=== PATIENT | female | born 1940 | race Caucasian/White ===

== ENCOUNTER → 2018-09-04 14:16 | Outpatient (CLI) | payer MEDICARE, MEDICAID, SELFPAY ==
[2018-09-04 15:09] LABS: Cholesterol 220 mg/dL (140-199); HDL Cholesterol 79 mg/dL (40-60); LDL Cholesterol Calculated 120 mg/dL (<100); Triglycerides 105 mg/dL (35-150)
[2018-09-04 15:38] LABS: Hematocrit 36.6 % (36-46); Hemoglobin 12.4 g/dL (12.0-16.0); Mean Corpuscular HGB Conc 33.9 % (30-36); Mean Corpuscular Hemoglobin 31.1 PG (26-34); Mean Corpuscular Volume 91.6 fL (80-100); Platelet Count 238 X10^3/uL (150-400); Red Blood Cell Count 3.99 X10^6/uL (4.0-5.2); Red Cell Distribution Width 12.7 % (11.6-14.8); White Blood Cell Count 7.6 X10^3/uL (4.5-11.0)
[2018-09-04 15:53] LABS: Vitamin D 25 Hydroxy (D3) 46.5 ng/mL (30.0-100.0)
== END ==
PROVIDERS: PCP Student in an Organized Health Care Education/Training Program; Visit Provider Student in an Organized Health Care Education/Training Program
DX: E55.9 Vitamin D deficiency, unspecified (principal); Z78.0 Asymptomatic menopausal state; Z13.220 Encounter for screening for lipoid disorders
CPT/HCPCS: 36415; 80061; 82306; 85027

== ENCOUNTER → 2018-11-12 12:20 | Outpatient (CLI) | payer MEDICARE, MEDICAID, SELFPAY ==
--- NOTE | 2018-11-12 | DI.MG.S_ITS ---
BILATERAL DIGITAL SCREENING MAMMOGRAM 3D/2D WITH CAD: 11/12/2018 CLINICAL: Routine screening. Family history of breast cancer. Comparison is made to exams dated: 06/22/2016 mammogram, 05/26/2014 mammogram, and 03/30/2013 mammogram - [facility]. The tissue of both breasts is heterogeneously dense. This may lower the sensitivity of mammography. Current study was also evaluated with a Computer Aided Detection (CAD) system. No significant masses, calcifications, or other findings are seen in either breast. There has been no significant interval change. IMPRESSION: NEGATIVE There is no mammographic evidence of malignancy. A 1 year screening mammogram is recommended. This exam was interpreted at Station ID: [id number]. NOTE: For mammograms, a report in lay terms will be sent to the patient. Approximately 15% of breast malignancies will not be visualized mammographically. In the management of a palpable breast mass, a negative mammogram must not discourage biopsy of a clinically suspicious lesion. Electronically Signed By: Brittany rojas/joyce:11/12/2018 18:00:47 letter sent: Normal Exam ACR BI-RADS Category 1: Negative 3341F
== END ==
PROVIDERS: PCP Student in an Organized Health Care Education/Training Program; Visit Provider Student in an Organized Health Care Education/Training Program
DX: Z12.31 Encounter for screening mammogram for malignant neoplasm of breast (principal); Z80.3 Family history of malignant neoplasm of breast; M81.0 Age-related osteoporosis without current pathological fracture; Z78.0 Asymptomatic menopausal state; Z90.722 Acquired absence of ovaries, bilateral; Z87.891 Personal history of nicotine dependence
CPT/HCPCS: 77063; 77067; 77080

== ENCOUNTER → 2018-12-12 13:32 | Outpatient (CLI) | payer MEDICARE, MEDICAID, SELFPAY ==
--- NOTE | 2018-12-12 13:37 | DI.RAD.S_ITS ---
PROCEDURE: XR SHOULDER RT MIN 2V INDICATIONS: Shoulder impingement TECHNIQUE: 3 views of the shoulder were acquired. COMPARISON: None. FINDINGS: Bones: No fractures or dislocations. No suspicious bony lesions. Visualized ribs appear intact. Glenohumeral subchondral sclerosis and mild spurring. There is minimal AC joint degeneration. Mild lateral downsloping of the acromion. Soft tissues: Calcific tendinitis noted IMPRESSION: Right shoulder calcific tendinitis. Mild degenerative changes as above. Dictated by: Juan Danielle M.D. on 12/12/2018 at 15:38 Approved by: Juan Danielle M.D. on 12/12/2018 at 15:39
--- NOTE | 2018-12-12 13:37 | DI.RAD.S_ITS ---
PROCEDURE: XR SHOULDER LT MIN 2V INDICATIONS: Shoulder impingement TECHNIQUE: 3 views of the shoulder were acquired. COMPARISON: [facility], CR, XR SHOULDER MIN 2VW LT, 04/17/2016, 11:43. FINDINGS: Bones: No fractures or dislocations. No suspicious bony lesions. Visualized ribs appear intact. ALFRED and glenohumeral degenerative joint disease with subchondral sclerosis and spurring. Soft tissues: No suspicious soft tissue calcifications. IMPRESSION: Left shoulder joint degeneration as before Dictated by: Juan Danielle M.D. on 12/12/2018 at 15:29 Approved by: Juan Danielle M.D. on 12/12/2018 at 15:30
== END ==
PROVIDERS: PCP Student in an Organized Health Care Education/Training Program; Visit Provider Physical Medicine & Rehabilitation
DX: M75.42 Impingement syndrome of left shoulder (principal); M75.41 Impingement syndrome of right shoulder; M19.012 Primary osteoarthritis, left shoulder; M75.31 Calcific tendinitis of right shoulder
CPT/HCPCS: 20611; 73030; 99213; J0702

== ENCOUNTER → 2019-06-22 11:48 | Outpatient (CLI) | payer MEDICARE, MEDICAID, SELFPAY ==
[2019-06-22 13:15] LABS: BUN Creatinine Ratio 28.3 (6-22); Blood Urea Nitrogen 17 mg/dL (7-17); Estimated Glomerular Filt Rate > 60.0 mL/min (>60)
== END ==
PROVIDERS: PCP Student in an Organized Health Care Education/Training Program; Visit Provider Student in an Organized Health Care Education/Training Program
DX: M81.0 Age-related osteoporosis without current pathological fracture (principal); Z01.812 Encounter for preprocedural laboratory examination
CPT/HCPCS: 36415; 82565; 84520

== ENCOUNTER → 2020-06-30 13:29 | Outpatient (CLI) | payer MEDICARE, MEDICAID, SELFPAY ==
--- NOTE | 2020-06-30 14:00 | DI.RAD.S_ITS ---
PROCEDURE: XR CHEST 2V INDICATIONS: Cough. TECHNIQUE: 2 views of the chest were acquired. COMPARISON: [facility], CHEST 2 VIEW, 12/19/2015, 12:44. [facility], CHEST 1 VIEW, 10/21/2013, 14:20. FINDINGS: Surgical changes and devices: None. Lungs and pleura: Lungs are clear. No pleural effusions or pneumothorax. Mediastinum: Mediastinal contours are normal. Heart size is normal. Bones and chest wall: No suspicious bony abnormalities. Soft tissues appear unremarkable. IMPRESSION: Normal for age, source of current cough symptoms is not seen. Dictated by: Juan Carlos Watson M.D. on 06/30/2020 at 14:27 Approved by: Juan Carlos Watson M.D. on 06/30/2020 at 14:42
[2020-07-01 07:46] LABS: COVID19 Sendout Not Detected (Not Detect)
== END ==
PROVIDERS: PCP Student in an Organized Health Care Education/Training Program; Visit Provider Physician Assistant
DX: Z11.59 Encounter for screening for other viral diseases (principal); R05 Cough
CPT/HCPCS: 71046; 87635

== ENCOUNTER → 2020-09-28 10:56 | Outpatient (CLI) | payer MEDICARE, MEDICAID, SELFPAY ==
[2020-09-28 11:59] LABS: COVID19 -Nasal RAPID Negative (Negative)
== END ==
PROVIDERS: PCP Student in an Organized Health Care Education/Training Program; Referring Provider Internal Medicine; Visit Provider Internal Medicine
DX: Z20.822 Contact with and (suspected) exposure to COVID-19 (principal)
CPT/HCPCS: 87635; C9803

== ENCOUNTER → 2020-10-12 10:59 | Outpatient (CLI) | payer MEDICARE, MEDICAID, SELFPAY ==
[2020-10-12 12:09] LABS: COVID19 -Nasal RAPID Negative (Negative)
== END ==
PROVIDERS: PCP Student in an Organized Health Care Education/Training Program; Referring Provider Internal Medicine; Visit Provider Internal Medicine
DX: Z20.822 Contact with and (suspected) exposure to COVID-19 (principal)
CPT/HCPCS: 87635; C9803

== ENCOUNTER → 2020-10-13 10:56 | Outpatient (CLI) | payer MEDICARE, MEDICAID, SELFPAY ==
--- NOTE | 2020-10-19 10:02 | PM.PFT.1 ---
Pulmonary Function Test Referral & Results Date Patient Seen: 10/13/20 Requesting provider: Moises Rayo Results: The spirometry demonstrates an FVC of 1.80 L which is 65% of predicted. The FEV1 was measured at 1.07 L which is 52% of predicted. The FEV1/FVC ratio was 59 which is 79% of predicted. Following the administration of bronchodilator there was a 12% improvement in FEV1 and a 53% improvement in FEF 25-75%. Lung volumes show an SVC of 2.06 L which is 75% of predicted. The diffusing capacity was measured at 16.70 which is 60% of predicted. No hemoglobin value was provided, so no correction for potential anemia could be made, if appropriate. The maximum voluntary ventilation was reduced Interpretation: This study demonstrates moderate obstructive lung disease based on reduction FEV1. There is evidence of some benefit following bronchodilator particularly in small airway flow as above There is also minimal reduction in lung volumes based on reduction SVC suggesting mild restrictive lung disease There is also a mild reduction in diffusing capacity suggesting element of disease at the capillary alveolar level Compared to PFTs performed in September 2016, current study is essentially unchanged
== END ==
PROVIDERS: PCP Student in an Organized Health Care Education/Training Program; Referring Provider Student in an Organized Health Care Education/Training Program; Visit Provider Student in an Organized Health Care Education/Training Program
DX: R05 Cough (principal); J44.9 Chronic obstructive pulmonary disease, unspecified; Z87.891 Personal history of nicotine dependence
CPT/HCPCS: 94060; 94726; 94729

== ENCOUNTER → 2020-12-19 14:12 | Outpatient (CLI) | payer MEDICARE, MEDICAID, SELFPAY ==
[2020-12-19 15:37] LABS: Hematocrit 36.5 % (36-46)
[2020-12-19 16:17] LABS: Alanine Aminotransferase 17 IU/L (<35); Albumin 4.1 g/dL (3.5-5.0); Albumin Globulin Ratio 1.9 (1.0-2.8); Alkaline Phosphatase 54 U/L (38-126); Aspartate Aminotransferase 28 IU/L (14-36); BUN Creatinine Ratio 21.3 (6-22); Bilirubin Total 0.2 mg/dL (0.2-1.3); Blood Urea Nitrogen 13 mg/dL (7-17); Calcium 9.9 mg/dL (8.4-10.2); Carbon Dioxide 31 mmol/L (22-32); Chloride 98 mmol/L (98-107); Estimated Glomerular Filt Rate > 60.0 mL/min (>60); Globulin 2.2 g/dL (1.7-4.1); Glucose 86 mg/dL (80-110); HEMOLYSIS < 15 (0-50); Potassium 4.4 mmol/L (3.4-5.1); Sodium 134 mmol/L (137-145); Total Protein 6.3 g/dL (6.3-8.2)
== END ==
PROVIDERS: PCP Student in an Organized Health Care Education/Training Program; Referring Provider Student in an Organized Health Care Education/Training Program; Visit Provider Student in an Organized Health Care Education/Training Program
DX: E78.5 Hyperlipidemia, unspecified (principal); M81.0 Age-related osteoporosis without current pathological fracture
CPT/HCPCS: 36415; 80053; 85014; 85018

== ENCOUNTER → 2020-12-21 10:02 | Outpatient (CLI) | payer MEDICARE, MEDICAID, SELFPAY ==
--- NOTE | 2020-12-21 10:04 | DI.MG.S_ITS ---
BILATERAL DIGITAL SCREENING MAMMOGRAM 3D/2D WITH CAD: 12/21/2020 CLINICAL: Routine screening. Family history of breast cancer. Comparison is made to exams dated: 11/12/2018 mammogram, 06/22/2016 mammogram, and 05/26/2014 mammogram - [facility]. The tissue of both breasts is heterogeneously dense. This may lower the sensitivity of mammography. Current study was also evaluated with a Computer Aided Detection (CAD) system. There is a possible developing irregular equal density asymmetry in the left breast at 12 o'clock middle depth. This is more prominent. No other significant masses, calcifications, or other findings are seen in either breast. IMPRESSION: INCOMPLETE: NEEDS ADDITIONAL IMAGING EVALUATION The possible developing irregular equal density asymmetry in the left breast is indeterminate. Additional views with possible ultrasound are recommended. This exam was interpreted at Station ID: [id number]. NOTE: For mammograms, a report in lay terms will be sent to the patient. Approximately 15% of breast malignancies will not be visualized mammographically. In the management of a palpable breast mass, a negative mammogram must not discourage biopsy of a clinically suspicious lesion. Electronically Signed By: Brittany rojas/joyce:12/21/2020 11:44:46 letter sent: Additional Imaging Needed ACR BI-RADS Category 0: Incomplete 3340F
== END ==
PROVIDERS: PCP Student in an Organized Health Care Education/Training Program; Referring Provider Student in an Organized Health Care Education/Training Program; Visit Provider Student in an Organized Health Care Education/Training Program
DX: Z12.31 Encounter for screening mammogram for malignant neoplasm of breast (principal); Z80.3 Family history of malignant neoplasm of breast
CPT/HCPCS: 77063; 77067

== ENCOUNTER → 2021-01-03 14:46 | Outpatient (CLI) | payer MEDICARE, MEDICAID, SELFPAY ==
--- NOTE | 2021-01-03 14:50 | DI.MG.S_ITS ---
UNILATERAL LEFT DIGITAL DIAGNOSTIC MAMMOGRAM 3D/2D WITH ADDITIONAL VIEWS: 01/03/2021 CLINICAL: Additional evaluation requested from prior study. Comparison is made to exams dated: 12/21/2020 mammogram, 11/12/2018 mammogram, and 06/22/2016 mammogram - . The tissue of left breast is heterogeneously dense. This may lower the sensitivity of mammography. The previously seen focal asymmetry in the left breast partially disperses on spot compression views, most likely representing normal fibroglandular breast tissue. No significant masses, calcifications, or other findings are seen in the breast. IMPRESSION: INCOMPLETE: NEEDS ADDITIONAL IMAGING EVALUATION Targeted ultrasound is recommended for further evaluation and will be performed immediately following this exam. This exam was interpreted at Station ID: [id number]. NOTE: For mammograms, a report in lay terms will be sent to the patient. Approximately 15% of breast malignancies will not be visualized mammographically. In the management of a palpable breast mass, a negative mammogram must not discourage biopsy of a clinically suspicious lesion. Electronically Signed By: Elan mendoza/joyce:01/03/2021 15:50:05 ACR BI-RADS Category 0: Incomplete 3340F
--- NOTE | 2021-01-03 14:50 | DI.US.S_ITS ---
LIMITED ULTRASOUND OF LEFT BREAST: 01/03/2021 CLINICAL: Patient returns for additional imaging over a suspected mass in the left breast. Comparison is made to exams dated: 01/03/2021 mammogram, 12/21/2020 mammogram, 11/12/2018 mammogram, and 06/22/2016 mammogram - [facility]. Real-time ultrasound of the left breast was performed. Ca scale images of the real-time examination were reviewed. Dense fibroglandular tissue but no mass is identifed in the area of the mammographic asymmetry in the left breast at the 6 o'clock position posterior depth. IMPRESSION: NEGATIVE No sonographic abnormality is seen corresponding to the mammographic focal aysmmetry in the left breast, compatible with normal fibroglandular tissue. There is no sonographic evidence of malignancy. A 1 year screening mammogram is recommended. This exam was interpreted at Station ID: [id number]. Electronically Signed By: Elan mendoza/joyce:01/03/2021 15:52:46 letter sent: Normal Exam Ultrasound BI-RADS: 1 Negative
== END ==
PROVIDERS: PCP Student in an Organized Health Care Education/Training Program; Referring Provider Student in an Organized Health Care Education/Training Program; Visit Provider Student in an Organized Health Care Education/Training Program
DX: R92.8 Other abnormal and inconclusive findings on diagnostic imaging of breast (principal)
CPT/HCPCS: 76642; 77065; G0279

== ENCOUNTER → 2021-05-23 11:44 | Outpatient (CLI) | payer MEDICARE, MEDICAID, SELFPAY ==
--- NOTE | 2021-05-23 11:46 | DI.RAD.S_ITS ---
PROCEDURE: XR FOOT RT MIN 3V INDICATIONS: R foot pain, near MTPs mostly 1st digit TECHNIQUE: 3 views of the foot were acquired. COMPARISON: None. FINDINGS: Bones: No fractures or dislocations. No suspicious bony lesions. Joint space narrowing of the interphalangeal joints of the toes are identified. The great toe MTP joint has minimal degenerative changes. Soft tissues: No tibiotalar joint effusion. Achilles tendon appears normal. IMPRESSION: Degenerative changes in the interphalangeal joints and great toe MTP joint. No acute abnormality. Dictated by: Dakoat Nye M.D. on 05/23/2021 at 12:36 Approved by: Dakota Nye M.D. on 05/23/2021 at 12:38
== END ==
PROVIDERS: PCP Student in an Organized Health Care Education/Training Program; Referring Provider Physician Assistant; Visit Provider Physician Assistant
DX: M79.671 Pain in right foot (principal)
CPT/HCPCS: 73630

== ENCOUNTER → 2021-10-29 15:33 | Outpatient (CLI) | payer MEDICARE, MEDICAID, SELFPAY ==
--- NOTE | 2021-10-29 15:37 | DI.RAD.S_ITS ---
PROCEDURE: XR RIBS RT MIN 3V W CXR 1V INDICATIONS: R posterior/lateral rib pain, fall 3 weeks ago TECHNIQUE: 2 views of the right ribs were acquired, along with a single view chest. COMPARISON: [facility], CHEST 2 VIEW, 12/19/2015, 12:44. [facility], , CHEST 1 VIEW, 10/21/2013, 14:20. [facility], , XR CHEST 2V, 06/30/2020, 13:55. FINDINGS: Surgical changes and devices: None. Bones and chest wall: A marker is placed upon the area of clinical concern. Within this region, no displaced rib fracture or other significant rib abnormality can be seen. No rib fractures are seen elsewhere. No suspicious bony lesions. Age-appropriate bony degenerative changes are seen. Overlying soft tissues appear unremarkable. Lungs and pleura: No pleural effusions or pneumothorax. Lungs appear clear. Mediastinum: Mediastinal contours appear normal. Heart size is normal. Atherosclerotic calcification of the aortic arch is noted. IMPRESSION: No displaced rib fracture or pneumothorax can be seen. Dictated by: Osmani Valdivia M.D. on 10/29/2021 at 14:58 Approved by: Osmani Valdivia M.D. on 10/29/2021 at 15:00
== END ==
PROVIDERS: PCP Student in an Organized Health Care Education/Training Program; Referring Provider Physician Assistant; Visit Provider Physician Assistant
DX: R07.81 Pleurodynia (principal)
CPT/HCPCS: 71101

== ENCOUNTER → 2022-04-06 09:33 | Outpatient (CLI) | payer MEDICARE, MEDICAID, SELFPAY ==
[2022-04-06 09:47] LABS: Add Manual Diff / Slide Review NO; Basophils Absolute Auto 100 /uL (0-100); Basophils Percent Auto 0.6 % (0-2); Eosinophils Absolute Auto 300 /uL (0-450); Hematocrit 36.6 % (36-46); Hemoglobin 12.4 g/dL (12.0-16.0); Lymphocytes Absolute Auto 2700 /uL (1100-4500); Lymphocytes Percent Auto 21.2 % (25-40); Mean Corpuscular HGB Conc 33.8 % (30-36); Mean Corpuscular Hemoglobin 31.2 PG (26-34); Mean Corpuscular Volume 92.4 fL (80-100); Monocytes Absolute Auto 600 /uL (0-900); Monocytes Percent Auto 4.8 % (3-14); Neutrophils Absolute Auto 9200 /uL (1500-7000); Neutrophils Percent Auto 71.4 % (50-75); Platelet Count 200 X10^3/uL (150-400); Red Blood Cell Count 3.96 X10^6/uL (4.0-5.2); Red Cell Distribution Width 13.4 % (11.6-14.8); White Blood Cell Count 12.8 X10^3/uL (4.5-11.0)
[2022-04-06 09:52] LABS: Prothrombin Time 10.9 SECONDS (10.1-12.7)
[2022-04-06 09:55] LABS: PTT Partial Thromboplastin Tim 28 SECONDS (26.4-36.2)
== END ==
PROVIDERS: PCP Student in an Organized Health Care Education/Training Program; Referring Provider Obstetrics & Gynecology; Visit Provider Obstetrics & Gynecology
DX: R23.3 Spontaneous ecchymoses (principal)
CPT/HCPCS: 36415; 85025; 85610; 85730

== ENCOUNTER → 2022-06-19 13:09 | Outpatient (CLI) | payer MEDICARE, MEDICAID, SELFPAY ==
--- NOTE | 2022-06-19 | DI.MG.S_ITS ---
BILATERAL DIGITAL SCREENING MAMMOGRAM 3D/2D WITH CAD: 06/19/2022 CLINICAL: Routine screening. Family history of breast cancer. Comparison is made to exams dated: 01/03/2021 mammogram, 12/21/2020 mammogram, 11/12/2018 mammogram, and 06/22/2016 mammogram - [facility]. There are scattered areas of fibroglandular density in both breasts (category b / 25%-50% glandular tissue). Current study was also evaluated with a Computer Aided Detection (CAD) system. There are benign calcifications in both breasts. There also are benign vascular calcifications in both breasts. No significant masses, calcifications, or other findings are seen in either breast. There has been no significant interval change. IMPRESSION: BENIGN There is no mammographic evidence of malignancy. A 1 year screening mammogram is recommended. Based on the Tyrer Cuzick model (a risk assessment model) the patient's lifetime risk is 0.8% and her 10 year risk is 0.0%. According to the ACR, ACS, and NCCN guidelines, an annual breast MRI exam along with mammogram is recommended if the patient's lifetime risk is 20% or greater. This exam was interpreted at Station ID: [id number]. NOTE: For mammograms, a report in lay terms will be sent to the patient. Approximately 15% of breast malignancies will not be visualized mammographically. In the management of a palpable breast mass, a negative mammogram must not discourage biopsy of a clinically suspicious lesion. Electronically Signed By: Ishmael huerta/joyce:06/19/2022 14:43:45 letter sent: Normal Exam ACR BI-RADS Category 2: Benign Finding(s) 3342F
== END ==
PROVIDERS: PCP Student in an Organized Health Care Education/Training Program; Referring Provider Student in an Organized Health Care Education/Training Program; Visit Provider Student in an Organized Health Care Education/Training Program
DX: Z12.31 Encounter for screening mammogram for malignant neoplasm of breast (principal); Z80.3 Family history of malignant neoplasm of breast
CPT/HCPCS: 77063; 77067

== ENCOUNTER → 2022-07-19 11:36 | Outpatient (CLI) | payer MEDICARE, MEDICAID, SELFPAY ==
--- NOTE | 2022-07-19 | DI.MRI.S_ITS ---
PROCEDURE: MR LUMBAR SPINE WO CON INDICATIONS: Spinal stenosis w neurogenic claudication TECHNIQUE: Noncontrast sagittal T1 spin echo and T2 fast echo, sagittal STIR, and T2 fast spin echo through the lumbar spine. In cases with scoliosis, additional coronal T2 fast spin echo may be performed. COMPARISON: None. FINDINGS: Image quality: Excellent. Alignment and Curvature: There is minimal levoconvex lumbar scoliotic curvature. Minimal L5-S1 anterolisthesis is seen. Bone Marrow: Marrow is of normal overall signal. No acute vertebral body compression fractures. Spinal Cord: Conus medullaris terminates at the L1 level. Visualized cord demonstrates normal signal and size. Paraspinous Soft Tissues: No paravertebral masses. T12-L1: Normal appearance. L1-L2: Normal appearance. L2-L3: The disc height is well-preserved. Loss of disc signal is seen at this level. Mild disc bulge is seen, which is eccentric to the right. Mild facet joint hypertrophy is seen. No significant neural foraminal or central canal narrowing can be seen. L3-L4: The disc height is well-preserved. Loss of disc signal is seen at this level. Mild to moderate disc bulge is seen. At least moderate facet hypertrophy is seen, right worse than left. Mild bilateral neural foraminal narrowing is seen. Minimal to mild central canal narrowing is seen. L4-L5: The disc height is well-preserved. Loss of disc signal is seen at this level. Moderate disc bulge is seen, which is slightly eccentric to the right. There is a focal annular fissure seen posteriorly. At least moderate facet hypertrophy is seen. Associated hypertrophy of the ligamentum flavum can be seen. Moderate bilateral neural foraminal narrowing is seen. Mild to moderate central canal narrowing is seen. L5-S1: Moderate loss of disc height is seen. Loss of disc signal is seen. Mild to moderate disc bulge is seen, which is eccentric to the left. There is a superimposed central disc protrusion. There is a focal annular fissure seen posteriorly. Mild facet joint hypertrophy is seen. There is [id number] right-sided and moderate left-sided neural foraminal narrowing. There is a mild degree of compression seen upon the exiting left L5 nerve root. Moderate central canal narrowing is seen. 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 IMPRESSION: Multiple levels of lumbar spine degenerative change are seen, which are overall worst at the L5-S1 level. Dictated by: Osmani Valdivia M.D. on 07/19/2022 at 15:11 Transcribed by: GABE on 07/19/2022 at 15:14 Approved by: Osmani Valdivia M.D. on 07/19/2022 at 15:22
== END ==
PROVIDERS: PCP Student in an Organized Health Care Education/Training Program; Referring Provider Orthopaedic Surgery Orthopaedic Surgery of the Spine; Visit Provider Orthopaedic Surgery Orthopaedic Surgery of the Spine
DX: M48.062 Spinal stenosis, lumbar region with neurogenic claudication (principal); M47.817 Spondylosis without myelopathy or radiculopathy, lumbosacral region; M47.816 Spondylosis without myelopathy or radiculopathy, lumbar region
CPT/HCPCS: 72148

== ENCOUNTER → 2022-08-20 13:47 | Outpatient (CLI) | payer MEDICARE, MEDICAID, SELFPAY ==
[2022-08-21 09:01] LABS: Candida species Negative (Negative); Gardnerella vaginalis Positive (Negative); Trichomoas vaginalis Negative (Negative)
== END ==
PROVIDERS: PCP Student in an Organized Health Care Education/Training Program; Visit Provider Obstetrics & Gynecology
DX: N76.0 Acute vaginitis (principal)
CPT/HCPCS: 87070; 87205; 87480; 87510; 87660

== ENCOUNTER → 2022-10-01 14:24 | Outpatient (CLI) | payer MEDICARE, MEDICAID, SELFPAY ==
[2022-10-01 16:17] LABS: Estradiol, Total 224.9 pg/mL
== END ==
PROVIDERS: PCP Student in an Organized Health Care Education/Training Program; Referring Provider Obstetrics & Gynecology; Visit Provider Obstetrics & Gynecology
DX: N95.1 Menopausal and female climacteric states (principal)
CPT/HCPCS: 36415; 82670

== ENCOUNTER → 2022-11-07 11:24 | Outpatient (CLI) | payer MEDICARE, MEDICAID, SELFPAY ==
[2022-11-07 12:24] LABS: Add Manual Diff / Slide Review NO; Basophils Absolute Auto 100 /uL (0-100); Basophils Percent Auto 0.7 % (0-2); Eosinophils Absolute Auto 100 /uL (0-450); Eosinophils Percent Auto 1.3 % (2-4); Hematocrit 34.4 % (36-46); Hemoglobin 11.5 g/dL (12.0-16.0); Lymphocytes Absolute Auto 1800 /uL (1100-4500); Lymphocytes Percent Auto 19.1 % (25-40); Mean Corpuscular HGB Conc 33.5 % (30-36); Mean Corpuscular Hemoglobin 31.3 PG (26-34); Mean Corpuscular Volume 93.3 fL (80-100); Monocytes Absolute Auto 600 /uL (0-900); Monocytes Percent Auto 6.4 % (3-14); Neutrophils Absolute Auto 7000 /uL (1500-7000); Neutrophils Percent Auto 72.5 % (50-75); Platelet Count 184 X10^3/uL (150-400); Red Blood Cell Count 3.69 X10^6/uL (4.0-5.2); Red Cell Distribution Width 14.4 % (11.6-14.8); White Blood Cell Count 9.6 X10^3/uL (4.5-11.0)
[2022-11-07 12:40] LABS: BUN Creatinine Ratio 24.6 (6-22); Blood Urea Nitrogen 14 mg/dL (7-17); Calcium 9.8 mg/dL (8.4-10.2); Carbon Dioxide 30 mmol/L (22-32); Chloride 101 mmol/L (98-107); Estimated Glomerular Filt Rate > 60 mL/min (>60); Glucose 70 mg/dL (80-110); HEMOLYSIS < 15 (0-50); Potassium 4.5 mmol/L (3.4-5.1); Sodium 137 mmol/L (137-145)
[2022-11-07 12:52] LABS: Free T4, Direct Thyroxine 1.04 ng/dL (0.78-2.19)
[2022-11-07 13:07] LABS: Thyroid Stimulating Hormone 1.92 uIU/mL (0.47-4.68)
[2022-11-08 11:41] LABS: Cholesterol 189 mg/dL (140-199); HDL Cholesterol 59 mg/dL (40-60); LDL Cholesterol Calculated 110 mg/dL (<100); Triglycerides 102 mg/dL (35-150)
== END ==
PROVIDERS: Obstetrics & Gynecology; PCP Student in an Organized Health Care Education/Training Program; Referring Provider Orthopaedic Surgery Orthopaedic Surgery of the Spine; Visit Provider Orthopaedic Surgery Orthopaedic Surgery of the Spine
DX: Z01.818 Encounter for other preprocedural examination (principal); R23.2 Flushing; E78.5 Hyperlipidemia, unspecified; Z01.812 Encounter for preprocedural laboratory examination
CPT/HCPCS: 36415; 80048; 80061; 84439; 84443; 85025; 93005; 93010

== ENCOUNTER 2022-11-21 07:26 | Day surgery (SDC) | payer MEDICARE, MEDICAID, SELFPAY ==
[2022-11-15 09:50] VITALS: BMI 28.5
[2022-11-21] VITALS (8 sets, daily range): BP systolic 106–131; BP diastolic 46–72; PULSE 62–101; RESP 12–20; TEMP 36.7–37.1; O2SAT 93–98; BMI 26.6
--- NOTE | 2022-11-21 | DI.RAD.S_ITS ---
PROCEDURE: XR LUMBAR SPINE 2-3V INDICATIONS: L4-5 L5-S1 LAMINECTOMY TECHNIQUE: 2 intraoperative fluoroscopic views of the lumbar spine were acquired. COMPARISON: [facility], , L-SPINE 2-3 VIEWS, 08/08/2016, 15:21. FINDINGS: Intraoperative fluoroscopic images of lower lumbar spine shows surgical instrument placed posteriorly at L4-5 and L5-S1 levels. IMPRESSION: Fluoro guidance was provided intraoperatively for L4-5 and L5-S1 laminectomy performed by the ordering physician. Dictated by: Alexy Saleem M.D. on 11/21/2022 at 12:52 Approved by: Alexy Saleem M.D. on 11/21/2022 at 12:57
--- NOTE | 2022-11-21 08:15 | SUR.OPER ---
Prone on spine table, head in foam head support, padded chest and pelvic supports, gel pad at knees, lower legs supported by pillows; nipples, genitalia and toes free of pressure, arms secured on foam padded arm boards at <90 degrees abduction. Tape over blanket at thigh secured to table.
[2022-11-21] MEDS: LACTATED RINGERS 1,000 ML 42 ML IV (08:18)
[2022-11-21] MEDS: ACETAMINOPHEN 325 MG TABLET 975 MG PO (08:18)
--- NOTE | 2022-11-21 08:40 | PM.PREOP ---
Pre-operative Note COVID-19 COVID-19 status: Negative Result date/Date tested (Pos, Neg/Pending): 11/20/22 Criteria for continued procedure: Expected advancement of disease process, Possibility delay results in more complex future surgery or treatment, Increased loss of function, Continuing or worsening of significant or severe pain, Deterioration of the patient's condition or overall health and Delay expected to result in less-positive ultimate med/surg outcome Interval Note History & Physical reviewed/Exam performed by Physician: Yes Changes to H&P: No
[2022-11-21] MEDS: CEFAZOLIN 2 GM/100 ML PREMIX 100 ML IV (09:00)
[2022-11-21] MEDS: BUPIVACAINE 0.25% (PF) VIAL 30 ML INJ (09:54)
--- NOTE | 2022-11-21 10:21 | P.OP_ITS ---
Operative Date/Time/Diagnoses Date of procedure: 11/21/22 Time of procedure: 08:40 Pre-op diagnosis: 1. L4-5, L5-S1 spinal stenosis 2. Epidural lipomatosis Post-op diagnosis: same Procedure & Clinicians Procedure: 1. L5-S1 laminectomy with partial facetecomy 2. L4-5 right hemilaminectomy 3. Utilization of microsurgical technique and operating microscope Same procedure as scheduled: Yes Indications: Patient has been having chronic back pain and worsening lumbar radiculopathy and symptoms of neurogenic claudication. Patient failed multiple conservative management with worsening pain weakness and numbness in her lower extremity. Patient has been having difficulty performing activity of daily living. After discussing risks benefits of treatment options, patient elected proceed with surgery. Surgeon: Hayley Carlson Diesel Fitter Mechanic: Lea Soriano Click Yes if Unassisted: No Anesthesia Type: General Operative Notes Closure Type: primary Specimen(s): none sent Estimated Blood Loss (mL): 5 Blood products transfused: none Procedure in detail: Patient was seen in the preoperative area. Risks and benefits of the surgery was discussed with the patient. Informed consent was obtained from the patient and placed in the chart. Surgical site was marked. Patient was taken to the operative room. General anesthesia was administered. Prophylactic antibiotic was given to the patient less than 30 min before the incision was made. Patient was placed into a prone position on the Aakash table. Patient's back was then prepped and draped in the sterile fashion. Time-out was performed at this time. Using AP and lateral C-arm imaging the interval between L5-S1 was identified and marked on patient's back. A 1 inch incision 1 in from midline was made on the right side. The fascia was incised in line with skin incision. Globus MARS retractors was placed inside the incision and docked onto the L5 lamina. Using microsurgical technique and operating microscope, a L5 laminectomy was performed using a Kerrison rongeur. Liagamentum flavum was resected at the site of the laminotomy. Either side of the dura was exposed. Bilateral partial facetcomies was performed to further decompress the lateral recess. Partial facetectomy was performed using the Kerrison rongeur the further decompress the right lateral recess. One in 75% of the facet was preserved in order to preserve patient's stability at the L5-S1 level. After the laminectomy was completed, the area medial lateral superior and inferior to the area of the laminectomy was inspected and explored using a micro curette. No other impinging structure was identified. The mars retractor was redirected over the L4-5 interval. Using microsurgical technique and operative microscope a hemilaminectomy was performed at L4-5 level. Kerrison rongeur a micro curette was used to free up the ligamentum flavum which was resected during the process of a hemilaminectomy for the further decompressing the epidural space and lateral recess. The wound was then irrigated with sterile normal saline. 40 mg Depo-Medrol was placed into the epidural space. The deep fascia was closed with 1-0 Vicryl. The subcutaneous tissue was closed with 2-0 Vicryl. The skin was closed with skin yasmeen. Patient tolerated the procedure well. There were no complications. Patient was transferred recovery room in stable condition. Complications: none Post-operative Condition: stable Disposition: PACU Plan for aftercare: Discharge to home
[2022-11-21] MEDS: ONDANSETRON 4 MG/2 ML INJ IV (10:36)
[2022-11-21] MEDS: OXYCODONE IR 5 MG TABLET PO ×2 (10:36→11:25)
== END 2022-11-21 11:39 | disposition home or self-care (01) ==
PROVIDERS: PCP Student in an Organized Health Care Education/Training Program; Referring Provider Orthopaedic Surgery Orthopaedic Surgery of the Spine; Visit Provider Orthopaedic Surgery Orthopaedic Surgery of the Spine
PROC: (CPT 63047; principal; 2022-11-21 08:45)
DX: M48.02 Spinal stenosis, cervical region (principal); M54.16 Radiculopathy, lumbar region; E88.2 Lipomatosis, not elsewhere classified
CPT/HCPCS: 63047; 63030; 72100; 76000; 93005; J0330; J0690; J1100; J2405; J2704; J3010; J3490

== ENCOUNTER → 2023-01-17 10:38 | Outpatient (CLI) | payer MEDICARE, MEDICAID, SELFPAY ==
--- NOTE | 2023-01-29 08:03 | P.PFT.S_ITS ---
Pulmonary Function Test Referral & Results Date Patient Seen: 01/17/23 Results: The spirometry demonstrates an FVC of 1.65 L which is 63% of predicted. The FEV1 was measured at 1.03 L which is 53% of predicted. The FEV1/FVC ratio was 63 which is 84% of predicted. Following the administration of bronchodilator there was no notable change. Lung volumes show an SVC of 1.80 L which is 67% of predicted. The diffusing capacity was measured at 14.65 which is 60% of predicted. No hemo globin value was provided, so no correction for potential anemia could be made, if appropriate. The maximum voluntary ventilation was reduced Interpretation: This study demonstrates moderate to moderately severe obstructive lung disease based on reduction FEV1 with the actual number being just over 1 L. However FEV1/FVC ratio is relatively preserved and there really is no evidence of benefit following bronchodilator administration There is a moderate reduction in lung volumes suggesting the presence of moderate restrictive lung disease which may explain some of the abnormality in the FEV1 above There is also moderate reduction diffusing capacity suggesting disease at the capillary alveolar level Compared to PFTs performed in September 2020, current study is essentially unchanged. There may be a minimal decline in diffusing capacity compared to previous
== END ==
PROVIDERS: PCP Student in an Organized Health Care Education/Training Program; Referring Provider Internal Medicine; Visit Provider Internal Medicine
DX: J44.9 Chronic obstructive pulmonary disease, unspecified (principal); J45.40 Moderate persistent asthma, uncomplicated; Z87.891 Personal history of nicotine dependence
CPT/HCPCS: 94060; 94726; 94729

== ENCOUNTER → 2023-05-03 10:06 | Outpatient (CLI) | payer MEDICARE, MEDICAID, SELFPAY ==
--- NOTE | 2023-05-03 10:07 | DI.RAD.S_ITS ---
Bone Density Report Name: PONCE WILSON Age: 82 Sex: Female Ethnicity: White Date of : 1940 Indication: postmenopausal; screening for osteoporosis; Referring Provider: BREANNA TORRES Study: Bone densitometry was performed. Exam Date: May 03, 2023 Accession number: [id number] Bone Density: Region BMD T-score Z-score Classification AP Spine(L1-L4) 0.650 -3.6 -0.9 Osteoporosis Femoral Neck (Left) 0.428 -3.8 -1.5 Osteoporosis Total Hip (Left) 0.645 -2.4 -0.4 Osteopenia Femoral Neck (Right) 0.454 -3.6 -1.2 Osteoporosis Total Hip (Right) 0.642 -2.5 -0.4 Osteoporosis Total Hip Mean 0.643 -2.5 -0.4 Osteopenia World Health Organization criteria for BMD impression classify patients as: Normal (T-score at or above -1.0), Osteopenia (T-score between -1.0 and -2.5), or Osteoporosis (T-score at or below -2.5). 10-year Fracture Risk: FRAX not reported because: Some T-score for Spine Total or Hip Total or Femoral Neck at or below -2.5 Treated for osteoporosis Impression: The patient has osteoporosis, based on the Left Femoral Neck T-score. Discussion: It is important to ask patients whether they are taking their medications and to encourage continued and appropriate compliance with their osteoporosis therapies to reduce fracture risk. It is also important to review their risk factors and encourage appropriate calcium and vitamin D intakes, exercise, fall prevention and other lifestyle measures. Follow-Up: Consider a repeat BMD and Vertebral Fracture Assessment (VFA) exam in 2 years or sooner if medically necessary, to reassess this patient's status. Reported by: VICKI LONGO M.D. on 05/03/2023 10:39:00 AM.
== END ==
PROVIDERS: PCP Pediatrics; Referring Provider Pediatrics; Visit Provider Pediatrics
DX: Z78.0 Asymptomatic menopausal state (principal); Z13.820 Encounter for screening for osteoporosis; M81.0 Age-related osteoporosis without current pathological fracture; Z90.710 Acquired absence of both cervix and uterus
CPT/HCPCS: 77080

== ENCOUNTER → 2023-05-21 10:51 | Outpatient (CLI) | payer MEDICARE, MEDICAID, SELFPAY ==
--- NOTE | 2023-05-21 10:53 | DI.RAD.S_ITS ---
PROCEDURE: XR CHEST 2V INDICATIONS: sob TECHNIQUE: 2 views of the chest were acquired. COMPARISON: [facility], CR, XR CHEST 2V, 06/30/2020, 13:55. FINDINGS: Surgical changes and devices: None. Lungs and pleura: There is no focal infiltrate. No pneumothorax. Mild pulmonary vascular congestion is noted. Small left pleural effusion is seen with blunting of left costophrenic angle. Mediastinum: Mediastinal contours are normal. Heart size is normal. Bones and chest wall: No suspicious bony abnormalities. Soft tissues appear unremarkable. IMPRESSION: Mild congestion and small left pleural effusion. No definite focal infiltrate. No pneumothorax. Dictated by: Alexy Saleem M.D. on 05/21/2023 at 13:17 Approved by: Alexy Saleem M.D. on 05/21/2023 at 13:18
--- NOTE | 2023-05-21 10:53 | DI.RAD.S_ITS ---
PROCEDURE: XR SACRUM COCCYX MIN 2V INDICATIONS: lumbar pain TECHNIQUE: 3 views of the sacrum and coccyx acquired. COMPARISON: None. FINDINGS: Bones: No gross acute sacral or coccygeal fracture. No suspicious bony lesions. Osteoarthritic changes are noted in bilateral sacroiliac joints. No gross bony erosion or ankylosis is seen. Soft tissues: Visualized bowel gas pattern is normal. No suspicious soft tissue densities. IMPRESSION: No gross acute sacral or coccygeal fracture. Osteopenia. Bilateral sacroiliac joint osteoarthritis. If indicated, CT or MRI of pelvis can be done for further evaluation. Dictated by: Alexy Saleem M.D. on 05/21/2023 at 13:18 Approved by: Alexy Saleem M.D. on 05/21/2023 at 13:21
--- NOTE | 2023-05-21 10:53 | DI.RAD.S_ITS ---
PROCEDURE: XR LUMBAR SPINE 2-3V INDICATIONS: lumbar pain TECHNIQUE: 3 views of the lumbar spine were acquired. COMPARISON: [facility], , XR LUMBAR SPINE 2-3V, 11/21/2022, 10:25. FINDINGS: Bones: 5 [id number] vertebrae are present. There is mild levoscoliosis centered at L1 level. Degenerative endplate changes are noted throughout mid to lower lumbar spine more notably at L4-5 and L5-S1 levels. No vertebral body compression fractures. No suspicious bony lesions. Soft tissues: Overlying bowel gas pattern is normal. No suspicious soft tissue calcifications. 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 No acute compression fracture or significant spondylolisthesis. Dictated by: Alexy Saleem M.D. on 05/21/2023 at 13:21 Approved by: Alexy Saleem M.D. on 05/21/2023 at 13:27
[2023-05-21 12:41] LABS: Add Manual Diff / Slide Review NO; Basophils Absolute Auto 100 /uL (0-100); Basophils Percent Auto 0.6 % (0-2); Eosinophils Absolute Auto 100 /uL (0-450); Eosinophils Percent Auto 0.9 % (2-4); Hematocrit 34.7 % (36-46); Hemoglobin 11.4 g/dL (12.0-16.0); Lymphocytes Absolute Auto 1600 /uL (1100-4500); Lymphocytes Percent Auto 14.9 % (25-40); Mean Corpuscular HGB Conc 32.9 % (30-36); Mean Corpuscular Hemoglobin 29.8 PG (26-34); Mean Corpuscular Volume 90.6 fL (80-100); Monocytes Absolute Auto 500 /uL (0-900); Monocytes Percent Auto 4.4 % (3-14); Neutrophils Absolute Auto 8600 /uL (1500-7000); Neutrophils Percent Auto 79.2 % (50-75); Platelet Count 198 X10^3/uL (150-400); Red Blood Cell Count 3.83 X10^6/uL (4.0-5.2); Red Cell Distribution Width 14.2 % (11.6-14.8); White Blood Cell Count 10.8 X10^3/uL (4.5-11.0)
[2023-05-21 12:50] LABS: D Dimer 1562 ng/ml (<500)
[2023-05-21 13:07] LABS: Erythrocyte Sedimentation Rate 29 MM/HR (0-20)
[2023-05-21 13:11] LABS: HEMOLYSIS < 15 (0-50); NT-proBNP (BNP-Adult 18+) 2350 pg/mL (<450)
[2023-05-21 13:13] LABS: Alanine Aminotransferase 20 IU/L (<35); Albumin 3.4 g/dL (3.5-5.0); Albumin Globulin Ratio 1.3 (1.0-2.8); Alkaline Phosphatase 76 U/L (38-126); Aspartate Aminotransferase 28 IU/L (14-36); BUN Creatinine Ratio 27.1 (6-22); Bilirubin Total 0.3 mg/dL (0.2-1.3); Blood Urea Nitrogen 16 mg/dL (7-17); C-Reactive Protein Quant 2.9 mg/dL (<1.0); Calcium 9.4 mg/dL (8.4-10.2); Carbon Dioxide 31 mmol/L (22-32); Chloride 99 mmol/L (98-107); Estimated Glomerular Filt Rate > 60 mL/min (>60); Globulin 2.6 g/dL (1.7-4.1); Glucose 78 mg/dL (80-110); Potassium 4.2 mmol/L (3.4-5.1); Sodium 134 mmol/L (137-145)
[2023-05-21 13:32] LABS: TSH w/ Reflex to FT4 2.05 uIU/mL (0.47-4.68)
== END ==
PROVIDERS: PCP Pediatrics; Referring Provider Pediatrics; Visit Provider Pediatrics
DX: J90 Pleural effusion, not elsewhere classified (principal); M47.818 Spondylosis without myelopathy or radiculopathy, sacral and sacrococcygeal region; M51.36 Other intervertebral disc degeneration, lumbar region; M85.88 Other specified disorders of bone density and structure, other site; R06.02 Shortness of breath; R09.89 Other specified symptoms and signs involving the circulatory and respiratory systems; M54.50 Low back pain, unspecified; F11.20 Opioid dependence, uncomplicated; J44.9 Chronic obstructive pulmonary disease, unspecified; M19.019 Primary osteoarthritis, unspecified shoulder; G89.18 Other acute postprocedural pain; G89.29 Other chronic pain
CPT/HCPCS: 36415; 71046; 72100; 72220; 80053; 83880; 84443; 85025; 85379; 85651; 86140

== ENCOUNTER → 2023-05-28 11:41 | Outpatient (CLI) | payer MEDICARE, MEDICAID, SELFPAY ==
[2023-05-28 13:36] LABS: BUN Creatinine Ratio 30.2 (6-22); Blood Urea Nitrogen 19 mg/dL (7-17); Calcium 9.1 mg/dL (8.4-10.2); Carbon Dioxide 30 mmol/L (22-32); Chloride 97 mmol/L (98-107); Estimated Glomerular Filt Rate > 60 mL/min (>60); Glucose 79 mg/dL (80-110); HEMOLYSIS < 15 (0-50); Potassium 4.2 mmol/L (3.4-5.1); Sodium 133 mmol/L (137-145)
== END ==
PROVIDERS: PCP Pediatrics; Referring Provider Pediatrics; Visit Provider Pediatrics
DX: E78.00 Pure hypercholesterolemia, unspecified (principal); J44.9 Chronic obstructive pulmonary disease, unspecified
CPT/HCPCS: 36415; 80048

== ENCOUNTER 2023-06-04 13:26 | Emergency (ER) | payer MEDICARE, MEDICAID, SELFPAY ==
[2023-06-04] VITALS (26 sets, daily range): BP systolic 108–161; BP diastolic 51–102; PULSE 99–134; RESP 16–39; TEMP 37; O2SAT 85–99; BMI 27.4
--- NOTE | 2023-06-04 13:39 | DI.RAD.S_ITS ---
PROCEDURE: XR CHEST 1V INDICATIONS: short of breath TECHNIQUE: One view of the chest was acquired. COMPARISON: [facility], CR, XR CHEST 2V, 05/21/2023, 11:08. [facility], CR, XR CHEST 2V, 06/30/2020, 13:55. FINDINGS: Surgical changes and devices: There is probably an external device that projects over the upper mediastinum, limiting evaluation in this region. Lungs and pleura: Low lung volumes. Mild bibasilar opacities. Possible left trace effusion versus thickening. Mediastinum: Borderline heart size. Bones and chest wall: Degenerative changes. IMPRESSION: Single-view portable chest with low lung volumes, limiting evaluation. Mild bibasilar opacities may represent early airspace disease versus atelectasis. Consider future imaging surveillance to assess for resolution. Possible small left effusion. Dictated by: Khoa Mares M.D. on 06/04/2023 at 14:16 Approved by: Khoa Mares M.D. on 06/04/2023 at 14:18
--- NOTE | 2023-06-04 13:39 | ED.SOB ---
HPI - SOB/Dyspnea <Graciela Howard, DO - Last Filed: 06/11/23 07:27> General Chief Complaint: Shortness of Breath/Dyspnea Stated Complaint: SOB Time Seen by Provider: 06/04/23 13:38 Source: patient and EMS Mode of arrival: EMS Limitations: no limitations History of Present Illness HPI Narrative: Patient is an 82-year-old female who has mild known asthma presenting today with increasing shortness of breath which started at 3:00 a.m. and woke her from her sleep and has progressively gotten worse. She reports that they have been working her up for congestive heart failure for about 1 month she is had swelling in her legs she is been on Lasix both patient and daughter report that the swelling in her legs today is much improved. She had blood work done May 21 by primary BNP was 2300 elevated dimer 1300. Today she denies any chest pain or discomfort however she has significant orthopnea and dyspnea with exertion. She used some albuterol at home which did not seem to help. EMS was called she is found to have oxygen levels 80% requiring 1-2 L. She is not had much improvement with DuoNe Related Data Home Medications Medication Instructions Recorded Confirmed fluticasone 250 mcg-salmeterol 50 1 ea inhalation BID 05/28/23 06/09/23 mcg/dose blistr powdr for inhalation (Wixela Inhub) Acid Key Person (omeprazole) 20 mg PO AC reflux 06/09/23 06/09/23 albuterol sulfate 90 mcg/actuation 2 puff inhalation Q4-6H PRN 06/09/23 06/09/23 aerosol inhaler wheezing betamethasone dipropionate 0.05 % 1 applic topical BID PRN Rash 06/09/23 06/09/23 topical ointment cyclobenzaprine 10 mg tablet 10 mg PO Q8HR PRN Muscle Spasm 06/09/23 06/09/23 gabapentin 300 mg PO Q8H neuropathy 06/09/23 06/09/23 pravastatin 40 mg tablet 40 mg PO HS high cholesterol 06/09/23 06/09/23 sumatriptan succinate 100 mg 100 mg PO PRN PRN migraines 06/09/23 06/09/23 tablet (Imitrex) tramadol 100 mg PO Q8HR PRN Pain (Scale 06/09/23 06/09/23 Score 4-6) Previous Rx's Medication Instructions Recorded meclizine 25 mg tablet 25 mg PO TID PRN dizziness #90 tabs 05/20/20 budesonide 0.5 mg/2 mL suspension 0.5 mg (2 mL) inhalation BID #120 01/02/21 for nebulization mL metoprolol tartrate 25 mg tablet 25 mg PO BID #180 tabs 10/11/22 Disabled Parking Permit See Rx Instructions .Route 03/19/23 .COMPLEX #1 unit furosemide 20 mg tablet 20 mg PO DAILY #30 tabs 05/24/23 potassium chloride 20 mEq 20 meq PO DAILY #30 tabs 05/24/23 tablet,extended release Allergies Allergy/AdvReac Type Severity Reaction Status Date / Time Sulfa (Sulfonamide Allergy Severe RASH Verified 06/04/23 13:39 Antibiotics) [SULFA (SULFONAMIDE ANTIBIOTICS)] bee venom protein (honey bee) Allergy Intermediate Throat Verified 06/04/23 13:39 swelling and breathing problems alendronate sodium AdvReac Severe Intolerable Verified 06/04/23 13:39 heartburn paroxetine [PAROXETINE] AdvReac Intermediate agitated, Verified 06/04/23 13:39 anxious turmeric AdvReac Broke out Verified 06/04/23 13:39 in spots GAUZE Allergy Mild SEVERE Uncoded 06/04/23 13:39 RASH/ REDNESS Review of Systems <Graciela Howard DO - Last Filed: 06/11/23 07:27> Review of Systems ROS Unobtainable: All systems reviewed & are unremarkable except as noted in HPI and below Patient History <DO Amairani Jacobs Last Filed: 06/11/23 07:27> Medical History Atrial fibrillation (2013) Chronic fatigue syndrome (~1992) Chronic pain COPD (chronic obstructive pulmonary disease) Depression Diaphragmatic hernia DJD of shoulder Elevated brain natriuretic peptide (BNP) level Elevated d-dimer Fibromyalgia (1992) Major 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 Migraines (1984) Mumps (1949) Osteoarthritis Osteopenia Osteoporosis (1989) Peripheral edema RLS (restless legs syndrome) Shortness of breath Surgical History Anesthesia History of bladder suspension procedure (1994) Other joint replacement by other means (1998) Previous back surgery (~12/17/22) S/P total abdominal hysterectomy and bilateral salpingo-oophorectomy (1964) Status post breast biopsy Family History Brother MVA (motor vehicle accident) Father CAD (coronary artery disease) Mother Pancreatic cancer Social History household members: none Smoking Status: Former smoker alcohol intake: never Smoking Status: Former smoker alcohol intake frequency: 0-2 drinks per day Substance Use Type: does not use Exam <DO Amairani Jacobs Last Filed: 06/11/23 07:27> Initial Vital Signs Initial Vital Signs: Vital Signs Temperature 98.6 F 06/04/23 13:25 Pulse Rate 134 H 06/04/23 13:25 Respiratory Rate 24 06/04/23 13:25 Blood Pressure 131/77 06/04/23 13:25 Pulse Oximetry 85 L 06/04/23 13:25 Oxygen Delivery Method Room Air 06/04/23 13:25 GENERAL: Alert 82-year-old female appears in moderate respiratory distress HEENT: Head atraumatic,EOMI, pupils reactive, face symmetric, moist mucous membranes CARDIOVASCULAR: Regular rate and rhythm without murmurs, rubs or gallops. RESPIRATORY: Shortness of breath and dyspneic wheezing bilaterally ABDOMEN: Soft, nontender. Normoactive bowel sounds all 4 quadrants. No guarding or rebound. EXTREMITIES: Normal range of motion, no clubbing or edema. Neurovascularly intact NEUROLOGICAL: Alert and oriented x4. SKIN: Warm, dry, no laceration, no petechiae, no rashes or lesions. <DO Amairani Rinaldi Last Filed: 06/04/23 23:06> Initial Vital Signs Initial Vital Signs: Vital Signs Temperature 98.6 F 06/04/23 13:25 Pulse Rate 134 H 06/04/23 13:25 Respiratory Rate 24 06/04/23 13:25 Blood Pressure 131/77 06/04/23 13:25 Pulse Oximetry 85 L 06/04/23 13:25 Oxygen Delivery Method Room Air 06/04/23 13:25 Course <DO Amairani Jacobs Last Filed: 06/11/23 07:27> Orders Ordered: Discontinued Medications Albuterol (Albuterol 2.5 Mg/3 Ml Neb (Adult)) 10 mg INH NOW ONE Stop: 06/04/23 13:42 Last Admin: 06/04/23 13:48 Dose: 10 mg Documented By: EMILIA Furosemide (Furosemide 40 Mg/4 Ml Vial) 40 mg IV NOW ONE Stop: 06/04/23 14:25 Last Admin: 06/04/23 14:34 Dose: 40 mg Documented By: MELODIE Heparin Sodium (Porcine) (Heparin 5,000 Unit/Ml Vial) 4,000 unit IV NOW ONE Stop: 06/04/23 14:55 Last Admin: 06/04/23 16:05 Dose: Not Given Documented By: MELODIE Heparin Sodium (Porcine) (Heparin 5,000 Unit/Ml Vial) 5,800 unit 80 unit/kg (5800 unit) IV NOW ONE Stop: 06/04/23 15:32 Last Admin: 06/04/23 15:43 Dose: 5,800 unit Documented By: MELODIE Heparin Sodium/Dextrose (Heparin Drip) 25,000 unit in 500 mls @ 17.418 mls/hr IV CONT PITA; Protocol Last Admin: 06/04/23 16:06 Dose: Not Given Documented By: MELODIE Heparin Sodium/Dextrose (Heparin Drip) 25,000 unit in 500 mls @ 24 mls/hr IV CONT PITA; Protocol Last Titration: 06/05/23 00:26 Dose: 900 units/hr, 18 mls/hr Documented By: MELODIE Co-signed By: LIZZ Titration: 06/04/23 23:30 Dose: 900 units/hr, 18 mls/hr Documented By: MELODIE Co-signed By: LZIZ Titration: 06/04/23 22:30 Dose: 0 units/hr, 0 mls/hr Documented By: MELODIE Co-signed By: GC Admin: 06/04/23 15:47 Dose: 1,200 units/hr, 24 mls/hr Documented By: MELODIE Co-signed By: SLY Piperacillin Sod/Tazobactam (Sod 4.5 gm/ Sodium Chloride) 100 mls @ 200 mls/hr IV NOW ONE Stop: 06/04/23 16:00 Last Infusion: 06/04/23 17:42 Dose: 0 mls/hr Documented By: Admin: 06/04/23 17:07 Dose: 200 mls/hr Documented By: MELODIE Methylprednisolone (Methylprednisolone 125 Mg/2 Ml Vial) 125 mg IV NOW ONE Stop: 06/04/23 13:42 Last Admin: 06/04/23 14:02 Dose: 125 mg Documented By: MELODIE Morphine Sulfate (Morphine 2 Mg/Ml Inj) 2 mg IV NOW ONE Stop: 06/04/23 17:02 Last Admin: 06/04/23 17:08 Dose: 2 mg Documented By: MELODIE Vital Signs Vital signs: Vital Signs - 8 hr 06/04/23 15:12 06/04/23 15:12 06/04/23 15:30 Pulse Rate 123 H Respiratory Rate 28 H Blood Pressure 128/66 108/51 L Pulse Oximetry 97 Oxygen Delivery Method Oxygen Flow Rate 06/04/23 15:30 06/04/23 18:55 06/04/23 16:00 Pulse Rate 120 H 112 H Respiratory Rate 24 24 Blood Pressure 148/70 H 122/58 L Pulse Oximetry 96 96 Oxygen Delivery Method Nasal Cannula Oxygen Flow Rate 2 06/04/23 16:00 06/04/23 16:30 06/04/23 17:00 Pulse Rate 114 H 116 H 114 H Respiratory Rate 26 H 24 26 H Blood Pressure Pulse Oximetry 96 96 97 Oxygen Delivery Method Oxygen Flow Rate 06/04/23 17:18 06/04/23 17:18 06/04/23 17:30 Pulse Rate 112 H Respiratory Rate 25 H Blood Pressure 119/60 140/66 Pulse Oximetry 96 Oxygen Delivery Method Oxygen Flow Rate 06/04/23 17:30 06/04/23 18:00 06/04/23 18:00 Pulse Rate 111 H 111 H Respiratory Rate 25 H 21 Blood Pressure 140/65 Pulse Oximetry 98 97 Oxygen Delivery Method Oxygen Flow Rate 06/04/23 18:30 06/04/23 18:30 06/04/23 19:00 Pulse Rate 107 H Respiratory Rate 16 Blood Pressure 148/70 H 150/72 H Pulse Oximetry 96 Oxygen Delivery Method Oxygen Flow Rate 06/04/23 19:00 06/04/23 19:30 06/04/23 19:30 Pulse Rate 115 H 114 H Respiratory Rate 39 H 25 H Blood Pressure 158/70 H Pulse Oximetry 97 99 Oxygen Delivery Method Oxygen Flow Rate 06/04/23 20:00 06/04/23 20:00 06/04/23 20:30 Pulse Rate 116 H Respiratory Rate 26 H Blood Pressure 147/67 H 158/80 H Pulse Oximetry 97 Oxygen Delivery Method Oxygen Flow Rate 06/04/23 20:30 06/04/23 21:00 06/04/23 21:00 Pulse Rate 108 H 108 H Respiratory Rate 26 H 20 Blood Pressure 154/67 H Pulse Oximetry 97 97 Oxygen Delivery Method Oxygen Flow Rate 06/04/23 21:30 06/04/23 21:30 06/04/23 22:00 Pulse Rate 105 H Respiratory Rate 30 H Blood Pressure 157/72 H 155/71 H Pulse Oximetry 97 Oxygen Delivery Method Oxygen Flow Rate 06/04/23 22:00 Pulse Rate 101 H Respiratory Rate 23 Blood Pressure Pulse Oximetry 97 Oxygen Delivery Method Oxygen Flow Rate <Aníbal Shelby DO - Last Filed: 06/04/23 23:06> Orders Ordered: Discontinued Medications Albuterol (Albuterol 2.5 Mg/3 Ml Neb (Adult)) 10 mg INH NOW ONE Stop: 06/04/23 13:42 Last Admin: 06/04/23 13:48 Dose: 10 mg Documented By: EMILIA Furosemide (Furosemide 40 Mg/4 Ml Vial) 40 mg IV NOW ONE Stop: 06/04/23 14:25 Last Admin: 06/04/23 14:34 Dose: 40 mg Documented By: MELODIE Heparin Sodium (Porcine) (Heparin 5,000 Unit/Ml Vial) 4,000 unit IV NOW ONE Stop: 06/04/23 14:55 Last Admin: 06/04/23 16:05 Dose: Not Given Documented By: MELODIE Heparin Sodium (Porcine) (Heparin 5,000 Unit/Ml Vial) 5,800 unit 80 unit/kg (5800 unit) IV NOW ONE Stop: 06/04/23 15:32 Last Admin: 06/04/23 15:43 Dose: 5,800 unit Documented By: MELODIE Heparin Sodium/Dextrose (Heparin Drip) 25,000 unit in 500 mls @ 17.418 mls/hr IV CONT PITA; Protocol Last Admin: 06/04/23 16:06 Dose: Not Given Documented By: MELODIE Heparin Sodium/Dextrose (Heparin Drip) 25,000 unit in 500 mls @ 24 mls/hr IV CONT PITA; Protocol Last Titration: 06/05/23 00:26 Dose: 900 units/hr, 18 mls/hr Documented By: MELODIE Co-signed By: LIZZ Titration: 06/04/23 23:30 Dose: 900 units/hr, 18 mls/hr Documented By: MELODIE Co-signed By: LIZZ Titration: 06/04/23 22:30 Dose: 0 units/hr, 0 mls/hr Documented By: MELODIE Co-signed By: GC Admin: 06/04/23 15:47 Dose: 1,200 units/hr, 24 mls/hr Documented By: MELODIE Co-signed By: SLY Piperacillin Sod/Tazobactam (Sod 4.5 gm/ Sodium Chloride) 100 mls @ 200 mls/hr IV NOW ONE Stop: 06/04/23 16:00 Last Infusion: 06/04/23 17:42 Dose: 0 mls/hr Documented By: Admin: 06/04/23 17:07 Dose: 200 mls/hr Documented By: MELODIE Methylprednisolone (Methylprednisolone 125 Mg/2 Ml Vial) 125 mg IV NOW ONE Stop: 06/04/23 13:42 Last Admin: 06/04/23 14:02 Dose: 125 mg Documented By: MELODIE Morphine Sulfate (Morphine 2 Mg/Ml Inj) 2 mg IV NOW ONE Stop: 06/04/23 17:02 Last Admin: 06/04/23 17:08 Dose: 2 mg Documented By: MELODIE Vital Signs Vital signs: Vital Signs - 8 hr 06/04/23 15:12 06/04/23 15:12 06/04/23 15:30 Pulse Rate 123 H Respiratory Rate 28 H Blood Pressure 128/66 108/51 L Pulse Oximetry 97 Oxygen Delivery Method Oxygen Flow Rate 06/04/23 15:30 06/04/23 18:55 06/04/23 16:00 Pulse Rate 120 H 112 H Respiratory Rate 24 24 Blood Pressure 148/70 H 122/58 L Pulse Oximetry 96 96 Oxygen Delivery Method Nasal Cannula Oxygen Flow Rate 2 06/04/23 16:00 06/04/23 16:30 06/04/23 17:00 Pulse Rate 114 H 116 H 114 H Respiratory Rate 26 H 24 26 H Blood Pressure Pulse Oximetry 96 96 97 Oxygen Delivery Method Oxygen Flow Rate 06/04/23 17:18 06/04/23 17:18 06/04/23 17:30 Pulse Rate 112 H Respiratory Rate 25 H Blood Pressure 119/60 140/66 Pulse Oximetry 96 Oxygen Delivery Method Oxygen Flow Rate 06/04/23 17:30 06/04/23 18:00 06/04/23 18:00 Pulse Rate 111 H 111 H Respiratory Rate 25 H 21 Blood Pressure 140/65 Pulse Oximetry 98 97 Oxygen Delivery Method Oxygen Flow Rate 06/04/23 18:30 06/04/23 18:30 06/04/23 19:00 Pulse Rate 107 H Respiratory Rate 16 Blood Pressure 148/70 H 150/72 H Pulse Oximetry 96 Oxygen Delivery Method Oxygen Flow Rate 06/04/23 19:00 06/04/23 19:30 06/04/23 19:30 Pulse Rate 115 H 114 H Respiratory Rate 39 H 25 H Blood Pressure 158/70 H Pulse Oximetry 97 99 Oxygen Delivery Method Oxygen Flow Rate 06/04/23 20:00 06/04/23 20:00 06/04/23 20:30 Pulse Rate 116 H Respiratory Rate 26 H Blood Pressure 147/67 H 158/80 H Pulse Oximetry 97 Oxygen Delivery Method Oxygen Flow Rate 06/04/23 20:30 06/04/23 21:00 06/04/23 21:00 Pulse Rate 108 H 108 H Respiratory Rate 26 H 20 Blood Pressure 154/67 H Pulse Oximetry 97 97 Oxygen Delivery Method Oxygen Flow Rate 06/04/23 21:30 06/04/23 21:30 06/04/23 22:00 Pulse Rate 105 H Respiratory Rate 30 H Blood Pressure 157/72 H 155/71 H Pulse Oximetry 97 Oxygen Delivery Method Oxygen Flow Rate 06/04/23 22:00 Pulse Rate 101 H Respiratory Rate 23 Blood Pressure Pulse Oximetry 97 Oxygen Delivery Method Oxygen Flow Rate MDM - SOB/Dyspnea <Graciela Howard, DO - Last Filed: 06/11/23 07:27> Lab Data 06/04/23 13:35 06/04/23 13:35 Labs: Lab Results 06/04/23 06/04/23 06/04/23 Range/Units 13:35 13:35 13:35 WBC 21.0 H (4.5-11.0) X10^3/uL RBC 4.42 (4.0-5.2) X10^6/uL Hgb 13.1 (12.0-16.0) g/dL Hct 40.3 (36-46) % MCV 91.2 (80-100) fL MCH 29.7 (26-34) PG MCHC 32.6 (30-36) % RDW 14.9 H (11.6-14.8) % Plt Count 167 (150-400) X10^3/uL Neut % (Auto) 80.9 H (50-75) % Lymph % (Auto) 10.8 L (25-40) % D[place]y % (Auto) 7.2 (3-14) % Eos % (Auto) 0.1 L (2-4) % Baso % (Auto) 1.0 (0-2) % Neut # (Auto) 88827 H (7910-3743) /uL Lymph # (Auto) 2300 (3074-0119) /uL D[place]y # (Auto) 1500 H (0-900) /uL Eos # (Auto) 0 (0-450) /uL Baso # (Auto) 200 H (0-100) /uL PT 14.0 H (10.1-12.7) SECONDS INR 1.2 (0.9-1.3) APTT 28 (26-36) SECONDS Sodium 134 L (137-145) mmol/L Potassium 3.7 (3.4-5.1) mmol/L Chloride 93 L (98-107) mmol/L Carbon Dioxide 28 (22-32) mmol/L BUN 16 (7-17) mg/dL Creatinine 0.62 (0.52-1.04) mg/dL Estimated GFR > 60 (>60) mL/min BUN/Creatinine Ratio 25.8 H (6-22) Glucose 93 (80-110) mg/dL Calcium 9.4 (8.4-10.2) mg/dL Total Bilirubin 1.2 (0.2-1.3) mg/dL AST 42 H (14-36) IU/L ALT 25 (<35) IU/L Alkaline Phosphatase 93 (38-126) U/L Total Creatine Kinase 66 (30-135) U/L Troponin I 0.594 H* (0.01-0.034) ng/mL NT-Pro-B Natriuret Pep (<450) pg/mL Total Protein 7.2 (6.3-8.2) g/dL Albumin 3.9 (3.5-5.0) g/dL Globulin 3.3 (1.7-4.1) g/dL Albumin/Globulin Ratio 1.2 (1.0-2.8) Lipase 15 L (23-300) U/L Chlamy pneumoniae PCR (Not Detect) Adenovirus (PCR) (Not Detect) B. pertussis DNA (PCR) (Not Detecte) B.parapertussis DNA PCR (Not Detecte) Coronavirus OC43 (PCR) (Not Detect) Coronavirus HKU1 (PCR) (Not Detect) Coronavirus 229E (PCR) (Not Detect) SARS-CoV-2 (PCR) (Not Detecte) Coronavirus NL63 (PCR) (Not Detect) Human Metapneumovir PCR (Not Detect) Influenza Type A (PCR) (Not Detect) Influenza Type B (PCR) (Not Detect) M. pneumoniae (PCR) (Not Detect) Parainfluenza 1 (PCR) (Not Detect) Parainfluenza 2 (PCR) (Not Detect) Parainfluenza 3 (PCR) (Not Detect) Parainfluenza 4 (PCR) (Not Detect) RSV (PCR) (Not Detect) Entero/Rhino (PCR) (Not Detect) 06/04/23 06/04/23 06/04/23 Range/Units 13:35 13:40 16:40 WBC (4.5-11.0) X10^3/uL RBC (4.0-5.2) X10^6/uL Hgb (12.0-16.0) g/dL Hct (36-46) % MCV (80-100) fL MCH (26-34) PG MCHC (30-36) % RDW (11.6-14.8) % Plt Count (150-400) X10^3/uL Neut % (Auto) (50-75) % Lymph % (Auto) (25-40) % Dooly % (Auto) (3-14) % Eos % (Auto) (2-4) % Baso % (Auto) (0-2) % Neut # (Auto) (8275-8384) /uL Lymph # (Auto) (9322-3667) /uL Dooly # (Auto) (0-900) /uL Eos # (Auto) (0-450) /uL Baso # (Auto) (0-100) /uL PT (10.1-12.7) SECONDS INR (0.9-1.3) APTT (26-36) SECONDS Sodium (137-145) mmol/L Potassium (3.4-5.1) mmol/L Chloride (98-107) mmol/L Carbon Dioxide (22-32) mmol/L BUN (7-17) mg/dL Creatinine (0.52-1.04) mg/dL Estimated GFR (>60) mL/min BUN/Creatinine Ratio (6-22) Glucose (80-110) mg/dL Calcium (8.4-10.2) mg/dL Total Bilirubin (0.2-1.3) mg/dL AST (14-36) IU/L ALT (<35) IU/L Alkaline Phosphatase (38-126) U/L Total Creatine Kinase 56 (30-135) U/L Troponin I 0.444 H* (0.01-0.034) ng/mL NT-Pro-B Natriuret Pep 7080 H (<450) pg/mL Total Protein (6.3-8.2) g/dL Albumin (3.5-5.0) g/dL Globulin (1.7-4.1) g/dL Albumin/Globulin Ratio (1.0-2.8) Lipase (23-300) U/L Chlamy pneumoniae PCR Not detected (Not Detect) Adenovirus (PCR) Not detected (Not Detect) B. pertussis DNA (PCR) Not detected (Not Detecte) B.parapertussis DNA PCR Not detected (Not Detecte) Coronavirus OC43 (PCR) Not detected (Not Detect) Coronavirus HKU1 (PCR) Not detected (Not Detect) Coronavirus 229E (PCR) Not detected (Not Detect) SARS-CoV-2 (PCR) Not detected (Not Detecte) Coronavirus NL63 (PCR) Not detected (Not Detect) Human Metapneumovir PCR Not detected (Not Detect) Influenza Type A (PCR) Not detected (Not Detect) Influenza Type B (PCR) Not detected (Not Detect) M. pneumoniae (PCR) Not detected (Not Detect) Parainfluenza 1 (PCR) Not detected (Not Detect) Parainfluenza 2 (PCR) Not detected (Not Detect) Parainfluenza 3 (PCR) Not detected (Not Detect) Parainfluenza 4 (PCR) Not detected (Not Detect) RSV (PCR) Not detected (Not Detect) Entero/Rhino (PCR) Not detected (Not Detect) 06/04/23 06/04/23 Range/Units 18:57 21:52 WBC (4.5-11.0) X10^3/uL RBC (4.0-5.2) X10^6/uL Hgb (12.0-16.0) g/dL Hct (36-46) % MCV (80-100) fL MCH (26-34) PG MCHC (30-36) % RDW (11.6-14.8) % Plt Count (150-400) X10^3/uL Neut % (Auto) (50-75) % Lymph % (Auto) (25-40) % D[place]y % (Auto) (3-14) % Eos % (Auto) (2-4) % Baso % (Auto) (0-2) % Neut # (Auto) (5005-6800) /uL Lymph # (Auto) (6816-6440) /uL D[place]y # (Auto) (0-900) /uL Eos # (Auto) (0-450) /uL Baso # (Auto) (0-100) /uL PT (10.1-12.7) SECONDS INR (0.9-1.3) APTT 234 H* D 159 H* D (26-36) SECONDS Sodium (137-145) mmol/L Potassium (3.4-5.1) mmol/L Chloride (98-107) mmol/L Carbon Dioxide (22-32) mmol/L BUN (7-17) mg/dL Creatinine (0.52-1.04) mg/dL Estimated GFR (>60) mL/min BUN/Creatinine Ratio (6-22) Glucose (80-110) mg/dL Calcium (8.4-10.2) mg/dL Total Bilirubin (0.2-1.3) mg/dL AST (14-36) IU/L ALT (<35) IU/L Alkaline Phosphatase (38-126) U/L Total Creatine Kinase (30-135) U/L Troponin I (0.01-0.034) ng/mL NT-Pro-B Natriuret Pep (<450) pg/mL Total Protein (6.3-8.2) g/dL Albumin (3.5-5.0) g/dL Globulin (1.7-4.1) g/dL Albumin/Globulin Ratio (1.0-2.8) Lipase (23-300) U/L Chlamy pneumoniae PCR (Not Detect) Adenovirus (PCR) (Not Detect) B. pertussis DNA (PCR) (Not Detecte) B.parapertussis DNA PCR (Not Detecte) Coronavirus OC43 (PCR) (Not Detect) Coronavirus HKU1 (PCR) (Not Detect) Coronavirus 229E (PCR) (Not Detect) SARS-CoV-2 (PCR) (Not Detecte) Coronavirus NL63 (PCR) (Not Detect) Human Metapneumovir PCR (Not Detect) Influenza Type A (PCR) (Not Detect) Influenza Type B (PCR) (Not Detect) M. pneumoniae (PCR) (Not Detect) Parainfluenza 1 (PCR) (Not Detect) Parainfluenza 2 (PCR) (Not Detect) Parainfluenza 3 (PCR) (Not Detect) Parainfluenza 4 (PCR) (Not Detect) RSV (PCR) (Not Detect) Entero/Rhino (PCR) (Not Detect) Imaging Data Chest x-ray: Radiologist's Impression: PROCEDURE:? XR CHEST 1V ? INDICATIONS:? short of breath ? TECHNIQUE:? One view of the chest was acquired.? ? COMPARISON:? [facility], CR, XR CHEST 2V, 05/21/2023, 11:08.? [facility], CR, XR CHEST 2V, 06/30/2020, 13:55. ? FINDINGS:? ? Surgical changes and devices:? There is probably an external device that projects over the upper mediastinum, limiting evaluation in this region. ? Lungs and pleura:? Low lung volumes.? Mild bibasilar opacities.? Possible left trace effusion versus thickening. ? Mediastinum:? Borderline heart size. ? Bones and chest wall:? Degenerative changes. ? ? IMPRESSION:? Single-view portable chest with low lung volumes, limiting evaluation. ? Mild bibasilar opacities may represent early airspace disease versus atelectasis.? Consider future imaging surveillance to assess for resolution.? Possible small left effusion. ? ? ? Dictated by: Khoa Mares M.D. on 06/04/2023 at 14:16 ? ? CT scan - chest: Radiologist's Impression: PROCEDURE:? CT ANGIO CHEST PE PROTOCOL ? INDICATIONS:? hypoxia + trop high dimer ? TECHNIQUE:? After the administration of intravenous contrast, 2 mm thick sections acquired from the pulmonary apices to the posterior costophrenic angles.? 3-dimensional maximum intensity projection (MIP) coronal and sagittal reformats were then acquired through the thorax.? For radiation dose reduction, the following was used:? automated exposure control, adjustment of mA and/or kV according to patient size.? ? COMPARISON:? [facility], CR, XR CHEST 1V, 06/04/2023, 13:50. ? FINDINGS:? Image quality:? Excellent.? ? Pulmonary arteries:? There are filling defects seen within the segmental and subsegmental branches of the right upper, lower, and middle lobe pulmonary arterial branches, as well as the subsegmental left upper lobe, segmental and subsegmental left lower lobe pulmonary arterial branches. ? Lungs and pleura:? Moderate left and mild right bibasilar predominant ground-glass pulmonary density.? Small bilateral pleural effusions.? No pneumothoraces. ? Mediastinum:? Heart size is normal, without pericardial effusion 9 mm short axis right paratracheal adenopathy.? 15 mm short axis right hilar adenopathy.? 11 mm short axis subcarinal adenopathy.? Thoracic aorta is normal in caliber and enhancement.? Esophagus is normal in caliber, without hiatal hernia.? ? Bones and chest wall:? No suspicious bony lesions.? Ribs and thoracic spine appear intact throughout.? Thyroid gland is within normal limits.? No axillary or supraclavicular adenopathy.? ? Abdomen:? Visualized upper abdominal solid organs appear normal in the early arterial phase of enhancement.? ? IMPRESSION:? 1. Bilateral pulmonary emboli.? Findings scattered with Dr. Graciela Howard MD on 06/04/2023 at 15:30 hours. 2. Bilateral lower lobe opacities, consistent with pneumonia versus infarction. 3. Small bilateral pleural effusions. 4. Mediastinal and hilar adenopathy, possibly reactive.? Follow-up chest CT with contrast recommended to ensure resolution, and to exclude underlying malignancy.? ? ? Dictated by: Roxaan Collins M.D. on 06/04/2023 at 15:26 ? ? ECHO: Radiologist's Impression: Interpretation Summary 1) Normal left ventricular thickness, size, wall motion, and systolic function (EF 60-65%). 2) Normal right ventricular size with mildly reduced function. 3) No significant valvular abnormalities. 4) The right ventricular systolic pressure is estimated to be at least 57 mmHg based on an estimated right atrial pressure of 3 mm Hg. 5) Compared to the Echo done 03/08/2017, pulmonary hypertension is present on this study. ECG Data Interpretation: Sinus tachycardia rate 128 ST depression 1 low voltage throughout no obvious ST elevations possible Q-wave in lead 3 MDM Narrative Medical decision making narrative: Patient 82-year-old female presents today with worsening shortness of breath which woke her at 3:00 a.m.. She does have a history of asthma she was given DuoNeb and albuterol by EMS she is mildly improved but still hypoxic requiring oxygen. Outpatient blood work does reveal an elevated D-dimer and BNP. She is Lasix as well. She does start to breathe a little bit easier. Concern for PE with an elevated D-dimer. CT does confirm multiple pulmonary emboli in multiple areas of the lung bilaterally. She also has an elevated troponin at 0.5 and repeated is 0.4. BNP today is also elevated at 7000. I suspect that patient had lower extremity DVT causing swelling previously this morning had sudden onset of PE causing increased shortness of breath right heart strain causing congestive heart failure and elevated troponins. She is started on a heparin drip. Echocardiogram is ordered and confirms right heart strain. She is mildly hypoxic at 2 L but breathing much easier, she continues to be tachycardic throughout her ED stay but is not yet hypotensive. CT also shows possible pneumonia she is leukocytosis of 21 she is given antibiotics and blood cultures are pending. No evidence of Dr. Dai cardiology [facility] initially discussed with case recommends echoes and sending her to [facility]. [facility] does not have any beds were available to [facility] updated patient's symptoms test results has reviewed the CT himself reports that she is not a candidate for clot retrieval however she is significant right heart strain with elevated pressures specifically the right atrial pressure reports that would probably benefit from systemic tPA. However they are not able to take the patient if tPA is given. Dr. Sen hospitalist here not accepting patient patient needs higher level of care. Patient is on many lists. If she decompensates definitely needs tPA, and could consider giving now as well. Patient signed out to Dr. Shelby for further treatment <Aníbal Shelby, DO - Last Filed: 06/04/23 23:06> Lab Data Labs: Lab Results 06/04/23 06/04/23 06/04/23 Range/Units 13:35 13:35 13:35 WBC 21.0 H (4.5-11.0) X10^3/uL RBC 4.42 (4.0-5.2) X10^6/uL Hgb 13.1 (12.0-16.0) g/dL Hct 40.3 (36-46) % MCV 91.2 (80-100) fL MCH 29.7 (26-34) PG MCHC 32.6 (30-36) % RDW 14.9 H (11.6-14.8) % Plt Count 167 (150-400) X10^3/uL Neut % (Auto) 80.9 H (50-75) % Lymph % (Auto) 10.8 L (25-40) % Dooly % (Auto) 7.2 (3-14) % Eos % (Auto) 0.1 L (2-4) % Baso % (Auto) 1.0 (0-2) % Neut # (Auto) 26407 H (0558-6267) /uL Lymph # (Auto) 2300 (7440-6328) /uL Dooly # (Auto) 1500 H (0-900) /uL Eos # (Auto) 0 (0-450) /uL Baso # (Auto) 200 H (0-100) /uL PT 14.0 H (10.1-12.7) SECONDS INR 1.2 (0.9-1.3) APTT 28 (26-36) SECONDS Sodium 134 L (137-145) mmol/L Potassium 3.7 (3.4-5.1) mmol/L Chloride 93 L (98-107) mmol/L Carbon Dioxide 28 (22-32) mmol/L BUN 16 (7-17) mg/dL Creatinine 0.62 (0.52-1.04) mg/dL Estimated GFR > 60 (>60) mL/min BUN/Creatinine Ratio 25.8 H (6-22) Glucose 93 (80-110) mg/dL Calcium 9.4 (8.4-10.2) mg/dL Total Bilirubin 1.2 (0.2-1.3) mg/dL AST 42 H (14-36) IU/L ALT 25 (<35) IU/L Alkaline Phosphatase 93 (38-126) U/L Total Creatine Kinase 66 (30-135) U/L Troponin I 0.594 H* (0.01-0.034) ng/mL NT-Pro-B Natriuret Pep (<450) pg/mL Total Protein 7.2 (6.3-8.2) g/dL Albumin 3.9 (3.5-5.0) g/dL Globulin 3.3 (1.7-4.1) g/dL Albumin/Globulin Ratio 1.2 (1.0-2.8) Lipase 15 L (23-300) U/L Chlamy pneumoniae PCR (Not Detect) Adenovirus (PCR) (Not Detect) B. pertussis DNA (PCR) (Not Detecte) B.parapertussis DNA PCR (Not Detecte) Coronavirus OC43 (PCR) (Not Detect) Coronavirus HKU1 (PCR) (Not Detect) Coronavirus 229E (PCR) (Not Detect) SARS-CoV-2 (PCR) (Not Detecte) Coronavirus NL63 (PCR) (Not Detect) Human Metapneumovir PCR (Not Detect) Influenza Type A (PCR) (Not Detect) Influenza Type B (PCR) (Not Detect) M. pneumoniae (PCR) (Not Detect) Parainfluenza 1 (PCR) (Not Detect) Parainfluenza 2 (PCR) (Not Detect) Parainfluenza 3 (PCR) (Not Detect) Parainfluenza 4 (PCR) (Not Detect) RSV (PCR) (Not Detect) Entero/Rhino (PCR) (Not Detect) 06/04/23 06/04/23 06/04/23 Range/Units 13:35 13:40 16:40 WBC (4.5-11.0) X10^3/uL RBC (4.0-5.2) X10^6/uL Hgb (12.0-16.0) g/dL Hct (36-46) % MCV (80-100) fL MCH (26-34) PG MCHC (30-36) % RDW (11.6-14.8) % Plt Count (150-400) X10^3/uL Neut % (Auto) (50-75) % Lymph % (Auto) (25-40) % Dooly % (Auto) (3-14) % Eos % (Auto) (2-4) % Baso % (Auto) (0-2) % Neut # (Auto) (9754-3524) /uL Lymph # (Auto) (0437-8040) /uL Dooly # (Auto) (0-900) /uL Eos # (Auto) (0-450) /uL Baso # (Auto) (0-100) /uL PT (10.1-12.7) SECONDS INR (0.9-1.3) APTT (26-36) SECONDS Sodium (137-145) mmol/L Potassium (3.4-5.1) mmol/L Chloride (98-107) mmol/L Carbon Dioxide (22-32) mmol/L BUN (7-17) mg/dL Creatinine (0.52-1.04) mg/dL Estimated GFR (>60) mL/min BUN/Creatinine Ratio (6-22) Glucose (80-110) mg/dL Calcium (8.4-10.2) mg/dL Total Bilirubin (0.2-1.3) mg/dL AST (14-36) IU/L ALT (<35) IU/L Alkaline Phosphatase (38-126) U/L Total Creatine Kinase 56 (30-135) U/L Troponin I 0.444 H* (0.01-0.034) ng/mL NT-Pro-B Natriuret Pep 7080 H (<450) pg/mL Total Protein (6.3-8.2) g/dL Albumin (3.5-5.0) g/dL Globulin (1.7-4.1) g/dL Albumin/Globulin Ratio (1.0-2.8) Lipase (23-300) U/L Chlamy pneumoniae PCR Not detected (Not Detect) Adenovirus (PCR) Not detected (Not Detect) B. pertussis DNA (PCR) Not detected (Not Detecte) B.parapertussis DNA PCR Not detected (Not Detecte) Coronavirus OC43 (PCR) Not detected (Not Detect) Coronavirus HKU1 (PCR) Not detected (Not Detect) Coronavirus 229E (PCR) Not detected (Not Detect) SARS-CoV-2 (PCR) Not detected (Not Detecte) Coronavirus NL63 (PCR) Not detected (Not Detect) Human Metapneumovir PCR Not detected (Not Detect) Influenza Type A (PCR) Not detected (Not Detect) Influenza Type B (PCR) Not detected (Not Detect) M. pneumoniae (PCR) Not detected (Not Detect) Parainfluenza 1 (PCR) Not detected (Not Detect) Parainfluenza 2 (PCR) Not detected (Not Detect) Parainfluenza 3 (PCR) Not detected (Not Detect) Parainfluenza 4 (PCR) Not detected (Not Detect) RSV (PCR) Not detected (Not Detect) Entero/Rhino (PCR) Not detected (Not Detect) 06/04/23 06/04/23 Range/Units 18:57 21:52 WBC (4.5-11.0) X10^3/uL RBC (4.0-5.2) X10^6/uL Hgb (12.0-16.0) g/dL Hct (36-46) % MCV (80-100) fL MCH (26-34) PG MCHC (30-36) % RDW (11.6-14.8) % Plt Count (150-400) X10^3/uL Neut % (Auto) (50-75) % Lymph % (Auto) (25-40) % Dooly % (Auto) (3-14) % Eos % (Auto) (2-4) % Baso % (Auto) (0-2) % Neut # (Auto) (7593-0992) /uL Lymph # (Auto) (0773-7794) /uL Dooly # (Auto) (0-900) /uL Eos # (Auto) (0-450) /uL Baso # (Auto) (0-100) /uL PT (10.1-12.7) SECONDS INR (0.9-1.3) APTT 234 H* D 159 H* D (26-36) SECONDS Sodium (137-145) mmol/L Potassium (3.4-5.1) mmol/L Chloride (98-107) mmol/L Carbon Dioxide (22-32) mmol/L BUN (7-17) mg/dL Creatinine (0.52-1.04) mg/dL Estimated GFR (>60) mL/min BUN/Creatinine Ratio (6-22) Glucose (80-110) mg/dL Calcium (8.4-10.2) mg/dL Total Bilirubin (0.2-1.3) mg/dL AST (14-36) IU/L ALT (<35) IU/L Alkaline Phosphatase (38-126) U/L Total Creatine Kinase (30-135) U/L Troponin I (0.01-0.034) ng/mL NT-Pro-B Natriuret Pep (<450) pg/mL Total Protein (6.3-8.2) g/dL Albumin (3.5-5.0) g/dL Globulin (1.7-4.1) g/dL Albumin/Globulin Ratio (1.0-2.8) Lipase (23-300) U/L Chlamy pneumoniae PCR (Not Detect) Adenovirus (PCR) (Not Detect) B. pertussis DNA (PCR) (Not Detecte) B.parapertussis DNA PCR (Not Detecte) Coronavirus OC43 (PCR) (Not Detect) Coronavirus HKU1 (PCR) (Not Detect) Coronavirus 229E (PCR) (Not Detect) SARS-CoV-2 (PCR) (Not Detecte) Coronavirus NL63 (PCR) (Not Detect) Human Metapneumovir PCR (Not Detect) Influenza Type A (PCR) (Not Detect) Influenza Type B (PCR) (Not Detect) M. pneumoniae (PCR) (Not Detect) Parainfluenza 1 (PCR) (Not Detect) Parainfluenza 2 (PCR) (Not Detect) Parainfluenza 3 (PCR) (Not Detect) Parainfluenza 4 (PCR) (Not Detect) RSV (PCR) (Not Detect) Entero/Rhino (PCR) (Not Detect) [facility] Narrative Medical decision making narrative: Patient 82-year-old female presents today with worsening shortness of breath which woke her at 3:00 a.m.. She does have a history of asthma she was given DuoNeb and albuterol by EMS she is mildly improved but still hypoxic requiring oxygen. Outpatient blood work does reveal an elevated D-dimer and BNP. She is Lasix as well. She does start to breathe a little bit easier. Concern for PE with an elevated D-dimer. CT does confirm multiple pulmonary emboli in multiple areas of the lung bilaterally. She also has an elevated troponin at 0.5 and repeated is 0.4. BNP today is also elevated at 7000. I suspect that patient had lower extremity DVT causing swelling previously this morning had sudden onset of PE causing increased shortness of breath right heart strain causing congestive heart failure and elevated troponins. She is started on a heparin drip. Echocardiogram is ordered and confirms right heart strain. She is mildly hypoxic at 2 L but breathing much easier, she continues to be tachycardic throughout her ED stay but is not yet hypotensive. CT also shows possible pneumonia she is leukocytosis of 21 she is given antibiotics and blood cultures are pending. No evidence of Dr. Dai cardiology [facility] initially discussed with case recommends sisi and sending her to [facility]. [facility] does not have any beds were [facility] updated patient's symptoms test results has reviewed the CT himself reports that she is not a candidate for clot retrieval however she is significant right heart strain with elevated pressures specifically the right atrial pressure reports that would probably benefit from systemic tPA. However they are not able to take the patient if tPA is given. Dr. Sen hospitalist here not accepting patient patient needs higher level of care. Patient is on many lists. If she decompensates definitely needs tPA, and could consider giving now as well. Patient signed out to Dr. Shelby for further treatment [1930] ([place]) Patient received in sign out from [Anita]. I have reviewed the clinical course and performed an independent history and physical exam. 2100 - calls to [facility], [place], [facility], /[facility], and no beds. Call to [facility] 2229 - call from [facility]. Dr. Clarke happy to accept Critical Care Time <Graciela Howard, DO - Last Filed: 06/11/23 07:27> Critical Care Time Critical Care Time: Yes Total Critical Care Time: 68 Attestation: The high probability of a clinically significant, sudden or life threatening deterioration of the [cardiovascular] system(s) required my full and direct attention, intervention and personal management. The aggregate critical care time was 68 minutes. This time is in addition to time spent performing reported procedures but includes the following: [x] Data Review and interpretation [x] Patient assessment and monitoring of vital signs [x] Documentation [x] Medication orders and management Discharge Plan Departure Patient Disposition: [facility] Clinical Impression: Pulmonary embolism, Elevated brain natriuretic peptide (BNP) level, Elevated troponin Prescriptions: No Action metoprolol tartrate 25 mg tablet 25 mg PO BID Qty: 180 1RF furosemide 20 mg tablet 20 mg PO DAILY Qty: 30 1RF potassium chloride 20 mEq tablet extended release 20 meq PO DAILY Qty: 30 1RF budesonide 0.5 mg/2 mL suspension for nebulization 0.5 mg inhalation BID Qty: 120 11RF Disabled Parking Permit See Rx Instructions .ROUTE .COMPLEX Qty: 1 0RF Rx Instructions: I find this patient to be medically disabled and qualify for disabled parking as indicated and signed on the accompanying disabled parking application for individuals. fluticasone propion-salmeterol [Wixela Inhub] 250-50 mcg/dose blister with device 1 ea inhalation BID meclizine 25 mg tablet 25 mg PO TID PRN (Reason: dizziness) Qty: 90 0RF Hold Instructions: Sporadic use cyclobenzaprine 10 mg tablet 10 mg PO Q8HR PRN (Reason: Muscle Spasm) tramadol tablet 100 mg PO Q8HR PRN (Reason: Pain (Scale Score 4-6)) albuterol sulfate 90 mcg/actuation HFA aerosol inhaler 2 puff inhalation Q4-6H PRN (Reason: wheezing) betamethasone dipropionate 0.05 % ointment 1 applic topical BID PRN (Reason: Rash) Protocol: Age Greater than 75 Protocol Text: Age less than 75 years, to be administred with initial in subcutaneous dose Acid Key Person (omeprazole) capsule 20 mg PO AC gabapentin capsule 300 mg PO Q8H pravastatin 40 mg tablet 40 mg PO HS sumatriptan succinate [Imitrex] 100 mg tablet 100 mg PO PRN PRN (Reason: migraines) Rx Instructions: Take 1/2 to 1 tablet by mouth at onset of headache. May repeat one dose in 2 hours as needed. Referrals: Matthew Tafoya MD [Primary Care Provider] -
[2023-06-04] MEDS: ALBUTEROL 2.5 MG/3 ML NEB (ADULT) 10 MG INH (13:48)
[2023-06-04 13:56] LABS: Add Manual Diff / Slide Review NO; Basophils Absolute Auto 200 /uL (0-100); Eosinophils Absolute Auto 0 /uL (0-450); Eosinophils Percent Auto 0.1 % (2-4); Hematocrit 40.3 % (36-46); Hemoglobin 13.1 g/dL (12.0-16.0); Lymphocytes Absolute Auto 2300 /uL (1100-4500); Lymphocytes Percent Auto 10.8 % (25-40); Mean Corpuscular HGB Conc 32.6 % (30-36); Mean Corpuscular Hemoglobin 29.7 PG (26-34); Mean Corpuscular Volume 91.2 fL (80-100); Monocytes Absolute Auto 1500 /uL (0-900); Monocytes Percent Auto 7.2 % (3-14); Neutrophils Absolute Auto 17000 /uL (1500-7000); Neutrophils Percent Auto 80.9 % (50-75); Platelet Count 167 X10^3/uL (150-400); Red Blood Cell Count 4.42 X10^6/uL (4.0-5.2); Red Cell Distribution Width 14.9 % (11.6-14.8)
[2023-06-04 14:02] LABS: INR 1.2 (0.9-1.3)
[2023-06-04] MEDS: methylPREDNISolone 125 MG/2 ML VIAL IV (14:02)
[2023-06-04 14:05] LABS: PTT Partial Thromboplastin Tim 28 SECONDS (26-36)
[2023-06-04 14:07] LABS: Alanine Aminotransferase 25 IU/L (<35); Albumin 3.9 g/dL (3.5-5.0); Albumin Globulin Ratio 1.2 (1.0-2.8); Alkaline Phosphatase 93 U/L (38-126); Aspartate Aminotransferase 42 IU/L (14-36); BUN Creatinine Ratio 25.8 (6-22); Bilirubin Total 1.2 mg/dL (0.2-1.3); Blood Urea Nitrogen 16 mg/dL (7-17); Calcium 9.4 mg/dL (8.4-10.2); Carbon Dioxide 28 mmol/L (22-32); Chloride 93 mmol/L (98-107); Creatine Kinase 66 U/L (30-135); Estimated Glomerular Filt Rate > 60 mL/min (>60); Globulin 3.3 g/dL (1.7-4.1); Glucose 93 mg/dL (80-110); HEMOLYSIS < 15 (0-50); Lipase 15 U/L (23-300); Potassium 3.7 mmol/L (3.4-5.1); Sodium 134 mmol/L (137-145); Total Protein 7.2 g/dL (6.3-8.2)
[2023-06-04 14:16] LABS: NT-proBNP (BNP-Adult 18+) 7080 pg/mL (<450)
--- NOTE | 2023-06-04 14:24 | DI.ECHO.S_ITS ---
[facility]---------[facility] +---------+ : : [address] : : : : [id number] : : : : Phone: [phone] Echocardiogram Report + + :Name: PONCE WILSON Study Date: 06/04/2023 Height: 64 in : :[facility] ReadingLocation: Weight: 160 lb : : Gender: Female BSA: 1.8 m2 : :: 1940 Age: 82 yrs BP: 131/77 mmHg: :Reason For Study: TROP WITH NEW CONGESTIVE HEART FAILURE : :Ordering Physician: ONEIDA, : :ARTEMIO Performed By: Eliz Duvall : :Referring: ARTEMIO MOHAMUD : + + Interpretation Summary 1) Normal left ventricular thickness, size, wall motion, and systolic function (EF 60-65%). 2) Normal right ventricular size with mildly reduced function. 3) No significant valvular abnormalities. 4) The right ventricular systolic pressure is estimated to be at least 57 mmHg based on an estimated right atrial pressure of 3 mm Hg. 5) Compared to the Echo done 03/08/2017, pulmonary hypertension is present on this study. Procedure: A two-dimensional transthoracic echocardiogram with color flow and Doppler was performed. The study quality was technically adequate. Comparison is made with the echocardiogram of 03/08/2017. The patient was in sinus tachycardia with heart rates between 118-122 bpm during the exam. Left Ventricle: The left ventricle is normal in size and wall thickness. The ejection fraction is estimated to be 60-65%. Left ventricular systolic function appears normal without focal wall motion abnormalities. Right Ventricle: The right ventricle is normal size. Right ventricular systolic function is mildly reduced. Atria: The left atrial size is normal. Right atrial size is normal. There is no Doppler evidence for an interatrial shunt. Mitral Valve: The mitral valve is normal in structure and function. There is trace mitral regurgitation. Aortic Valve: The aortic valve is trileaflet. The aortic valve opens well. There is no aortic valve stenosis. No aortic regurgitation is present. Tricuspid Valve: The tricuspid valve is not well visualized, but is grossly normal. There is mild tricuspid regurgitation. The right ventricular systolic pressure is estimated to be at least 57 mmHg based on an estimated right atrial pressure of 3 mm Hg. Pulmonic Valve: The pulmonic valve leaflets are thin and pliable; valve motion is normal. There is mild pulmonic regurgitation. Great Vessels: The aortic root is normal size. The dimensions of the ascending aorta are normal. The IVC is of normal diameter and collapses greater than 50% with a sniff. This suggests a low right atrial pressure of 3 mm Hg. Pericardium/ Pleura There is no pericardial effusion. There is no pleural effusion. MMode/2D Measurements & Calculations LVIDd: 4.1 cm LVOT diam: 2.0 cm LVIDs: 2.6 cm Ao root diam: 3.1 cm FS: 36.8 % asc Aorta Diam: 3.0 cm EPSS: 0.31 cm IVSd: 0.85 cm LVPWd: 0.77 cm LV austin. diameter/BSA (cm/m^2): 2.3 LV sys. diameter/BSA (cm/m^2): 1.4 LA A2 area: 20.4 cm2 RA long axis: 4.8 cm LA A4 area: 17.5 cm2 RA area: 17.1 cm2 LA length (vol): 6.1 cm RA vol: 51.3 ml LA vol: 49.7 ml RA : 28.9 ml/m2 LA vol index: 27.9 ml/m2 IVC diam: 1.5 cm RVD1 (basal): 3.6 cm RVD2 (mid): 2.9 cm TAPSE: 1.6 cm Doppler Measurements & Calculations Ao V2 max: 111.2 cm/sec LVOT Max Loco: 99.9 cm/sec Ao V2 mean: 80.0 cm/sec LV V1 max P.0 mmHg Ao max P.9 mmHg LV V1 VTI: 13.7 cm Ao mean P.8 mmHg EWA(I,D): 2.7 cm2 Ao V2 VTI: 15.3 cm EWA(V,D): 2.7 cm2 sev ratio: 0.90 EWA indexed to BSA (cm^2/m^2): 1.5 MV E max loco: 105.1 cm/sec TR max loco: 368.4 cm/sec MV A max loco: 1.9 cm/sec TR max P.3 mmHg MV E/A: 55.6 PA V2 max: 94.8 cm/sec Med Peak E' Loco: 6.6 cm/sec PA V2 mean: 64.3 cm/sec E/E' med: 15.9 PA mean P.8 mmHg Lat Peak E' Loco: 6.5 cm/sec PA pr(Accel): 48.2 mmHg E/E' lat: 16.2 E/e' average: 16.0 MV dec time: 0.15 sec SV(LVOT): 41.6 ml Reading Physician:04:51 PM
[2023-06-04] MEDS: FUROSEMIDE 40 MG/4 ML VIAL IV (14:34)
[2023-06-04 14:42] LABS: Troponin I 0.594 ng/mL (0.01-0.034)
--- NOTE | 2023-06-04 14:44 | DI.CT.S_ITS ---
PROCEDURE: CT ANGIO CHEST PE PROTOCOL INDICATIONS: hypoxia + trop high dimer TECHNIQUE: After the administration of intravenous contrast, 2 mm thick sections acquired from the pulmonary apices to the posterior costophrenic angles. 3-dimensional maximum intensity projection (MIP) coronal and sagittal reformats were then acquired through the thorax. For radiation dose reduction, the following was used: automated exposure control, adjustment of mA and/or kV according to patient size. COMPARISON: [facility], CR, XR CHEST 1V, 06/04/2023, 13:50. FINDINGS: Image quality: Excellent. Pulmonary arteries: There are filling defects seen within the segmental and subsegmental branches of the right upper, lower, and middle lobe pulmonary arterial branches, as well as the subsegmental left upper lobe, segmental and subsegmental left lower lobe pulmonary arterial branches. Lungs and pleura: Moderate left and mild right bibasilar predominant ground-glass pulmonary density. Small bilateral pleural effusions. No pneumothoraces. Mediastinum: Heart size is normal, without pericardial effusion 9 mm short axis right paratracheal adenopathy. 15 mm short axis right hilar adenopathy. 11 mm short axis subcarinal adenopathy. Thoracic aorta is normal in caliber and enhancement. Esophagus is normal in caliber, without hiatal hernia. Bones and chest wall: No suspicious bony lesions. Ribs and thoracic spine appear intact throughout. Thyroid gland is within normal limits. No axillary or supraclavicular adenopathy. Abdomen: Visualized upper abdominal solid organs appear normal in the early arterial phase of enhancement. IMPRESSION: 1. Bilateral pulmonary emboli. Findings scattered with Dr. Graciela Howard MD on 06/04/2023 at 15:30 hours. 2. Bilateral lower lobe opacities, consistent with pneumonia versus infarction. 3. Small bilateral pleural effusions. 4. Mediastinal and hilar adenopathy, possibly reactive. Follow-up chest CT with contrast recommended to ensure resolution, and to exclude underlying malignancy. Dictated by: Rxoana Collins M.D. on 06/04/2023 at 15:26 Approved by: Roxana Collins M.D. on 06/04/2023 at 15:31
[2023-06-04 15:11] LABS: Adenovirus Not Detected (Not Detect); B. parapertussis Not Detected (Not Detecte); Bordetella pertussis Not Detected (Not Detecte); Chlamydophila pneumoniae Not Detected (Not Detect); Coronavirus 229E Not Detected (Not Detect); Coronavirus HKU1 Not Detected (Not Detect); Coronavirus NL 63 Not Detected (Not Detect); Coronavirus OC43 Not Detected (Not Detect); Human Metapneumovirus Not Detected (Not Detect); Human Rhinovirus/Enterovirus Not Detected (Not Detect); Influenza A Not Detected (Not Detect); Influenza B Not Detected (Not Detect); Mycoplasma pneumoniae Not Detected (Not Detect); Parainfluenza Virus 1 Not Detected (Not Detect); Parainfluenza Virus 2 Not Detected (Not Detect); Parainfluenza Virus 3 Not Detected (Not Detect); Parainfluenza Virus 4 Not Detected (Not Detect); Respiratory Syncytial Virus Not Detected (Not Detect); SARS- CoV-2 Not Detected (Not Detecte)
[2023-06-04] MEDS: HEPARIN 5,000 UNIT/ML VIAL 5800 UNIT IV (15:43)
[2023-06-04] MEDS: HEPARIN DRIP 25,000 UNIT/500 ML IV.SOLN 24 UNIT IV (15:47)
[2023-06-04] MEDS: PIPERACILLIN/TAZO 4.5 GM in SODIUM CHLORIDE 0.9% 100 ML IV (17:07)
[2023-06-04] MEDS: MORPHINE 2 MG/ML INJ IV (17:08)
[2023-06-04 17:13] LABS: Creatine Kinase 56 U/L (30-135)
[2023-06-04 17:27] LABS: Troponin I 0.444 ng/mL (0.01-0.034)
--- NOTE | 2023-06-04 18:53 | PC.NURSE ---
Pt's family member asked me to come and evaluate bleeding from pt's mouth. Pt had small amount of bleeding from left mouth. Noted canker sore on inside of lip. Dr. Howard made aware. STAT PTT ordered. Ki PARSONS aware. Dr. Howard asked that heparin continue due to pt high risk/ critical nature of PEs.
[2023-06-04 19:45] LABS: PTT Partial Thromboplastin Tim 234 SECONDS (26-36)
--- NOTE | 2023-06-04 20:58 | PC.NURSE ---
Addendum entered by Eva James CNA 06/04/23 21:32: /[facility]: 2112 spoke w/ Mary Ann. They would call us back. At 2132 declined patient [facility] 2124 Spoke w/ Megan. inspector final assembly electrical Rosemarie speaking w/ them currently Original Note: STAGE MANAGER note: Attempting to find placement for patient. Called the following places w/ the following responses: [facility]: 2001, spoke to Jennyfer. On wait list [facility]: 2007, spoke to Ayden. pushed images, faxed face sheet. On wait list.
[2023-06-04 22:28] LABS: PTT Partial Thromboplastin Tim 159 SECONDS (26-36)
[2023-06-05] VITALS: BP 151/82; PULSE 119; RESP 23; O2SAT 97
== END 2023-06-05 00:30 | disposition short-term general hospital (02) ==
PROVIDERS: Emergency Medicine; Emergency Provider Emergency Medicine; PCP Pediatrics
DX: I26.99 Other pulmonary embolism without acute cor pulmonale (principal); R77.8 Other specified abnormalities of plasma proteins; R79.89 Other specified abnormal findings of blood chemistry; Z20.822 Contact with and (suspected) exposure to COVID-19
CPT/HCPCS: 36415; 71045; 71275; 80053; 82550; 83690; 83880; 84484; 85025; 85610; 85730; 87040; 87633; 93005; 93010; 93306; 94640; 96365; 96366; 96368; 96375; 99285; 99291; J1644; J1940; J2270; J2543; J2930; J7613

== ENCOUNTER 2023-06-08 16:51 | Inpatient (IN) | payer MEDICARE, MEDICAID, SELFPAY ==
[2023-06-08] VITALS (25 sets, daily range): BP systolic 105–122; BP diastolic 55–77; PULSE 88–116; RESP 23–33; TEMP 36.9–37.1; O2SAT 87–99; BMI 26.6
--- NOTE | 2023-06-08 17:04 | DI.RAD.S_ITS ---
PROCEDURE: XR CHEST 1V INDICATIONS: Short of breath TECHNIQUE: One view of the chest was acquired. COMPARISON: [facility], CT, CT ANGIO CHEST PE PROTOCOL, 06/04/2023, 15:01. [facility], CR, XR CHEST 1V, 06/04/2023, 13:50. FINDINGS: Surgical changes and devices: None. Lungs and pleura: Poorly defined opacity can be seen involving the left lower lung. On this semiupright portable chest examination, no large pneumothorax is seen. The small pleural effusions seen on the recent prior CT are not well seen on this semiupright plain film. Mediastinum: The cardiac contours are within normal limits. The aorta demonstrates calcification and tortuosity. Bones and chest wall: No suspicious bony lesions. Age-appropriate bony degenerative changes are seen. Overlying soft tissues appear unremarkable. IMPRESSION: Poorly defined opacity seen at the left lung base, which is concerning for infiltrate. However, differential diagnosis would also include atelectasis. Dictated by: Osmani Valdivia M.D. on 06/08/2023 at 16:23 Approved by: Osmani Valdivia M.D. on 06/08/2023 at 16:25
--- NOTE | 2023-06-08 17:15 | PC.NURSE ---
Dtr reports that pt has been attempting to AMB at home, today she had marked increased SOB, only able to take 5-7 steps before becoming winded.
[2023-06-08 17:16] LABS: Add Manual Diff / Slide Review NO; Basophils Absolute Auto 100 /uL (0-100); Basophils Percent Auto 0.4 % (0-2); Eosinophils Absolute Auto 0 /uL (0-450); Eosinophils Percent Auto 0.1 % (2-4); Hematocrit 36.8 % (36-46); Hemoglobin 11.7 g/dL (12.0-16.0); Lymphocytes Absolute Auto 2300 /uL (1100-4500); Lymphocytes Percent Auto 7.5 % (25-40); Mean Corpuscular HGB Conc 31.7 % (30-36); Mean Corpuscular Hemoglobin 28.9 PG (26-34); Monocytes Absolute Auto 1800 /uL (0-900); Monocytes Percent Auto 5.9 % (3-14); Neutrophils Absolute Auto 26400 /uL (1500-7000); Neutrophils Percent Auto 86.1 % (50-75); Platelet Count 239 X10^3/uL (150-400); Red Blood Cell Count 4.04 X10^6/uL (4.0-5.2); Red Cell Distribution Width 14.7 % (11.6-14.8)
[2023-06-08 17:17] LABS: White Blood Cell Count 30.6 X10^3/uL (4.5-11.0)
[2023-06-08 17:18] LABS: Prothrombin Time 70.5 SECONDS (10.1-12.7)
--- NOTE | 2023-06-08 17:27 | ED_ITS ---
HPI - General Adult <Jerman Marshall DO - Last Filed: 06/09/23 07:01> General Chief complaint: Shortness of Breath/Dyspnea Stated complaint: BLOOD CLOTS NOT GETTING BETTER Time Seen by Provider: 06/08/23 16:54 Source: patient and family Mode of arrival: Wheelchair History of Present Illness HPI narrative: Patient is an 82-year-old female. Earlier this week she was seen here in the emergency department and diagnosed with a bilateral pulmonary emboli. She was subsequently transferred to the tertiary care facility in [place]. She was at that facility for approximately 36-48 hours. Was discharged home. Was not discharged on home oxygen. She is on Xarelto. She is no history of atrial fibrillation. Despite her problem list she does not have a history of COPD. At 1 point it was a concern about COPD but she has seen pulmonology and this has been ruled out. She also denied a history of CHF. Since being discharged from the hospital she has had a decreased appetite. Today she started to have pain in the right back in the thoracic region. She also became more short of breath today. Her family who is at bedside did have a way of checking her pulse oximetry and she was found to be less than 90%. She denies chest pain. No palpitations. No fevers. No abdominal pain or nausea vomiting. No change in bowel or urine habits. She has been taking all of her medications. They contacted the on-call provider who told her to come to the emergency department. She is currently on antibiotics for a presumed pneumonia Related Data Home Medications Medication Instructions Recorded Confirmed fluticasone 250 mcg-salmeterol 50 1 ea inhalation BID 05/28/23 06/09/23 mcg/dose blistr powdr for inhalation (Wixela Inhub) Acid Instrument Engineer (omeprazole) 20 mg PO AC reflux 06/09/23 06/09/23 albuterol sulfate 90 mcg/actuation 2 puff inhalation Q4-6H PRN 06/09/23 06/09/23 aerosol inhaler wheezing betamethasone dipropionate 0.05 % 1 applic topical BID PRN Rash 06/09/23 06/09/23 topical ointment cyclobenzaprine 10 mg tablet 10 mg PO Q8HR PRN Muscle Spasm 06/09/23 06/09/23 gabapentin 300 mg PO Q8H neuropathy 06/09/23 06/09/23 pravastatin 40 mg tablet 40 mg PO HS high cholesterol 06/09/23 06/09/23 sumatriptan succinate 100 mg 100 mg PO PRN PRN migraines 06/09/23 06/09/23 tablet (Imitrex) tramadol 100 mg PO Q8HR PRN Pain (Scale 06/09/23 06/09/23 Score 4-6) Previous Rx's Medication Instructions Recorded meclizine 25 mg tablet 25 mg PO TID PRN dizziness #90 tabs 05/20/20 budesonide 0.5 mg/2 mL suspension 0.5 mg (2 mL) inhalation BID #120 01/02/21 for nebulization mL metoprolol tartrate 25 mg tablet 25 mg PO BID #180 tabs 10/11/22 Disabled Parking Permit See Rx Instructions .Route 03/19/23 .COMPLEX #1 unit furosemide 20 mg tablet 20 mg PO DAILY #30 tabs 05/24/23 potassium chloride 20 mEq 20 meq PO DAILY #30 tabs 05/24/23 tablet,extended release Allergies Allergy/AdvReac Type Severity Reaction Status Date / Time Sulfa (Sulfonamide Allergy Severe RASH Verified 06/04/23 13:39 Antibiotics) [SULFA (SULFONAMIDE ANTIBIOTICS)] bee venom protein (honey bee) Allergy Intermediate Throat Verified 06/04/23 13:39 swelling and breathing problems alendronate sodium AdvReac Severe Intolerable Verified 06/04/23 13:39 heartburn paroxetine [PAROXETINE] AdvReac Intermediate agitated, Verified 06/04/23 13:39 anxious turmeric AdvReac Broke out Verified 06/04/23 13:39 in spots GAUZE Allergy Mild SEVERE Uncoded 06/04/23 13:39 RASH/ REDNESS Review of Systems <Jerman Marshall DO - Last Filed: 06/09/23 07:01> Review of Systems ROS Unobtainable: All systems reviewed & are unremarkable except as noted in HPI and below Patient History <Jerman Marshall DO - Last Filed: 06/09/23 07:01> Medical History Atrial fibrillation (2013) Chronic fatigue syndrome (~1992) Chronic pain COPD (chronic obstructive pulmonary disease) Depression Diaphragmatic hernia DJD of shoulder Elevated brain natriuretic peptide (BNP) level Elevated d-dimer Fibromyalgia (1992) Major 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 Migraines (1984) Mumps (1949) Osteoarthritis Osteopenia Osteoporosis (1989) Peripheral edema RLS (restless legs syndrome) Shortness of breath Surgical History (Updated 06/09/23 @ 02:18 by Kelsea Fritz RN) Anesthesia History of bladder suspension procedure (1994) Other joint replacement by other means (1998) Previous back surgery (~12/17/22) S/P total abdominal hysterectomy and bilateral salpingo-oophorectomy (1964) Status post breast biopsy Family History Brother MVA (motor vehicle accident) Father CAD (coronary artery disease) Mother Pancreatic cancer Social History household members: none Smoking Status: Former smoker alcohol intake: never Smoking Status: Former smoker alcohol intake frequency: 0-2 drinks per day Substance Use Type: does not use Exam <Jerman Marshall DO - Last Filed: 06/09/23 07:01> Initial Vital Signs Initial Vital Signs: Vital Signs Pulse Rate 111 H 06/08/23 16:56 Pulse Oximetry 87 L 06/08/23 16:56 Oxygen Delivery Method Room Air 06/08/23 16:56 Const General: cooperative and comfortable HENMT Head: normal to inspection and normocephalic Resp Effort & Inspection: normal respiratory effort, not labored and tachypneic Auscultation: crackles Cardio Rate: tachycardic Rhythm: abnormal rhythm GI Inspection: normal to inspection and non-distended Skin Other: Multiple areas of bruising consistent with blood draws. She does have some petechiae around her left eye. No active bleeding. Neuro General: patient alert, patient awake, patient oriented x3 and moves all extremities Extrem General: normal to inspection and capillary refill normal <Maria Luisa Sabillon MD - Last Filed: 06/08/23 23:29> Initial Vital Signs Initial Vital Signs: Vital Signs Pulse Rate 111 H 06/08/23 16:56 Pulse Oximetry 87 L 06/08/23 16:56 Oxygen Delivery Method Room Air 06/08/23 16:56 Scores <Jerman Marshall DO - Last Filed: 06/09/23 07:01> GCS [place] coma scale eye opening: Spontaneous [place] coma scale verbal response: Orientated [place] coma scale motor response: Obey commands [place] coma scale total score: 15 <Maria Luisa Sabillon MD - Last Filed: 06/08/23 23:29> GCS [place] coma scale total score: 15 Course <Jerman Marshall DO - Last Filed: 06/09/23 07:01> Orders Ordered: Acetaminophen (Acetaminophen 325 Mg Tablet) 650 mg PO Q6H PRN PRN Reason: Fever/Mild Pain (1-3) Albuterol (Albuterol 2.5 Mg/3 Ml Neb (Adult)) 2.5 mg INH [id number] PRN PRN Reason: Shortness Of Breath Budesonide (Budesonide 0.5 Mg/2 Ml Neb) 0.5 mg INH BID PITA Furosemide (Furosemide 20 Mg Tablet) 20 mg PO DAILY IPTA Gabapentin (Gabapentin 300 Mg Capsule) 300 mg PO TID PITA Cefepime HCl 1 gm/ Sodium (Chloride) 100 mls @ 200 mls/hr IV Q12H PITA Last Admin: 06/09/23 06:38 Dose: 200 mls/hr Documented By: Vancomycin HCl (Vancomycin) 750 mg in 150 mls @ 150 mls/hr IV Q12H PITA Metoprolol Tartrate (Metoprolol Ir 25 Mg Tablet) 25 mg PO BID PITA Naloxone HCl (Naloxone 0.4 Mg/Ml Vial) 0.2 mg IV Q2MIN PRN PRN Reason: Opiate Reversal Pantoprazole Sodium (Pantoprazole Dr 20 Mg Tablet) 20 mg PO DAILY PRN PRN Reason: reflux Potassium Chloride (Potassium Chloride 20 Meq Tab) 20 meq PO DAILY PITA Sennosides (Sennosides 8.6 Mg Tablet) 17.2 mg PO BEDTIME PITA Tramadol HCl (Tramadol 50 Mg Tablet) 100 mg PO Q6H PRN PRN Reason: pain Trazodone HCl (Trazodone 50 Mg Tablet) 50 mg PO BEDTIME PITA Discontinued Medications Gabapentin (Gabapentin 300 Mg Capsule) 600 mg PO TID PITA Cefepime HCl 2 gm/ Sodium (Chloride) 100 mls @ 200 mls/hr IV NOW ONE Stop: 06/08/23 18:20 Last Infusion: 06/08/23 19:57 Dose: 0 mls/hr Documented By: Admin: 06/08/23 19:15 Dose: 200 mls/hr Documented By: MELODIE Vancomycin HCl/Dextrose (Vancomycin) 1,500 mg in 300 mls @ 200 mls/hr IV Q24H PITA Stop: 06/08/23 20:14 Last Infusion: 06/08/23 21:52 Dose: 0 mls/hr Documented By: Admin: 06/08/23 20:13 Dose: 200 mls/hr Documented By: SARAHI Vancomycin HCl (Vancomycin) 1,000 mg in 200 mls @ 150 mls/hr IV Q24H PITA Tramadol HCl (Tramadol 50 Mg Tablet) 150 mg PO Q6H PRN PRN Reason: pain Vital Signs Vital signs: Vital Signs - 8 hr 06/08/23 17:03 06/08/23 16:56 06/08/23 16:57 Temperature 98.5 F Pulse Rate 116 H 111 H Respiratory Rate 28 H Blood Pressure 105/56 L 105/56 L Pulse Oximetry 88 L 87 L Oxygen Delivery Method Room Air Room Air Oxygen Flow Rate 06/08/23 16:57 06/08/23 17:00 06/08/23 17:00 Temperature Pulse Rate 111 H 115 H Respiratory Rate 30 H Blood Pressure 120/76 Pulse Oximetry 96 Oxygen Delivery Method Nasal Cannula Oxygen Flow Rate 2 06/08/23 17:30 06/08/23 17:30 06/08/23 18:00 Temperature Pulse Rate 105 H Respiratory Rate 33 H Blood Pressure 114/77 111/55 L Pulse Oximetry 97 Oxygen Delivery Method Oxygen Flow Rate 06/08/23 18:00 06/08/23 18:30 06/08/23 18:30 Temperature Pulse Rate 96 H 98 H Respiratory Rate 26 H 32 H Blood Pressure 114/65 Pulse Oximetry 97 96 Oxygen Delivery Method Oxygen Flow Rate 06/08/23 19:00 06/08/23 19:30 06/08/23 20:00 Temperature Pulse Rate 93 H 89 94 H Respiratory Rate 27 H 24 26 H Blood Pressure Pulse Oximetry 98 99 98 Oxygen Delivery Method Oxygen Flow Rate 06/08/23 20:30 06/08/23 21:00 06/08/23 21:15 Temperature Pulse Rate 88 92 H 89 Respiratory Rate 25 H 24 25 H Blood Pressure Pulse Oximetry 98 97 97 Oxygen Delivery Method Oxygen Flow Rate <Maria Luisa Sabillon MD - Last Filed: 06/08/23 23:29> Orders Ordered: Acetaminophen (Acetaminophen 325 Mg Tablet) 650 mg PO Q6H PRN PRN Reason: Fever/Mild Pain (1-3) Albuterol (Albuterol 2.5 Mg/3 Ml Neb (Adult)) 2.5 mg INH [id number] PRN PRN Reason: Shortness Of Breath Budesonide (Budesonide 0.5 Mg/2 Ml Neb) 0.5 mg INH BID PITA Furosemide (Furosemide 20 Mg Tablet) 20 mg PO DAILY PITA Gabapentin (Gabapentin 300 Mg Capsule) 300 mg PO TID PITA Cefepime HCl 1 gm/ Sodium (Chloride) 100 mls @ 200 mls/hr IV Q12H PITA Last Admin: 06/09/23 06:38 Dose: 200 mls/hr Documented By: Vancomycin HCl (Vancomycin) 750 mg in 150 mls @ 150 mls/hr IV Q12H PITA Metoprolol Tartrate (Metoprolol Ir 25 Mg Tablet) 25 mg PO BID PITA Naloxone HCl (Naloxone 0.4 Mg/Ml Vial) 0.2 mg IV Q2MIN PRN PRN Reason: Opiate Reversal Pantoprazole Sodium (Pantoprazole Dr 20 Mg Tablet) 20 mg PO DAILY PRN PRN Reason: reflux Potassium Chloride (Potassium Chloride 20 Meq Tab) 20 meq PO DAILY [facility] Sennosides (Sennosides 8.6 Mg Tablet) 17.2 mg PO BEDTIME PITA Tramadol HCl (Tramadol 50 Mg Tablet) 100 mg PO Q6H PRN PRN Reason: pain Trazodone HCl (Trazodone 50 Mg Tablet) 50 mg PO BEDTIME PITA Discontinued Medications Gabapentin (Gabapentin 300 Mg Capsule) 600 mg PO TID PITA Cefepime HCl 2 gm/ Sodium (Chloride) 100 mls @ 200 mls/hr IV NOW ONE Stop: 06/08/23 18:20 Last Infusion: 06/08/23 19:57 Dose: 0 mls/hr Documented By: Admin: 06/08/23 19:15 Dose: 200 mls/hr Documented By: MELODIE Vancomycin HCl/Dextrose (Vancomycin) 1,500 mg in 300 mls @ 200 mls/hr IV Q24H PITA Stop: 06/08/23 20:14 Last Infusion: 06/08/23 21:52 Dose: 0 mls/hr Documented By: Admin: 06/08/23 20:13 Dose: 200 mls/hr Documented By: SARAHI Vancomycin HCl (Vancomycin) 1,000 mg in 200 mls @ 150 mls/hr IV Q24H [facility] Tramadol HCl (Tramadol 50 Mg Tablet) 150 mg PO Q6H PRN PRN Reason: pain Vital Signs Vital signs: Vital Signs - 8 hr 06/08/23 17:03 06/08/23 16:56 06/08/23 16:57 Temperature 98.5 F Pulse Rate 116 H 111 H Respiratory Rate 28 H Blood Pressure 105/56 L 105/56 L Pulse Oximetry 88 L 87 L Oxygen Delivery Method Room Air Room Air Oxygen Flow Rate 06/08/23 16:57 06/08/23 17:00 06/08/23 17:00 Temperature Pulse Rate 111 H 115 H Respiratory Rate 30 H Blood Pressure 120/76 Pulse Oximetry 96 Oxygen Delivery Method Nasal Cannula Oxygen Flow Rate 2 06/08/23 17:30 06/08/23 17:30 06/08/23 18:00 Temperature Pulse Rate 105 H Respiratory Rate 33 H Blood Pressure 114/77 111/55 L Pulse Oximetry 97 Oxygen Delivery Method Oxygen Flow Rate 06/08/23 18:00 06/08/23 18:30 06/08/23 18:30 Temperature Pulse Rate 96 H 98 H Respiratory Rate 26 H 32 H Blood Pressure 114/65 Pulse Oximetry 97 96 Oxygen Delivery Method Oxygen Flow Rate 06/08/23 19:00 06/08/23 19:30 06/08/23 20:00 Temperature Pulse Rate 93 H 89 94 H Respiratory Rate 27 H 24 26 H Blood Pressure Pulse Oximetry 98 99 98 Oxygen Delivery Method Oxygen Flow Rate 06/08/23 20:30 06/08/23 21:00 06/08/23 21:15 Temperature Pulse Rate 88 92 H 89 Respiratory Rate 25 H 24 25 H Blood Pressure Pulse Oximetry 98 97 97 Oxygen Delivery Method Oxygen Flow Rate Medical Decision Making <Jerman Marshall, - Last Filed: 06/09/23 07:01> Medical Records Medical records reviewed: Yes I reviewed the patient's medical records. Lab Data 06/09/23 04:20 06/09/23 04:20 Labs: Lab Results 06/08/23 06/08/23 06/08/23 Range/Units 17:00 17:00 17:00 WBC 30.6 H* (4.5-11.0) X10^3/uL RBC 4.04 (4.0-5.2) X10^6/uL Hgb 11.7 L (12.0-16.0) g/dL Hct 36.8 (36-46) % MCV 91.0 (80-100) fL MCH 28.9 (26-34) PG MCHC 31.7 (30-36) % RDW 14.7 (11.6-14.8) % Plt Count 239 (150-400) X10^3/uL Neut % (Auto) 86.1 H (50-75) % Lymph % (Auto) 7.5 L (25-40) % Bradford % (Auto) 5.9 (3-14) % Eos % (Auto) 0.1 L (2-4) % Baso % (Auto) 0.4 (0-2) % Neut # (Auto) 73746 H (8754-7680) /uL Lymph # (Auto) 2300 (9200-7639) /uL Bradford # (Auto) 1800 H (0-900) /uL Eos # (Auto) 0 (0-450) /uL Baso # (Auto) 100 (0-100) /uL PT 70.5 H D (10.1-12.7) SECONDS INR 6.0 H* (0.9-1.3) APTT (26-36) SECONDS Fibrinogen (211-428) mg/dL D-Dimer (<500) ng/ml Sodium 132 L (137-145) mmol/L Potassium 4.6 (3.4-5.1) mmol/L Chloride 95 L (98-107) mmol/L Carbon Dioxide 27 (22-32) mmol/L BUN 24 H (7-17) mg/dL Creatinine 0.69 (0.52-1.04) mg/dL Estimated GFR > 60 (>60) mL/min BUN/Creatinine Ratio 34.8 H (6-22) Glucose 147 H (80-110) mg/dL Lactate (0.7-2.1) mmol/L Calcium 9.8 (8.4-10.2) mg/dL Total Bilirubin 0.5 (0.2-1.3) mg/dL AST 30 (14-36) IU/L ALT 31 (<35) IU/L Alkaline Phosphatase 103 (38-126) U/L Total Creatine Kinase (30-135) U/L Troponin I (0.01-0.034) ng/mL NT-Pro-B Natriuret Pep 8820 H (<450) pg/mL Total Protein 6.7 (6.3-8.2) g/dL Albumin 3.5 (3.5-5.0) g/dL Globulin 3.2 (1.7-4.1) g/dL Albumin/Globulin Ratio 1.1 (1.0-2.8) Lipase 15 L (23-300) U/L Procalcitonin (<0.5) ng/mL 06/08/23 06/08/23 06/08/23 Range/Units 17:00 17:00 17:00 WBC (4.5-11.0) X10^3/uL RBC (4.0-5.2) X10^6/uL Hgb (12.0-16.0) g/dL Hct (36-46) % MCV (80-100) fL MCH (26-34) PG MCHC (30-36) % RDW (11.6-14.8) % Plt Count (150-400) X10^3/uL Neut % (Auto) (50-75) % Lymph % (Auto) (25-40) % Bradford % (Auto) (3-14) % Eos % (Auto) (2-4) % Baso % (Auto) (0-2) % Neut # (Auto) (9933-6249) /uL Lymph # (Auto) (6634-8237) /uL Bradford # (Auto) (0-900) /uL Eos # (Auto) (0-450) /uL Baso # (Auto) (0-100) /uL PT (10.1-12.7) SECONDS INR (0.9-1.3) APTT 44 H (26-36) SECONDS Fibrinogen 784 H* (211-428) mg/dL D-Dimer 2561 H (<500) ng/ml Sodium (137-145) mmol/L Potassium (3.4-5.1) mmol/L Chloride (98-107) mmol/L Carbon Dioxide (22-32) mmol/L BUN (7-17) mg/dL Creatinine (0.52-1.04) mg/dL Estimated GFR (>60) mL/min BUN/Creatinine Ratio (6-22) Glucose (80-110) mg/dL Lactate (0.7-2.1) mmol/L Calcium (8.4-10.2) mg/dL Total Bilirubin (0.2-1.3) mg/dL AST (14-36) IU/L ALT (<35) IU/L Alkaline Phosphatase (38-126) U/L Total Creatine Kinase 25 L (30-135) U/L Troponin I 0.075 H (0.01-0.034) ng/mL NT-Pro-B Natriuret Pep (<450) pg/mL Total Protein (6.3-8.2) g/dL Albumin (3.5-5.0) g/dL Globulin (1.7-4.1) g/dL Albumin/Globulin Ratio (1.0-2.8) Lipase (23-300) U/L Procalcitonin (<0.5) ng/mL 06/08/23 06/08/23 06/08/23 Range/Units 17:00 17:00 19:25 WBC (4.5-11.0) X10^3/uL RBC (4.0-5.2) X10^6/uL Hgb (12.0-16.0) g/dL Hct (36-46) % MCV (80-100) fL MCH (26-34) PG MCHC (30-36) % RDW (11.6-14.8) % Plt Count (150-400) X10^3/uL Neut % (Auto) (50-75) % Lymph % (Auto) (25-40) % Bradford % (Auto) (3-14) % Eos % (Auto) (2-4) % Baso % (Auto) (0-2) % Neut # (Auto) (5433-8781) /uL Lymph # (Auto) (0005-3072) /uL Bradford # (Auto) (0-900) /uL Eos # (Auto) (0-450) /uL Baso # (Auto) (0-100) /uL PT (10.1-12.7) SECONDS INR (0.9-1.3) APTT (26-36) SECONDS Fibrinogen (211-428) mg/dL D-Dimer (<500) ng/ml Sodium (137-145) mmol/L Potassium (3.4-5.1) mmol/L Chloride (98-107) mmol/L Carbon Dioxide (22-32) mmol/L BUN (7-17) mg/dL Creatinine (0.52-1.04) mg/dL Estimated GFR (>60) mL/min BUN/Creatinine Ratio (6-22) Glucose (80-110) mg/dL Lactate 4.2 H* 1.8 (0.7-2.1) mmol/L Calcium (8.4-10.2) mg/dL Total Bilirubin (0.2-1.3) mg/dL AST (14-36) IU/L ALT (<35) IU/L Alkaline Phosphatase (38-126) U/L Total Creatine Kinase (30-135) U/L Troponin I (0.01-0.034) ng/mL NT-Pro-B Natriuret Pep (<450) pg/mL Total Protein (6.3-8.2) g/dL Albumin (3.5-5.0) g/dL Globulin (1.7-4.1) g/dL Albumin/Globulin Ratio (1.0-2.8) Lipase (23-300) U/L Procalcitonin 0.29 (<0.5) ng/mL Imaging Data Chest x-ray: Radiologist's Impression: PROCEDURE:? XR CHEST 1V ? INDICATIONS:? Short of breath ? TECHNIQUE:? One view of the chest was acquired.? ? COMPARISON:? [facility], CT, CT ANGIO CHEST PE PROTOCOL, 06/04/2023, 15:01.? [facility], CR, XR CHEST 1V, 06/04/2023, 13:50. ? FINDINGS:? ? Surgical changes and devices:? None.? ? Lungs and pleura:? Poorly defined opacity can be seen involving the left lower lung.? On this semiupright portable chest examination, no large pneumothorax is seen.? The small pleural effusions seen on the recent prior CT are not well seen on this semiupright plain film.? ? Mediastinum:? The cardiac contours are within normal limits. The aorta demonstrates calcification and tortuosity. ? Bones and chest wall:? No suspicious bony lesions.? Age-appropriate bony degenerative changes are seen.? ? Overlying soft tissues appear unremarkable.? ? ? IMPRESSION:? Poorly defined opacity seen at the left lung base, which is concerning for infiltrate.? However, differential diagnosis would also include atelectasis. ECG Data Attestation: I personally reviewed and interpreted this ECG as follows: Interpretation: Atrial fibrillation Ventricular rate [address] T wave changes Similar to EKG dated 06/04/2023 MDM Narrative Medical decision making narrative: Patient with known pulmonary emboli. Is on anticoagulation. Has had change in her respiratory status and arrived here in the emergency department with an oxygen saturation of 88%. She was placed on 2 L nasal cannula. States she feels much better after this. She is currently on antibiotics being treated for pneumonia. This is after her hospital stay. She is in AFib. She has no known history of AFib per her report however review of her EKG from earlier this week at this facility she was in AFib. She was relatively rate controlled. She is not hypotensive. She is no chest pain. She does have an elevated INR. She is not on Coumadin. She takes Xarelto for her anticoagulation. Chest x-ray today shows potential pneumonia but again she is on antibiotics. She does have clear lung exam. Labs still pending. Care turned over to Dr. Sabillon to follow-up and disposition. <Maria Luisa Sabillon MD - Last Filed: 06/08/23 23:29> Lab Data Labs: Lab Results 06/08/23 06/08/23 06/08/23 Range/Units 17:00 17:00 17:00 WBC 30.6 H* (4.5-11.0) X10^3/uL RBC 4.04 (4.0-5.2) X10^6/uL Hgb 11.7 L (12.0-16.0) g/dL Hct 36.8 (36-46) % MCV 91.0 (80-100) fL MCH 28.9 (26-34) PG MCHC 31.7 (30-36) % RDW 14.7 (11.6-14.8) % Plt Count 239 (150-400) X10^3/uL Neut % (Auto) 86.1 H (50-75) % Lymph % (Auto) 7.5 L (25-40) % Bradford % (Auto) 5.9 (3-14) % Eos % (Auto) 0.1 L (2-4) % Baso % (Auto) 0.4 (0-2) % Neut # (Auto) 41773 H (8035-7210) /uL Lymph # (Auto) 2300 (6836-3230) /uL Bradford # (Auto) 1800 H (0-900) /uL Eos # (Auto) 0 (0-450) /uL Baso # (Auto) 100 (0-100) /uL PT 70.5 H D (10.1-12.7) SECONDS INR 6.0 H* (0.9-1.3) APTT (26-36) SECONDS Fibrinogen (211-428) mg/dL D-Dimer (<500) ng/ml Sodium 132 L (137-145) mmol/L Potassium 4.6 (3.4-5.1) mmol/L Chloride 95 L (98-107) mmol/L Carbon Dioxide 27 (22-32) mmol/L BUN 24 H (7-17) mg/dL Creatinine 0.69 (0.52-1.04) mg/dL Estimated GFR > 60 (>60) mL/min BUN/Creatinine Ratio 34.8 H (6-22) Glucose 147 H (80-110) mg/dL Lactate (0.7-2.1) mmol/L Calcium 9.8 (8.4-10.2) mg/dL Total Bilirubin 0.5 (0.2-1.3) mg/dL AST 30 (14-36) IU/L ALT 31 (<35) IU/L Alkaline Phosphatase 103 (38-126) U/L Total Creatine Kinase (30-135) U/L Troponin I (0.01-0.034) ng/mL NT-Pro-B Natriuret Pep 8820 H (<450) pg/mL Total Protein 6.7 (6.3-8.2) g/dL Albumin 3.5 (3.5-5.0) g/dL Globulin 3.2 (1.7-4.1) g/dL Albumin/Globulin Ratio 1.1 (1.0-2.8) Lipase 15 L (23-300) U/L Procalcitonin (<0.5) ng/mL 06/08/23 06/08/23 06/08/23 Range/Units 17:00 17:00 17:00 WBC (4.5-11.0) X10^3/uL RBC (4.0-5.2) X10^6/uL Hgb (12.0-16.0) g/dL Hct (36-46) % MCV (80-100) fL MCH (26-34) PG MCHC (30-36) % RDW (11.6-14.8) % Plt Count (150-400) X10^3/uL Neut % (Auto) (50-75) % Lymph % (Auto) (25-40) % Bradford % (Auto) (3-14) % Eos % (Auto) (2-4) % Baso % (Auto) (0-2) % Neut # (Auto) (4282-3363) /uL Lymph # (Auto) (2935-3363) /uL Bradford # (Auto) (0-900) /uL Eos # (Auto) (0-450) /uL Baso # (Auto) (0-100) /uL PT (10.1-12.7) SECONDS INR (0.9-1.3) APTT 44 H (26-36) SECONDS Fibrinogen 784 H* (211-428) mg/dL D-Dimer 2561 H (<500) ng/ml Sodium (137-145) mmol/L Potassium (3.4-5.1) mmol/L Chloride (98-107) mmol/L Carbon Dioxide (22-32) mmol/L BUN (7-17) mg/dL Creatinine (0.52-1.04) mg/dL Estimated GFR (>60) mL/min BUN/Creatinine Ratio (6-22) Glucose (80-110) mg/dL Lactate (0.7-2.1) mmol/L Calcium (8.4-10.2) mg/dL Total Bilirubin (0.2-1.3) mg/dL AST (14-36) IU/L ALT (<35) IU/L Alkaline Phosphatase (38-126) U/L Total Creatine Kinase 25 L (30-135) U/L Troponin I 0.075 H (0.01-0.034) ng/mL NT-Pro-B Natriuret Pep (<450) pg/mL Total Protein (6.3-8.2) g/dL Albumin (3.5-5.0) g/dL Globulin (1.7-4.1) g/dL Albumin/Globulin Ratio (1.0-2.8) Lipase (23-300) U/L Procalcitonin (<0.5) ng/mL 06/08/23 06/08/23 06/08/23 Range/Units 17:00 17:00 19:25 WBC (4.5-11.0) X10^3/uL RBC (4.0-5.2) X10^6/uL Hgb (12.0-16.0) g/dL Hct (36-46) % MCV (80-100) fL MCH (26-34) PG MCHC (30-36) % RDW (11.6-14.8) % Plt Count (150-400) X10^3/uL Neut % (Auto) (50-75) % Lymph % (Auto) (25-40) % Bradford % (Auto) (3-14) % Eos % (Auto) (2-4) % Baso % (Auto) (0-2) % Neut # (Auto) (0837-6877) /uL Lymph # (Auto) (8997-2744) /uL Bradford # (Auto) (0-900) /uL Eos # (Auto) (0-450) /uL Baso # (Auto) (0-100) /uL PT (10.1-12.7) SECONDS INR (0.9-1.3) APTT (26-36) SECONDS Fibrinogen (211-428) mg/dL D-Dimer (<500) ng/ml Sodium (137-145) mmol/L Potassium (3.4-5.1) mmol/L Chloride (98-107) mmol/L Carbon Dioxide (22-32) mmol/L BUN (7-17) mg/dL Creatinine (0.52-1.04) mg/dL Estimated GFR (>60) mL/min BUN/Creatinine Ratio (6-22) Glucose (80-110) mg/dL Lactate 4.2 H* 1.8 (0.7-2.1) mmol/L Calcium (8.4-10.2) mg/dL Total Bilirubin (0.2-1.3) mg/dL AST (14-36) IU/L ALT (<35) IU/L Alkaline Phosphatase (38-126) U/L Total Creatine Kinase (30-135) U/L Troponin I (0.01-0.034) ng/mL NT-Pro-B Natriuret Pep (<450) pg/mL Total Protein (6.3-8.2) g/dL Albumin (3.5-5.0) g/dL Globulin (1.7-4.1) g/dL Albumin/Globulin Ratio (1.0-2.8) Lipase (23-300) U/L Procalcitonin 0.29 (<0.5) ng/mL MDM Narrative Medical decision making narrative: Patient with known pulmonary emboli. Is on anticoagulation. Has had change in her respiratory status and arrived here in the emergency department with an oxygen saturation of 88%. She was placed on 2 L nasal cannula. States she feels much better after this. She is currently on antibiotics being treated for pneumonia. This is after her hospital stay. She is in AFib. She has no known history of AFib per her report however review of her EKG from earlier this week at this facility she was in AFib. She was relatively rate controlled. She is not hypotensive. She is no chest pain. She does have an elevated INR. She is not on Coumadin. She takes Xarelto for her anticoagulation. Chest x-ray today shows potential pneumonia but again she is on antibiotics. She does have clear lung exam. Labs still pending. Care turned over to Dr. Sabillon to follow-up and disposition. Dr Sabillon Care is assumed, patient is independently examined and evaluated, records revie wed Records from the [facility] system where she was transferred on June 04 and discharged on June 06 are reviewed. H&P and imaging data are the details available Transthoracic echocardiogram on June 05 shows mild tricuspid regurgitation, normal left ventricular size normal systolic function with ejection fraction 60-65%. She is in atrial fibrillation at a rate of 87 Lower extremity ultrasound showed no DVT Current labs: White blood cell count is increased to 30.6, had been at 21,000. There is significant left shift but no bands Significant coagulopathy, not on Coumadin. INR is 6 PTT is 44, fibrinogen is elevated at 748 and D-dimer is higher than it was on May 21 and is at 2561 (drawn due to concerns for DIC) Chemistries show normal creatinine, mild hyponatremia at 132 Lactate is elevated at 4.2 and on repeat is down to 1.8 with no significant fluid resuscitation intervention Troponin is slightly elevated at 0.075 significantly lower than June 04 w here it was 0.444 Elevated BNP at 8820 Procalcitonin is within normal limits Imaging: Chest x-ray shows poorly defined opacity at the left lung base concerning for infiltrate CT chest again redemonstrates bilateral pulmonary emboli decreased compared to prior exam. Slight right atrial and ventricular prominence suggesting mild right heart strain. Bilateral pulmonary infiltrates and small pleural effusions likely secondary to pulmonary infarcts. Superimposed pneumonia can not be excluded. Mild mediastinal lymphadenopathy that is nonspecific Active issues include: 1. Right posterior thoracic pain with worsening hypoxia Differential includes pulmonary infarct, pleural effusion, pneumonia 2. Bilateral pulmonary embolus currently on apixaban no evidence of right heart strain with echocardiogram on June 05 but suggestion of mild heart strain with CT scan done today 3. Atrial fibrillation, rate controlled unclear if this is new or onset with the recently diagnosed pulmonary emboli 4. Elevated BNP, likely due to the slightly dilated right atrium and not secondary to congestive heart failure given normal ejection fraction 4 days ago and no evidence of fluid overload on chest x-ray or CT scan of the chest 5. Bilateral pulmonary infarcts and possibility of pneumonia. Blood cultures have been ordered and she has been changed to cefepime and vancomycin Discussion: 82-year-old woman with recent by lateral pulmonary emboli, recent echocardiogram did not suggest severe right heart strain and it does not sound like there is any interventional radiology procedures done with her recent hospitalization into coma. Likely worsening bilateral pulmonary infarcts with mild hypoxia and likely concurrent developing pneumonia. Atrial fibrillation rate controlled unclear if this is new or chronic, anticoagulated. Heart rate has come down with oxygen and blood pressure has increased. At this point I believe she is euvolemic and not showing any evidence of septic shock, a dditional and/or aggressive fluid resuscitation is not indicated at this point. I believe that she does need hospitalization for pain control, pulmonary toilet, oxygen and IV antibiotics presumably for pulmonary infarcts secondary to bilateral PE currently being treated with apixaban and probable secondary pneumonia related to the pulmonary infarcts. Discharge Plan Departure Patient Disposition: Admitted As Inpatient Clinical Impression: Pulmonary embolism and infarction, Elevated international normalized ratio (INR), Hypoxia Pneumonia Qualifiers: Pneumonia type: due to unspecified organism Atrial fibrillation Qualifiers: Atrial fibrillation type: unspecified Qualified Code(s): I48.91 - Unspecified atrial fibrillation Admit Date/Time: 06/08/23 21:25 Admit Provider: Eric Galvan
[2023-06-08 17:28] LABS: PTT Partial Thromboplastin Tim 44 SECONDS (26-36)
[2023-06-08 17:32] LABS: NT-proBNP (BNP-Adult 18+) 8820 pg/mL (<450)
[2023-06-08 17:38] LABS: Creatine Kinase 25 U/L (30-135)
[2023-06-08 17:49] LABS: Alanine Aminotransferase 31 IU/L (<35); Albumin 3.5 g/dL (3.5-5.0); Albumin Globulin Ratio 1.1 (1.0-2.8); Alkaline Phosphatase 103 U/L (38-126); Aspartate Aminotransferase 30 IU/L (14-36); BUN Creatinine Ratio 34.8 (6-22); Bilirubin Total 0.5 mg/dL (0.2-1.3); Blood Urea Nitrogen 24 mg/dL (7-17); Calcium 9.8 mg/dL (8.4-10.2); Carbon Dioxide 27 mmol/L (22-32); Chloride 95 mmol/L (98-107); Estimated Glomerular Filt Rate > 60 mL/min (>60); Globulin 3.2 g/dL (1.7-4.1); Glucose 147 mg/dL (80-110); HEMOLYSIS < 15 (0-50); Lipase 15 U/L (23-300); Potassium 4.6 mmol/L (3.4-5.1); Sodium 132 mmol/L (137-145); Total Protein 6.7 g/dL (6.3-8.2)
[2023-06-08 17:50] LABS: D Dimer 2561 ng/ml (<500)
[2023-06-08 17:58] LABS: Fibrinogen 784 mg/dL (211-428)
[2023-06-08 18:05] LABS: Procalcitonin 0.29 ng/mL (<0.5)
--- NOTE | 2023-06-08 18:18 | DI.CT.S_ITS ---
PROCEDURE: CT CHEST W CON INDICATIONS: Post-PE, getting worse; question pulmonary infarct TECHNIQUE: After the administration of intravenous contrast, 5 mm thick sections acquired from the pulmonary apices to the posterior costophrenic angles. 1 mm axial lung, 5 mm thick coronal and sagittal reformats and 7 mm axial MIP were acquired. For radiation dose reduction, the following was used: automated exposure control, adjustment of mA and/or kV according to patient size. COMPARISON: [facility], CT, CT ANGIO CHEST PE PROTOCOL, 06/04/2023, 15:01. FINDINGS: Image quality: Excellent. Lungs and pleura: Bilateral lower lobe infiltrate and pleural effusions, which may be secondary to pulmonary infarct. No acute air space opacities. No pleural effusions or pneumothorax. Central and peripheral airways are patent and normal in caliber. Mediastinum: There are intraluminal filling defect involving the main pulmonary arteries as well as lobar and segmental arteries bilaterally consistent with pulmonary emboli. Compared to the last exam, clot loads are decreased. Heart size is normal. No pericardial effusion. Right atrium and ventricule are prominent size suggesting mild right heart strain. Mildly enlarged mediastinal lymph nodes are again noted. Thoracic aorta and central pulmonary arteries are normal in size. Esophagus is normal in caliber. No hiatal hernia. Bones and chest wall: No suspicious bony lesions. No vertebral body compression fractures. No axillary or supraclavicular adenopathy by size criteria. Thyroid gland is unremarkable . Abdomen: Low-density nodules in liver are most likely cysts. IMPRESSION: 1. There are bilateral pulmonary emboli, decreased compared to prior examination. There is slight right atrial and ventricular prominence, suggesting mild right heart strain. 2. Bilateral pulmonary infiltrates and small pleural effusions, likely secondary to pulmonary infarcts. Superimposed pneumonia cannot be excluded. 3. Mild mediastinal lymphadenopathy, nonspecific. Consider follow-up imaging as clinically indicated. Dictated by: Maggy Block M.D. on 06/08/2023 at 20:07 Approved by: Maggy Block M.D. on 06/08/2023 at 20:12
[2023-06-08 18:32] LABS: Troponin I 0.075 ng/mL (0.01-0.034)
[2023-06-08 18:34] LABS: Lactate (Lactic Acid) 4.2 mmol/L (0.7-2.1)
[2023-06-08] MEDS: CEFEPIME 2 GM in SODIUM CHLORIDE 0.9% 100 ML IV (19:15)
[2023-06-08 20:05] LABS: Lactate 2HR (Lactic Acid Rflx) 1.8 mmol/L (0.7-2.1)
[2023-06-08] MEDS: VANCOMYCIN 1,500 MG/300 ML PIGGYBACK 200 MG IV (20:13)
--- NOTE | 2023-06-08 22:09 | P.HP_ITS ---
History of Present Illness History of Present Illness Chief complaint: BLOOD CLOTS NOT GETTING BETTER Narrative: 82 y/o patient who was diagnosed with PE several days ago, presents to ED hypoxemic, short of breath, with evidence of PNA. [facility] Medical History Atrial fibrillation (2013) Chronic fatigue syndrome (~1992) Chronic pain COPD (chronic obstructive pulmonary disease) Depression Diaphragmatic hernia DJD of shoulder Elevated brain natriuretic peptide (BNP) level Elevated d-dimer Fibromyalgia (1992) Major 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 Migraines (1984) Mumps (1949) Osteoarthritis Osteopenia Osteoporosis (1989) Peripheral edema RLS (restless legs syndrome) Shortness of breath Surgical History Anesthesia History of bladder suspension procedure (1994) Other joint replacement by other means (1998) Previous back surgery (~12/17/22) S/P total abdominal hysterectomy and bilateral salpingo-oophorectomy (1964) Status post breast biopsy Family History Brother MVA (motor vehicle accident) Father CAD (coronary artery disease) Mother Pancreatic cancer Social History household members: none Smoking Status: Former smoker alcohol intake: never Meds Home Medications and Allergies Home Medications Medication Instructions Recorded Confirmed Type meclizine 25 mg tablet 25 mg PO TID PRN dizziness #90 tabs 05/20/20 06/09/23 Rx budesonide 0.5 mg/2 mL suspension 0.5 mg (2 mL) inhalation BID #120 01/02/21 06/09/23 Rx for nebulization mL metoprolol tartrate 25 mg tablet 25 mg PO BID #180 tabs 10/11/22 06/09/23 Rx Disabled Parking Permit See Rx Instructions .Route 03/19/23 06/09/23 Rx .COMPLEX #1 unit furosemide 20 mg tablet 20 mg PO DAILY #30 tabs 05/24/23 06/09/23 Rx potassium chloride 20 mEq 20 meq PO DAILY #30 tabs 05/24/23 06/09/23 Rx tablet,extended release fluticasone 250 mcg-salmeterol 50 1 ea inhalation BID 05/28/23 06/09/23 History mcg/dose blistr powdr for inhalation ([employer] Inhub) Acid Porcelain Enamel Installer (omeprazole) 20 mg PO AC reflux 06/09/23 06/09/23 History albuterol sulfate 90 mcg/actuation 2 puff inhalation Q4-6H PRN 06/09/23 06/09/23 History aerosol inhaler wheezing betamethasone dipropionate 0.05 % 1 applic topical BID PRN Rash 06/09/23 06/09/23 History topical ointment cyclobenzaprine 10 mg tablet 10 mg PO Q8HR PRN Muscle Spasm 06/09/23 06/09/23 History gabapentin 300 mg PO Q8H neuropathy 06/09/23 06/09/23 History pravastatin 40 mg tablet 40 mg PO HS high cholesterol 06/09/23 06/09/23 History sumatriptan succinate 100 mg 100 mg PO PRN PRN migraines 06/09/23 06/09/23 History tablet (Imitrex) tramadol 100 mg PO Q8HR PRN Pain (Scale 06/09/23 06/09/23 History Score 4-6) Allergies Allergy/AdvReac Type Severity Reaction Status Date / Time Sulfa (Sulfonamide Allergy Severe RASH Verified 06/04/23 13:39 Antibiotics) [SULFA (SULFONAMIDE ANTIBIOTICS)] bee venom protein (honey bee) Allergy Intermediate Throat Verified 06/04/23 13:39 swelling and breathing problems alendronate sodium AdvReac Severe Intolerable Verified 06/04/23 13:39 heartburn paroxetine [PAROXETINE] AdvReac Intermediate agitated, Verified 06/04/23 13:39 anxious turmeric AdvReac Broke out Verified 06/04/23 13:39 in spots GAUZE Allergy Mild SEVERE Uncoded 06/04/23 13:39 RASH/ REDNESS Review of Systems Constitutional Comments: generalized weakness Cardiovascular Comments: w/o palpitations has pleuritic chest pain Respiratory Comments: short of breath, w/o hemoptysis Gastrointestinal Comments: w/o complaints Exam Vital Signs (past 8 hours): - 06/08/23 17:03 06/08/23 16:56 06/08/23 16:57 Temperature 98.5 F Pulse Rate 116 H 111 H Respiratory Rate 28 H Blood Pressure 105/56 L 105/56 L Pulse Oximetry 88 L 87 L Oxygen Delivery Method Room Air Room Air Oxygen Flow Rate 06/08/23 16:57 06/08/23 17:00 06/08/23 17:00 Temperature Pulse Rate 111 H 115 H Respiratory Rate 30 H Blood Pressure 120/76 Pulse Oximetry 96 Oxygen Delivery Method Nasal Cannula Oxygen Flow Rate 2 06/08/23 17:30 06/08/23 17:30 06/08/23 18:00 Temperature Pulse Rate 105 H Respiratory Rate 33 H Blood Pressure 114/77 111/55 L Pulse Oximetry 97 Oxygen Delivery Method Oxygen Flow Rate 06/08/23 18:00 06/08/23 18:30 06/08/23 18:30 Temperature Pulse Rate 96 H 98 H Respiratory Rate 26 H 32 H Blood Pressure 114/65 Pulse Oximetry 97 96 Oxygen Delivery Method Oxygen Flow Rate 06/08/23 19:00 06/08/23 19:30 06/08/23 20:00 Temperature Pulse Rate 93 H 89 94 H Respiratory Rate 27 H 24 26 H Blood Pressure Pulse Oximetry 98 99 98 Oxygen Delivery Method Oxygen Flow Rate 06/08/23 20:30 06/08/23 21:00 Temperature Pulse Rate 88 92 H Respiratory Rate 25 H 24 Blood Pressure Pulse Oximetry 98 97 Oxygen Delivery Method Oxygen Flow Rate Oxygen Delivery Method Room Air Oxygen Flow Rate 2 Const Other: appears weak, in no distress Eyes Other: stewart, eomi Resp Other: + rhonchi crackles on bases Cardio Other: RRR Skin Other: no rashes Neuro Other: w/o deficits Extrem Other: w/o swelling Psych Other: appropriate mood and affect Objective Labs 06/09/23 04:20 06/09/23 04:20 Labs: Laboratory Results - last 24 hr 06/08/23 06/08/23 06/08/23 17:00 17:00 17:00 WBC 30.6 H* RBC 4.04 Hgb 11.7 L Hct 36.8 MCV 91.0 MCH 28.9 MCHC 31.7 RDW 14.7 Plt Count 239 Neut % (Auto) 86.1 H Lymph % (Auto) 7.5 L [place] % (Auto) 5.9 Eos % (Auto) 0.1 L Baso % (Auto) 0.4 Neut # (Auto) 14446 H Lymph # (Auto) 2300 [place] # (Auto) 1800 H Eos # (Auto) 0 Baso # (Auto) 100 PT 70.5 H D INR 6.0 H* APTT Fibrinogen D-Dimer Sodium 132 L Potassium 4.6 Chloride 95 L Carbon Dioxide 27 BUN 24 H Creatinine 0.69 Estimated GFR > 60 BUN/Creatinine Ratio 34.8 H Glucose 147 H Lactate Calcium 9.8 Total Bilirubin 0.5 AST 30 ALT 31 Alkaline Phosphatase 103 Total Creatine Kinase Troponin I NT-Pro-B Natriuret Pep 8820 H Total Protein 6.7 Albumin 3.5 Globulin 3.2 Albumin/Globulin Ratio 1.1 Lipase 15 L Procalcitonin 06/08/23 06/08/23 06/08/23 17:00 17:00 17:00 WBC RBC Hgb Hct MCV MCH MCHC RDW Plt Count Neut % (Auto) Lymph % (Auto) [place] % (Auto) Eos % (Auto) Baso % (Auto) Neut # (Auto) Lymph # (Auto) Lincoln # (Auto) Eos # (Auto) Baso # (Auto) PT INR APTT 44 H Fibrinogen 784 H* D-Dimer 2561 H Sodium Potassium Chloride Carbon Dioxide BUN Creatinine Estimated GFR BUN/Creatinine Ratio Glucose Lactate Calcium Total Bilirubin AST ALT Alkaline Phosphatase Total Creatine Kinase 25 L Troponin I 0.075 H NT-Pro-B Natriuret Pep Total Protein Albumin Globulin Albumin/Globulin Ratio Lipase Procalcitonin 06/08/23 06/08/23 06/08/23 17:00 17:00 19:25 WBC RBC Hgb Hct MCV MCH MCHC RDW Plt Count Neut % (Auto) Lymph % (Auto) [place] % (Auto) Eos % (Auto) Baso % (Auto) Neut # (Auto) Lymph # (Auto) [place] # (Auto) Eos # (Auto) Baso # (Auto) PT INR APTT Fibrinogen D-Dimer Sodium Potassium Chloride Carbon Dioxide BUN Creatinine Estimated GFR BUN/Creatinine Ratio Glucose Lactate 4.2 H* 1.8 Calcium Total Bilirubin AST ALT Alkaline Phosphatase Total Creatine Kinase Troponin I NT-Pro-B Natriuret Pep Total Protein Albumin Globulin Albumin/Globulin Ratio Lipase Procalcitonin 0.29 Assessment & Plan Assessment & Plan narrative: 1. HAP - Cefepime, Vancomycin 2. Acute Hypoxemic Respiratory Failure - she will need home O2 3. PE - on Xarelto - INR ~ 6 x 2 - Holding Xarelto - recheck coags 4. Asthma vs COPD? - inhaled steroid, bronchodilator 5. HH / GERD - PPI 6. Insomnia - Trazodone 7. Fibromyalgia - Gabapentin, Tramadol
[2023-06-09] VITALS (70 sets, daily range): BP systolic 97–132; BP diastolic 47–72; PULSE 75–133; RESP 20–34; TEMP 36.3–36.6; O2SAT 88–99
[2023-06-09 03:14] LABS: MRSA (Nasal) PCR Not Detected (Not Detect)
[2023-06-09 04:32] LABS: Add Manual Diff / Slide Review NO; Basophils Absolute Auto 100 /uL (0-100); Basophils Percent Auto 0.5 % (0-2); Eosinophils Absolute Auto 0 /uL (0-450); Hematocrit 31.2 % (36-46); Lymphocytes Absolute Auto 2000 /uL (1100-4500); Mean Corpuscular HGB Conc 31.9 % (30-36); Mean Corpuscular Hemoglobin 28.7 PG (26-34); Mean Corpuscular Volume 89.9 fL (80-100); Monocytes Absolute Auto 1600 /uL (0-900); Monocytes Percent Auto 6.2 % (3-14); Neutrophils Absolute Auto 21700 /uL (1500-7000); Neutrophils Percent Auto 85.3 % (50-75); Platelet Count 189 X10^3/uL (150-400); Red Blood Cell Count 3.47 X10^6/uL (4.0-5.2); Red Cell Distribution Width 14.9 % (11.6-14.8); White Blood Cell Count 25.4 X10^3/uL (4.5-11.0)
[2023-06-09 04:36] LABS: Prothrombin Time 66.3 SECONDS (10.1-12.7)
[2023-06-09 04:39] LABS: PTT Partial Thromboplastin Tim 43 SECONDS (26-36)
[2023-06-09 04:40] LABS: BUN Creatinine Ratio 37.5 (6-22); Blood Urea Nitrogen 21 mg/dL (7-17); Carbon Dioxide 31 mmol/L (22-32); Chloride 98 mmol/L (98-107); Estimated Glomerular Filt Rate > 60 mL/min (>60); Glucose 107 mg/dL (80-110); HEMOLYSIS < 15 (0-50); Potassium 4.2 mmol/L (3.4-5.1); Sodium 131 mmol/L (137-145)
[2023-06-09 04:47] LABS: INR 5.7 (0.9-1.3)
[2023-06-09 04:49] LABS: NT-proBNP (BNP-Adult 18+) 6000 pg/mL (<450)
[2023-06-09] MEDS: CEFEPIME 1 GM in SODIUM CHLORIDE 0.9% 100 ML IV (06:38)
[2023-06-09] MEDS: GABAPENTIN 300 MG CAPSULE PO ×3 (08:27→20:27)
[2023-06-09] MEDS: METOPROLOL IR 25 MG TABLET PO ×2 (08:27→20:27)
[2023-06-09] MEDS: POTASSIUM CHLORIDE 20 MEQ TAB PO (08:27)
[2023-06-09] MEDS: FUROSEMIDE 20 MG TABLET PO (08:27)
[2023-06-09] MEDS: VANCOMYCIN 750 MG/150 ML PIGGYBACK 150 MG IV (08:32)
[2023-06-09] MEDS: ALBUTEROL 2.5 MG/3 ML NEB (ADULT) INH (08:42)
[2023-06-09] MEDS: BUDESONIDE 0.5 MG/2 ML NEB INH (08:42)
[2023-06-09] MEDS: FUROSEMIDE 20 MG/2 ML VIAL IV (09:45)
[2023-06-09] MEDS: TRAMADOL 50 MG TABLET 100 MG PO (09:52)
--- NOTE | 2023-06-09 11:58 | CM.DANOTE ---
Reviewed chart with existing information, and patient discussed in multidisciplinary rounds this morning. Met with patient and introduced to care coordination and discharge planning. They agree to assessment. Pt is a 82 year old admitted for pneumonia, hypoxia, PE, supratherapeutic INR. Recent hospitalization at [facility]. Patient states she was transferred there from [facility] secondary to no available beds in other [place]. States her daughters are a good support to her, and live near here home where she lives alone by choice, here in [place]. PCP: Matthew Tafoya seen 6 days ago. DME: [id number] Payer: [facility] Medicare Barriers: WBC 30, 02, anticoagulation and future teaching. CM team following for HH RN, PT (depending upon mobility) and possible home 02. Melissa Zarate RN CM Discharge Planning/Care Management CM Discharge Assessment Start: 06/09/23 11:38 Freq: Status: Active Protocol: Document 06/09/23 11:39 BQ (Rec: 06/09/23 11:58 BQ [id number]) Discharge Planning Assessment Assigned Child Attendant Melissa Zarate RN CM Advance Directives? No History Provided By Patient Has Patient been admitted in last 30 Yes days? Prior Living Arrangements House Household Members none Type of transporation used prior to Relies on Others admit Independent with ADL's Yes Is patient alert and oriented? Yes Needs Assistance With Meal Prep,Home Chores / Shopping Caregiver for Another No DME Already Rented / Owned [employer] / Walker,Cane Barriers to Discharge Yes Comment Not medically ready, elevated WBC, INR, 02 needs Discharge Plan Home with Home Health Community [facility] Physical Therapy,Occupational Therapy,Home Health Nurse Referrals Initiated Other Additional Comment CM team follow for HH needs including possible home 02 secondary to PNA and PE as well as RN for ongoing anticoagulation management ( supratherapeutic INR). Medicare Choice List Provided Yes Medicare choice list reviewed on patient electronic tablet with Whiteboard Updated in Patient Room with Yes name and ext. # of Child Attendant Review Status In Process Next Review Type Continued Stay Review
--- NOTE | 2023-06-09 14:14 | P.PN_ITS ---
Subjective Subjective Interval history: 82-year-old female with permanent atrial fibrillation, COPD, restless legs syndrome, osteoporosis, recent hospitalization for DVT/bilateral pulmonary emboli, who presented to the emergency department last night complaining of increasing shortness of breath. Patient was seen by her primary care provider on May 21. At that time she complained of bilateral leg swelling as well as right back pain. She was placed on a prednisone taper for 1 week. Her return to her physician's office on May 28, she noted no improvement with the steroids and they were discon tinued. Referrals were made to pulmonology and Cardiology. Plans were in place for her to obtain a CT pulmonary angiogram as well. She subsequently presented to the emergency department on June 04 and she was found to have bilateral pulmonary emboli, bilateral lower lobe opacities, consistent with pneumonia versus infarct, small bilateral pleural effusions, mediastinal and hilar adenopathy, possibly reactive in nature. Echocardiogram did reveal evidence of mild right heart strain. She was subsequently transferred from our emergency department to [facility] in [place], [place]. There, she was also found to have evidence of a right proximal femoral vein DVT. She was placed on heparin infusion. She was on that by report for 2 days. She was subsequently discharged home with Xarelto anticoagulation. She reports she was discharged home on 06/07/2023. She evidently developed increasing shortness of breath yesterday and returned to the emergency department. Chest x-ray revealed poorly defined opacity in the left lung base concerning for infiltrate. Differential diagnosis would also include atelectasis. Chest CT was done which revealed decreasing bilateral pulmonary emboli. There is also slight right atrial and ventricular prominence suggesting mild right heart strain. There were persistent bilateral pulmonary infiltrates and pleural effusions felt likely to be secondary to pulmonary infarcts. Superimposed pneumonia could not be excluded. She would persistent mild mediastinal lymphadenopathy noted. Labs revealed a white blood cell count up to 30.6 from 12/10 0.0 during her prior hospitalization. BNP was 8820. INR was 6.0 with a fibrinogen of 784. Exam Vital Signs (past 8 hours): - 06/09/23 06:15 06/09/23 06:30 06/09/23 06:45 Pulse Rate 89 101 H 82 Respiratory Rate 23 27 H 28 H Blood Pressure Pulse Oximetry 97 94 97 Oxygen Delivery Method Oxygen Flow Rate 06/09/23 07:00 06/09/23 07:15 06/09/23 07:30 Pulse Rate 86 84 89 Respiratory Rate 24 23 23 Blood Pressure Pulse Oximetry 97 96 96 Oxygen Delivery Method Oxygen Flow Rate 06/09/23 07:33 06/09/23 07:33 06/09/23 07:00 Pulse Rate 90 Respiratory Rate 27 H Blood Pressure 108/54 L Pulse Oximetry 95 Oxygen Delivery Method Nasal Cannula Oxygen Flow Rate 06/09/23 08:45 06/09/23 07:45 06/09/23 08:00 Pulse Rate 89 90 Respiratory Rate 25 H 22 Blood Pressure Pulse Oximetry 98 96 96 Oxygen Delivery Method Nasal Cannula Oxygen Flow Rate 1 06/09/23 08:15 06/09/23 08:30 06/09/23 08:45 Pulse Rate 94 H 95 H 97 H Respiratory Rate 28 H 30 H 25 H Blood Pressure Pulse Oximetry 97 94 98 Oxygen Delivery Method Oxygen Flow Rate 06/09/23 09:00 06/09/23 09:15 06/09/23 09:30 Pulse Rate 97 H 90 93 H Respiratory Rate 26 H 25 H 27 H Blood Pressure Pulse Oximetry 97 96 96 Oxygen Delivery Method Oxygen Flow Rate 06/09/23 09:45 06/09/23 10:00 06/09/23 10:20 Pulse Rate 91 H 92 H 133 H Respiratory Rate 24 25 H Blood Pressure Pulse Oximetry 97 97 Oxygen Delivery Method Oxygen Flow Rate 06/09/23 10:30 06/09/23 10:45 06/09/23 11:00 Pulse Rate 93 H 95 H 94 H Respiratory Rate 27 H 27 H 32 H Blood Pressure Pulse Oximetry 98 97 96 Oxygen Delivery Method Oxygen Flow Rate 06/09/23 11:15 06/09/23 11:30 06/09/23 11:45 Pulse Rate 93 H 92 H 91 H Respiratory Rate 29 H 27 H 26 H Blood Pressure Pulse Oximetry 97 96 95 Oxygen Delivery Method Oxygen Flow Rate 06/09/23 12:00 06/09/23 12:00 Pulse Rate 75 Respiratory Rate Blood Pressure 118/61 Pulse Oximetry 88 L Oxygen Delivery Method Oxygen Flow Rate Oxygen Delivery Method Nasal Cannula Oxygen Flow Rate 1 Narrative Exam Narrative: GEN: Elderly female, Alert and oriented x 3, NAD HEENT:NC, Face symmetric, bruising noted to her left eyelid, left corner of her mouth, no gum bleeding CHEST: Respiratory excursions symmetric, coarse with crackles in the left base CV: Irregularly irregular,, no M/R/G ABD: Soft, NT/ND, BT present in all 4 quadrants, no organomegaly or masses EXTR: warm, well perfused, no C/C/E SKIN: warm and dry, no rash, she does have significant bruising noted to bilateral forearms, and inferior pannus. No flank bruising. No other bruising noted NEURO: Alert and oriented x 3, nonfocal Objective Labs 06/09/23 04:20 06/09/23 04:20 Labs: Laboratory Results - last 24 hr 06/08/23 06/08/23 06/08/23 17:00 17:00 17:00 WBC 30.6 H* RBC 4.04 Hgb 11.7 L Hct 36.8 MCV 91.0 MCH 28.9 MCHC 31.7 RDW 14.7 Plt Count 239 Neut % (Auto) 86.1 H Lymph % (Auto) 7.5 L [place] % (Auto) 5.9 Eos % (Auto) 0.1 L Baso % (Auto) 0.4 Neut # (Auto) 46144 H Lymph # (Auto) 2300 [place] # (Auto) 1800 H Eos # (Auto) 0 Baso # (Auto) 100 PT 70.5 H D INR 6.0 H* APTT Fibrinogen D-Dimer Sodium 132 L Potassium 4.6 Chloride 95 L Carbon Dioxide 27 BUN 24 H Creatinine 0.69 Estimated GFR > 60 BUN/Creatinine Ratio 34.8 H Glucose 147 H Lactate Calcium 9.8 Total Bilirubin 0.5 AST 30 ALT 31 Alkaline Phosphatase 103 Total Creatine Kinase Troponin I NT-Pro-B Natriuret Pep 8820 H Total Protein 6.7 Albumin 3.5 Globulin 3.2 Albumin/Globulin Ratio 1.1 Lipase 15 L Procalcitonin Nasal Screen MRSA (PCR) 06/08/23 06/08/23 06/08/23 17:00 17:00 17:00 WBC RBC Hgb Hct MCV MCH MCHC RDW Plt Count Neut % (Auto) Lymph % (Auto) [place] % (Auto) Eos % (Auto) Baso % (Auto) Neut # (Auto) Lymph # (Auto) [place] # (Auto) Eos # (Auto) Baso # (Auto) PT INR APTT 44 H Fibrinogen 784 H* D-Dimer 2561 H Sodium Potassium Chloride Carbon Dioxide BUN Creatinine Estimated GFR BUN/Creatinine Ratio Glucose Lactate Calcium Total Bilirubin AST ALT Alkaline Phosphatase Total Creatine Kinase 25 L Troponin I 0.075 H NT-Pro-B Natriuret Pep Total Protein Albumin Globulin Albumin/Globulin Ratio Lipase Procalcitonin Nasal Screen MRSA (PCR) 06/08/23 06/08/23 06/08/23 17:00 17:00 19:25 WBC RBC Hgb Hct MCV MCH MCHC RDW Plt Count Neut % (Auto) Lymph % (Auto) [place] % (Auto) Eos % (Auto) Baso % (Auto) Neut # (Auto) Lymph # (Auto) [place] # (Auto) Eos # (Auto) Baso # (Auto) PT INR APTT Fibrinogen D-Dimer Sodium Potassium Chloride Carbon Dioxide BUN Creatinine Estimated GFR BUN/Creatinine Ratio Glucose Lactate 4.2 H* 1.8 Calcium Total Bilirubin AST ALT Alkaline Phosphatase Total Creatine Kinase Troponin I NT-Pro-B Natriuret Pep Total Protein Albumin Globulin Albumin/Globulin Ratio Lipase Procalcitonin 0.29 Nasal Screen MRSA (PCR) 06/08/23 06/09/23 06/09/23 23:11 04:20 04:20 WBC 25.4 H RBC 3.47 L Hgb 10.0 L Hct 31.2 L MCV 89.9 MCH 28.7 MCHC 31.9 RDW 14.9 H Plt Count 189 Neut % (Auto) 85.3 H Lymph % (Auto) 8.0 L [place] % (Auto) 6.2 Eos % (Auto) 0.0 L Baso % (Auto) 0.5 Neut # (Auto) 71045 H Lymph # (Auto) 2000 [place] # (Auto) 1600 H Eos # (Auto) 0 Baso # (Auto) 100 PT 66.3 H INR 5.7 H* APTT 43 H Fibrinogen D-Dimer Sodium Potassium Chloride Carbon Dioxide BUN Creatinine Estimated GFR BUN/Creatinine Ratio Glucose Lactate Calcium Total Bilirubin AST ALT Alkaline Phosphatase Total Creatine Kinase Troponin I NT-Pro-B Natriuret Pep Total Protein Albumin Globulin Albumin/Globulin Ratio Lipase Procalcitonin Nasal Screen MRSA (PCR) Not detected 06/09/23 04:20 WBC RBC Hgb Hct MCV MCH MCHC RDW Plt Count Neut % (Auto) Lymph % (Auto) [place] % (Auto) Eos % (Auto) Baso % (Auto) Neut # (Auto) Lymph # (Auto) [place] # (Auto) Eos # (Auto) Baso # (Auto) PT INR APTT Fibrinogen D-Dimer Sodium 131 L Potassium 4.2 Chloride 98 Carbon Dioxide 31 BUN 21 H Creatinine 0.56 Estimated GFR > 60 BUN/Creatinine Ratio 37.5 H Glucose 107 Lactate Calcium 9.0 Total Bilirubin AST ALT Alkaline Phosphatase Total Creatine Kinase Troponin I NT-Pro-B Natriuret Pep 6000 H Total Protein Albumin Globulin Albumin/Globulin Ratio Lipase Procalcitonin Nasal Screen MRSA (PCR) PFSH Medical History Atrial fibrillation (2013) Chronic fatigue syndrome (~1992) Chronic pain COPD (chronic obstructive pulmonary disease) Depression Diaphragmatic hernia DJD of shoulder Elevated brain natriuretic peptide (BNP) level Elevated d-dimer Fibromyalgia (1992) Major 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 Migraines (1984) Mumps (1949) Osteoarthritis Osteopenia Osteoporosis (1989) Peripheral edema RLS (restless legs syndrome) Shortness of breath Surgical History Anesthesia History of bladder suspension procedure (1994) Other joint replacement by other means (1998) Previous back surgery (~12/17/22) S/P total abdominal hysterectomy and bilateral salpingo-oophorectomy (1964) Status post breast biopsy Family History Brother MVA (motor vehicle accident) Father CAD (coronary artery disease) Mother Pancreatic cancer Social History household members: none Smoking Status: Former smoker alcohol intake: never Assessment & Plan Assessment & Plan narrative: 1. Coagulopathy secondary to Xarelto Unclear etiology. She was recently on steroids which certainly could have increased her risk but appears she is been off of those since May 28. Await records from [facility] for further review. Her INR was normal on arrival here on June 04. Will continue to hold Xarelto. Will obtain a follow-up hemoglobin. If she is evidence of blood loss, will give a small dose of vitamin K to help reverse the coagulopathy, but hopefully keep her in therapeutic range. I have left a message for on-call oncology to discuss further. Awaiting a return call. 2. Bilateral pulmonary emboli/right lower extremity DVT/pulmonary infarcts Will add hydrocodone for pain. Holding anticoagulation for now as noted. Will likely need to choose an alternative anticoagulant. 3. Possible pneumonia Suspect this is more likely a combination of pulmonary infarcts and pulmonary edema/atelectasis, rather than pneumonia. However, given her severe leukoc ytosis, will empirically continue coverage for healthcare associated pneumonia. Her leukocytosis is improved today. I did give a dose of furosemide IV this morning. Continue oral furosemide as well. 4. Permanent atrial fibrillation She is not anticoagulated at baseline. She is presently rate controlled. 5. Acute hypoxic respiratory failure Continue supplemental oxygen. 6. COPD No evidence of exacerbation 7. Chronic back pain Continue her usual home medications 8. Anemia On June 04 her hemoglobin was normal at 13.1. Last evening she was down to 11.7. Today 10.0. Awaiting a stat hemoglobin. Code status Full Prophylaxis Coagulopathic as noted above Disposition Pending Quality VTE Deep Vein Thrombosis/Pulmonary Embolism Present on Admission: Yes
[2023-06-09] MEDS: PHYTONADIONE (VIT K1) 5 MG TABLET PO (15:02)
[2023-06-09] MEDS: HYDROCODONE/ACET 5/325 TABLET 1 TAB PO ×2 (15:02→20:27)
[2023-06-09 16:01] LABS: Hemoglobin 10.8 g/dL (12.0-16.0)
[2023-06-09] MEDS: TRAZODONE 50 MG TABLET PO (20:27)
[2023-06-09] MEDS: SENNOSIDES 8.6 MG TABLET 17.2 MG PO (20:27)
[2023-06-10] VITALS (8 sets, daily range): BP systolic 113–138; BP diastolic 56–70; PULSE 90–109; RESP 15–25; TEMP 36.2–37.1; O2SAT 95–99
[2023-06-10 05:14] LABS: Add Manual Diff / Slide Review NO; Basophils Absolute Auto 100 /uL (0-100); Basophils Percent Auto 0.2 % (0-2); Eosinophils Absolute Auto 100 /uL (0-450); Eosinophils Percent Auto 0.4 % (2-4); Hematocrit 34.3 % (36-46); Lymphocytes Absolute Auto 2000 /uL (1100-4500); Lymphocytes Percent Auto 8.9 % (25-40); Mean Corpuscular Hemoglobin 29.1 PG (26-34); Monocytes Absolute Auto 1400 /uL (0-900); Monocytes Percent Auto 6.3 % (3-14); Neutrophils Absolute Auto 19200 /uL (1500-7000); Neutrophils Percent Auto 84.2 % (50-75); Platelet Count 208 X10^3/uL (150-400); Red Blood Cell Count 3.77 X10^6/uL (4.0-5.2); Red Cell Distribution Width 14.7 % (11.6-14.8); White Blood Cell Count 22.8 X10^3/uL (4.5-11.0)
[2023-06-10 05:19] LABS: INR 2.9 (0.9-1.3); Prothrombin Time 34.2 SECONDS (10.1-12.7)
[2023-06-10 05:23] LABS: BUN Creatinine Ratio 43.5 (6-22); Blood Urea Nitrogen 20 mg/dL (7-17); Carbon Dioxide 26 mmol/L (22-32); Chloride 99 mmol/L (98-107); Estimated Glomerular Filt Rate > 60 mL/min (>60); Glucose 92 mg/dL (80-110); HEMOLYSIS 38 (0-50); Potassium 4.4 mmol/L (3.4-5.1); Sodium 130 mmol/L (137-145)
[2023-06-10] MEDS: PHYTONADIONE (VIT K1) 5 MG TABLET 2.5 MG PO (08:54)
[2023-06-10] MEDS: GABAPENTIN 300 MG CAPSULE PO ×3 (08:55→20:41)
[2023-06-10] MEDS: POTASSIUM CHLORIDE 20 MEQ TAB PO (08:55)
[2023-06-10] MEDS: FUROSEMIDE 20 MG TABLET PO (08:55)
[2023-06-10] MEDS: METOPROLOL IR 25 MG TABLET PO ×2 (08:55→20:41)
[2023-06-10] MEDS: BUDESONIDE 0.5 MG/2 ML NEB INH ×2 (09:05→21:15)
[2023-06-10] MEDS: ALBUTEROL 2.5 MG/3 ML NEB (ADULT) INH (09:05)
[2023-06-10] MEDS: FUROSEMIDE 40 MG/4 ML VIAL IV ×2 (11:23→18:00)
[2023-06-10] MEDS: TRAMADOL 50 MG TABLET 100 MG PO ×3 (11:24→20:39)
--- NOTE | 2023-06-10 13:56 | PM.PN.1 ---
Subjective Subjective Interval history: Patient feels a bit more short of breath today, with decreased energy and appetite. Denies fevers or chills, No abdominal pain, nausea, vomiting or chest pain. Exam Vital Signs (past 8 hours): - 06/10/23 08:00 06/10/23 09:06 06/10/23 08:00 Temperature 98.7 F Pulse Rate 91 H Respiratory Rate 22 Blood Pressure 138/69 Pulse Oximetry 97 97 Oxygen Delivery Method Nasal Cannula Nasal Cannula Oxygen Flow Rate 2 1 06/10/23 12:00 Temperature 98.3 F Pulse Rate 99 H Respiratory Rate 18 Blood Pressure 136/70 Pulse Oximetry 97 Oxygen Delivery Method Oxygen Flow Rate 0 Oxygen Delivery Method Nasal Cannula Oxygen Flow Rate 0 Narrative Exam Narrative: GEN: Elderly female, Alert and oriented x 3, NAD HEENT:NC, Face symmetric, bruising noted to her left eyelid, left corner of her mouth, no gum bleeding CHEST: Respiratory excursions symmetric, coarse with crackles in the left base CV: Irregularly irregular,, no M/R/G ABD: Soft, NT/ND, BT present in all 4 quadrants, no organomegaly or masses EXTR: warm, well perfused, no C/C/E SKIN: warm and dry, no rash, she does have significant bruising noted to bilateral forearms, and inferior pannus. No flank bruising. No other bruising noted NEURO: Alert and oriented x 3, nonfocal Objective Labs 06/10/23 04:58 06/10/23 04:58 Labs: Laboratory Results - last 24 hr 06/09/23 06/10/23 06/10/23 15:50 04:58 04:58 WBC 22.8 H RBC 3.77 L Hgb 10.8 L 11.0 L Hct 34.0 L 34.3 L MCV 91.0 MCH 29.1 MCHC 32.0 RDW 14.7 Plt Count 208 Neut % (Auto) 84.2 H Lymph % (Auto) 8.9 L [place] % (Auto) 6.3 Eos % (Auto) 0.4 L Baso % (Auto) 0.2 Neut # (Auto) 28694 H Lymph # (Auto) 2000 [place] # (Auto) 1400 H Eos # (Auto) 100 Baso # (Auto) 100 PT 34.2 H D INR 2.9 H Sodium Potassium Chloride Carbon Dioxide BUN Creatinine Estimated GFR BUN/Creatinine Ratio Glucose Calcium 06/10/23 04:58 WBC RBC Hgb Hct MCV MCH MCHC RDW Plt Count Neut % (Auto) Lymph % (Auto) [place] % (Auto) Eos % (Auto) Baso % (Auto) Neut # (Auto) Lymph # (Auto) [place] # (Auto) Eos # (Auto) Baso # (Auto) PT INR Sodium 130 L Potassium 4.4 Chloride 99 Carbon Dioxide 26 BUN 20 H Creatinine 0.46 L Estimated GFR > 60 BUN/Creatinine Ratio 43.5 H Glucose 92 Calcium 9.0 [facility] Medical History Atrial fibrillation (2013) Chronic fatigue syndrome (~1992) Chronic pain COPD (chronic obstructive pulmonary disease) Depression Diaphragmatic hernia DJD of shoulder Elevated brain natriuretic peptide (BNP) level Elevated d-dimer Fibromyalgia (1992) Major 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 Migraines (1984) Mumps (1949) Osteoarthritis Osteopenia Osteoporosis (1989) Peripheral edema RLS (restless legs syndrome) Shortness of breath Surgical History Anesthesia History of bladder suspension procedure (1994) Other joint replacement by other means (1998) Previous back surgery (~12/17/22) S/P total abdominal hysterectomy and bilateral salpingo-oophorectomy (1964) Status post breast biopsy Family History Brother MVA (motor vehicle accident) Father CAD (coronary artery disease) Mother Pancreatic cancer Social History household members: none Smoking Status: Former smoker alcohol intake: never Assessment & Plan Assessment & Plan narrative: 1. Coagulopathy, possibly secondary to pneumonia or hepatic congestion. Await records from [facility] for further review. Will try diuresis today as an underlying etiology may be volume overload. Discussed with hematology and recommend reinitiation of anticoagulant once INR is <2. INR 2.9 today and given 2.5 mg Vit K PO per recommendations. Will try to obtain records regarding R heart as patient reports 2 prior TTEs at OSH. 2. Bilateral pulmonary emboli/right lower extremity DVT/pulmonary infarcts with possible R heart failure. Will add hydrocodone for pain. Holding anticoagulation for now as noted above. Will likely need to choose an alternative anticoagulant. -try to obtain TTE, will diurese today clinically appears a bit volume overloaded to see if improvement in appetite and breathing / hypoxia. 3. Possible pneumonia with acute respiratory failure with hypoxia. Given her severe leukocytosis, will empirically continue coverage for healthcare associated pneumonia. Her leukocytosis is improved today. Also possible findings are related to volume overload as discussed above. 4. Permanent atrial fibrillation She is not anticoagulated at baseline prior to PE. She is presently rate controlled. 5. Acute hypoxic respiratory failure see above. 6. COPD No evidence of exacerbation at this time. 7. Chronic back pain Continue her usual home medications 8. Anemia On June 04 her hemoglobin was normal at 13.1. Had been downtrending but now stabilized. No obvious signs or symptoms of bleeding. Code status Full, surrogate is patient's daughter. Prophylaxis Coagulopathic as noted above Disposition Likely home, pending PT evaluation and above medical management. Additional history obtained from daughter. Discussed plan of care with patient and daughter today. Additional history obtained from discussion with previous hospitalist, I have reviewed patient's labs, imaging, and documentation personally. Quality VTE Deep Vein Thrombosis/Pulmonary Embolism Present on Admission: Yes
--- NOTE | 2023-06-10 14:18 | CM.DPC ---
DCP Cont: Per MD, pt remains on 1LO2 and desats when attempting room air and not yet medically stable to discharge. PT ordered and pending. Plan: SW to follow closely after PT eval and sats to confirm if pt safe for d/c home with local supportive family and r/o HH and any further identified discharge planning needs. KAHLIL Love
--- NOTE | 2023-06-10 16:20 | PT-IP ANOTE ---
Received PT orders and completed chart review. Attempted to work with pt x 2 but pt was fatigued both times from having just been up with nursing. Discussed the benefits of continued mobility with the patient but she requested PT return tomorrow. Will follow up next service date.
[2023-06-10] MEDS: TRAZODONE 50 MG TABLET PO (20:41)
[2023-06-10] MEDS: ACETAMINOPHEN 325 MG TABLET 650 MG PO (20:41)
[2023-06-11] VITALS (8 sets, daily range): BP systolic 99–133; BP diastolic 52–87; PULSE 84–112; RESP 18–26; TEMP 36.1–37.2; O2SAT 95–98
[2023-06-11 05:13] LABS: INR 2.2 (0.9-1.3); Prothrombin Time 25.9 SECONDS (10.1-12.7)
--- NOTE | 2023-06-11 08:57 | PT.IIE ---
Current Diagnoses Pneumonia, unspecified organism (06/08/23) Other specified abnormal findings of blood chemistry (06/08/23) Surgical History (Last Reviewed 06/09/23 @ 07:03 by Eric Galvan MD) Anesthesia History of bladder suspension procedure (1994) Other joint replacement by other means (1998) Previous back surgery (~12/17/22) S/P total abdominal hysterectomy and bilateral salpingo-oophorectomy (1964) Status post breast biopsy Medical History (Last Reviewed 06/09/23 @ 07:03 by Eric Galvan MD) Atrial fibrillation (2013) Chronic fatigue syndrome (~1992) Chronic pain COPD (chronic obstructive pulmonary disease) Depression Diaphragmatic hernia DJD of shoulder Elevated brain natriuretic peptide (BNP) level Elevated d-dimer Fibromyalgia (1992) Major 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 Migraines (1984) Mumps (1949) Osteoarthritis Osteopenia Osteoporosis (1989) Peripheral edema RLS (restless legs syndrome) Shortness of breath Physical Therapy Inpatient Evaluation/Re-Eval M1 PT/OT-IP Prior Functional Status Start: 06/10/23 10:25 Freq: NEEDED Status: Active Protocol: Document 06/11/23 10:01 AB (Rec: 06/11/23 10:28 AB [id number]) Medical Review Prior Functional Status Medical History Reviewed Yes Communication Pt is able to express all needs. Mobility and Gait Pt reports she ambulates with 4WW at home, and doesn't typically go out into community. Activities of Daily Living and IADL's Pt reports she is IND with ADLs, but daughter and granddaughter assist her with IADLs such as cleaning. Social History Household Members none Living Arrangements House Number of Floors (Floors) One Floor Number of Stairs To Enter/Railing? 2 RONNY with 1 small hand rail on right side Home Environment Standard Height Toilet,Tub/ Shower Home Equipment Four Wheel Walker,Raised Toilet Seat w/Armrests,Shower Seat without Backrest,Hand Held Shower,Grab Bars In Shower Additional Social History Comment Pt reports her daughter and granddaughter can assist her 15/04 if needed. M2 PT-IP Current Condition Start: 06/10/23 10:25 Freq: NEEDED Status: Active Protocol: Document 06/11/23 10:01 AB (Rec: 06/11/23 10:28 AB [id number]) Physical Therapy Current Condition Current Condition Evaluation Date 06/11/23 Treatment Diagnosis Pneumonia, hx of PE; weakness Onset Date 06/08/23 M3 PT-IP Subjective Start: 06/10/23 10:25 Freq: NEEDED Status: Active Protocol: Document 06/11/23 10:01 AB (Rec: 06/11/23 10:28 AB [id number]) Subjective Physical Therapy Visit Type Type Initial Evaluation Visit Start Time 08:57 Visit Stop Time 09:39 Total Visit Minutes 42 Notes Pt presents seated in bed having finished breakfast. Number of DEBURRER STRIP Visits 0 Physical Therapy Visit Comments Patient Comments The pt reports she is done with breakfast and is agreeable to PT eval this morning. Therapy Pain Assessment Pain When Pain Assessed At Rest Pain Present Pain Present Denied Pain M4 PT-IP Mobility and Gait Start: 06/10/23 10:25 Freq: NEEDED Status: Active Protocol: Document 06/11/23 10:01 AB (Rec: 06/11/23 10:28 AB [id number]) PT-Bed Mobility Assessment Rolling Level of Assist Standby Assistance Supine to Sit Supine to Sit Standby Assistance,Head of Bed Elevated Sit to Supine Sit to Supine Standby Assistance,Head of Bed Elevated Scooting Scooting to Edge of Bed Standby Assistance Scooting Up and Down in Bed Standby Assistance PT-Transfer Assessment Sit to and From Stand Sit to and from Stand Standby Assistance,Use of Upper Extremities Equipment Transfer Assistive Device Gait Belt,Front Wheeled Walker Transfers Transfer Destination Bed Transfer Technique Stand Step Pivot Transfer Ability Level of Assist Standby Assistance,Use of Upper Extremities Gait Assessment Gait Gait Assistance Required: Standby Assistance Assistive Devices Assistive Device Gait Belt,Front Wheeled Walker Gait Deviations General Gait Pattern Decreased Stride Length, Decreased Feet Clearance Factors Limiting Gait Function Factors Limiting Gait Function Decreased Activity Tolerance, Decreased Strength,Respiratory Distress Comments Gait Comments When ambulating, the pt's SpO2 desaturated to below 85% on 1L of O2 via nasal cannula. The pt's SpO2 improved to greater than 93% when after returning to sitting. Stair Climbing Assessment Comments Stair Climbing Comments Not assessed due to weakness, fatigue and respiratory distress. PT-Balance Assessment Sitting Balance and Reactions Static Sitting Balance Ability Normal Dynamic Sitting Balance Ability Normal Standing Balance and Reactions Static Standing Balance Ability Good Dynamic Standing Balance Ability Fair Device Used FWW M5 PT-IP Objective Assessments Start: 06/10/23 10:25 Freq: NEEDED Status: Active Protocol: Document 06/11/23 10:01 AB (Rec: 06/11/23 10:28 AB [id number]) Orientation Orientation/Cognition Level of Alertness Alert Orientation Name,Age,Birthday,Month,Date, Year,Day of Week,Place, Situation Language Function Ability No Deficits Noted Safety Awareness Understands Safety Issues Memory Description No Deficits Noted Gross Range of Motion Upper Extremity ROM Assessment Within Functional Limits Lower Extremity ROM Assessment Within Functional Limits Strength Upper Extremity Strength Assessment Within Functional Limits Lower Extremity Strength Assessment Within Functional Limits M6 PT-IP Treatment Start: 06/10/23 10:25 Freq: NEEDED Status: Active Protocol: Document 06/11/23 10:01 AB (Rec: 06/11/23 10:28 AB [id number]) Physical Therapy Treatment Education Education Provided Safety Brace Education Patient Other Treatments Other Treatment Performed At end of session, the pt returned to bed with all needs met and call light within reach. Pt was handed off to MACHINE TOOL BUILDER. MYahaira PT-IP Assessment and Plan Start: 06/10/23 10:25 Freq: NEEDED Status: Active Protocol: Document 06/11/23 10:01 AB (Rec: 06/11/23 10:28 AB [id number]) PT Summary Assessment and Plan Potential Rehabilitation Potential Good Status of Condition at Evaluation Evolving Summary Impairments Strength,Bed Mobility, Transfers,Gait,Activity Tolerance Assessment Summary Arlene Rand is an 82 year old female patient with a medical diagnosis of pneumonia and a history of PE. Today's PT evaluation revealed muscular weakness and endurance deficits, as well as respiratory distress as demonstrated by SOB with exertion which caused a drop in SpO2 levels (bleow 85% on 1L of O2 via nasal cannula). The pt is able to perform bed mobility with HOB elevated with SBA, and is able to perform STS, transfers and gait with SBA. The pt requires use of FWW for transfers and gait, and is able to ambulate 20ft. However, with STS and gait the pt becomes short of breath and requires a seated rest break to recover. Stairs were not attempted this session due to symptoms of SOB , weakness and fatigue, however they should be assessed to ensure she is safe to discharge to home. The pt would benefit from skilled PT intervention during the course of her hospitalization to help her achieve her highest level of function. Goals Bed Mobility Goal Independent Transfer Goal Independent,Front Wheeled Walker,Four Wheeled Walker Gait Goal Standby Assistance,Front Wheel Walker,Four Wheel Walker Gait Distance 50 Other Goals Pt to be able to ascend/ descend 2 steps using 1 hand rail with SBA to demonstrate improved strength and endurance to discharge safely to home. Days to Meet Goals 10 Frequency of Treatment Frequency Of Treatment Once a Day Treatment Plan Physical Therapy Treatment Plan Bed Mobility Training,Transfer Training,Gait Training, Therapeutic Exercise,Balance Retraining,Discharge Planning, Hot or Cold Pack,Neuromuscular Re-ed Other Recommendations and Next Treatment Assess ability to ascend/ Focus descend 2 steps. Precautions Other Precautions Fall risk Recommendations To Nursing Amount of Assist Needed 1 Person Assist Discharge Recommendations PT Discharge Recommendations Home with Assistance Transportation Needs at Discharge Private Vehicle
[2023-06-11] MEDS: METOPROLOL IR 25 MG TABLET PO ×2 (09:03→20:18)
[2023-06-11] MEDS: GABAPENTIN 300 MG CAPSULE PO ×3 (09:03→20:17)
[2023-06-11] MEDS: FUROSEMIDE 40 MG/4 ML VIAL IV ×2 (09:03→17:39)
[2023-06-11] MEDS: POTASSIUM CHLORIDE 20 MEQ TAB PO (09:03)
[2023-06-11 09:42] LABS: Add Manual Diff / Slide Review NO; Basophils Absolute Auto 200 /uL (0-100); Eosinophils Absolute Auto 200 /uL (0-450); Eosinophils Percent Auto 0.8 % (2-4); Hematocrit 33.9 % (36-46); Hemoglobin 10.9 g/dL (12.0-16.0); Lymphocytes Absolute Auto 2100 /uL (1100-4500); Lymphocytes Percent Auto 9.3 % (25-40); Mean Corpuscular HGB Conc 32.2 % (30-36); Mean Corpuscular Hemoglobin 29.1 PG (26-34); Mean Corpuscular Volume 90.5 fL (80-100); Monocytes Absolute Auto 1300 /uL (0-900); Monocytes Percent Auto 5.9 % (3-14); Neutrophils Absolute Auto 18600 /uL (1500-7000); Platelet Count 282 X10^3/uL (150-400); Red Blood Cell Count 3.75 X10^6/uL (4.0-5.2); White Blood Cell Count 22.4 X10^3/uL (4.5-11.0)
[2023-06-11] MEDS: ALBUTEROL 2.5 MG/3 ML NEB (ADULT) INH ×2 (09:44→12:50)
[2023-06-11] MEDS: BUDESONIDE 0.5 MG/2 ML NEB INH (09:44)
[2023-06-11] MEDS: cefTRIAXone 1,000 MG in SODIUM CHLORIDE 0.9% 100 ML 200 MG IV (11:26)
[2023-06-11] MEDS: AZITHROMYCIN 500 MG in DEXTROSE 5% IN WATER 250 ML 250 MG IV (12:39)
--- NOTE | 2023-06-11 13:33 | PC.NURSE ---
Spoke with provider in am regarding pt's sore mouth with erythema, white patches and lesions. Provider assessed and okayed pt's home med of oragel, waiting for order to be placed. Due to difficult IV access and multiple IV meds, spoke with provider regarding possibility of midline. Midline placed and RN utilizing appropriately with heparin flush to lock. Spoke with provider and RT regarding pt's use of O2 (1L NC) in order to achieve sats >90 (desats to mid 80s on RA). Currently diuresing and pt receiving IV antibiotics for pneumonia.
--- NOTE | 2023-06-11 13:55 | CM.DPC ---
Addendum entered by KAHLIL Brito 06/11/23 15:09: APPLIANCE INSTALLER spoke with Dtr. Dtr was able to speak with clinic and they confirmed they are trying to get a new PCP to sign off for her HH order. Continue to follow closely. SL Original Note: DCP Continued: APPLIANCE INSTALLER reviewed EMR. Per RN, patient on 1tr of O2 at the moment, no home O2 at baseline. Did not do the stairs with PT yet but was moving better. APPLIANCE INSTALLER entered room and introduced self and role. Patient sitting in bed and was quiet throughout d/c planning interaction. Primary involvement came from daughter Cony ([phone]). Dtr reports her understanding is patient would d/c at the end of the week this week, likely or Saturday. Dtr and granddaughter available as supports at home, and assist Pt with needs/help take her to her appointments. Dtr reports that when Pt d/c from [facility] they ordered HH but hadn't heard back, she remembered it started with an A. Likely [facility]. Dtr reports being interested in additional caregivers in the home. APPLIANCE INSTALLER provided Dtr with [employer] booklet for caregiving options. APPLIANCE INSTALLER called Dylan at [facility]. He reported they received ref. from [facility] but was unable to complete ref. at this time due to lack of following PCP. Dr. Tafoya is leaving the clinic on Saturday and is unable to follow patient. Attempting to get sign off from another PCP in the clinic and had yet to hear back from clinic. Dylan was unsure if the order was for only nursing or additional artis as well. APPLIANCE INSTALLER updated Dtr to [facility] for HH. Dtr is going to call clinic now to attempt to advocate for her mother. Plan: d/c home with family when medically stable. Likely transport with family. [facility] to continue to follow. CM team will continue to follow closely. KAHLIL Brito
--- NOTE | 2023-06-11 14:09 | P.PN_ITS ---
Subjective Subjective Interval history: Feels better today with improved dyspnea, still on minimal O2 at 1L but i mproving. Denies fevers or chills, No abdominal pain, nausea, vomiting or chest pain. Exam Vital Signs (past 8 hours): - 06/11/23 08:00 06/11/23 09:45 06/11/23 07:00 Temperature 97.7 F Pulse Rate 86 Respiratory Rate 24 Blood Pressure 118/57 L Pulse Oximetry 97 97 Oxygen Delivery Method Nasal Cannula Nasal Cannula Oxygen Flow Rate 2 1 06/11/23 12:00 06/11/23 12:51 Temperature 97.8 F Pulse Rate 103 H Respiratory Rate 24 Blood Pressure 116/73 Pulse Oximetry 97 97 Oxygen Delivery Method Nasal Cannula Oxygen Flow Rate 0 1 Oxygen Delivery Method Nasal Cannula Oxygen Flow Rate 1 Narrative Exam Narrative: GEN: Elderly female, Alert and oriented x 3, NAD HEENT:NC, Face symmetric, bruising noted to her left eyelid, left corner of her mouth, no gum bleeding. Has some aphthous ulcerations. CHEST: Respiratory excursions symmetric, coarse with crackles bilaterally im proved since yesterday. CV: Irregularly irregular,, no M/R/G ABD: Soft, NT/ND, BT present in all 4 quadrants, no organomegaly or masses EXTR: warm, well perfused, no C/C/E SKIN: warm and dry, no rash, she does have significant bruising noted to bilateral forearms, and inferior pannus. No flank bruising. No other bruising noted NEURO: Alert and oriented x 3, nonfocal Objective Labs 06/11/23 09:26 06/10/23 04:58 Labs: Laboratory Results - last 24 hr 06/11/23 06/11/23 04:50 09:26 WBC 22.4 H RBC 3.75 L Hgb 10.9 L Hct 33.9 L MCV 90.5 MCH 29.1 MCHC 32.2 RDW 15.0 H Plt Count 282 Neut % (Auto) 83.0 H Lymph % (Auto) 9.3 L [place] % (Auto) 5.9 Eos % (Auto) 0.8 L Baso % (Auto) 1.0 Neut # (Auto) 06619 H Lymph # (Auto) 2100 [place] # (Auto) 1300 H Eos # (Auto) 200 Baso # (Auto) 200 H PT 25.9 H D INR 2.2 H PFSH Medical History Atrial fibrillation (2013) Chronic fatigue syndrome (~1992) Chronic pain COPD (chronic obstructive pulmonary disease) Depression Diaphragmatic hernia DJD of shoulder Elevated brain natriuretic peptide (BNP) level Elevated d-dimer Fibromyalgia (1992) Major 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 Migraines (1984) Mumps (1949) Osteoarthritis Osteopenia Osteoporosis (1989) Peripheral edema RLS (restless legs syndrome) Shortness of breath Surgical History Anesthesia History of bladder suspension procedure (1994) Other joint replacement by other means (1998) Previous back surgery (~12/17/22) S/P total abdominal hysterectomy and bilateral salpingo-oophorectomy (1964) Status post breast biopsy Family History Brother MVA (motor vehicle accident) Father CAD (coronary artery disease) Mother Pancreatic cancer Social History household members: none Smoking Status: Former smoker alcohol intake: never Assessment & Plan Assessment & Plan narrative: 1. Coagulopathy, possibly secondary to pneumonia or hepatic congestion. Await records from [facility] for further review. Will continue to diurese today as an underlying etiology may be volume overload and hepatic congestion Discussed with hematology and recommend reinitiation of anticoagulant once INR is <2. INR 2.2 today. Will try to obtain records regarding R heart as patient reports 2 prior TTEs at OSH. If not received will order TTE tomorrow. 2. Bilateral pulmonary emboli/right lower extremity DVT/pulmonary infarcts with possible R heart failure. Will add hydrocodone for pain. Holding anticoagulation for now as noted above. -try to obtain TTE from OSH records, will continue to diurese today clinically appears a bit volume overloaded and is improving thus far with diuresis. 3. Possible pneumonia with acute respiratory failure with hypoxia. Given her severe leukocytosis, will empirically continue coverage for healthcare associated pneumonia. Her leukocytosis is improved today. Also possible findings are related to volume overload as discussed above. resumed ceftriaxone and azithromycin today given persistent elevated WBC count. 4. Permanent atrial fibrillation She is not anticoagulated at baseline prior to PE. She is presently rate controlled. 5. Acute hypoxic respiratory failure see above. 6. COPD No evidence of exacerbation at this time. 7. Chronic back pain Continue her usual home medications 8. Anemia On June 04 her hemoglobin was normal at 13.1. Had been downtrending but now stabilized. No obvious signs or symptoms of bleeding. Code status Full, surrogate is patient's daughter. Prophylaxis Coagulopathic as noted above Disposition Likely home, once medically ready. Possibly in another couple of days depending on coagulopathy, respiratory failure and response to diuresis. Additional history obtained from daughter. Discussed plan of care with patient and daughter today. Additional history obtained from discussion with previous hospitalist, I have reviewed patient's labs, imaging, and documentation personally. Quality VTE Deep Vein Thrombosis/Pulmonary Embolism Present on Admission: Yes
[2023-06-11] MEDS: [UNRECOGNIZED DRUG - OTHER] 10 EACH PO (18:38)
[2023-06-11] MEDS: TRAZODONE 50 MG TABLET PO (20:17)
[2023-06-11] MEDS: FLUTICASONE PROPION SALMETEROL 1 EACH INH (20:17)
[2023-06-11] MEDS: ATORVASTATIN 20 MG TABLET PO (20:17)
[2023-06-11] MEDS: SENNOSIDES 8.6 MG TABLET 17.2 MG PO (20:17)
[2023-06-12] VITALS (8 sets, daily range): BP systolic 103–123; BP diastolic 51–60; PULSE 96–116; RESP 20–26; TEMP 36.6–36.9; O2SAT 95–98
[2023-06-12] MEDS: HYDROCODONE/ACET 5/325 TABLET 1 TAB PO (02:00)
[2023-06-12 04:46] LABS: Add Manual Diff / Slide Review NO; Basophils Absolute Auto 200 /uL (0-100); Basophils Percent Auto 1.2 % (0-2); Eosinophils Absolute Auto 0 /uL (0-450); Eosinophils Percent Auto 0.3 % (2-4); Hematocrit 30.2 % (36-46); Hemoglobin 9.7 g/dL (12.0-16.0); Lymphocytes Absolute Auto 1600 /uL (1100-4500); Lymphocytes Percent Auto 9.4 % (25-40); Mean Corpuscular HGB Conc 32.2 % (30-36); Monocytes Absolute Auto 1200 /uL (0-900); Monocytes Percent Auto 6.7 % (3-14); Neutrophils Absolute Auto 14300 /uL (1500-7000); Neutrophils Percent Auto 82.4 % (50-75); Platelet Count 247 X10^3/uL (150-400); Red Blood Cell Count 3.35 X10^6/uL (4.0-5.2); Red Cell Distribution Width 14.7 % (11.6-14.8); White Blood Cell Count 17.3 X10^3/uL (4.5-11.0)
[2023-06-12 04:47] LABS: INR 1.9 (0.9-1.3); Prothrombin Time 21.8 SECONDS (10.1-12.7)
[2023-06-12 04:53] LABS: Blood Urea Nitrogen 14 mg/dL (7-17); Calcium 8.7 mg/dL (8.4-10.2); Carbon Dioxide 31 mmol/L (22-32); Chloride 93 mmol/L (98-107); Estimated Glomerular Filt Rate > 60 mL/min (>60); Glucose 97 mg/dL (80-110); HEMOLYSIS < 15 (0-50); Magnesium 1.9 mg/dL (1.6-2.3); Potassium 3.7 mmol/L (3.4-5.1); Sodium 130 mmol/L (137-145)
[2023-06-12] MEDS: POTASSIUM CHLORIDE 20 MEQ TAB PO (08:06)
[2023-06-12] MEDS: FLUTICASONE PROPION SALMETEROL 1 EACH INH ×2 (08:06→20:02)
[2023-06-12] MEDS: GABAPENTIN 300 MG CAPSULE PO ×3 (08:06→20:01)
[2023-06-12] MEDS: METOPROLOL IR 25 MG TABLET PO ×2 (08:06→20:01)
[2023-06-12] MEDS: FUROSEMIDE 40 MG/4 ML VIAL IV ×2 (08:06→18:21)
[2023-06-12] MEDS: BUDESONIDE 0.5 MG/2 ML NEB INH (10:20)
[2023-06-12] MEDS: ALBUTEROL/IPRATROPIUM 3 ML AMPUL INH (10:21)
[2023-06-12] MEDS: cefTRIAXone 1,000 MG in SODIUM CHLORIDE 0.9% 100 ML 200 MG IV (11:08)
[2023-06-12] MEDS: TRAMADOL 50 MG TABLET 100 MG PO (11:49)
[2023-06-12] MEDS: AZITHROMYCIN 500 MG in DEXTROSE 5% IN WATER 250 ML 250 MG IV (11:50)
--- NOTE | 2023-06-12 12:35 | CM.DPC ---
Addendum entered by Lissette Grove R.N. 06/12/23 15:14: Called back line at the clinic, nurse suggested calling Dr. Pina's nurse, the new provider on [address], so see if she can follow patient until Dr. Gross sees her. Called ext [phone], triage nurse is Stacey, but did not answer. Can try again later, or tomorrow, will pass this on to [employer] Founder. Original Note: DCP Cont: Confirmed with hospitalist, patient should be here for another couple of days. Called over at [facility], ext [phone], spoke to Leatha, his triage nurse. She is unclear as to which provider will be assigned, this is Dr. Lloyd's last week. Called daughter, Cony, to see if she had also attempted to reach clinic, stated that she found out that Dr. Landrum will be new provider, but does not start until Jun 25, in the meantime, will need a provider to sign orders for home health. Attempted to call the back line at the clinic, at [phone], no answer, can attempt again later. P: DCP to continue to follow. Will continue to work on getting a provider to sign off for [facility]. Lissette Grove RN/Mortgage Clerk
--- NOTE | 2023-06-12 13:05 | PC.NURSE ---
In am, RN attempted to wean O2 by turning it off and watching patient's response and SPO2 reading. RT also participated in weaning. Pt slowly desatted to mid 80s and told RN that she felt short of breath. O2 was re-applied and pt's saturations went back up to high 90s. RN ensured the O2 extension tubing was connected so patient could ambulate to bathroom with O2 applied.
--- NOTE | 2023-06-12 14:33 | PM.PN.1 ---
Subjective Subjective Interval history: Feels better today with improved dyspnea, still on minimal O2 mainly with exertion. Denies fevers or chills, No abdominal pain, nausea, vomiting or chest pain. WBC continuing to improve today. Exam Vital Signs (past 8 hours): - 06/12/23 08:00 06/12/23 07:00 06/12/23 10:34 Temperature 98.3 F Pulse Rate 102 H Respiratory Rate 26 H Blood Pressure 113/53 L Pulse Oximetry 97 95 Oxygen Delivery Method Nasal Cannula Nasal Cannula Oxygen Flow Rate 1 1 06/12/23 11:57 Temperature 98.5 F Pulse Rate 104 H Respiratory Rate 25 H Blood Pressure 104/55 L Pulse Oximetry 97 Oxygen Delivery Method Oxygen Flow Rate 1 Oxygen Delivery Method Nasal Cannula Oxygen Flow Rate 1 Narrative Exam Narrative: GEN: Elderly female, Alert and oriented x 3, NAD HEENT:NC, Face symmetric, bruising noted to her left eyelid, left corner of her mouth, no gum bleeding. Has some aphthous ulcerations. CHEST: Respiratory excursions symmetric, coarse with crackles bilaterally improved since yesterday. CV: Irregularly irregular,, no M/R/G ABD: Soft, NT/ND, BT present in all 4 quadrants, no organomegaly or masses EXTR: warm, well perfused, no C/C/E SKIN: warm and dry, no rash, she does have significant bruising noted to bilateral forearms, and inferior pannus. No flank bruising. No other bruising noted NEURO: Alert and oriented x 3, nonfocal Objective Labs 06/12/23 04:33 06/12/23 04:33 Labs: Laboratory Results - last 24 hr 06/12/23 06/12/23 06/12/23 04:33 04:33 04:33 WBC 17.3 H RBC 3.35 L Hgb 9.7 L Hct 30.2 L MCV 90.0 MCH 29.0 MCHC 32.2 RDW 14.7 Plt Count 247 Neut % (Auto) 82.4 H Lymph % (Auto) 9.4 L [place] % (Auto) 6.7 Eos % (Auto) 0.3 L Baso % (Auto) 1.2 Neut # (Auto) 76200 H Lymph # (Auto) 1600 [place] # (Auto) 1200 H Eos # (Auto) 0 Baso # (Auto) 200 H PT 21.8 H INR 1.9 H Sodium 130 L Potassium 3.7 Chloride 93 L Carbon Dioxide 31 BUN 14 Creatinine 0.50 L Estimated GFR > 60 BUN/Creatinine Ratio 28.0 H Glucose 97 Calcium 8.7 Magnesium 1.9 [facility] Medical History Atrial fibrillation (2013) Chronic fatigue syndrome (~1992) Chronic pain COPD (chronic obstructive pulmonary disease) Depression Diaphragmatic hernia DJD of shoulder Elevated brain natriuretic peptide (BNP) level Elevated d-dimer Fibromyalgia (1992) Major 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 Migraines (1984) Mumps (1949) Osteoarthritis Osteopenia Osteoporosis (1989) Peripheral edema RLS (restless legs syndrome) Shortness of breath Surgical History Anesthesia History of bladder suspension procedure (1994) Other joint replacement by other means (1998) Previous back surgery (~12/17/22) S/P total abdominal hysterectomy and bilateral salpingo-oophorectomy (1964) Status post breast biopsy Family History Brother MVA (motor vehicle accident) Father CAD (coronary artery disease) Mother Pancreatic cancer Social History household members: none Smoking Status: Former smoker alcohol intake: never Assessment & Plan Assessment & Plan narrative: 1. Coagulopathy, possibly secondary to pneumonia or hepatic congestion. Awaiting records from [facility] for further review, though despite multiple attempts have not received any. Will continue to diurese today as I suspect underlying R heart failure leading to coagulopathy. Discussed with hematology and recommend reinitiation of anticoagulant once INR is <2. INR 1.9 today. Will change to eliquis today. Will try to obtain records regarding R heart as patient reports 2 prior TTEs at OSH, however have not received despite fax many days ago. Check TTE. 2. Bilateral pulmonary emboli/right lower extremity DVT/pulmonary infarcts with possible R heart failure. Will add hydrocodone for pain. Will resume anticoagulation with apixaban today. -try to obtain TTE from OSH records, will continue to diurese today clinically appears a bit volume overloaded and is improving thus far with diuresis. -TTE ordered today. 3. Bacterial pneumonia with acute respiratory failure with hypoxia. Given her severe leukocytosis, will empirically continue coverage for healthcare associated pneumonia. Her leukocytosis is improved today. Also possible findings are related to volume overload as discussed above. TTE as discussed above. resumed ceftriaxone and azithromycin given persistent elevated WBC count now with improvement. 4. Permanent atrial fibrillation She is not anticoagulated at baseline prior to PE. She is presently rate controlled. Now will place on apixaban. 5. Acute hypoxic respiratory failure see above. 6. COPD No evidence of exacerbation at this time. 7. Chronic back pain Continue her usual home medications 8. Anemia On June 04 her hemoglobin was normal at 13.1. Had been downtrending but now stabilized. No obvious signs or symptoms of bleeding. Code status Full, surrogate is patient's daughter. Prophylaxis resumed apixaban today. Disposition Likely home, once medically ready. Possibly in another couple of days depending on coagulopathy, respiratory failure and response to diuresis. I have reviewed patient's labs, imaging, and documentation personally. Quality VTE Deep Vein Thrombosis/Pulmonary Embolism Present on Admission: Yes
--- NOTE | 2023-06-12 15:58 | PT-IP ANOTE ---
Pt refused to work with PT earlier in afternoon, requested PT come back later this afternoon. PT arrived, pt was up using restroom with nursing, pt reported feeling SOB and wanted to rest in bed. PT will check back in afternoon tomorrow.
[2023-06-12] MEDS: SENNOSIDES 8.6 MG TABLET 17.2 MG PO (20:01)
[2023-06-12] MEDS: ATORVASTATIN 20 MG TABLET PO (20:01)
[2023-06-12] MEDS: TRAZODONE 50 MG TABLET PO (20:01)
[2023-06-12] MEDS: APIXABAN 5 MG TABLET PO (20:04)
[2023-06-13] VITALS (7 sets, daily range): BP systolic 103–121; BP diastolic 54–59; PULSE 94–115; RESP 20–23; TEMP 36.1–36.9; O2SAT 94–100
[2023-06-13] MEDS: HYDROCODONE/ACET 5/325 TABLET 1 TAB PO ×2 (01:39→23:17)
--- NOTE | 2023-06-13 01:50 | PC.NURSE ---
Patient resting in bed most of the shift. Has been calm and cooperative.
[2023-06-13 05:06] LABS: Add Manual Diff / Slide Review NO; Basophils Absolute Auto 200 /uL (0-100); Basophils Percent Auto 0.9 % (0-2); Eosinophils Absolute Auto 100 /uL (0-450); Eosinophils Percent Auto 0.4 % (2-4); Hematocrit 29.1 % (36-46); Hemoglobin 9.5 g/dL (12.0-16.0); Lymphocytes Absolute Auto 1700 /uL (1100-4500); Lymphocytes Percent Auto 9.3 % (25-40); Mean Corpuscular HGB Conc 32.5 % (30-36); Mean Corpuscular Hemoglobin 29.1 PG (26-34); Mean Corpuscular Volume 89.5 fL (80-100); Monocytes Absolute Auto 1200 /uL (0-900); Monocytes Percent Auto 6.6 % (3-14); Neutrophils Absolute Auto 15100 /uL (1500-7000); Neutrophils Percent Auto 82.8 % (50-75); Platelet Count 251 X10^3/uL (150-400); Red Blood Cell Count 3.25 X10^6/uL (4.0-5.2); Red Cell Distribution Width 14.8 % (11.6-14.8); White Blood Cell Count 18.2 X10^3/uL (4.5-11.0)
[2023-06-13 05:12] LABS: INR 2.1 (0.9-1.3); Prothrombin Time 24.1 SECONDS (10.1-12.7)
[2023-06-13 05:18] LABS: Blood Urea Nitrogen 13 mg/dL (7-17); Calcium 8.7 mg/dL (8.4-10.2); Carbon Dioxide 34 mmol/L (22-32); Chloride 95 mmol/L (98-107); Estimated Glomerular Filt Rate > 60 mL/min (>60); Glucose 93 mg/dL (80-110); HEMOLYSIS < 15 (0-50); Magnesium 1.8 mg/dL (1.6-2.3); Potassium 3.4 mmol/L (3.4-5.1); Sodium 132 mmol/L (137-145)
[2023-06-13] MEDS: APIXABAN 5 MG TABLET PO ×2 (08:41→21:00)
[2023-06-13] MEDS: METOPROLOL IR 25 MG TABLET 37.5 MG PO ×2 (08:41→21:00)
[2023-06-13] MEDS: FUROSEMIDE 40 MG TABLET PO (08:41)
[2023-06-13] MEDS: GABAPENTIN 300 MG CAPSULE PO ×3 (08:41→21:00)
[2023-06-13] MEDS: POTASSIUM CHLORIDE 20 MEQ TAB PO ×2 (08:41→10:51)
[2023-06-13] MEDS: FLUTICASONE PROPION SALMETEROL 1 EACH INH ×2 (08:43→21:10)
[2023-06-13] MEDS: cefTRIAXone 1,000 MG in SODIUM CHLORIDE 0.9% 100 ML 200 MG IV (10:50)
[2023-06-13] MEDS: AZITHROMYCIN 500 MG in DEXTROSE 5% IN WATER 250 ML 250 MG IV (11:35)
--- NOTE | 2023-06-13 13:37 | P.PN_ITS ---
Subjective Subjective Interval history: Feels her breathing is actually a bit worse today. still on minimal O2 mainly with exertion. Denies fevers or chills, No abdominal pain, nausea, vomiting or chest pain. Patient and daughter are concerned about her decreased mobility from before, encouraged family to see how patient does with physical therapy today. Exam Vital Signs (past 8 hours): - 06/13/23 07:55 06/13/23 08:00 06/13/23 09:10 Temperature 97.9 F Pulse Rate 114 H 111 H Respiratory Rate 21 Blood Pressure 121/59 L Pulse Oximetry 98 96 Oxygen Delivery Method Nasal Cannula Nasal Cannula Oxygen Flow Rate 2 Fraction of Inspired Oxygen 28 Fraction of Inspired Oxygen 28 SaO2/FiO2 Ratio 350 Oxygen Delivery Method Nasal Cannula Oxygen Flow Rate 2 Narrative Exam Narrative: GEN: Elderly female, Alert and oriented x 3, NAD HEENT:NC, Face symmetric, bruising noted to her left eyelid, left corner of her mouth, no gum bleeding. Has some aphthous ulcerations. CHEST: Respiratory excursions symmetric, coarse with crackles bilaterally improved since yesterday. CV: Irregularly irregular,, no M/R/G ABD: Soft, NT/ND, BT present in all 4 quadrants, no organomegaly or masses EXTR: warm, well perfused, no C/C/E SKIN: warm and dry, no rash, she does have significant bruising noted to bilateral forearms, and inferior pannus. No flank bruising. No other bruising noted NEURO: Alert and oriented x 3, nonfocal Objective Labs 06/13/23 04:50 06/13/23 04:50 Labs: Laboratory Results - last 24 hr 06/13/23 06/13/23 06/13/23 04:50 04:50 04:50 WBC 18.2 H RBC 3.25 L Hgb 9.5 L Hct 29.1 L MCV 89.5 MCH 29.1 MCHC 32.5 RDW 14.8 Plt Count 251 Neut % (Auto) 82.8 H Lymph % (Auto) 9.3 L [place] % (Auto) 6.6 Eos % (Auto) 0.4 L Baso % (Auto) 0.9 Neut # (Auto) 06496 H Lymph # (Auto) 1700 [place] # (Auto) 1200 H Eos # (Auto) 100 Baso # (Auto) 200 H PT 24.1 H INR 2.1 H Sodium 132 L Potassium 3.4 Chloride 95 L Carbon Dioxide 34 H BUN 13 Creatinine 0.50 L Estimated GFR > 60 BUN/Creatinine Ratio 26.0 H Glucose 93 Calcium 8.7 Magnesium 1.8 [facility] Medical History Atrial fibrillation (2013) Chronic fatigue syndrome (~1992) Chronic pain COPD (chronic obstructive pulmonary disease) Depression Diaphragmatic hernia DJD of shoulder Elevated brain natriuretic peptide (BNP) level Elevated d-dimer Fibromyalgia (1992) Major 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 Migraines (1984) Mumps (1949) Osteoarthritis Osteopenia Osteoporosis (1989) Peripheral edema RLS (restless legs syndrome) Shortness of breath Surgical History Anesthesia History of bladder suspension procedure (1994) Other joint replacement by other means (1998) Previous back surgery (~12/17/22) S/P total abdominal hysterectomy and bilateral salpingo-oophorectomy (1964) Status post breast biopsy Family History Brother MVA (motor vehicle accident) Father CAD (coronary artery disease) Mother Pancreatic cancer Social History household members: none Smoking Status: Former smoker alcohol intake: never Assessment & Plan Assessment & Plan narrative: 1. Coagulopathy, possibly secondary to pneumonia or hepatic congestion. Awaiting records from [facility] for further review, though despite multiple attempts have not received any. With elevated CO2 on chemistries suspect have reached maximal diuresis at this time. Discussed with hematology and recommend reinitiation of anticoagulant once INR is <2. Resumed when INR was 1.9 and will continue to follow. Will try to obtain records regarding R heart as patient reports 2 prior TTEs at OSH, however have not received despite fax many days ago. TTE with previous pulmonary HTN from 06/04. 2. Bilateral pulmonary emboli/right lower extremity DVT/pulmonary infarcts with possible R heart failure. Will add hydrocodone for pain. Will resume anticoagulation with apixaban today. -try to obtain TTE from OSH records, reduced furosemide from 40 IV BID to 40 PO daily given rise in PCO2 today. -suspect she will need some home O2, have ordered home O2 evaluation today. 3. Bacterial pneumonia with acute respiratory failure with hypoxia. Given her severe leukocytosis, will empirically continue coverage for healthcare associated pneumonia. Her leukocytosis is improved but remains elevated. Also possible findings are related to volume overload as discussed above. TTE as discussed above. resumed ceftriaxone and azithromycin given persistent elevated WBC count now with small improvement. 4. Permanent atrial fibrillation She is not anticoagulated at baseline prior to PE. Slightly tachycardic so beta tamiko was increased with improvement from 25 mg BID to 37.5 mg BID. on apixaban after holding as discussed above. 5. Acute hypoxic respiratory failure see above. 6. COPD No evidence of exacerbation at this time. 7. Chronic back pain Continue her usual home medications 8. Anemia On June 04 her hemoglobin was normal at 13.1. Had been downtrending but now stabilized. No obvious signs or symptoms of bleeding. Code status Full, surrogate is patient's daughter. Prophylaxis resumed apixaban today. Disposition Likely home in the next 1-2 days. Ordered home O2 evaluation today. I have reviewed patient's labs, imaging, and documentation personally. Quality VTE Deep Vein Thrombosis/Pulmonary Embolism Present on Admission: Yes MIPS - Admit I confirm the patient?s Advance Care Plan is present, Code status is documented, Surrogate decision maker is in patient?s record [If Yes, STOP here]: Yes
[2023-06-13] MEDS: TRAMADOL 50 MG TABLET 100 MG PO (14:20)
--- NOTE | 2023-06-13 14:24 | CM.DPC ---
DCP HH Planning: Per MD, pt remains on oxygen and likely will need RT to assess for new home O2 and updated pt and family to prepare for likely discharge tomorrow 06/14 if stable. SW met bedside with pt and Dtr and explained role and they both confirm they want d/c plan of home with new [facility] referral and just have concerns with how SOB and fatigued pt gets but decline SNF at this time. PT to complete CG training this afternoon with Dtr bedside around 1430. SW called [facility] and confirmed that pt's current PCP Dr. Tafoya last day is tomorrow 06/14 and is scheduled for establish care appointment Jul [address] Gross but that in the interim of a couple weeks then Dr. Tiffanie Malik will follow for Home Health. SW updated pt, Dtr, and [facility] on follow MD for HH. F2F completed and scanned and HH orders done. Plan: SW to follow for plan of possible d/c home tomorrow with family to assist 15/04 and new [facility] if medically stable. KAHLIL Love
--- NOTE | 2023-06-13 15:55 | PT.IPTN ---
Current Diagnoses Pneumonia, unspecified organism (06/08/23) Other specified abnormal findings of blood chemistry (06/08/23) Physical Therapy Treatment Note M2 PT-IP Current Condition Start: 06/10/23 10:25 Freq: NEEDED Status: Active Protocol: Document 06/11/23 10:01 AB (Rec: 06/11/23 10:28 AB [id number]) Physical Therapy Current Condition Current Condition Evaluation Date 06/11/23 Treatment Diagnosis Pneumonia, hx of PE; weakness Onset Date 06/08/23 M3 PT-IP Subjective Start: 06/10/23 10:25 Freq: NEEDED Status: Active Protocol: Document 06/13/23 16:48 AB (Rec: 06/13/23 17:06 AB [id number]) Subjective Physical Therapy Visit Type Type Treatment Note Visit Start Time 15:55 Visit Stop Time 16:13 Total Visit Minutes 18 Physical Therapy Visit Comments Patient Comments Pt presents semi supine in bed with daughter at bedside. The pt is agreeable to PT session this afternoon, having refused x2 earlier today. Therapy Pain Assessment Pain When Pain Assessed At Rest Pain Present Pain Present Denied Pain M4 PT-IP Mobility and Gait Start: 06/10/23 10:25 Freq: NEEDED Status: Active Protocol: Document 06/13/23 16:48 AB (Rec: 06/13/23 17:06 AB [id number]) PT-Bed Mobility Assessment Rolling Level of Assist Independent Supine to Sit Supine to Sit Standby Assistance,Head of Bed Elevated Sit to Supine Sit to Supine Standby Assistance Scooting Scooting to Edge of Bed Standby Assistance Scooting Up and Down in Bed Standby Assistance PT-Transfer Assessment Sit to and From Stand Sit to and from Stand Standby Assistance,Use of Upper Extremities Equipment Transfer Assistive Device Gait Belt,Front Wheeled Walker Transfers Transfer Destination Bed Transfer Technique Stand Step Pivot Transfer Ability Level of Assist Standby Assistance,Use of Upper Extremities Comments Mobility Comments Pt's O2 remains above 91% with supplemental O2 visa NC with bed mobility and transfers, while denying symptoms. Gait Assessment Gait Gait Assistance Required: Standby Assistance Distance (Feet) 15 Assistive Devices Assistive Device Gait Belt,Front Wheeled Walker Gait Deviations General Gait Pattern Decreased Stride Length, Decreased Feet Clearance Factors Limiting Gait Function Factors Limiting Gait Function Decreased Activity Tolerance, Decreased Strength,Respiratory Distress Comments Gait Comments Pt's O2 desaturates to 80% with ambulation and she reports increased SOB, requiring a seated rest break. She then asks to return to bed due to increased effort for breathing even in sitting, with O2 rising to 90%. The pt was educated on pursed lip breathing while in sitting. The pt returned to bed and rest for a few minutes until O2 pepe to 100%, then tried ambulating again for 15ft before needing a seated rest break. While her O@ again desaturated to 80%, the pt was able to recover much quicker this time back to 100% while remaining in sitting. The pt was too fatigued to participate further. Pt and her mother were educated on importance of performing bed level exercises while in bed or seated to improve strength and endurance. They were also educated on ways to increase the pt's safety when at home, including placing chairs in different locations so she can sit and rest when ambulating. Stair Climbing Assessment Comments Stair Climbing Comments Not assessed PT-Balance Assessment Sitting Balance and Reactions Static Sitting Balance Ability Normal Dynamic Sitting Balance Ability Normal Standing Balance and Reactions Static Standing Balance Ability Good Dynamic Standing Balance Ability Good Device Used FWW M5 PT-IP Objective Assessments Start: 06/10/23 10:25 Freq: NEEDED Status: Active Protocol: Document 06/11/23 10:01 AB (Rec: 06/11/23 10:28 AB [id number]) Orientation Orientation/Cognition Level of Alertness Alert Orientation Name,Age,Birthday,Month,Date, Year,Day of Week,Place, Situation Language Function Ability No Deficits Noted Safety Awareness Understands Safety Issues Memory Description No Deficits Noted Gross Range of Motion Upper Extremity ROM Assessment Within Functional Limits Lower Extremity ROM Assessment Within Functional Limits Strength Upper Extremity Strength Assessment Within Functional Limits Lower Extremity Strength Assessment Within Functional Limits M6 PT-IP Treatment Start: 06/10/23 10:25 Freq: NEEDED Status: Active Protocol: Document 06/13/23 16:48 AB (Rec: 06/13/23 17:06 AB [id number]) Physical Therapy Treatment Education Education Provided Safety Brace Education Patient,Caregiver M7 PT-IP Assessment and Plan Start: 06/10/23 10:25 Freq: NEEDED Status: Active Protocol: Document 06/13/23 16:48 AB (Rec: 06/13/23 17:06 AB [id number]) PT Summary Assessment and Plan Summary Impairments Strength,Bed Mobility, Transfers,Gait,Activity Tolerance Progress Towards Goals Slow Progress due to Medical Issues,Slow Progress due to Activity Tolerance Assessment Summary The pt demonstrates slow progress towards her goals due to her medical issues/ comorbidities. However, today she was able to tolerate an additional bout of ambulation, as she was able to ambulate 15ft x2, but required an extended rest break due to O2 desat as detailed above. As noted below, the pt may benefit from using 4WW to decrease her energy expenditure, if she demonstrates good safety awareness and stability to use it. She has also yet to perform steps, which she must perform before being discharged, as she has 2 RONYN. The pt continues to benefit from skilled PT at this time. PT continues to recommend discharge to home with assistance, as she has good family support. However, discharge to SNF may be recommended if the pt does not continue to improve. Goals Bed Mobility Goal Independent Transfer Goal Independent,Front Wheeled Walker,Four Wheeled Walker Gait Goal Standby Assistance,Front Wheel Walker,Four Wheel Walker Gait Distance 50 Other Goals Pt to be able to ascend/ descend 2 steps using 1 hand rail with SBA to demonstrate improved strength and endurance to discharge safely to home. Days to Meet Goals 10 Frequency of Treatment Frequency Of Treatment Once a Day Treatment Plan Physical Therapy Treatment Plan Bed Mobility Training,Transfer Training,Gait Training, Therapeutic Exercise,Balance Retraining,Discharge Planning, Hot or Cold Pack,Neuromuscular Re-ed,Coordination Retraining ,Manual Therapy Other Recommendations and Next Treatment Assess pt's ability to use 4WW Focus , as this may decrease her energy expenditure. Precautions Other Precautions Fall risk Recommendations To Nursing Amount of Assist Needed Standby Assistance,1 Person Assist Discharge Recommendations PT Discharge Recommendations Home with Assistance Transportation Needs at Discharge Private Vehicle
[2023-06-13] MEDS: SENNOSIDES 8.6 MG TABLET 17.2 MG PO (20:59)
[2023-06-13] MEDS: TRAZODONE 50 MG TABLET PO (21:00)
[2023-06-13] MEDS: SODIUM CHLORIDE 0.9% FLUSH 10 ML IV (21:00)
[2023-06-13] MEDS: ATORVASTATIN 20 MG TABLET PO (21:00)
[2023-06-14] VITALS: BP 110/58; PULSE 95; RESP 16; TEMP 36.5; O2SAT 98
[2023-06-14 04:00] VITALS: BP 119/59; PULSE 96; RESP 95; TEMP 37.1; O2SAT 95
[2023-06-14 04:57] LABS: Add Manual Diff / Slide Review NO; Basophils Absolute Auto 200 /uL (0-100); Basophils Percent Auto 1.2 % (0-2); Eosinophils Absolute Auto 100 /uL (0-450); Eosinophils Percent Auto 0.4 % (2-4); Hematocrit 29.6 % (36-46); Hemoglobin 9.6 g/dL (12.0-16.0); Lymphocytes Absolute Auto 1700 /uL (1100-4500); Lymphocytes Percent Auto 9.6 % (25-40); Mean Corpuscular HGB Conc 32.4 % (30-36); Mean Corpuscular Hemoglobin 29.2 PG (26-34); Mean Corpuscular Volume 90.2 fL (80-100); Monocytes Absolute Auto 1100 /uL (0-900); Neutrophils Absolute Auto 15000 /uL (1500-7000); Neutrophils Percent Auto 82.8 % (50-75); Platelet Count 273 X10^3/uL (150-400); Red Blood Cell Count 3.28 X10^6/uL (4.0-5.2); Red Cell Distribution Width 14.5 % (11.6-14.8); White Blood Cell Count 18.1 X10^3/uL (4.5-11.0)
[2023-06-14 05:04] LABS: INR 2.3 (0.9-1.3)
[2023-06-14 05:14] LABS: BUN Creatinine Ratio 29.8 (6-22); Blood Urea Nitrogen 14 mg/dL (7-17); Calcium 8.6 mg/dL (8.4-10.2); Carbon Dioxide 33 mmol/L (22-32); Chloride 95 mmol/L (98-107); Estimated Glomerular Filt Rate > 60 mL/min (>60); Glucose 96 mg/dL (80-110); HEMOLYSIS < 15 (0-50); Magnesium 1.8 mg/dL (1.6-2.3); Potassium 3.6 mmol/L (3.4-5.1); Sodium 133 mmol/L (137-145)
[2023-06-14 08:00] VITALS: BP 126/60; PULSE 111; RESP 25; TEMP 36.3; O2SAT 96
--- NOTE | 2023-06-14 09:10 | DI.RAD.S_ITS ---
PROCEDURE: XR CHEST 1V INDICATIONS: sob TECHNIQUE: One view of the chest was acquired. COMPARISON: [facility], CR, XR CHEST 1V, 06/08/2023, 17:00. FINDINGS: Surgical changes and devices: None. Lungs and pleura: Compared to prior radiograph 06/08/2023, there is increased consolidation in the left lower lung. There are increased small bilateral pleural effusions. No pneumothorax. Mediastinum: Mediastinum is unchanged. Heart size is normal. Aortic arch is calcified, as before. Bones and chest wall: No suspicious bony lesions. Overlying soft tissues appear unremarkable. IMPRESSION: Compared to prior radiograph 06/08/2023, increased left lower lung consolidation and increasing bilateral pleural effusions. Approved by: Alisia Herrera M.D. on 06/14/2023 at 11:02
--- NOTE | 2023-06-14 09:11 | DI.ECHO.S_ITS ---
[place] [facility]---------+ [facility] +---------+ : : [address] : : : : [id number] : : : : Phone: [phone]+ Echocardiogram Report + + :Name: PONCE WILSON Study Date: 06/14/2023 Height: 64 in : :[facility] ReadingLocation: Weight: 150 lb : : Gender: Female BSA: 1.7 m2 : :: 1940 Age: 82 yrs BP: 120/59 mmHg: :Reason For Study: Congestive Heart Failure : :Ordering Physician: TOÑO, : :GENO Performed By: Aletha Briceño : :Referring: GENO LUNDBERG : + + Interpretation Summary The ejection fraction is estimated to be 45-50%. Apical septal hypokinesis. Right ventricular systolic function is moderately reduced. There is mild mitral regurgitation. There is moderate tricuspid regurgitation. The right ventricular systolic pressure is estimated to be at least 57 mmHg based on an estimated right atrial pressure of 3 mm Hg. There is a moderately large left-sided pleural effusion. There is a trivial to small pericardial effusion noted. Procedure: A two-dimensional transthoracic echocardiogram with color flow and Doppler was performed in limited views only. The study quality was technically adequate. Comparison is made with the echocardiogram of 06/04/2023. The patient was in atrial fibrillation with heart rates between 77-101 bpm during the exam. Left Ventricle: The left ventricle is normal in size. The ejection fraction is estimated to be 45-50%. Apical septal hypokinesis. Right Ventricle: The right ventricle is normal size. Right ventricular systolic function is moderately reduced. Atria: Right atrial size is normal. Mitral Valve: The mitral valve leaflets appear moderately thickened, but open well. There is no mitral valve stenosis. There is mild mitral regurgitation. Tricuspid Valve: Tricuspid leaflets are thickened. There is no tricuspid stenosis. There is moderate tricuspid regurgitation. The right ventricular systolic pressure is estimated to be at least 57 mmHg based on an estimated right atrial pressure of 3 mm Hg. Great Vessels: The IVC is of normal diameter and collapses greater than 50% with a sniff. This suggests a low right atrial pressure of 3 mm Hg. Pericardium/ Pleura There is a trivial to small pericardial effusion noted. There is a moderately large left-sided pleural effusion. MMode/2D Measurements & Calculations RA long axis: 4.5 cm RVD1 (basal): 3.6 cm RA area: 11.0 cm2 RA vol: 23.0 ml RA : 13.3 ml/m2 IVC diam: 1.4 cm LVLs ap4: 4.7 cm TAPSE_phl: 0.99 cm Doppler Measurements & Calculations TR max pepe: 349.2 cm/sec TR max P.5 mmHg Reading Physician:01:10 PM
[2023-06-14] MEDS: APIXABAN 5 MG TABLET PO ×2 (09:26→20:51)
[2023-06-14] MEDS: METOPROLOL IR 25 MG TABLET 37.5 MG PO ×2 (09:26→20:51)
[2023-06-14] MEDS: FUROSEMIDE 40 MG TABLET PO (09:26)
[2023-06-14] MEDS: GABAPENTIN 300 MG CAPSULE PO ×3 (09:26→20:51)
[2023-06-14] MEDS: POTASSIUM CHLORIDE 20 MEQ TAB PO (09:26)
[2023-06-14 09:51] LABS: NT-proBNP (BNP-Adult 18+) 2830 pg/mL (<450)
[2023-06-14] MEDS: PHYTONADIONE (VIT K1) 5 MG TABLET 2.5 MG PO (11:41)
[2023-06-14] MEDS: SODIUM CHLORIDE 0.9% FLUSH 10 ML IV ×2 (11:50→20:53)
[2023-06-14] MEDS: FLUTICASONE PROPION SALMETEROL 1 EACH INH ×2 (11:56→20:52)
[2023-06-14 12:00] VITALS: BP 122/58; PULSE 103; RESP 27; TEMP 36.6; O2SAT 96
[2023-06-14] MEDS: cefTRIAXone 1,000 MG in SODIUM CHLORIDE 0.9% 100 ML 200 MG IV (12:29)
[2023-06-14] MEDS: TRAMADOL 50 MG TABLET 100 MG PO ×2 (12:36→20:51)
--- NOTE | 2023-06-14 14:57 | PT.IPTN ---
Current Diagnoses Pneumonia, unspecified organism (06/08/23) Other specified abnormal findings of blood chemistry (06/08/23) Physical Therapy Treatment Note M2 PT-IP Current Condition Start: 06/10/23 10:25 Freq: NEEDED Status: Active Protocol: Document 06/11/23 10:01 AB (Rec: 06/11/23 10:28 AB [id number]) Physical Therapy Current Condition Current Condition Evaluation Date 06/11/23 Treatment Diagnosis Pneumonia, hx of PE; weakness Onset Date 06/08/23 M3 PT-IP Subjective Start: 06/10/23 10:25 Freq: NEEDED Status: Active Protocol: Document 06/14/23 15:30 TS (Rec: 06/14/23 15:53 TS [id number]) Subjective Physical Therapy Visit Type Type Treatment Note Visit Start Time 14:57 Visit Stop Time 15:17 Total Visit Minutes 20 Notes Family present in room Number of L[employer]IDE [employer]PECTOR Visits 1 Physical Therapy Visit Comments Patient Comments Pt found resting in bed, reports having some pain on R side of abdomen, pt was agreeable to PT. Therapy Pain Assessment Pain When Pain Assessed At Rest Pain Present Pain Present Pain Reported M4 PT-IP Mobility and Gait Start: 06/10/23 10:25 Freq: NEEDED Status: Active Protocol: Document 06/14/23 15:30 TS (Rec: 06/14/23 15:53 TS [id number]) PT-Bed Mobility Assessment Supine to Sit Supine to Sit Standby Assistance,Head of Bed Elevated Sit to Supine Sit to Supine Standby Assistance Scooting Scooting to Edge of Bed Standby Assistance Scooting Up and Down in Bed Standby Assistance PT-Transfer Assessment Sit to and From Stand Sit to and from Stand Standby Assistance,Use of Upper Extremities Equipment Transfer Assistive Device Gait Belt,Front Wheeled Walker Comments Mobility Comments BP taken prior to mobility 112 /71, Spo2 on 1.5L 94%. Supine to sit SBA with HOB elevated and use of handrails. Sit to stand from bed SBA with use of FWW and BUE support pushing from bed. She ambulated in room ~20' w/FWW SBA with slow stpe thru gait, pt required assist with management of lines, she quickly reports fatigue and needs rest break on bed. After short rest break she performed steps x2 CGA with use of counter support and hand held assist. Sit to supine back to bed SBA, pt is quick to sit on bed due to fatigue, reports needing to catch her breath, Spo2 94% on 1.5L, HR 120. Pt was left in bed with call light nearby, family in room, RN notified. Gait Assessment Gait Gait Assistance Required: Standby Assistance Distance (Feet) 20 Assistive Devices Assistive Device Gait Belt,Front Wheeled Walker Gait Deviations General Gait Pattern Decreased Stride Length, Decreased Feet Clearance Factors Limiting Gait Function Factors Limiting Gait Function Decreased Activity Tolerance, Decreased Strength,Respiratory Distress Comments Gait Comments See mobility comments Stair Climbing Assessment Evaluation Level of Assist On Stairs Contact Guard Assistance Devices Stair Climbing Assistive Devices Left Railing,Right Railing Technique/Endurance Stair Climbing Direction Ascend and Descend Stair Climbing Technique Step to Step Number of Steps Climbed 2 Comments Stair Climbing Comments See mobility comments PT-Balance Assessment Sitting Balance and Reactions Static Sitting Balance Ability Normal Dynamic Sitting Balance Ability Normal Standing Balance and Reactions Static Standing Balance Ability Good Dynamic Standing Balance Ability Good Device Used FWW M5 PT-IP Objective Assessments Start: 06/10/23 10:25 Freq: NEEDED Status: Active Protocol: Document 06/11/23 10:01 AB (Rec: 06/11/23 10:28 AB [id number]) Orientation Orientation/Cognition Level of Alertness Alert Orientation Name,Age,Birthday,Month,Date, Year,Day of Week,Place, Situation Language Function Ability No Deficits Noted Safety Awareness Understands Safety Issues Memory Description No Deficits Noted Gross Range of Motion Upper Extremity ROM Assessment Within Functional Limits Lower Extremity ROM Assessment Within Functional Limits Strength Upper Extremity Strength Assessment Within Functional Limits Lower Extremity Strength Assessment Within Functional Limits M6 PT-IP Treatment Start: 06/10/23 10:25 Freq: NEEDED Status: Active Protocol: Document 06/14/23 15:30 TS (Rec: 06/14/23 15:53 TS [id number]) Physical Therapy Treatment Education Education Provided Safety Brace Education Patient,Caregiver M7 PT-IP Assessment and Plan Start: 06/10/23 10:25 Freq: NEEDED Status: Active Protocol: Document 06/14/23 15:30 TS (Rec: 06/14/23 15:53 TS [id number]) PT Summary Assessment and Plan Summary Impairments Strength,Bed Mobility, Transfers,Gait,Activity Tolerance Progress Towards Goals Slow Progress due to Medical Issues,Slow Progress due to Activity Tolerance Assessment Summary Arlene continues to make slow progress with her mobility. She continues to be SBA for bed mobility and sit to stands . She continues to have difficulty progressing her gait past short walks in room due to fatigue and her ongoing medical issues. She did progress to stairs x2 with counter and handheld assist. Pt and family were educated on the benefits of mobility and PT while she is here in the hospital. PT continues to recommend home w/assist and HHPT or outpatient PT to improve overall strength and activity tolerance. Goals Bed Mobility Goal Independent Transfer Goal Independent,Front Wheeled Walker,Four Wheeled Walker Gait Goal Standby Assistance,Front Wheel Walker,Four Wheel Walker Gait Distance 50 Other Goals Pt to be able to ascend/ descend 2 steps using 1 hand rail with SBA to demonstrate improved strength and endurance to discharge safely to home. Days to Meet Goals 10 Frequency of Treatment Frequency Of Treatment Once a Day Treatment Plan Physical Therapy Treatment Plan Bed Mobility Training,Transfer Training,Gait Training, Therapeutic Exercise,Balance Retraining,Discharge Planning, Hot or Cold Pack,Neuromuscular Re-ed,Coordination Retraining ,Manual Therapy Other Recommendations and Next Treatment Assess pt's ability to use 4WW Focus , as this may decrease her energy expenditure. Precautions Other Precautions Fall risk Recommendations To Nursing Amount of Assist Needed Standby Assistance Discharge Recommendations PT Discharge Recommendations Home with Assistance,Home Health,Outpatient PT Transportation Needs at Discharge Private Vehicle
[2023-06-14 16:00] VITALS: BP 112/71; PULSE 105; RESP 24; TEMP 36.3; O2SAT 97
--- NOTE | 2023-06-14 18:11 | DI.CT.S_ITS ---
PROCEDURE: CT CHEST WO CON INDICATIONS: left pleural effusion eval please TECHNIQUE: Noncontrast 5 mm thick sections acquired from the pulmonary apices to the posterior costophrenic angles. 1 mm lung window, 5 mm thick coronal and sagittal and 7 mm axial MIP reformats were then acquired. For radiation dose reduction, the following was used: automated exposure control, adjustment of mA and/or kV according to patient size. COMPARISON: [facility], CT, CT CHEST W CON, 06/08/2023, 18:26. [facility], CR, XR CHEST 1V, 06/08/2023, 17:00. [facility], CR, XR CHEST 1V, 06/14/2023, 9:16. FINDINGS: Image quality: Excellent. Lower Neck: No lymphadenopathy by size criteria. Thyroid: Visualized thyroid demonstrates no discrete nodules. Axillae: No lymphadenopathy by size criteria. Chest Wall: Unremarkable. Bones: Visualized osseous structures demonstrate no suspicious lesions. Lungs and Airways: There are increased areas of consolidation within the left lower lobe and left lingula as well as the right lower lobe. Peripheral confluent ground-glass opacities also demonstrated as well as compressive atelectasis. Pleura: No pneumothorax. There are bilateral pleural effusions, moderate on the left and small on the right, which appear increased compared to the prior study. Heart: Heart size is normal. No pericardial effusion. Thoracic Vessels: The aorta and pulmonary arteries are normal in size. Mediastinum and Afia: No lymphadenopathy by size criteria. Esophagus: No wall thickening. No hiatal hernia. Abdomen: Visualized upper abdomen redemonstrates 2 cysts within the visualized liver. IMPRESSION: 1. Increased bilateral pleural effusions, moderate on the left and small on the right. 2. Increased bilateral compressive atelectasis secondary to the pleural effusions as well as areas of consolidation which may reflect pneumonia as well as suspected pulmonary infarcts. Dictated by: Darren Birmingham M.D. on 06/14/2023 at 20:34 Approved by: Darren Birmingham M.D. on 06/14/2023 at 20:39
[2023-06-14] MEDS: BENZOCAINE/MENTHOL 1 LOZ PKT 1 EACH PO (18:29)
--- NOTE | 2023-06-14 19:24 | P.PN_ITS ---
Subjective Subjective Date Patient Seen: 06/14/23 Time Patient Seen: 08:00 Interval history: She says her breathing really hasn't improved much since being here. She is still on 1-2L oxygen and desats and fatigues quickly with minimal activity. She remains tachycardic. Exam Vital Signs (past 8 hours): - 06/14/23 12:00 06/14/23 16:00 Temperature 97.8 F 97.3 F L Pulse Rate 103 H 105 H Respiratory Rate 27 H 24 Blood Pressure 122/58 L 112/71 Pulse Oximetry 96 97 Oxygen Flow Rate 0 2 Fraction of Inspired Oxygen 28 SaO2/FiO2 Ratio 350 Oxygen Delivery Method Nasal Cannula Oxygen Flow Rate 2 Narrative Exam Narrative: GEN: no acute distress PULM: decreased breath sounds left base CV: Irregularly irregular ABD: Soft, nontender Objective Labs 06/14/23 04:40 06/14/23 04:40 Labs: Laboratory Results - last 24 hr 06/14/23 06/14/23 06/14/23 04:40 04:40 04:40 WBC 18.1 H RBC 3.28 L Hgb 9.6 L Hct 29.6 L MCV 90.2 MCH 29.2 MCHC 32.4 RDW 14.5 Plt Count 273 Neut % (Auto) 82.8 H Lymph % (Auto) 9.6 L Pierce % (Auto) 6.0 Eos % (Auto) 0.4 L Baso % (Auto) 1.2 Neut # (Auto) 04852 H Lymph # (Auto) 1700 Pierce # (Auto) 1100 H Eos # (Auto) 100 Baso # (Auto) 200 H PT 27.0 H INR 2.3 H Sodium 133 L Potassium 3.6 Chloride 95 L Carbon Dioxide 33 H BUN 14 Creatinine 0.47 L Estimated GFR > 60 BUN/Creatinine Ratio 29.8 H Glucose 96 Calcium 8.6 Magnesium 1.8 NT-Pro-B Natriuret Pep 06/14/23 04:40 WBC RBC Hgb Hct MCV MCH MCHC RDW Plt Count Neut % (Auto) Lymph % (Auto) Pierce % (Auto) Eos % (Auto) Baso % (Auto) Neut # (Auto) Lymph # (Auto) Pierce # (Auto) Eos # (Auto) Baso # (Auto) PT INR Sodium Potassium Chloride Carbon Dioxide BUN Creatinine Estimated GFR BUN/Creatinine Ratio Glucose Calcium Magnesium NT-Pro-B Natriuret Pep 2830 H [facility] Medical History Atrial fibrillation (2013) Chronic fatigue syndrome (~1992) Chronic pain COPD (chronic obstructive pulmonary disease) Depression Diaphragmatic hernia DJD of shoulder Elevated brain natriuretic peptide (BNP) level Elevated d-dimer Fibromyalgia (1992) Major 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 Migraines (1984) Mumps (1949) Osteoarthritis Osteopenia Osteoporosis (1989) Peripheral edema RLS (restless legs syndrome) Shortness of breath Surgical History Anesthesia History of bladder suspension procedure (1994) Other joint replacement by other means (1998) Previous back surgery (~12/17/22) S/P total abdominal hysterectomy and bilateral salpingo-oophorectomy (1964) Status post breast biopsy Family History Brother MVA (motor vehicle accident) Father CAD (coronary artery disease) Mother Pancreatic cancer Social History household members: none Smoking Status: Former smoker alcohol intake: never Assessment & Plan Assessment & Plan narrative: 1. Acute hypoxemic respiratory failure -remains on oxygen despite diuresis with lasix -BNP with diuresis has improved from ~8K to ~2k -chest xray performed shows concern for worsening effusion despite diuresis -ECHO ordered shows decreased EF at 45%, small pericardial effusion, and left pleural effusion, RVSP same as prior at 57 with right sided dilation -order CT chest to eval for effusion, loculations, etc -continue oral lasix for now pending further evaluation of effusion, do not want to over diurese given recent large PE, but may need to increase diuretics if no ability to tap effusion -with persistent elevated white count, if effusion is amenable to tap may be helpful to help diagnose etiology and also ideally improve oxygenation -continue with anticoagulation for now because unclear if can be tapped 2. Coagulopathy -previous physician discussed with oncology who recommended giving vitamin K if INR elevated which initially helped normalize INR -once INR normal she was started on apixaban, her INR has since been rising from 1.9-2.3 -continue to check INR daily -gave additional vitamin k of 2.5 oral on 06/14 to see if nutrition is reason for elevated INR -continue apixaban fo rnow 3. Bilateral pulmonary emboli/right lower extremity DVT/pulmonary infarcts with possible R heart failure. -continue anticoagulation -suspect she will need some home O2 -suspicion is PE caused by estradiol, now stopped taking it 4. Bacterial pneumonia with acute respiratory failure with hypoxia. -given her severe leukocytosis, will empirically continue coverage for healthcare associated pneumonia. Her leukocytosis is improved but remains elevated. -has been on ceftriaxone, azithromycin now complete -white count may need be secondary to pulmonary infarcts but need to consider infected pleural effusion 5. Permanent atrial fibrillation She is not anticoagulated at baseline prior to PE. Slightly tachycardic so beta tamiko was increased with improvement from 25 mg BID to 37.5 mg BID. on apixaban after holding as discussed above. 6. COPD/asthma -doubt this is cause of symptoms 7. Chronic back pain Continue her usual home medications 8. Anemia On June 04 her hemoglobin was normal at 13.1. Had been downtrending but now stabilized. No obvious signs or symptoms of bleeding. Quality VTE Deep Vein Thrombosis/Pulmonary Embolism Present on Admission: Yes
[2023-06-14 20:00] VITALS: BP 127/58; PULSE 118; RESP 25; TEMP 36.9; O2SAT 98
[2023-06-14] MEDS: TRAZODONE 50 MG TABLET PO (20:50)
[2023-06-14] MEDS: ATORVASTATIN 20 MG TABLET PO (20:50)
[2023-06-14] MEDS: SENNOSIDES 8.6 MG TABLET 17.2 MG PO (20:50)
[2023-06-14] MEDS: PIPERACILLIN/TAZO 3.375 GM in SODIUM CHLORIDE 0.9% 100 ML IV (22:17)
[2023-06-15] VITALS: BP 103/55; PULSE 99; RESP 25; TEMP 37.3; O2SAT 97
[2023-06-15 04:00] VITALS: BP 100/55; PULSE 102; RESP 22; TEMP 36.9; O2SAT 97
[2023-06-15] MEDS: PIPERACILLIN/TAZO 3.375 GM in SODIUM CHLORIDE 0.9% 100 ML IV ×3 (05:00→21:15)
[2023-06-15 05:31] LABS: Hematocrit 30.3 % (36-46); Hemoglobin 9.8 g/dL (12.0-16.0); Mean Corpuscular HGB Conc 32.4 % (30-36); Mean Corpuscular Volume 89.6 fL (80-100); Platelet Count 298 X10^3/uL (150-400); Red Blood Cell Count 3.38 X10^6/uL (4.0-5.2); Red Cell Distribution Width 14.6 % (11.6-14.8); White Blood Cell Count 17.4 X10^3/uL (4.5-11.0)
[2023-06-15 05:37] LABS: INR 2.3 (0.9-1.3); Prothrombin Time 26.3 SECONDS (10.1-12.7)
[2023-06-15 05:40] LABS: BUN Creatinine Ratio 25.9 (6-22); Blood Urea Nitrogen 14 mg/dL (7-17); Calcium 8.7 mg/dL (8.4-10.2); Carbon Dioxide 35 mmol/L (22-32); Chloride 96 mmol/L (98-107); Estimated Glomerular Filt Rate > 60 mL/min (>60); Glucose 91 mg/dL (80-110); HEMOLYSIS < 15 (0-50); Potassium 3.7 mmol/L (3.4-5.1); Sodium 132 mmol/L (137-145)
[2023-06-15 08:00] VITALS: BP 102/53; PULSE 106; RESP 18; TEMP 37.2; O2SAT 94
--- NOTE | 2023-06-15 08:37 | PM.PN.1 ---
Subjective Subjective Interval history: Patient still on 1.5L and notes persistent dyspnea, especially with exertion. CT chest showed mod L pleural effusions. This was confirmed with bedside US which showed enough fluid to safely tap. Patient interested in thora tomorrow. Exam Vital Signs (past 8 hours): - 06/15/23 04:00 Temperature 98.5 F Pulse Rate 102 H Respiratory Rate 22 Blood Pressure 100/55 L Pulse Oximetry 97 Oxygen Flow Rate 2 Fraction of Inspired Oxygen 28 SaO2/FiO2 Ratio 350 Oxygen Delivery Method Nasal Cannula Oxygen Flow Rate 2 Narrative Exam Narrative: GEN: no acute distress, on O2 NC PULM: decreased breath sounds left base CV: Irregularly irregular ABD: Soft, nontender Objective Labs 06/15/23 05:10 06/15/23 05:10 Labs: Laboratory Results - last 24 hr 06/14/23 06/15/23 06/15/23 04:40 05:10 05:10 WBC 17.4 H RBC 3.38 L Hgb 9.8 L Hct 30.3 L MCV 89.6 MCH 29.0 MCHC 32.4 RDW 14.6 Plt Count 298 PT 26.3 H INR 2.3 H Sodium Potassium Chloride Carbon Dioxide BUN Creatinine Estimated GFR BUN/Creatinine Ratio Glucose Calcium NT-Pro-B Natriuret Pep 2830 H 06/15/23 05:10 WBC RBC Hgb Hct MCV MCH MCHC RDW Plt Count PT INR Sodium 132 L Potassium 3.7 Chloride 96 L Carbon Dioxide 35 H BUN 14 Creatinine 0.54 Estimated GFR > 60 BUN/Creatinine Ratio 25.9 H Glucose 91 Calcium 8.7 NT-Pro-B Natriuret Pep PFSH Medical History Atrial fibrillation (2013) Chronic fatigue syndrome (~1992) Chronic pain COPD (chronic obstructive pulmonary disease) Depression Diaphragmatic hernia DJD of shoulder Elevated brain natriuretic peptide (BNP) level Elevated d-dimer Fibromyalgia (1992) Major 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 Migraines (1984) Mumps (1949) Osteoarthritis Osteopenia Osteoporosis (1989) Peripheral edema RLS (restless legs syndrome) Shortness of breath Surgical History Anesthesia History of bladder suspension procedure (1994) Other joint replacement by other means (1998) Previous back surgery (~12/17/22) S/P total abdominal hysterectomy and bilateral salpingo-oophorectomy (1964) Status post breast biopsy Family History Brother MVA (motor vehicle accident) Father CAD (coronary artery disease) Mother Pancreatic cancer Social History household members: none Smoking Status: Former smoker alcohol intake: never Assessment & Plan Assessment & Plan narrative: 1. Acute hypoxemic respiratory failure -remains on oxygen despite diuresis with lasix -BNP with diuresis has improved from ~8K to ~2k -chest xray performed shows concern for worsening effusion despite diuresis -ECHO ordered shows decreased EF at 45%, small pericardial effusion, and left pleural effusion, RVSP same as prior at 57 with right sided dilation -CT chest showed mod L pleural effusion, no loculations, but bilateral consolidations which may be PNA vs pulm infarcts -continue oral lasix for now -with persistent elevated white count, if effusion is amenable to tap may be helpful to help diagnose etiology and also ideally improve oxygenation -after bedside US and CT confirmed mod L pleural effusion, patient agreed to thora tomorrow -will hold eliquis tonight and tomorrow AM for thoracentesis on left side, diagnositic and therapeutic -now on 1.5L NC 2. Coagulopathy -previous physician discussed with oncology who recommended giving vitamin K if INR elevated which initially helped normalize INR -once INR normal she was started on apixaban, her INR has since been rising from 1.9-2.3 -continue to check INR daily -gave additional vitamin k of 2.5 oral on 06/14 to see if nutrition is reason for elevated INR -holding apixaban for thora 3. Bilateral pulmonary emboli/right lower extremity DVT/pulmonary infarcts with possible R heart failure. -continue anticoagulation -suspect she will need some home O2 -suspicion is PE caused by estradiol, now stopped taking it 4. Bacterial pneumonia with acute respiratory failure with hypoxia. -given her severe leukocytosis, will empirically continue coverage for healthcare associated pneumonia. Her leukocytosis is improved but remains elevated. -has been on ceftriaxone, azithromycin now complete -white count may need be secondary to pulmonary infarcts but need to consider infected pleural effusion 5. Permanent atrial fibrillation She is not anticoagulated at baseline prior to PE. Slightly tachycardic so beta tamiko was increased with improvement from 25 mg BID to 37.5 mg BID. on apixaban after holding as discussed above. 6. COPD/asthma -doubt this is cause of symptoms 7. Chronic back pain Continue her usual home medications 8. Anemia On June 04 her hemoglobin was normal at 13.1. Had been downtrending but now stabilized. No obvious signs or symptoms of bleeding. Dispo: Home in 2 days pending thora and improvement in dyspnea. Quality VTE Deep Vein Thrombosis/Pulmonary Embolism Present on Admission: Yes
[2023-06-15] MEDS: APIXABAN 5 MG TABLET PO (11:10)
[2023-06-15] MEDS: METOPROLOL IR 25 MG TABLET 37.5 MG PO ×2 (11:10→21:13)
[2023-06-15] MEDS: DOXYCYCLINE HYCLATE 100 MG TABLET PO ×2 (11:13→21:13)
[2023-06-15] MEDS: POTASSIUM CHLORIDE 20 MEQ TAB PO (11:13)
[2023-06-15] MEDS: FUROSEMIDE 40 MG TABLET PO (11:14)
[2023-06-15] MEDS: FLUTICASONE PROPION SALMETEROL 1 EACH INH ×2 (11:14→21:14)
[2023-06-15] MEDS: GABAPENTIN 300 MG CAPSULE PO ×3 (11:19→21:13)
[2023-06-15] MEDS: SODIUM CHLORIDE 0.9% FLUSH 10 ML IV ×2 (11:20→21:16)
[2023-06-15 11:53] VITALS: BP 112/68; PULSE 120; RESP 18; TEMP 36.7; O2SAT 95
--- NOTE | 2023-06-15 12:00 | PT.IPTN ---
Current Diagnoses Pneumonia, unspecified organism (06/08/23) Other specified abnormal findings of blood chemistry (06/08/23) Physical Therapy Treatment Note M2 PT-IP Current Condition Start: 06/10/23 10:25 Freq: NEEDED Status: Active Protocol: Document 06/11/23 10:01 AB (Rec: 06/11/23 10:28 AB [id number]) Physical Therapy Current Condition Current Condition Evaluation Date 06/11/23 Treatment Diagnosis Pneumonia, hx of PE; weakness Onset Date 06/08/23 M3 PT-IP Subjective Start: 06/10/23 10:25 Freq: NEEDED Status: Active Protocol: Document 06/15/23 12:36 TS (Rec: 06/15/23 12:52 TS [id number]) Subjective Physical Therapy Visit Type Type Treatment Note Visit Start Time 12:00 Visit Stop Time 12:14 Total Visit Minutes 14 Notes Daughter present. 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 M4 PT-IP Mobility and Gait Start: 06/10/23 10:25 Freq: NEEDED Status: Active Protocol: Document 06/15/23 12:36 TS (Rec: 06/15/23 12:52 TS [id number]) PT-Bed Mobility Assessment Supine to Sit Supine to Sit Standby Assistance,Head of Bed Elevated Scooting Scooting to Edge of Bed Standby Assistance PT-Transfer Assessment Sit to and From Stand Sit to and from Stand Standby Assistance,Use of Upper Extremities Equipment Transfer Assistive Device Gait Belt,Front Wheeled Walker Comments Mobility Comments Pt found resting in bed, agreeable to PT. Spo2 94% on RA at rest. Supine to sit HOB elevated SBA with BUE support to upright trunk. She performed sit to stand x1 SBA with FWW, had some posterior leaning when coming into standing initially, corrected with use of bakc of LEs against bed. She ambulated ~15 ' in room, quickly became SOB and fatigued. Pt requested to sit back in chair. Pt refused to stand and ambulate again, reports seeing black spots. She performed chair ex of seated march and knee flex/ext . Educated pt on the importance of mobility and ex while in hospital. Pt was left up in chair with daughter in room, call light nearby, RN notified. Gait Assessment Gait Gait Assistance Required: Standby Assistance Distance (Feet) 15 Assistive Devices Assistive Device Gait Belt,Front Wheeled Walker Gait Deviations General Gait Pattern Decreased Stride Length, Decreased Feet Clearance Factors Limiting Gait Function Factors Limiting Gait Function Decreased Activity Tolerance, Decreased Strength,Respiratory Distress PT-Balance Assessment Sitting Balance and Reactions Static Sitting Balance Ability Normal Dynamic Sitting Balance Ability Normal Standing Balance and Reactions Static Standing Balance Ability Good Dynamic Standing Balance Ability Good Device Used FWW M5 PT-IP Objective Assessments Start: 06/10/23 10:25 Freq: NEEDED Status: Active Protocol: Document 06/11/23 10:01 AB (Rec: 06/11/23 10:28 AB [id number]) Orientation Orientation/Cognition Level of Alertness Alert Orientation Name,Age,Birthday,Month,Date, Year,Day of Week,Place, Situation Language Function Ability No Deficits Noted Safety Awareness Understands Safety Issues Memory Description No Deficits Noted Gross Range of Motion Upper Extremity ROM Assessment Within Functional Limits Lower Extremity ROM Assessment Within Functional Limits Strength Upper Extremity Strength Assessment Within Functional Limits Lower Extremity Strength Assessment Within Functional Limits M6 PT-IP Treatment Start: 06/10/23 10:25 Freq: NEEDED Status: Active Protocol: Document 06/15/23 12:36 TS (Rec: 06/15/23 12:52 TS [id number]) Physical Therapy Treatment Education Education Provided Safety Brace Education Patient,Caregiver M7 PT-IP Assessment and Plan Start: 06/10/23 10:25 Freq: NEEDED Status: Active Protocol: Document 06/15/23 12:36 TS (Rec: 06/15/23 12:52 TS [id number]) PT Summary Assessment and Plan Summary Impairments Strength,Bed Mobility, Transfers,Gait,Activity Tolerance Progress Towards Goals Slow Progress due to Medical Issues,Slow Progress due to Activity Tolerance Assessment Summary Arlene continues to make slow progress with her mobility. She continues to be SBA for bed mobility and sit to stands w/FWW. She had some posterior leaning this session when coming into standing, she required use of back of LEs against bed to hold herself up . She continues to have difficulty progressing her gait past short walks in room. She became SOB/fatigue quickly after ~15' of gait w/ FWW. Pt was educated on the benefits of mobility and PT while she is here in the hospital. PT continues to recommend home w/assist and HHPT or outpatient PT to improve overall strength and activity tolerance. Goals Bed Mobility Goal Independent Transfer Goal Independent,Front Wheeled Walker,Four Wheeled Walker Gait Goal Standby Assistance,Front Wheel Walker,Four Wheel Walker Gait Distance 50 Other Goals Pt to be able to ascend/ descend 2 steps using 1 hand rail with SBA to demonstrate improved strength and endurance to discharge safely to home. Days to Meet Goals 10 Frequency of Treatment Frequency Of Treatment Once a Day Treatment Plan Physical Therapy Treatment Plan Bed Mobility Training,Transfer Training,Gait Training, Therapeutic Exercise,Balance Retraining,Discharge Planning, Hot or Cold Pack,Neuromuscular Re-ed,Coordination Retraining ,Manual Therapy Other Recommendations and Next Treatment Assess pt's ability to use 4WW Focus , as this may decrease her energy expenditure. Precautions Other Precautions Fall risk Recommendations To Nursing Amount of Assist Needed Standby Assistance Discharge Recommendations PT Discharge Recommendations Home with Assistance,Home Health,Outpatient PT Transportation Needs at Discharge Private Vehicle
--- NOTE | 2023-06-15 12:22 | CM.DPNOTE ---
Patient remains medically active, on 02 2L, WBC still 17.1, INR 2.3. DC plan includes home with supportive local daughters, possible home 02 and [facility]. CM team will update Dylan at [facility] when medically ready for DC home.
[2023-06-15] MEDS: TRAMADOL 50 MG TABLET 100 MG PO (12:36)
[2023-06-15 16:00] VITALS: BP 98/65; PULSE 99; RESP 16; TEMP 37.3; O2SAT 96
[2023-06-15 20:00] VITALS: BP 111/56; PULSE 98; RESP 24; TEMP 37.1; O2SAT 96
[2023-06-15] MEDS: ATORVASTATIN 20 MG TABLET PO (21:13)
[2023-06-15] MEDS: TRAZODONE 50 MG TABLET PO (21:13)
[2023-06-16] VITALS (7 sets, daily range): BP systolic 101–116; BP diastolic 54–68; PULSE 92–106; RESP 16–24; TEMP 36.6–37.1; O2SAT 95–98
[2023-06-16] MEDS: PIPERACILLIN/TAZO 3.375 GM in SODIUM CHLORIDE 0.9% 100 ML IV ×3 (05:05→22:00)
[2023-06-16] MEDS: TRAMADOL 50 MG TABLET 100 MG PO ×2 (06:36→17:32)
--- NOTE | 2023-06-16 07:59 | PM.PN.1 ---
Subjective Subjective Interval history: Patient feeling about the same. Will do thora later today. Exam Vital Signs (past 8 hours): - 06/16/23 00:00 06/16/23 04:00 06/16/23 07:00 Temperature 98.3 F 97.8 F Pulse Rate 98 H 92 H Respiratory Rate 21 24 Blood Pressure 102/55 L 114/68 Pulse Oximetry 96 97 Oxygen Delivery Method Room Air Oxygen Flow Rate 2 2 Fraction of Inspired Oxygen 28 SaO2/FiO2 Ratio 350 Oxygen Delivery Method Room Air Oxygen Flow Rate 2 Narrative Exam Narrative: GEN: no acute distress, on O2 NC PULM: decreased breath sounds left base CV: Irregularly irregular ABD: Soft, nontender Objective Labs 06/16/23 08:35 06/16/23 08:35 [facility] Medical History Atrial fibrillation (2013) Chronic fatigue syndrome (~1992) Chronic pain COPD (chronic obstructive pulmonary disease) Depression Diaphragmatic hernia DJD of shoulder Elevated brain natriuretic peptide (BNP) level Elevated d-dimer Fibromyalgia (1992) Major 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 Migraines (1984) Mumps (1949) Osteoarthritis Osteopenia Osteoporosis (1989) Peripheral edema RLS (restless legs syndrome) Shortness of breath Surgical History Anesthesia History of bladder suspension procedure (1994) Other joint replacement by other means (1998) Previous back surgery (~12/17/22) S/P total abdominal hysterectomy and bilateral salpingo-oophorectomy (1964) Status post breast biopsy Family History Brother MVA (motor vehicle accident) Father CAD (coronary artery disease) Mother Pancreatic cancer Social History household members: none Smoking Status: Former smoker alcohol intake: never Assessment & Plan Assessment & Plan narrative: 1. Acute hypoxemic respiratory failure, improving -remains on oxygen despite diuresis with lasix -BNP with diuresis has improved from ~8K to ~2k -chest xray performed shows concern for worsening effusion despite diuresis -ECHO ordered shows decreased EF at 45%, small pericardial effusion, and left pleural effusion, RVSP same as prior at 57 with right sided dilation -CT chest showed mod L pleural effusion, no loculations, but bilateral consolidations which may be PNA vs pulm infarcts -continue oral lasix for now -with persistent elevated white count, if effusion is amenable to tap may be helpful to help diagnose etiology and also ideally improve oxygenation -after bedside US and CT confirmed mod L pleural effusion, patient agreed to thora tomorrow -holding eliquis for thoracentesis on left side 06/16, diagnositic and therapeutic. Will resume after. -now on 1.5L NC, may need home O2 -pleural fluid studies pending 2. Coagulopathy -previous physician discussed with oncology who recommended giving vitamin K if INR elevated which initially helped normalize INR -once INR normal she was started on apixaban, her INR has since been rising from 1.9-2.3 -continue to check INR daily -gave additional vitamin k of 2.5 oral on 06/14 to see if nutrition is reason for elevated INR -holding apixaban for thora, resume after 3. Bilateral pulmonary emboli/right lower extremity DVT/pulmonary infarcts with possible R heart failure. -continue anticoagulation -suspect she will need some home O2 -suspicion is PE caused by estradiol, now stopped taking it 4. Bacterial pneumonia, with possible parapneumonic effusion -given her severe leukocytosis, will empirically continue coverage for healthcare associated pneumonia. Her leukocytosis is improved but remains elevated. -was on ceftriaxone, azithromycin. But broadened to zosyn for elevated WBC -white count may need be secondary to pulmonary infarcts but need to consider infected pleural effusion -f/u pleural cell count and culture 5. Permanent atrial fibrillation She is not anticoagulated at baseline prior to PE. Slightly tachycardic so beta tamiko was increased with improvement from 25 mg BID to 37.5 mg BID. on apixaban after holding as discussed above. 6. COPD/asthma -doubt this is cause of symptoms 7. Chronic back pain Continue her usual home medications 8. Anemia On June 04 her hemoglobin was normal at 13.1. Had been downtrending but now stabilized. No obvious signs or symptoms of bleeding. Dispo: Home in 1-2 days pending thora and improvement in dyspnea. Quality VTE Deep Vein Thrombosis/Pulmonary Embolism Present on Admission: Yes
[2023-06-16] MEDS: FUROSEMIDE 40 MG TABLET PO (08:20)
[2023-06-16] MEDS: GABAPENTIN 300 MG CAPSULE PO ×3 (08:20→20:40)
[2023-06-16] MEDS: METOPROLOL IR 25 MG TABLET 37.5 MG PO ×2 (08:20→20:40)
[2023-06-16] MEDS: POTASSIUM CHLORIDE 20 MEQ TAB PO (08:20)
[2023-06-16] MEDS: DOXYCYCLINE HYCLATE 100 MG TABLET PO ×2 (08:20→20:39)
[2023-06-16] MEDS: SODIUM CHLORIDE 0.9% FLUSH 10 ML IV ×2 (08:25→20:41)
[2023-06-16 08:53] LABS: Add Manual Diff / Slide Review NO; Basophils Absolute Auto 100 /uL (0-100); Basophils Percent Auto 0.7 % (0-2); Eosinophils Absolute Auto 100 /uL (0-450); Eosinophils Percent Auto 0.7 % (2-4); Hematocrit 29.9 % (36-46); Hemoglobin 9.7 g/dL (12.0-16.0); Lymphocytes Absolute Auto 1600 /uL (1100-4500); Lymphocytes Percent Auto 9.5 % (25-40); Mean Corpuscular HGB Conc 32.5 % (30-36); Mean Corpuscular Hemoglobin 29.2 PG (26-34); Mean Corpuscular Volume 89.6 fL (80-100); Monocytes Absolute Auto 1000 /uL (0-900); Monocytes Percent Auto 5.8 % (3-14); Neutrophils Absolute Auto 13900 /uL (1500-7000); Neutrophils Percent Auto 83.3 % (50-75); Platelet Count 304 X10^3/uL (150-400); Red Blood Cell Count 3.34 X10^6/uL (4.0-5.2); Red Cell Distribution Width 15.2 % (11.6-14.8); White Blood Cell Count 16.6 X10^3/uL (4.5-11.0)
[2023-06-16] MEDS: FLUTICASONE PROPION SALMETEROL 1 EACH INH ×2 (09:00→21:00)
[2023-06-16 09:05] LABS: BUN Creatinine Ratio 18.5 (6-22); Blood Urea Nitrogen 12 mg/dL (7-17); Calcium 8.6 mg/dL (8.4-10.2); Carbon Dioxide 34 mmol/L (22-32); Chloride 95 mmol/L (98-107); Estimated Glomerular Filt Rate > 60 mL/min (>60); Glucose 92 mg/dL (80-110); HEMOLYSIS < 15 (0-50); Potassium 4.1 mmol/L (3.4-5.1); Sodium 131 mmol/L (137-145)
--- NOTE | 2023-06-16 12:29 | PC.NURSE ---
Patient has declined repeated offers and attempts to ambulate out of bed and/or sit in the recliner for meals.
--- NOTE | 2023-06-16 12:37 | PT.IPTN ---
Current Diagnoses Pneumonia, unspecified organism (06/08/23) Other specified abnormal findings of blood chemistry (06/08/23) Physical Therapy Treatment Note M2 PT-IP Current Condition Start: 06/10/23 10:25 Freq: NEEDED Status: Active Protocol: Document 06/11/23 10:01 AB (Rec: 06/11/23 10:28 AB [id number]) Physical Therapy Current Condition Current Condition Evaluation Date 06/11/23 Treatment Diagnosis Pneumonia, hx of PE; weakness Onset Date 06/08/23 M3 PT-IP Subjective Start: 06/10/23 10:25 Freq: NEEDED Status: Active Protocol: Document 06/16/23 12:37 KS (Rec: 06/16/23 12:54 KS [id number]) Subjective Physical Therapy Visit Type Type Treatment Note Visit Start Time 12:37 Visit Stop Time 12:47 Total Visit Minutes 10 Notes grand daughter present. Number of ELECTROPHONIC ENGINEER Visits 3 Physical Therapy Visit Comments Patient Comments Pt found resting in bed, reports feeling tired today, is agreeable to PT. M4 PT-IP Mobility and Gait Start: 06/10/23 10:25 Freq: NEEDED Status: Active Protocol: Document 06/16/23 12:54 KS (Rec: 06/16/23 12:54 KS [id number]) PT-Bed Mobility Assessment Scooting Scooting Up and Down in Bed Maximum Assistance M5 PT-IP Objective Assessments Start: 06/10/23 10:25 Freq: NEEDED Status: Active Protocol: Document 06/11/23 10:01 AB (Rec: 06/11/23 10:28 AB [id number]) Orientation Orientation/Cognition Level of Alertness Alert Orientation Name,Age,Birthday,Month,Date, Year,Day of Week,Place, Situation Language Function Ability No Deficits Noted Safety Awareness Understands Safety Issues Memory Description No Deficits Noted Gross Range of Motion Upper Extremity ROM Assessment Within Functional Limits Lower Extremity ROM Assessment Within Functional Limits Strength Upper Extremity Strength Assessment Within Functional Limits Lower Extremity Strength Assessment Within Functional Limits M6 PT-IP Treatment Start: 06/10/23 10:25 Freq: NEEDED Status: Active Protocol: Document 06/16/23 12:37 KS (Rec: 06/16/23 12:54 KS [id number]) Physical Therapy Treatment Education Education Provided Safety M7 PT-IP Assessment and Plan Start: 06/10/23 10:25 Freq: NEEDED Status: Active Protocol: Document 06/16/23 12:37 KS (Rec: 06/16/23 12:54 KS [id number]) PT Summary Assessment and Plan Summary Impairments Strength,Bed Mobility, Transfers,Gait,Activity Tolerance Progress Towards Goals Slow Progress due to Medical Issues,Slow Progress due to Activity Tolerance Assessment Summary Pt in bed upon arrival, agreeable to try mobilizing. SBA for sup<>sit and scootign EOB, SBA for sit<>stand w/ FWW. PT immediately SOB upon standing and just able to take 3 lateral steps towards HOB before needing to get back into bed. RN arrived to assist w/ Pt repositioning. Pt left in bed, HOB elevated, w/ all needs in reach and granddaughter in room. Pt to have thora this PM, will continue to assess progress following procedure. Arlene continues to limited by medical issues/SOB. SBA for mobility but only able to complete sit<>stand and three lateral steps w/ FWW before ceasing treatment due to SOB. Will continue to assess progress. Goals Bed Mobility Goal Independent Transfer Goal Independent,Front Wheeled Walker,Four Wheeled Walker Gait Goal Standby Assistance,Front Wheel Walker,Four Wheel Walker Gait Distance 50 Other Goals Pt to be able to ascend/ descend 2 steps using 1 hand rail with SBA to demonstrate improved strength and endurance to discharge safely to home. Days to Meet Goals 10 Frequency of Treatment Frequency Of Treatment Once a Day Treatment Plan Physical Therapy Treatment Plan Bed Mobility Training,Transfer Training,Gait Training, Therapeutic Exercise,Balance Retraining,Discharge Planning, Hot or Cold Pack,Neuromuscular Re-ed,Coordination Retraining ,Manual Therapy Other Recommendations and Next Treatment Assess pt's ability to use 4WW Focus , as this may decrease her energy expenditure. Precautions Other Precautions Fall risk Recommendations To Nursing Amount of Assist Needed Standby Assistance Discharge Recommendations PT Discharge Recommendations Home with Assistance,Home Health,Outpatient PT Transportation Needs at Discharge Private Vehicle
--- NOTE | 2023-06-16 14:04 | CM.DPC ---
DCP Continued: ADMINISTRATIVE ACCOUNTANT reviewed EMR. Hospitalist reports going to complete procedure today to try and get some of the fluid off her lungs. At this point thinks likely home in two days but that is pending medical stability. ADMINISTRATIVE ACCOUNTANT entered room and introduced self and role. Patient laying in bed and was quiet but appeared A/Ox4. Patient reports she believes the plan remains home with [facility]. Patient's main support and help with d/c planning, daughter Cony, is at home with a migraine at this time. Patient requested for CM team to [place] back tomorrow for d/c planning with daughter is available. Plan: home when medically stable with family and [facility]. CM team will continue to follow closely. KAHLIL Brito
--- NOTE | 2023-06-16 17:17 | DI.RAD.S_ITS ---
PROCEDURE: XR CHEST 1V INDICATIONS: post thoracentesis TECHNIQUE: One view of the chest was acquired. COMPARISON: [facility], CR, XR CHEST 1V, 06/14/2023, 9:16. [facility], CT, CT CHEST WO CON, 06/14/2023, 20:05. FINDINGS: This study is limited by semiupright positioning. Surgical changes and devices: None. Lungs and pleura: To the limits of this semiupright study, no post thoracentesis pneumothorax is seen. Small bilateral pleural effusions are seen. Mild generalized interstitial prominence can be seen. Mediastinum: Mediastinal contours appear normal. Heart size is normal. Atherosclerotic calcification of the aortic arch is noted. Bones and chest wall: No suspicious bony lesions. Age-appropriate bony degenerative changes are seen. Overlying soft tissues appear unremarkable. IMPRESSION: No large pneumothorax can be seen to the limits of this semiupright study. Small bilateral pleural effusions are seen. Dictated by: Osmani Valdivia M.D. on 06/16/2023 at 16:54 Approved by: Osmani Valdivia M.D. on 06/16/2023 at 16:55
[2023-06-16 17:47] LABS: Body Fluid Appearance CLOUDY; Body Fluid Clotted? NO CLOTS PRESENT; Body Fluid Color PINK
[2023-06-16 17:51] LABS: Body Fluid Red Blood Cells 12621 /uL; Body Fluid Tot Nucleated Cells 1767 /uL
--- NOTE | 2023-06-16 18:27 | PM.PROC.1 ---
Procedures Date/Time Date of procedure: 06/16/23 Time of procedure: 17:00 General Procedure description: Thoracentesis Procedure Note Prior to the procedure formal consent was obtained from the patient after discussion of risks and benefits of the procedure, and allowing the patient to ask any questions. Ultrasound was used to find safe entry site, and the site was marked. A time-out was performed. The site was then prepped and draped in usual sterile fashion, and a 16 gauge needle was inserted with return of samuel colored fluid. Approx 45mL of fluid was sent to the lab for testing. A total of approximately 1100 mL was obtained before drainage stopped. There was no bleeding and the patient tolerated the procedure well. There were no further complications. Chest X-ray shows no PTX. Jewel Sen, DO
[2023-06-16 18:36] LABS: Mononuclear WBC Body Fluid 46 %; Other Cells Body Fluid 12 %; Polynuclear WBC Body Fluid 42 %
[2023-06-16] MEDS: APIXABAN 5 MG TABLET PO (20:39)
[2023-06-16] MEDS: ATORVASTATIN 20 MG TABLET PO (20:39)
[2023-06-16] MEDS: TRAZODONE 50 MG TABLET PO (20:41)
[2023-06-16] MEDS: HYDROCODONE/ACET 5/325 TABLET 1 TAB PO (20:41)
[2023-06-16] MEDS: ACETAMINOPHEN 325 MG TABLET 650 MG PO (20:41)
[2023-06-17] VITALS (7 sets, daily range): BP systolic 92–117; BP diastolic 45–58; PULSE 90–105; RESP 18–24; TEMP 36.1–37.3; O2SAT 96–100
[2023-06-17 04:32] LABS: Add Manual Diff / Slide Review NO; Basophils Absolute Auto 100 /uL (0-100); Basophils Percent Auto 0.8 % (0-2); Eosinophils Absolute Auto 100 /uL (0-450); Eosinophils Percent Auto 0.8 % (2-4); Hematocrit 31.6 % (36-46); Hemoglobin 10.3 g/dL (12.0-16.0); Lymphocytes Absolute Auto 1700 /uL (1100-4500); Lymphocytes Percent Auto 11.2 % (25-40); Mean Corpuscular HGB Conc 32.6 % (30-36); Mean Corpuscular Hemoglobin 29.1 PG (26-34); Mean Corpuscular Volume 89.3 fL (80-100); Monocytes Absolute Auto 800 /uL (0-900); Monocytes Percent Auto 5.6 % (3-14); Neutrophils Absolute Auto 12100 /uL (1500-7000); Neutrophils Percent Auto 81.6 % (50-75); Platelet Count 307 X10^3/uL (150-400); Red Blood Cell Count 3.54 X10^6/uL (4.0-5.2); Red Cell Distribution Width 14.8 % (11.6-14.8); White Blood Cell Count 14.8 X10^3/uL (4.5-11.0)
[2023-06-17 04:40] LABS: BUN Creatinine Ratio 19.7 (6-22); Blood Urea Nitrogen 13 mg/dL (7-17); Calcium 8.5 mg/dL (8.4-10.2); Carbon Dioxide 35 mmol/L (22-32); Chloride 96 mmol/L (98-107); Estimated Glomerular Filt Rate > 60 mL/min (>60); Glucose 88 mg/dL (80-110); HEMOLYSIS < 15 (0-50); Potassium 3.8 mmol/L (3.4-5.1); Sodium 133 mmol/L (137-145); Total Protein 5.3 g/dL (6.3-8.2)
[2023-06-17] MEDS: TRAMADOL 50 MG TABLET 100 MG PO ×3 (05:04→21:10)
[2023-06-17] MEDS: ACETAMINOPHEN 325 MG TABLET 650 MG PO (05:04)
[2023-06-17] MEDS: PIPERACILLIN/TAZO 3.375 GM in SODIUM CHLORIDE 0.9% 100 ML IV ×3 (05:04→22:09)
[2023-06-17] MEDS: METOPROLOL IR 25 MG TABLET 37.5 MG PO (08:18)
[2023-06-17] MEDS: POTASSIUM CHLORIDE 20 MEQ TAB PO (08:19)
[2023-06-17] MEDS: FUROSEMIDE 40 MG TABLET PO (08:19)
[2023-06-17] MEDS: DOXYCYCLINE HYCLATE 100 MG TABLET PO ×2 (08:19→20:55)
[2023-06-17] MEDS: GABAPENTIN 300 MG CAPSULE PO ×3 (08:19→20:59)
[2023-06-17] MEDS: APIXABAN 5 MG TABLET PO ×2 (08:19→20:55)
--- NOTE | 2023-06-17 08:19 | P.PN_ITS ---
Subjective Subjective Interval history: Denies pain or dyspnea. No chest pain. Breathing feels better (on 2 liters NC). Exam Vital Signs (past 8 hours): - 06/17/23 04:00 06/17/23 08:00 06/17/23 08:00 Temperature 97.7 F 98.1 F Pulse Rate 105 H Respiratory Rate 24 Blood Pressure 93/58 L Pulse Oximetry 96 Oxygen Delivery Method Nasal Cannula Oxygen Flow Rate 2 Fraction of Inspired Oxygen 28 SaO2/FiO2 Ratio 350 Oxygen Delivery Method Nasal Cannula Oxygen Flow Rate 2 Narrative Exam Narrative: NAD, awake and oriented. Normal speech. EOMI, anicteric sclera. Neck normal ROM. Lungs CTA and normal effort and rate. CV irregular. No MGR. Abdomen soft , NT, ND. No leg edema. Objective Labs 06/17/23 04:18 06/17/23 04:18 Labs: Laboratory Results - last 24 hr 06/16/23 06/16/23 06/16/23 08:35 08:35 17:25 WBC 16.6 H RBC 3.34 L Hgb 9.7 L Hct 29.9 L MCV 89.6 MCH 29.2 MCHC 32.5 RDW 15.2 H Plt Count 304 Neut % (Auto) 83.3 H Lymph % (Auto) 9.5 L [place] % (Auto) 5.8 Eos % (Auto) 0.7 L Baso % (Auto) 0.7 Neut # (Auto) 33094 H Lymph # (Auto) 1600 [place] # (Auto) 1000 H Eos # (Auto) 100 Baso # (Auto) 100 Sodium 131 L Potassium 4.1 Chloride 95 L Carbon Dioxide 34 H BUN 12 Creatinine 0.65 Estimated GFR > 60 BUN/Creatinine Ratio 18.5 Glucose 92 Calcium 8.6 Total Protein Fluid Color [place] Fluid Appearance [place] [address] Fld Tot Nucleated Cell 1767 Fluid Polynuclear WBCs 42 Fluid Mononuclear WBCs 46 Fluid Eosinophils Not Reportable Fluid Other Cells 12 Body Fluid Clot No clots present 06/17/23 06/17/23 04:18 04:18 WBC 14.8 H RBC 3.54 L Hgb 10.3 L Hct 31.6 L MCV 89.3 MCH 29.1 MCHC 32.6 RDW 14.8 Plt Count 307 Neut % (Auto) 81.6 H Lymph % (Auto) 11.2 L [place] % (Auto) 5.6 Eos % (Auto) 0.8 L Baso % (Auto) 0.8 Neut # (Auto) 77450 H Lymph # (Auto) 1700 [place] # (Auto) 800 Eos # (Auto) 100 Baso # (Auto) 100 Sodium 133 L Potassium 3.8 Chloride 96 L Carbon Dioxide 35 H BUN 13 Creatinine 0.66 Estimated GFR > 60 BUN/Creatinine Ratio 19.7 Glucose 88 Calcium 8.5 Total Protein 5.3 L Fluid Color Fluid Appearance Fluid RBC Fld Tot Nucleated Cell Fluid Polynuclear WBCs Fluid Mononuclear WBCs Fluid Eosinophils Fluid Other Cells Body Fluid Clot PFSH Medical History Atrial fibrillation (2013) Chronic fatigue syndrome (~1992) Chronic pain COPD (chronic obstructive pulmonary disease) Depression Diaphragmatic hernia DJD of shoulder Elevated brain natriuretic peptide (BNP) level Elevated d-dimer Fibromyalgia (1992) Major 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 Migraines (1984) Mumps (1949) Osteoarthritis Osteopenia Osteoporosis (1989) Peripheral edema RLS (restless legs syndrome) Shortness of breath Surgical History Anesthesia History of bladder suspension procedure (1994) Other joint replacement by other means (1998) Previous back surgery (~12/17/22) S/P total abdominal hysterectomy and bilateral salpingo-oophorectomy (1964) Status post breast biopsy Family History Brother MVA (motor vehicle accident) Father CAD (coronary artery disease) Mother Pancreatic cancer Social History household members: none Smoking Status: Former smoker alcohol intake: never Assessment & Plan Assessment & Plan narrative: 1. Acute hypoxemic respiratory failure, POA and improving. -2 liters NC -thoracentesis for 1 liter yesterday. -ECHO ordered shows decreased EF at 45%, small pericardial effusion, and left pleural effusion, RVSP same as prior at 57 with right sided dilation. -CT chest showed mod L pleural effusion, no loculations, but bilateral consolidations which may be PNA vs pulm infarcts -continue oral lasix for now -resume Eliquis (DVT) when INR normalized. -may need home O2 -pleural fluid studies pending 2. Coagulopathy, POA. -previous physician discussed with oncology who recommended giving vitamin K if INR elevated which initially helped normalize INR -once INR normal she was started on apixaban, her INR has since been rising from 1.9-2.3 -continue to check INR daily -gave additional vitamin k of 2.5 oral on 06/14 to see if nutrition is reason for elevated INR 3. Bilateral pulmonary emboli/right lower extremity DVT/pulmonary infarcts with possible R heart failure. -continue anticoagulation (as able). -suspect she will need some home O2 -suspicion is PE caused by estradiol, now stopped taking it. 4.? Bacterial pneumonia, POA and improving. -given her severe leukocytosis, will empirically continue coverage for healthcare associated pneumonia.? Her leukocytosis is improved but remains elevated. -was on ceftriaxone, azithromycin. But broadened to zosyn for elevated WBC -white count may need be secondary to pulmonary infarcts but need to consider infected pleural effusion -f/u pleural cell count and culture 5. Permanent atrial fibrillation, POA and stable. She is not anticoagulated at baseline prior to PE. Slightly tachycardic so beta tamiko was increased with improvement from 25 mg BID to 37.5 mg BID. on apixaban after holding as discussed above. 6. COPD/asthma, POA and stable. -doubt this is cause of symptoms 7. Chronic back pain, POA and stable. Continue her usual home medications 8. Anemia, new and active. On June 04 her hemoglobin was normal at 13.1.? Had been downtrending but now stabilized. No obvious signs or symptoms of bleeding. Dispo: Home in 1-2 days pending thora and improvement in dyspnea. Quality VTE Deep Vein Thrombosis/Pulmonary Embolism Present on Admission: Yes Time Spent With Patient Time with patient: 30 to 49 minutes with 50% spent counseling/coordinating care Quality VTE Deep Vein Thrombosis/Pulmonary Embolism Present on Admission: Yes
[2023-06-17] MEDS: FLUTICASONE PROPION SALMETEROL 1 EACH INH ×2 (08:20→20:59)
--- NOTE | 2023-06-17 10:29 | PT.IPTN ---
Current Diagnoses Pneumonia, unspecified organism (06/08/23) Other specified abnormal findings of blood chemistry (06/08/23) Physical Therapy Treatment Note M2 PT-IP Current Condition Start: 06/10/23 10:25 Freq: NEEDED Status: Active Protocol: Document 06/11/23 10:01 AB (Rec: 06/11/23 10:28 AB [id number]) Physical Therapy Current Condition Current Condition Evaluation Date 06/11/23 Treatment Diagnosis Pneumonia, hx of PE; weakness Onset Date 06/08/23 M3 PT-IP Subjective Start: 06/10/23 10:25 Freq: NEEDED Status: Active Protocol: Document 06/17/23 10:29 AW (Rec: 06/17/23 10:43 AW [id number]) Subjective Physical Therapy Visit Type Type Treatment Note Visit Start Time 10:05 Visit Stop Time 10:29 Total Visit Minutes 24 Number of MATE FIRST Visits 0 Physical Therapy Visit Comments Patient Comments Pt is willing to participate with PT, reports feeling better with less SOB since thoracentesis yesterday. Therapy Pain Assessment Pain When Pain Assessed During Mobility Pain Present Pain Present Pain Reported Location Back Intensity 2 Scale Used Numeric (0 - 10) M4 PT-IP Mobility and Gait Start: 06/10/23 10:25 Freq: NEEDED Status: Active Protocol: Document 06/17/23 10:29 AW (Rec: 06/17/23 10:43 AW [id number]) PT-Bed Mobility Assessment Supine to Sit Supine to Sit Standby Assistance,Head of Bed Elevated Scooting Scooting to Edge of Bed Standby Assistance PT-Transfer Assessment Sit to and From Stand Sit to and from Stand Standby Assistance,Use of Upper Extremities Equipment Transfer Assistive Device Gait Belt,4 Wheeled Walker Transfers Transfer Destination Chair Transfer Ability Level of Assist Standby Assistance Comments Mobility Comments Pt was in bed as PT arrived. BP 99/55 HR 84 SpO2 98% on 2L/ min NC. She transitioned easily to sitting EOB and agreed to trial 4WW today. SpO2 stable in sitting. She stood and used 4WW to ambulate 25 feet in the room. Monitored showed a fib with HR in the low 90's. SpO2 dropped to mid-80's during mobility but promptly recovered to 95% as pt sat in the chair. Pt stood again and walked to sink for hand hygiene before returning to chair. She agreed to sit to stand assessment and was able to complete 5 reps in 24.6 seconds using UE' s freely to push off the chair . BP after activity was 99/66 HR 97 SpO2 85% but recovering to 94% in <30 seconds. Pt agreed to sit up in the chair and to call for assist when ready to get back to bed. Gait Assessment Gait Gait Assistance Required: Standby Assistance Distance (Feet) 25 Assistive Devices Assistive Device Gait Belt,4 Wheeled Walker Gait Deviations General Gait Pattern Decreased Stride Length, Decreased Feet Clearance Factors Limiting Gait Function Factors Limiting Gait Function Decreased Activity Tolerance, Decreased Strength,Respiratory Distress Comments Gait Comments Mild SOB reported during mobility attempts but with quick recovery. PT-Balance Assessment Sitting Balance and Reactions Static Sitting Balance Ability Normal Dynamic Sitting Balance Ability Normal Standing Balance and Reactions Static Standing Balance Ability Good Dynamic Standing Balance Ability Good Device Used 4WW Functional Assessments Functional Tests 5 Times Sit to Stand 24.6 Other Functional Tests Performed Free use of arms. Cues needed for full extension in stance. No LOB. M5 PT-IP Objective Assessments Start: 06/10/23 10:25 Freq: NEEDED Status: Active Protocol: Document 06/11/23 10:01 AB (Rec: 06/11/23 10:28 AB [id number]) Orientation Orientation/Cognition Level of Alertness Alert Orientation Name,Age,Birthday,Month,Date, Year,Day of Week,Place, Situation Language Function Ability No Deficits Noted Safety Awareness Understands Safety Issues Memory Description No Deficits Noted Gross Range of Motion Upper Extremity ROM Assessment Within Functional Limits Lower Extremity ROM Assessment Within Functional Limits Strength Upper Extremity Strength Assessment Within Functional Limits Lower Extremity Strength Assessment Within Functional Limits M6 PT-IP Treatment Start: 06/10/23 10:25 Freq: NEEDED Status: Active Protocol: Document 06/17/23 10:29 AW (Rec: 06/17/23 10:43 AW [id number]) Physical Therapy Treatment Education Education Provided Safety M7 PT-IP Assessment and Plan Start: 06/10/23 10:25 Freq: NEEDED Status: Active Protocol: Document 06/17/23 10:29 AW (Rec: 06/17/23 10:43 AW [id number]) PT Summary Assessment and Plan Summary Impairments Strength,Bed Mobility, Transfers,Gait,Activity Tolerance Progress Towards Goals Progressing Toward Goals,Slow Progress due to Medical Issues Assessment Summary Arlene is one day s/p thoracentesis today (1100 mL removed). She progressed her mobility this date with longer gait distance and good tolerance for sit to stand testing. 5 Time Sit to Stand score of 24.6 seconds indicates continued functional weakness. Pt continues to desat to mid-80's on 2 L/min but recovers to mid-90's in < 30 seconds each time with only mild SOB reported. Goals Bed Mobility Goal Independent Transfer Goal Independent,Front Wheeled Walker,Four Wheeled Walker Gait Goal Standby Assistance,Front Wheel Walker,Four Wheel Walker Gait Distance 50 Other Goals Pt to be able to ascend/ descend 2 steps using 1 hand rail with SBA to demonstrate improved strength and endurance to discharge safely to home. Days to Meet Goals 10 Frequency of Treatment Frequency Of Treatment Once a Day Treatment Plan Physical Therapy Treatment Plan Bed Mobility Training,Transfer Training,Gait Training, Therapeutic Exercise,Balance Retraining,Discharge Planning, Hot or Cold Pack,Neuromuscular Re-ed,Coordination Retraining ,Manual Therapy Other Recommendations and Next Treatment Safe with 4WW. Continue to use Focus during therapy. Precautions Other Precautions Fall risk Recommendations To Nursing Amount of Assist Needed Standby Assistance Discharge Recommendations PT Discharge Recommendations Home with Assistance,Home Health,Outpatient PT Transportation Needs at Discharge Private Vehicle
--- NOTE | 2023-06-17 10:30 | CM.DPC ---
DCP Cont: Discussed patient during team rounds. Hospitalist indicated, patient is slowly starting to improve. Patient is continuing with diuresis. hospitalist indicated that patient may not be ready for discharge until approximately 06/19. Mentioned patient having pneumonia, as well. Plan is still for home with [facility]. Verified that Dr. Malik can follow patient until primary care provider, Dr. Vasquez, takes over. P: DCP to continue to follow, plan is home with [facility] when deemed medically stable. Lissette Grove RN/Injection Mold Technician
--- NOTE | 2023-06-17 15:46 | PC.NURSE ---
Report received from Leslie PARSONS and patient transferred to room 222. Patient oriented to room and call light. Patient denies pain. Call light and belongings within reach. Bed alarm on for safety.
[2023-06-17] MEDS: SODIUM CHLORIDE 0.9% FLUSH 10 ML IV ×3 (15:55→22:10)
[2023-06-17] MEDS: ATORVASTATIN 20 MG TABLET PO (20:55)
[2023-06-17] MEDS: TRAZODONE 50 MG TABLET PO (20:57)
--- NOTE | 2023-06-17 23:34 | PC.NURSE ---
Addendum entered by Erin Mix R.N. 06/18/23 06:28: Patient was started on IVF as per MD order with last BP of 95/53 with HR of 106. She has not voided as yet this shift so was gotten up to bathroom but unable to urinate. Bladder scan showing 197cc in bladder. Was increasingly weak this morning when up and complained again of SOB. Dr Arreola informed; see order for chest x-ray. Original Note: Patient is alert and oriented. Breath sounds diminished but CTA. Currently on oxygen at 2L/min with sat of 100%; denies SOB at rest or with exertion. Reportedly tried on RA earlier today with desats into 80's. HR irregular and was previously on telemetry with readings of afib. BP low at 97/45 but has been trending low and is asymptomatic. Denies nausea. BT present and reports having had BM earlier today. Has been voiding without dysuria; will monitor output related to low BP. Is able to turn in bed but needs assist to be pulled up in the bed; complains that bed is uncomfortable causing her pain so medicated earlier with Tramadol and reporting that pain has lessened. When out of bed uses walker with assist of 1. Bruising noted on bilateral UE with petichiae noted on upper abdomen. Edema noted in bilateral LE but states it has lessened and is keeping them elevated on pillows. Fall risk score is high and bed alarm is activated. Her most recent BP is 102/36 with MAP of 65 and on recheck was 94/38 with MAP of 59. Message sent to Dr. Arreola via [employer] to inform him.
[2023-06-18] VITALS (9 sets, daily range): BP systolic 95–128; BP diastolic 36–70; PULSE 70–125; RESP 15–17; TEMP 36.6–37.1; O2SAT 91–97
--- NOTE | 2023-06-18 02:02 | P.EN_ITS ---
Event Note Event Note (Rapid Response, Code, or fall): CROSS COVER Hypotension SBP 94 Admitted for Bilat PE, Afib, and CHF EF 45% Similar BP in earlier progress note. Stop furosemide Hold metoprolol Normal saline 100 mL/Hr x 5 hours. Primary team will re-evaluate in am Juanpablo Arreola MD Telehospitalist [facility]
[2023-06-18] MEDS: SODIUM CHLORIDE 0.9% 1,000 ML 100 ML IV (02:50)
[2023-06-18] MEDS: SODIUM CHLORIDE 0.9% FLUSH 10 ML IV ×3 (06:11→20:33)
[2023-06-18] MEDS: PIPERACILLIN/TAZO 3.375 GM in SODIUM CHLORIDE 0.9% 100 ML IV ×3 (06:15→21:18)
[2023-06-18 06:30] LABS: Add Manual Diff / Slide Review NO; Basophils Absolute Auto 200 /uL (0-100); Basophils Percent Auto 1.2 % (0-2); Eosinophils Absolute Auto 200 /uL (0-450); Eosinophils Percent Auto 0.9 % (2-4); Hematocrit 30.2 % (36-46); Hemoglobin 9.7 g/dL (12.0-16.0); Lymphocytes Absolute Auto 2100 /uL (1100-4500); Lymphocytes Percent Auto 12.1 % (25-40); Mean Corpuscular HGB Conc 32.1 % (30-36); Mean Corpuscular Hemoglobin 28.7 PG (26-34); Mean Corpuscular Volume 89.5 fL (80-100); Monocytes Absolute Auto 800 /uL (0-900); Monocytes Percent Auto 4.6 % (3-14); Neutrophils Absolute Auto 14200 /uL (1500-7000); Neutrophils Percent Auto 81.2 % (50-75); Platelet Count 321 X10^3/uL (150-400); Red Blood Cell Count 3.38 X10^6/uL (4.0-5.2); Red Cell Distribution Width 14.7 % (11.6-14.8); White Blood Cell Count 17.4 X10^3/uL (4.5-11.0)
--- NOTE | 2023-06-18 06:32 | DI.RAD.S_ITS ---
PROCEDURE: XR CHEST 1V INDICATIONS: increasing SOB TECHNIQUE: One view of the chest was acquired. COMPARISON: [facility], CR, XR CHEST 1V, 06/16/2023, 17:20. [facility], CR, XR CHEST 1V, 06/14/2023, 9:16. FINDINGS: Surgical changes and devices: None. Lungs and pleura: Moderate bilateral pleural effusions with adjacent atelectasis versus consolidation. No pneumothorax. Mediastinum: Mediastinal contours appear normal. Heart size is normal. Bones and chest wall: No suspicious bony lesions. Overlying soft tissues appear unremarkable. IMPRESSION: Moderate bilateral pleural effusions are similar to mildly increased compared to prior. There is adjacent atelectasis versus consolidation. Findings are concordant with preliminary interpretation provided by [facility]. Dictated by: Xander Jimenez M.D. on 06/18/2023 at 8:25 Approved by: Xander Jimenez M.D. on 06/18/2023 at 8:27
[2023-06-18 06:40] LABS: BUN Creatinine Ratio 20.3 (6-22); Blood Urea Nitrogen 13 mg/dL (7-17); Calcium 8.5 mg/dL (8.4-10.2); Carbon Dioxide 28 mmol/L (22-32); Chloride 96 mmol/L (98-107); Estimated Glomerular Filt Rate > 60 mL/min (>60); Glucose 73 mg/dL (80-110); HEMOLYSIS 23 (0-50); Potassium 3.6 mmol/L (3.4-5.1); Sodium 132 mmol/L (137-145)
--- NOTE | 2023-06-18 08:43 | CM.DPC ---
Addendum entered by Lissette Grove R.N. 06/18/23 15:40: Dylan from [facility] called for update. Let him know, that according to hospitalist, patient could be ready by or Saturday. He is aware, that Dr. Malik will follow patient until her new provider visit with Dr. Landrum on or around Jun.25. Will update Dylan if plan changes, and when she discharges. Original Note: DCP Cont: Stopped by patient's room, nurse was in the room, listening to her lungs, patient sitting up in bed. Daughter, at bedside. Daughter indicated, she is not doing so well today, was better yesterday after removing fluid. Put name of this DC Sourcer on the board. Plan is still home with daughter and [facility], will get more information on team rounds as to estimation of discharge date. P: DCP to continue to follow closely. Plan is currently still home with [facility]. Lissette Grove RN/Hand Rug Braider
--- NOTE | 2023-06-18 09:09 | P.PN_ITS ---
Subjective Subjective Interval history: Feels weaker today, low BP over night. Given saline 500 ml. CXR negative to pneumothorax. No fevers, or cough. Put back on O2 overnight (desats with extertion). Exam Vital Signs (past 8 hours): - 06/18/23 04:00 06/18/23 08:58 Temperature 98.0 F 98.7 F Pulse Rate 106 H 125 H Respiratory Rate 16 17 Blood Pressure 95/53 L 127/61 Pulse Oximetry 94 95 Oxygen Flow Rate 1 0 Fraction of Inspired Oxygen 28 SaO2/FiO2 Ratio 350 Oxygen Delivery Method Nasal Cannula Oxygen Flow Rate 0 Narrative Exam Narrative: NAD, normal speech and calm. Flat affect, 2 liters O2 NC. Atraumatic head, EOMI. Neck supple and midline trachea. Lungs CTA, normal rate and effort. Heart RRR, without murmur, gallop, or rub. Abdomen Soft, NT, ND 1+ leg edema. No skin rash. Objective Imaging Chest x-ray: My impression: No PTx, pulmonary edema and effusions. Radiologist's impression: IMPRESSION:? Moderate bilateral pleural effusions are similar to mildly increased compared to prior.? There is adjacent atelectasis versus consolidation. ? Labs 06/18/23 06:12 06/18/23 06:12 Labs: Laboratory Results - last 24 hr 06/18/23 06/18/23 06:12 06:12 WBC 17.4 H RBC 3.38 L Hgb 9.7 L Hct 30.2 L MCV 89.5 MCH 28.7 MCHC 32.1 RDW 14.7 Plt Count 321 Neut % (Auto) 81.2 H Lymph % (Auto) 12.1 L [place] % (Auto) 4.6 Eos % (Auto) 0.9 L Baso % (Auto) 1.2 Neut # (Auto) 05291 H Lymph # (Auto) 2100 [place] # (Auto) 800 Eos # (Auto) 200 Baso # (Auto) 200 H Sodium 132 L Potassium 3.6 Chloride 96 L Carbon Dioxide 28 BUN 13 Creatinine 0.64 Estimated GFR > 60 BUN/Creatinine Ratio 20.3 Glucose 73 L Calcium 8.5 [facility] Medical History Atrial fibrillation (2013) Chronic fatigue syndrome (~1992) Chronic pain COPD (chronic obstructive pulmonary disease) Depression Diaphragmatic hernia DJD of shoulder Elevated brain natriuretic peptide (BNP) level Elevated d-dimer Fibromyalgia (1992) Major 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 Migraines (1984) Mumps (1950) Osteoarthritis Osteopenia Osteoporosis (1989) Peripheral edema RLS (restless legs syndrome) Shortness of breath Surgical History Anesthesia History of bladder suspension procedure (1994) Other joint replacement by other means (1998) Previous back surgery (~12/17/22) S/P total abdominal hysterectomy and bilateral salpingo-oophorectomy (1964) Status post breast biopsy Family History Brother MVA (motor vehicle accident) Father CAD (coronary artery disease) Mother Pancreatic cancer Social History household members: none Smoking Status: Former smoker alcohol intake: never Assessment & Plan Assessment & Plan narrative: 1. Acute hypoxemic respiratory failure, POA and improving. -2 liters NC (was off for awhile yesterday). -thoracentesis for 1 liter 06/16. -ECHO ordered shows decreased EF at 45%, small pericardial effusion, and left pleural effusion, RVSP same as prior at 57 with right sided dilation. -CT chest showed mod L pleural effusion, no loculations, but bilateral consolidations which may be PNA vs pulm infarcts -continue oral lasix for now (BP permitting) -resume Eliquis? (DVT) when INR normalized. -may need home O2 -pleural fluid studies pending (neg cultures) -wean O2 again today -hold metoprolol, possible lasix later today. 2. Coagulopathy, POA and active.. -previous physician discussed with oncology who recommended giving vitamin K if INR elevated which initially helped normalize INR -once INR normal she was started on apixaban, her INR has since been rising from 1.9-2.3 -continue to check INR daily -gave additional vitamin k of 2.5 oral on 06/14 to see if nutrition is reason for elevated INR -Monitor daily INR. 3. Bilateral pulmonary emboli/right lower extremity DVT/pulmonary infarcts with possible R heart failure. -continue anticoagulation (as able). -suspect she will need some home O2 -suspicion is PE caused by estradiol, now stopped taking it. -resume anticoagulation as able (INR normalized). 4.? Bacterial pneumonia, POA and improving. -given her severe leukocytosis, will empirically continue coverage for healthcare associated pneumonia.? Her leukocytosis is improved but remains elevated. -was on ceftriaxone, azithromycin. But broadened to zosyn for elevated WBC -white count may need be secondary to pulmonary infarcts but need to consider infected pleural effusion -f/u pleural cell count and culture -Cont Zosyn (5-7 days course) 5. Permanent atrial fibrillation, POA and tachy today. -She is not anticoagulated at baseline prior to PE. Slightly tachycardic so beta tamiko was increased with improvement from 25 mg BID to 37.5 mg BID. on apixaban after holding as discussed above. -Resume metoprolol at a lower dose (Hypotensive overnight). 6. COPD/asthma, POA and stable. -Duonebs prn. 7. Chronic back pain, POA and stable. Continue her usual home medications 8. Anemia, new and active. -On June 04 her hemoglobin was normal at 13.1.? Had been downtrending but now stabilized. No obvious signs or symptoms of bleeding. -Monitor (). Time Spent With Patient Time with patient: 30 to 49 minutes with 50% spent counseling/coordinating care Quality VTE Deep Vein Thrombosis/Pulmonary Embolism Present on Admission: Yes
[2023-06-18] MEDS: APIXABAN 5 MG TABLET PO ×2 (10:13→20:31)
[2023-06-18] MEDS: POTASSIUM CHLORIDE 20 MEQ TAB PO (10:13)
[2023-06-18] MEDS: FLUTICASONE PROPION SALMETEROL 1 EACH INH ×2 (10:13→20:33)
[2023-06-18] MEDS: GABAPENTIN 300 MG CAPSULE PO ×3 (10:13→21:14)
[2023-06-18] MEDS: DOXYCYCLINE HYCLATE 100 MG TABLET PO ×2 (10:13→20:31)
[2023-06-18] MEDS: TRAMADOL 50 MG TABLET 100 MG PO ×2 (10:33→22:21)
--- NOTE | 2023-06-18 10:52 | PC.NURSE ---
Noted patient has large area of redness, with excoriation and open wound to her left inner thigh/groin area. Patient is wearing her own Pajama pants and underwear and unable to evaluate area thoroughly at this time. Pericare and foam cleanser to area. Dr. Anthony notified of open sore area. Will further evaluate and monitor. Patient currently resting in bed after taking pain medication for her back, with call light within reach.
[2023-06-18 12:07] LABS: INR 2.5 (0.9-1.3); Prothrombin Time 29.2 SECONDS (10.1-12.7)
[2023-06-18] MEDS: METOPROLOL IR 25 MG TABLET 12.5 MG PO ×2 (14:01→20:31)
--- NOTE | 2023-06-18 15:38 | PC.NURSE ---
Patient up to the bathroom again with assistance skin cleansed with foam soap and water, and alexandre care wipes. Patted dry. nonadherent foam piece dressing laid over open wound area. surrounding skin is incredibly fragile red and purplish, with pre-blistering like appearance. Wound MD and nurse here to see patient for wound consultation. Continue to follow.
--- NOTE | 2023-06-18 16:32 | P.CONS_ITS ---
History of Present Illness Consult details Date Patient Seen: 06/18/23 Time Patient Seen: 15:30 Chief complaint: BLOOD CLOTS NOT GETTING BETTER Narrative: The patient is an 82-year-old female with atrial fibrillation and COPD who was admitted to the hospital June 08, 2023 following a pulmonary embolus. She was noted to have ulcerations involving the upper inner aspects of each thigh and each groin therefore a wound consult was requested. The patient reports that she has had blistering and ulcerations in this area off and on for the past 9 months. Her primary care physician provided her with a cream that does seem to help however she is not sure exactly what the medication was. She reports that the open areas are tender. She does have some occasional drainage. She denies any recent fever or chills. The patient has never seen at sign wirer for this problem. Meds Home Medications and Allergies Home Medications Medication Instructions Recorded Confirmed Type meclizine 25 mg tablet 25 mg PO TID PRN dizziness #90 tabs 05/20/20 06/09/23 Rx budesonide 0.5 mg/2 mL suspension 0.5 mg (2 mL) inhalation BID #120 01/02/21 06/09/23 Rx for nebulization mL metoprolol tartrate 25 mg tablet 25 mg PO BID #180 tabs 10/11/22 06/09/23 Rx Disabled Parking Permit See Rx Instructions .Route 03/19/23 06/09/23 Rx .COMPLEX #1 unit furosemide 20 mg tablet 20 mg PO DAILY #30 tabs 05/24/23 06/09/23 Rx potassium chloride 20 mEq 20 meq PO DAILY #30 tabs 05/24/23 06/09/23 Rx tablet,extended release fluticasone 250 mcg-salmeterol 50 1 ea inhalation BID 05/28/23 06/09/23 History mcg/dose blistr powdr for inhalation ([facility] Inhub) Acid [employer] (omeprazole) 20 mg PO AC reflux 06/09/23 06/09/23 History albuterol sulfate 90 mcg/actuation 2 puff inhalation Q4-6H PRN 06/09/23 06/09/23 History aerosol inhaler wheezing betamethasone dipropionate 0.05 % 1 applic topical BID PRN Rash 06/09/23 06/09/23 History topical ointment cyclobenzaprine 10 mg tablet 10 mg PO Q8HR PRN Muscle Spasm 06/09/23 06/09/23 History gabapentin 300 mg PO Q8H neuropathy 06/09/23 06/09/23 History pravastatin 40 mg tablet 40 mg PO HS high cholesterol 06/09/23 06/09/23 History sumatriptan succinate 100 mg 100 mg PO PRN PRN migraines 06/09/23 06/09/23 History tablet (Imitrex) tramadol 100 mg PO Q8HR PRN Pain (Scale 06/09/23 06/09/23 History Score 4-6) Orajel 3X Mouth Sores 10 ml PO 4XD PRN Analgesia 06/11/23 06/11/23 History Allergies Allergy/AdvReac Type Severity Reaction Status Date / Time Sulfa (Sulfonamide Allergy Severe RASH Verified 06/04/23 13:39 Antibiotics) [SULFA (SULFONAMIDE ANTIBIOTICS)] bee venom protein (honey bee) Allergy Intermediate Throat Verified 06/04/23 13:39 swelling and breathing problems alendronate sodium AdvReac Severe Intolerable Verified 06/04/23 13:39 heartburn paroxetine [PAROXETINE] AdvReac Intermediate agitated, Verified 06/04/23 13:39 anxious turmeric AdvReac Broke out Verified 06/04/23 13:39 in spots GAUZE Allergy Mild SEVERE Uncoded 06/04/23 13:39 RASH/ REDNESS Review of Systems Constitutional Comments: The patient reports feeling weak Integumentary/Breasts Comments: Blisters Exam Vital Signs (past 8 hours): - 06/18/23 08:58 06/18/23 13:10 06/18/23 13:35 Temperature 98.7 F 98.8 F Pulse Rate 125 H 70 Respiratory Rate 17 17 Blood Pressure 127/61 120/70 Pulse Oximetry 95 97 97 Oxygen Delivery Method Nasal Cannula Oxygen Flow Rate 1 1 1 Fraction of Inspired Oxygen 24 06/18/23 15:04 Temperature Pulse Rate Respiratory Rate Blood Pressure Pulse Oximetry 91 Oxygen Delivery Method Oxygen Flow Rate Fraction of Inspired Oxygen Fraction of Inspired Oxygen 24 SaO2/FiO2 Ratio 404 Oxygen Delivery Method Nasal Cannula Oxygen Flow Rate 1 Const Other: Well-developed well-nourished early female who is alert oriented no apparent distress Resp Other: Normal respiratory effort Skin Other: Mild erythema with blistering involving the upper inner aspect of each thigh and each groin, some of the blisters have ruptured and are draining serous fluid Objective Labs 06/18/23 06:12 06/18/23 06:12 Labs: Laboratory Results - last 24 hr 06/16/23 06/18/23 06/18/23 17:25 06:12 06:12 WBC 17.4 H RBC 3.38 L Hgb 9.7 L Hct 30.2 L MCV 89.5 MCH 28.7 MCHC 32.1 RDW 14.7 Plt Count 321 Neut % (Auto) 81.2 H Lymph % (Auto) 12.1 L [place] % (Auto) 4.6 Eos % (Auto) 0.9 L Baso % (Auto) 1.2 Neut # (Auto) 48108 H Lymph # (Auto) 2100 [place] # (Auto) 800 Eos # (Auto) 200 Baso # (Auto) 200 H PT INR Sodium 132 L Potassium 3.6 Chloride 96 L Carbon Dioxide 28 BUN 13 Creatinine 0.64 Estimated GFR > 60 BUN/Creatinine Ratio 20.3 Glucose 73 L Calcium 8.5 Ref Test (Refrig) Comment 06/18/23 11:45 WBC RBC Hgb Hct MCV MCH MCHC RDW Plt Count Neut % (Auto) Lymph % (Auto) [place] % (Auto) Eos % (Auto) Baso % (Auto) Neut # (Auto) Lymph # (Auto) [place] # (Auto) Eos # (Auto) Baso # (Auto) PT 29.2 H INR 2.5 H Sodium Potassium Chloride Carbon Dioxide BUN Creatinine Estimated GFR BUN/Creatinine Ratio Glucose Calcium Ref Test (Refrig) [facility] Medical History Atrial fibrillation (2013) Chronic fatigue syndrome (~1992) Chronic pain COPD (chronic obstructive pulmonary disease) Depression Diaphragmatic hernia DJD of shoulder Elevated brain natriuretic peptide (BNP) level Elevated d-dimer Fibromyalgia (1992) Major 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 Migraines (1984) Mumps (1949) Osteoarthritis Osteopenia Osteoporosis (1989) Peripheral edema RLS (restless legs syndrome) Shortness of breath Surgical History Anesthesia History of bladder suspension procedure (1994) Other joint replacement by other means (1998) Previous back surgery (~12/17/22) S/P total abdominal hysterectomy and bilateral salpingo-oophorectomy (1964) Status post breast biopsy Family History Brother MVA (motor vehicle accident) Father CAD (coronary artery disease) Mother Pancreatic cancer Social History household members: none Tobacco & Substance Use Smoking Status: Former smoker alcohol intake: never Assessment & Plan Assessment and plan (1) Skin ulcer: Status: Acute Plan Clinically 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 Recommend dressing changes with nonadherent absorbent dressing to help control drainage. Dermatology evaluation after discharge. Follow up at wound center after discharge. Instructions were discussed with the patient and the nursing staff. Hospital records reviewed. Time Spent With Patient Time with patient: 30 to 49 minutes with 50% spent counseling/coordinating care
--- NOTE | 2023-06-18 16:36 | PT-IP ANOTE ---
The pt refused PT this afternoon, stating she feels sick since this morning when she had some orange juice. The pt was educated on the benefits of participating in skilled PT, but put continued to refuse. PT will continue to follow up tomorrow. RN was notified.
[2023-06-18] MEDS: PANTOPRAZOLE DR 20 MG TABLET PO (17:15)
[2023-06-18] MEDS: ONDANSETRON 4 MG ODT SL (18:27)
[2023-06-18] MEDS: ATORVASTATIN 20 MG TABLET PO (20:31)
[2023-06-18] MEDS: TRAZODONE 50 MG TABLET PO (20:31)
[2023-06-18] MEDS: SENNOSIDES 8.6 MG TABLET 17.2 MG PO (20:32)
[2023-06-18] MEDS: ACETAMINOPHEN 325 MG TABLET 650 MG PO (21:24)
[2023-06-19] VITALS: BP 108/53; PULSE 104; RESP 16; TEMP 36.2; O2SAT 95
[2023-06-19 03:57] VITALS: BP 111/51; PULSE 118; RESP 16; TEMP 36.2; O2SAT 93
[2023-06-19 05:04] LABS: Add Manual Diff / Slide Review NO; Basophils Absolute Auto 100 /uL (0-100); Basophils Percent Auto 0.8 % (0-2); Eosinophils Absolute Auto 100 /uL (0-450); Eosinophils Percent Auto 0.7 % (2-4); Hematocrit 27.4 % (36-46); Hemoglobin 8.9 g/dL (12.0-16.0); Lymphocytes Absolute Auto 1700 /uL (1100-4500); Lymphocytes Percent Auto 11.2 % (25-40); Mean Corpuscular HGB Conc 32.4 % (30-36); Mean Corpuscular Hemoglobin 28.7 PG (26-34); Mean Corpuscular Volume 88.6 fL (80-100); Monocytes Absolute Auto 700 /uL (0-900); Monocytes Percent Auto 4.5 % (3-14); Neutrophils Absolute Auto 12800 /uL (1500-7000); Neutrophils Percent Auto 82.8 % (50-75); Platelet Count 290 X10^3/uL (150-400); Red Blood Cell Count 3.09 X10^6/uL (4.0-5.2); Red Cell Distribution Width 14.6 % (11.6-14.8); White Blood Cell Count 15.5 X10^3/uL (4.5-11.0)
[2023-06-19 05:17] LABS: BUN Creatinine Ratio 20.7 (6-22); Blood Urea Nitrogen 12 mg/dL (7-17); Calcium 8.2 mg/dL (8.4-10.2); Carbon Dioxide 27 mmol/L (22-32); Chloride 99 mmol/L (98-107); Estimated Glomerular Filt Rate > 60 mL/min (>60); Glucose 67 mg/dL (80-110); HEMOLYSIS < 15 (0-50); Potassium 3.7 mmol/L (3.4-5.1); Sodium 133 mmol/L (137-145)
[2023-06-19] MEDS: PIPERACILLIN/TAZO 3.375 GM in SODIUM CHLORIDE 0.9% 100 ML IV ×3 (05:21→22:10)
[2023-06-19 08:00] VITALS: BP 100/55; PULSE 106; RESP 18; TEMP 36.6; O2SAT 96
[2023-06-19] MEDS: DOXYCYCLINE HYCLATE 100 MG TABLET PO ×2 (08:34→20:48)
[2023-06-19] MEDS: APIXABAN 5 MG TABLET PO ×2 (08:34→20:49)
[2023-06-19] MEDS: METOPROLOL IR 25 MG TABLET 12.5 MG PO ×2 (08:34→20:49)
[2023-06-19] MEDS: POTASSIUM CHLORIDE 20 MEQ TAB PO (08:34)
[2023-06-19] MEDS: GABAPENTIN 300 MG CAPSULE PO ×3 (08:34→20:48)
[2023-06-19] MEDS: SODIUM CHLORIDE 0.9% FLUSH 10 ML IV ×3 (08:35→22:11)
[2023-06-19] MEDS: FLUTICASONE PROPION SALMETEROL 1 EACH INH ×2 (08:43→20:53)
--- NOTE | 2023-06-19 11:08 | PM.PN.1 ---
Subjective Subjective Interval history: She feels weak, but not short of breath. No abdomen pain. Was up only briefly yesterday. No nausea. Exam Vital Signs (past 8 hours): - 06/19/23 03:57 06/19/23 08:00 06/19/23 07:00 Temperature 97.1 F L 98 F Pulse Rate 118 H 106 H Respiratory Rate 16 18 Blood Pressure 111/51 L 100/55 L Pulse Oximetry 93 96 Oxygen Delivery Method Nasal Cannula Oxygen Flow Rate 0 1 Fraction of Inspired Oxygen 24 SaO2/FiO2 Ratio 404 Oxygen Delivery Method Nasal Cannula Oxygen Flow Rate 1 Narrative Exam Narrative: NAD, normal speech and calm. A little lethargic. SaO2 94% OFF O2. Atraumatic head, EOMI. Neck supple and midline trachea. Lungs CTA, normal rate and effort. Decreased base breath sounds. Heart RRR, without murmur, gallop, or rub. Abdomen Soft, NT, ND No leg edema. No skin rash. Objective Labs 06/19/23 04:49 06/19/23 04:49 Labs: Laboratory Results - last 24 hr 06/16/23 06/18/23 06/19/23 17:25 11:45 04:49 WBC 15.5 H RBC 3.09 L Hgb 8.9 L Hct 27.4 L MCV 88.6 MCH 28.7 MCHC 32.4 RDW 14.6 Plt Count 290 Neut % (Auto) 82.8 H Lymph % (Auto) 11.2 L [place] % (Auto) 4.5 Eos % (Auto) 0.7 L Baso % (Auto) 0.8 Neut # (Auto) 33664 H Lymph # (Auto) 1700 [place] # (Auto) 700 Eos # (Auto) 100 Baso # (Auto) 100 PT 29.2 H INR 2.5 H Sodium Potassium Chloride Carbon Dioxide BUN Creatinine Estimated GFR BUN/Creatinine Ratio Glucose Calcium Ref Test (Refrig) Comment 06/19/23 04:49 WBC RBC Hgb Hct MCV MCH MCHC RDW Plt Count Neut % (Auto) Lymph % (Auto) [place] % (Auto) Eos % (Auto) Baso % (Auto) Neut # (Auto) Lymph # (Auto) [place] # (Auto) Eos # (Auto) Baso # (Auto) PT INR Sodium 133 L Potassium 3.7 Chloride 99 Carbon Dioxide 27 BUN 12 Creatinine 0.58 Estimated GFR > 60 BUN/Creatinine Ratio 20.7 Glucose 67 L Calcium 8.2 L Ref Test (Refrig) [facility] Medical History Atrial fibrillation (2013) Chronic fatigue syndrome (~1992) Chronic pain COPD (chronic obstructive pulmonary disease) Depression Diaphragmatic hernia DJD of shoulder Elevated brain natriuretic peptide (BNP) level Elevated d-dimer Fibromyalgia (1992) Major 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 Migraines (1984) Mumps (1949) Osteoarthritis Osteopenia Osteoporosis (1989) Peripheral edema RLS (restless legs syndrome) Shortness of breath Surgical History Anesthesia History of bladder suspension procedure (1994) Other joint replacement by other means (1998) Previous back surgery (~12/17/22) S/P total abdominal hysterectomy and bilateral salpingo-oophorectomy (1964) Status post breast biopsy Family History Brother MVA (motor vehicle accident) Father CAD (coronary artery disease) Mother Pancreatic cancer Social History household members: none Smoking Status: Former smoker alcohol intake: never Assessment & Plan Assessment & Plan narrative: 1. Acute hypoxemic respiratory failure, POA and resolved.. -2 liters NC weaned off since 06/18. -thoracentesis for 1 liter 06/16. -ECHO ordered shows decreased EF at 45%, small pericardial effusion, and left pleural effusion, RVSP same as prior at 57 with right sided dilation. -CT chest showed mod L pleural effusion, no loculations, but bilateral consolidations which may be PNA vs pulm infarcts -resume oral lasix for today (BP permitting) -pleural fluid studies pending (neg cultures) -hold metoprolol, maybe start tomorrow. BP was low on 06/18. 2. Coagulopathy, POA and active. -previous physician discussed with oncology who recommended giving vitamin K if INR elevated which initially helped normalize INR -once INR normal she was started on apixaban, her INR has since been rising from 1.9-2.3 -continue to check INR daily -gave additional vitamin k of 2.5 oral on 06/14 to see if nutrition is reason for elevated INR -Monitor daily INR. Remains at 2.5. Did not really correct with K. Needs anticoagulation for PE/DVT. Continue Eliquis and monitor INR daily. 3. Bilateral pulmonary emboli/right lower extremity DVT/pulmonary infarcts with possible R heart failure. -continue anticoagulation (as able). -suspicion is PE caused by estradiol, now stopped taking it. -resume anticoagulation. 4.? Bacterial pneumonia, POA and improving. -given her severe leukocytosis, will empirically continue coverage for healthcare associated pneumonia.? Her leukocytosis is improved but remains elevated. -was on ceftriaxone, azithromycin. But broadened to zosyn for elevated WBC -white count may need be secondary to pulmonary infarcts but need to consider infected pleural effusion -f/u pleural cell count and culture -Cont Zosyn and doxy (5-7 days course, today appears to be day 4 of Zosyn) 5. Permanent atrial fibrillation, POA and stable. -She is not anticoagulated at baseline prior to PE. Slightly tachycardic so beta tamiko was increased with improvement from 25 mg BID to 37.5 mg BID. on apixaban after holding as discussed above. -Resume metoprolol at a lower dose (Hypotensive 06/18). 6. COPD/asthma, POA and stable. -Duonebs prn.Not really wheezing on exam. 7. Chronic back pain, POA and stable. Continue her usual home medications 8. Anemia, new and active. -On June 04 her hemoglobin was normal at 13.1.? Had been downtrending but now stabilized. No obvious signs or symptoms of bleeding. -Monitor ( yest, today). Other plans: -PT -out of bed Time Spent With Patient Time with patient: 30 to 49 minutes with 50% spent counseling/coordinating care Quality VTE Deep Vein Thrombosis/Pulmonary Embolism Present on Admission: Yes
[2023-06-19] MEDS: FUROSEMIDE 40 MG TABLET PO (11:23)
--- NOTE | 2023-06-19 11:35 | PT.IPTN ---
Current Diagnoses Pneumonia, unspecified organism (06/08/23) Non-pressure chronic ulcer of skin of other sites with unspecified severity (06/08/23) Other specified abnormal findings of blood chemistry (06/08/23) Physical Therapy Treatment Note M2 PT-IP Current Condition Start: 06/10/23 10:25 Freq: NEEDED Status: Active Protocol: Document 06/11/23 10:01 AB (Rec: 06/11/23 10:28 AB [id number]) Physical Therapy Current Condition Current Condition Evaluation Date 06/11/23 Treatment Diagnosis Pneumonia, hx of PE; weakness Onset Date 06/08/23 M3 PT-IP Subjective Start: 06/10/23 10:25 Freq: NEEDED Status: Active Protocol: Document 06/19/23 11:35 AB(2) (Rec: 06/19/23 13:07 AB(2) [id number]) Subjective Physical Therapy Visit Type Type Treatment Note Visit Start Time 11:35 Visit Stop Time 12:00 Total Visit Minutes 25 Number of MANAGEMENT ASSISTANT Visits 0 Physical Therapy Visit Comments Patient Comments agreeable to get up M4 PT-IP Mobility and Gait Start: 06/10/23 10:25 Freq: NEEDED Status: Active Protocol: Document 06/19/23 11:35 AB(2) (Rec: 06/19/23 13:07 AB(2) [id number]) PT-Bed Mobility Assessment Supine to Sit Supine to Sit Standby Assistance PT-Transfer Assessment Sit to and From Stand Sit to and from Stand Contact Guard Assistance,1 Person Assistance,Use of Upper Extremities Equipment Transfer Assistive Device Gait Belt,Front Wheeled Walker Orthotic/Prosthetic Devices or Brace: No Transfers Transfer Destination Chair Transfer Technique Stand Step Pivot Transfer Ability Level of Assist Contact Guard Assistance,1 Person Assistance,Use of Upper Extremities Comments Mobility Comments pt supine in bed with HOB elevated to ~ 30 deg. pt at RA and O2 sat 90-92%. informed nurse and if PT can provide O2 during mobility if O2 sat decrease and pt agreed. pt completed supine to sit SBA with HOB elevated. able to sit on EOB SBA. O2 sat decreases to 85-87% with (+) SOB at RA. provided 2L/min O2 and O2 sat increases to 95-96 % completed sit to stand CGA and instructed pt to ambulated . pt stated that she does not think she can walk today due to c/o weakness but agreed to sit up on the chair and completed step transfer to chair using FWW CGA. positioned pt on the chair. Call light and table placed within reach. O2 sat 98% with 2L/min O2. informed nurse and stated to take O2 off pt when PT is done. Turned off O2. informed pt to use call button for assistance. daughter arrived in room towards end of PT session. informed daughter to try to obtain a FWW for pt and a w/c. daughter agreed and also informed that they already have a w/c. also informed regarding setting resting stations/chairs at home for pt to sit on if needed since pt' s activity tolerance is low. daughter stated that they have chairs set up at home already . M5 PT-IP Objective Assessments Start: 06/10/23 10:25 Freq: NEEDED Status: Active Protocol: Document 06/11/23 10:01 AB (Rec: 06/11/23 10:28 AB [id number]) Orientation Orientation/Cognition Level of Alertness Alert Orientation Name,Age,Birthday,Month,Date, Year,Day of Week,Place, Situation Language Function Ability No Deficits Noted Safety Awareness Understands Safety Issues Memory Description No Deficits Noted Gross Range of Motion Upper Extremity ROM Assessment Within Functional Limits Lower Extremity ROM Assessment Within Functional Limits Strength Upper Extremity Strength Assessment Within Functional Limits Lower Extremity Strength Assessment Within Functional Limits M6 PT-IP Treatment Start: 06/10/23 10:25 Freq: NEEDED Status: Active Protocol: Document 06/19/23 11:35 AB(2) (Rec: 06/19/23 13:07 AB(2) [id number]) Physical Therapy Treatment Education Education Provided Safety M7 PT-IP Assessment and Plan Start: 06/10/23 10:25 Freq: NEEDED Status: Active Protocol: Document 06/19/23 11:35 AB(2) (Rec: 06/19/23 13:07 AB(2) [email or web address]) PT Summary Assessment and Plan Potential Rehabilitation Potential Fair Summary Impairments Pain,ROM,Strength,Balance,Bed Mobility,Transfers,Gait, Activity Tolerance Assessment Summary Pt continues to have low activity tolerance and unable to ambulate today with c/o weakness/fatigue. pt O2 sat resting at RA: 90-92% but decreases to 85% with activity at RA. O2 sat with 2L/min O2 : 95-98%. pt plans to go home and daughter/grand daughter can provide assistance to pt. pt will benefit from HHPT. pt already has a w/c to use for long distance mobility. informed daughter to obtain a FWW for pt and understood. will continue to assess mobility progress. Goals Bed Mobility Goal Independent Transfer Goal Independent,Front Wheeled Walker,Four Wheeled Walker Gait Goal Standby Assistance,Front Wheel Walker,Four Wheel Walker Gait Distance 50 Other Goals Pt to be able to ascend/ descend 2 steps using 1 hand rail with SBA to demonstrate improved strength and endurance to discharge safely to home. Days to Meet Goals 10 Frequency of Treatment Frequency Of Treatment Once a Day Treatment Plan Physical Therapy Treatment Plan Bed Mobility Training,Transfer Training,Gait Training, Therapeutic Exercise,Balance Retraining,Discharge Planning, Hot or Cold Pack,Neuromuscular Re-ed,Coordination Retraining ,Manual Therapy Precautions Other Precautions falls, O2 sat Recommendations To Nursing Amount of Assist Needed 1 Person Assist Discharge Recommendations PT Discharge Recommendations Home with 24/ Assist Available,Home Health Equipment Needed for Home Before FWW Discharge Transportation Needs at Discharge Private Vehicle
[2023-06-19 12:00] VITALS: BP 101/57; PULSE 110; RESP 18; TEMP 36.4; O2SAT 92
[2023-06-19 12:05] LABS: INR 2.7 (0.9-1.3); Prothrombin Time 31.1 SECONDS (10.1-12.7)
[2023-06-19] MEDS: TRAMADOL 50 MG TABLET 100 MG PO ×2 (12:40→20:46)
[2023-06-19 16:00] VITALS: BP 114/60; PULSE 105; RESP 18; TEMP 36.9; O2SAT 98
[2023-06-19 20:00] VITALS: BP 109/61; PULSE 115; RESP 18; TEMP 36.6; O2SAT 95
[2023-06-19] MEDS: TRAZODONE 50 MG TABLET PO (20:48)
[2023-06-19] MEDS: SENNOSIDES 8.6 MG TABLET 17.2 MG PO (20:48)
[2023-06-19] MEDS: ATORVASTATIN 20 MG TABLET PO (20:49)
[2023-06-20] VITALS (9 sets, daily range): BP systolic 103–113; BP diastolic 48–56; PULSE 102–125; RESP 16–19; TEMP 36.2–36.8; O2SAT 93–100
[2023-06-20] MEDS: TRAMADOL 50 MG TABLET 100 MG PO ×2 (05:32→20:37)
[2023-06-20] MEDS: SODIUM CHLORIDE 0.9% FLUSH 10 ML IV ×3 (05:34→22:47)
[2023-06-20 05:38] LABS: Add Manual Diff / Slide Review NO; Basophils Absolute Auto 100 /uL (0-100); Basophils Percent Auto 0.9 % (0-2); Eosinophils Absolute Auto 100 /uL (0-450); Eosinophils Percent Auto 0.7 % (2-4); Hematocrit 27.3 % (36-46); Hemoglobin 8.9 g/dL (12.0-16.0); Lymphocytes Absolute Auto 1700 /uL (1100-4500); Lymphocytes Percent Auto 10.9 % (25-40); Mean Corpuscular HGB Conc 32.6 % (30-36); Mean Corpuscular Hemoglobin 28.7 PG (26-34); Mean Corpuscular Volume 88.1 fL (80-100); Monocytes Absolute Auto 900 /uL (0-900); Monocytes Percent Auto 5.9 % (3-14); Neutrophils Absolute Auto 12300 /uL (1500-7000); Neutrophils Percent Auto 81.6 % (50-75); Platelet Count 287 X10^3/uL (150-400); Red Cell Distribution Width 14.7 % (11.6-14.8); White Blood Cell Count 15.1 X10^3/uL (4.5-11.0)
[2023-06-20 05:39] LABS: INR 2.4 (0.9-1.3); Prothrombin Time 27.5 SECONDS (10.1-12.7)
[2023-06-20 05:43] LABS: HEMOLYSIS < 15 (0-50)
[2023-06-20 05:47] LABS: BUN Creatinine Ratio 18.6 (6-22); Blood Urea Nitrogen 11 mg/dL (7-17); Calcium 8.3 mg/dL (8.4-10.2); Carbon Dioxide 29 mmol/L (22-32); Chloride 99 mmol/L (98-107); Estimated Glomerular Filt Rate > 60 mL/min (>60); Glucose 90 mg/dL (80-110); Potassium 3.4 mmol/L (3.4-5.1); Sodium 131 mmol/L (137-145)
[2023-06-20] MEDS: PIPERACILLIN/TAZO 3.375 GM in SODIUM CHLORIDE 0.9% 100 ML IV ×3 (05:50→22:00)
[2023-06-20] MEDS: SODIUM CHLORIDE 0.9% 250 ML 21 ML IV (06:28)
[2023-06-20] MEDS: FLUTICASONE PROPION SALMETEROL 1 EACH INH ×2 (09:14→22:46)
[2023-06-20] MEDS: METOPROLOL IR 25 MG TABLET 12.5 MG PO ×2 (09:22→20:35)
[2023-06-20] MEDS: DOXYCYCLINE HYCLATE 100 MG TABLET PO ×2 (09:25→20:36)
[2023-06-20] MEDS: POTASSIUM CHLORIDE 20 MEQ TAB PO (09:25)
[2023-06-20] MEDS: APIXABAN 5 MG TABLET PO (09:25)
[2023-06-20] MEDS: FUROSEMIDE 40 MG TABLET PO (09:25)
[2023-06-20] MEDS: GABAPENTIN 300 MG CAPSULE PO ×3 (09:25→20:36)
--- NOTE | 2023-06-20 09:43 | DI.CT.S_ITS ---
PROCEDURE: CT ANGIO CHEST ABDOMEN PELVIS INDICATIONS: assess PE burden, unknown source of leukocytosis TECHNIQUE: Precontrast 5 mm thick sections acquired from the lung apices to the iliac crests. After the administration of intravenous contrast, 2.5 mm thick sections again acquired from the lung apices to the iliac crests. Maximum intensity projection (MIP) oblique sagittal and coronal reformats were then acquired. For radiation dose reduction, the following was used: automated exposure control. COMPARISON: [facility], CT, CT CHEST WO CON, 06/14/2023, 20:05. [facility], CT, CT ANGIO CHEST PE PROTOCOL, 06/04/2023, 15:01. FINDINGS: Image quality: Excellent. VASCULATURE: The heart is mildly enlarged. No significant right ventricular dilatation. Mild reflux of contrast material into the hepatic veins is seen. Main pulmonary artery is stable in size. Filling defects are again seen within multiple pulmonary arteries bilaterally within the left lung, the clot appears similar in extent when compared to the exam from 06/04/2023, although the left lower lobe pulmonary artery thrombus appears to have mildly decreased in bulk. There is nonopacification of the posterior basilar segmental artery. Thrombus is again seen within the right lower lobe pulmonary artery with non opacification of the superior segmental branch, which is similar when compared to the prior exam. Subsegmental emboli at the inferior right lower lobe appear to have decreased in size with some remodeling. Eccentric thrombus is seen within the right middle lobe segmental branches that appears decreased in volume when compared to the prior exam. There appears to be increased opacification of the lateral segmental branch of the right middle lobe pulmonary artery. Mild aortic atherosclerotic calcifications. No thoracic aortic aneurysm, dissection, or intramural hematoma. The proximal arch vessels appear to be patent. The abdominal aorta demonstrates [id number] atherosclerotic disease without aneurysmal dilatation or dissection. The celiac trunk is patent. Mild atherosclerotic disease is seen at the proximal superior mesenteric artery without high-grade stenosis. The inferior mesenteric artery origin is patent. The renal arteries demonstrate mild atherosclerotic calcifications at their origins without significant stenosis. An accessory right renal artery is noted. Moderate atherosclerotic disease is seen in the bilateral common iliac arteries and internal iliac arteries without high-grade stenosis. The external iliac arteries and proximal femoral arteries are patent bilaterally. CHEST: Lungs and pleura: Small to moderate bilateral pleural effusions with atelectasis of the lung bases. Probable areas of superimposed pulmonary infarcts bilaterally that appear to have progressed when compared to the prior exam. Superimposed infection is not excluded. No pneumothorax. Central and peripheral airways are patent and normal in caliber. Mediastinum: No pericardial effusion. Mildly prominent mediastinal and hilar lymph nodes are again seen, for example a pretracheal lymph node measures 9 mm in short axis diameter (59/12), not significantly changed. Esophagus is normal in caliber. No hiatal hernias. Bones and chest wall: No axillary adenopathy by size criteria. Thyroid is unremarkable. No suspicious bony lesions. No vertebral body compression fractures. ABDOMEN: Solid organs: Liver is normal in size and enhancement. Stable hypoattenuating lesions in the liver. Gallbladder is unremarkable. Biliary system is non dilated. Pancreas demonstrates mild fatty infiltration, particularly within the head/uncinate process. Spleen is normal in size and enhancement. No adrenal nodules. Heterogeneously hypoattenuating lesion in the posterior interpolar region of the left kidney measuring 2.0 x 1.7 cm (172/12) is suspicious for a possible solid renal mass versus focal pyelonephritis. There is left greater than right perinephric fat stranding. No hydronephrosis. No significant ureteral wall enhancement or obstructing lesion. Peritoneum and bowel: Mild mesenteric and omental edema, which may be related to fluid status. No pneumoperitoneum or chanell ascites. Bowel loops are normal in caliber and wall thickness. Nodes and vessels: No retroperitoneal or mesenteric adenopathy by size criteria. Inferior vena cava is normal in morphology. Miscellaneous: Mild diffuse soft tissue anasarca. PELVIS: Genitourinary: Bladder wall thickness is normal. Status post hysterectomy. Miscellaneous: No inguinal hernias or adenopathy. No ventral hernias. Bones: No suspicious bony lesions. No vertebral body compression fractures. IMPRESSION: 1. Bilateral pulmonary emboli redemonstrated with mildly decreased clot burden when compared to the CTPA from 06/04/2023. 2. Asic-ka-yemmneri bilateral pleural effusions, which appear similar in size when compared to the CT from 06/14/2023. 3. Bilateral pulmonary consolidations likely represent a combination of atelectasis and infarct, although superimposed infection is not excluded. 4. Heterogeneously hypo enhancing 2 cm lesion in the interpolar region of the left kidney is suspicious for a possible solid renal mass such as RCC, although focal pyelonephritis could appear similarly and correlation with urinalysis is recommended. 5. Diffuse soft tissue anasarca. Approved by: Elan Ordoñez M.D. on 06/20/2023 at 11:00
--- NOTE | 2023-06-20 11:06 | DI.US.S_ITS ---
PROCEDURE: US RENAL COMPLETE INDICATIONS: LEFT KIDNEY MASS SEEN ON CT TECHNIQUE: Real-time scanning was performed of the kidneys and bladder, with image documentation. COMPARISON: [facility], CT, CT ANGIO CHEST ABDOMEN PELVIS, 06/20/2023, 10:10. FINDINGS: Kidneys: Kidneys are normal in size. Right kidney measures 10.6 cm long; left kidney measures 10.9 cm long. Right renal cortical thickness is 1.4 cm; left renal cortical thickness is 1.5 cm. Renal cortical echotexture is normal. No hydronephrosis or nephrolithiasis. A hypoechoic lesion is seen in the posterior left kidney measuring 2.1 x 1.3 x 1.8 cm without internal vascularity demonstrated. Bladder: Pre-void bladder volume is 116 mL. Patient unable to void at the time of the exam. Pre-void images demonstrate no intraluminal masses or stones. On pre-void images, no ureteral jets are noted with color Doppler interrogation. (Of note, ureteral jets may not be detectable in up to 25% of cases due to insufficient differences in specific gravity between ureteral and bladder urine). Miscellaneous: No free pelvic fluid. IMPRESSION: 1. Hypoechoic 2.1 cm lesion seen in the posterior interpolar region of the left kidney corresponding to the abnormality on CT from the same day. No internal vascularity is seen and the lesion remains indeterminate, possibly focal pyelonephritis versus solid mass or complex cyst. If there are no signs of urinary tract infection, then outpatient renal protocol MRI or CT could be performed for further characterization. 2. Bladder volume of 116 mL and patient unable to void at the time of the exam. Approved by: Elan Ordoñez M.D. on 06/20/2023 at 12:34
[2023-06-20] MEDS: POTASSIUM CHLORIDE 20 MEQ TAB 40 MEQ PO (11:31)
[2023-06-20] MEDS: VANCOMYCIN 1,000 MG/200 ML PIGGYBACK 200 MG IV ×2 (11:31→23:26)
[2023-06-20 11:58] LABS: Procalcitonin 0.09 ng/mL (<0.5)
[2023-06-20] MEDS: CLOBETASOL 0.05% CREAM 15 GM 1 APPLIC TOP ×2 (12:21→20:27)
[2023-06-20 12:54] LABS: Bilirubin Urine UA NEGATIVE (NEGATIVE); Color Urine UA YELLOW; Glucose Urine UA NEGATIVE (Negative); Ketones Urine UA NEGATIVE (NEGATIVE); Leukocyte Esterase Urine UA 2+ (NEGATIVE); Nitrite Urine UA NEGATIVE (Negative); Occult Blood Urine UA 1+ (Negative); Protein Urine UA TRACE (Negative); Specific Gravity Urine UA 1.015 (1.000-1.035); Urobilinogen Urine UA 0.2 E.U./dL (0.2)
[2023-06-20 13:00] LABS: Appearance Urine UA CLOUDY; pH Urine UA 5.5 (4.5-8.0)
[2023-06-20 13:03] LABS: Culture Indicated Urine Specimen Cultured; Squamous Epithelial Cell Urine 10-30 /HPF (0-5/HPF); WBC Urine 5-10/HPF (0-5/HPF)
[2023-06-20 13:09] LABS: RBC Urine 30-100/HPF (0-5/HPF)
[2023-06-20 13:10] LABS: Bacteria Urine Moderate (10-30)
--- NOTE | 2023-06-20 13:33 | PT-IP ANOTE ---
Pt refused to work with PT today. She reports having to move a lot earlier in the day and people have been coming in/out of her room all day. She would like to have a bed bath and rest. PT will check on pt tomorrow.
--- NOTE | 2023-06-20 14:38 | CM.DPC ---
DCP Cont. Reviewed EMR, consulted in team rounds for medical status and d/c needs. SIGNS CLEANER will need to notifiy [facility] once d/c date is confirmed, however right now the Hospitalist anticipates d/c home 0n 06/21.
--- NOTE | 2023-06-20 18:12 | P.PN_ITS ---
Subjective Subjective Interval history: Patient continues to not improve. CT CAP showed persistent PE clots, bilateral pleural effusions, and 2.1cm L renal mass vs pyelo. Daughter present and a GOC discussion was had about her current state of health and lack of progress. She has been on abx for over a week and hasn't improved much. Patient wants to return home. She is tired of being in the hospital. Hospice was brought up as a possible option if she continues to not improve once back home. She is contemplating this and is aware of her current poor health and limitations. Exam Vital Signs (past 8 hours): - 06/20/23 12:00 06/20/23 16:00 Temperature 97.1 F L 98 F Pulse Rate 125 H Respiratory Rate 18 18 Blood Pressure 104/55 L 108/48 L Pulse Oximetry 95 100 Oxygen Flow Rate 1 1 Fraction of Inspired Oxygen 28 SaO2/FiO2 Ratio 350 Oxygen Delivery Method Nasal Cannula Oxygen Flow Rate 1 Narrative Exam Narrative: NAD, normal speech and calm. A little lethargic. SaO2 94% OFF O2. Atraumatic head, EOMI. Neck supple and midline trachea. Lungs CTA, normal rate and effort. Decreased base breath sounds. Heart RRR, without murmur, gallop, or rub. Abdomen Soft, NT, ND No leg edema. Bilateral groin bullous lesions with brando complexion of perineal tissue, likely from previous lichen sclerosis. Objective Labs 06/20/23 05:20 06/20/23 05:20 Labs: Laboratory Results - last 24 hr 06/20/23 06/20/23 06/20/23 05:20 05:20 05:20 WBC 15.1 H RBC 3.10 L Hgb 8.9 L Hct 27.3 L MCV 88.1 MCH 28.7 MCHC 32.6 RDW 14.7 Plt Count 287 Neut % (Auto) 81.6 H Lymph % (Auto) 10.9 L [place] % (Auto) 5.9 Eos % (Auto) 0.7 L Baso % (Auto) 0.9 Neut # (Auto) 10192 H Lymph # (Auto) 1700 [place] # (Auto) 900 Eos # (Auto) 100 Baso # (Auto) 100 PT 27.5 H INR 2.4 H Sodium 131 L Potassium 3.4 Chloride 99 Carbon Dioxide 29 BUN 11 Creatinine 0.59 Estimated GFR > 60 BUN/Creatinine Ratio 18.6 Glucose 90 Calcium 8.3 L Procalcitonin Urine Color Urine Appearance Urine pH Ur Specific [place] Urine Protein Urine Glucose (UA) Urine Ketones Urine Occult Blood Urine Nitrate Urine Bilirubin Urine Urobilinogen Ur Leukocyte Esterase Urine RBC Urine WBC Ur Squamous Epith Cells Urine Bacteria Urine Yeast Ur Culture Indicated? 06/20/23 06/20/23 11:19 12:50 WBC RBC Hgb Hct MCV MCH MCHC RDW Plt Count Neut % (Auto) Lymph % (Auto) [place] % (Auto) Eos % (Auto) Baso % (Auto) Neut # (Auto) Lymph # (Auto) [place] # (Auto) Eos # (Auto) Baso # (Auto) PT INR Sodium Potassium Chloride Carbon Dioxide BUN Creatinine Estimated GFR BUN/Creatinine Ratio Glucose Calcium Procalcitonin 0.09 Urine Color Yellow Urine Appearance Cloudy Urine pH 5.5 Ur Specific [place] 1.015 Urine Protein Trace H Urine Glucose (UA) Negative Urine Ketones Negative Urine Occult Blood 1+ H Urine Nitrate Negative Urine Bilirubin Negative Urine Urobilinogen 0.2 Ur Leukocyte Esterase 2+ H Urine RBC 30-100/hpf H Urine WBC 5-10/hpf H Ur Squamous Epith Cells 10-30 /hpf H Urine Bacteria Moderate (10-30) H Urine Yeast 5-10/hpf H Ur Culture Indicated? Specimen cultured [facility] Medical History Atrial fibrillation (2013) Chronic fatigue syndrome (~1992) Chronic pain COPD (chronic obstructive pulmonary disease) Depression Diaphragmatic hernia DJD of shoulder Elevated brain natriuretic peptide (BNP) level Elevated d-dimer Fibromyalgia (1992) Major 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 Migraines (1984) Mumps (1949) Osteoarthritis Osteopenia Osteoporosis (1989) Peripheral edema RLS (restless legs syndrome) Shortness of breath Surgical History Anesthesia History of bladder suspension procedure (1994) Other joint replacement by other means (1998) Previous back surgery (~12/17/22) S/P total abdominal hysterectomy and bilateral salpingo-oophorectomy (1964) Status post breast biopsy Family History Brother MVA (motor vehicle accident) Father CAD (coronary artery disease) Mother Pancreatic cancer Social History household members: none Smoking Status: Former smoker alcohol intake: never Assessment & Plan Assessment & Plan narrative: 1. Acute hypoxemic respiratory failure, POA and resolved.. -2 liters NC weaned off since 06/18. -thoracentesis for 1 liter 06/16. -ECHO ordered shows decreased EF at 45%, small pericardial effusion, and left pleural effusion, RVSP same as prior at 57 with right sided dilation. -CT chest showed mod L pleural effusion, no loculations, but bilateral consolidations which may be PNA vs pulm infarcts -resume oral lasix (BP permitting) -pleural fluid studies pending (neg cultures) 2. Coagulopathy, POA and active. -previous physician discussed with oncology who recommended giving vitamin K if INR elevated which initially helped normalize INR -once INR normal she was started on apixaban, her INR has since been rising from 1.9-2.3 -continue to check INR daily -gave additional vitamin k of 2.5 oral on 06/14 to see if nutrition is reason for elevated INR -continue eliquis 3. Bilateral pulmonary emboli/right lower extremity DVT/pulmonary infarcts with possible R heart failure. -continue anticoagulation (as able). -suspicion is PE caused by estradiol, now stopped taking it. -resume anticoagulation. 4.? Bacterial pneumonia, POA and improving. -given her severe leukocytosis, will empirically continue coverage for healthcare associated pneumonia.? Her leukocytosis is improved but remains elevated. -was on ceftriaxone, azithromycin. But broadened to zosyn for elevated WBC -white count may need be secondary to pulmonary infarcts but need to consider infected pleural effusion -f/u pleural cell count and culture -Cont Zosyn and doxy (5-7 days course) 5. Permanent atrial fibrillation, POA and stable. -She is not anticoagulated at baseline prior to PE. Slightly tachycardic so beta tamiko was increased with improvement from 25 mg BID to 37.5 mg BID. on apixaban after holding as discussed above. -Resume metoprolol at a lower dose (Hypotensive 06/18). 6. COPD/asthma, POA and stable. -Duonebs prn.Not really wheezing on exam. 7. Chronic back pain, POA and stable. Continue her usual home medications 8. Anemia, new and active. -On June 04 her hemoglobin was normal at 13.1.? Had been downtrending but now stabilized. No obvious signs or symptoms of bleeding. -Monitor ( yest, today). 9. Possible pyelonephritis -CT with 2.1cm mass vs pyelo -first UA with pyuria but with squamous cells -repeat UA ordered from garcia -continue abx 10. 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 Borges wound care suggested possible bullous pemphigoid -clobetasol BID ordered -garcia ordered due to skin breakdown Other plans: -PT -out of bed Dispo: GOC discussion about home with HH and caregiving to try to improve, and if no improvement she may consider hospice. Daughter present for discussion on 06/20. WHEEL MILL OPERATOR to give caregiving resources. Time Spent With Patient Time with patient: 30 to 49 minutes with 50% spent counseling/coordinating care Quality VTE Deep Vein Thrombosis/Pulmonary Embolism Present on Admission: Yes
[2023-06-20 18:21] LABS: Appearance Urine UA SL CLOUDY; Bilirubin Urine UA NEGATIVE (NEGATIVE); Color Urine UA YELLOW; Glucose Urine UA NEGATIVE (Negative); Ketones Urine UA TRACE (NEGATIVE); Leukocyte Esterase Urine UA NEGATIVE (NEGATIVE); Nitrite Urine UA NEGATIVE (Negative); Occult Blood Urine UA TRACE-INTACT (Negative); Protein Urine UA NEGATIVE (Negative); Specific Gravity Urine UA 1.015 (1.000-1.035); Urobilinogen Urine UA 0.2 E.U./dL (0.2)
[2023-06-20 18:34] LABS: Bacteria Urine Occasional (0-1); RBC Urine 1-5/HPF (0-5/HPF); Squamous Epithelial Cell Urine 0-1 /HPF (0-5/HPF); WBC Urine 0-1/HPF (0-5/HPF)
[2023-06-20 18:35] LABS: Culture Indicated Urine Cult Not Indicated
[2023-06-20] MEDS: APIXABAN 5 MG TABLET 10 MG PO (20:36)
[2023-06-20] MEDS: SENNOSIDES 8.6 MG TABLET 17.2 MG PO (20:37)
[2023-06-20] MEDS: ATORVASTATIN 20 MG TABLET PO (20:37)
[2023-06-20] MEDS: TRAZODONE 50 MG TABLET PO (20:37)
[2023-06-20] MEDS: ACETAMINOPHEN 325 MG TABLET 650 MG PO (22:49)
[2023-06-21] VITALS (8 sets, daily range): BP systolic 91–124; BP diastolic 42–55; PULSE 90–117; RESP 16–22; TEMP 36.3–37.2; O2SAT 95–100
[2023-06-21 05:57] LABS: Add Manual Diff / Slide Review NO; Basophils Absolute Auto 100 /uL (0-100); Basophils Percent Auto 0.9 % (0-2); Eosinophils Absolute Auto 200 /uL (0-450); Eosinophils Percent Auto 1.1 % (2-4); Hematocrit 29.1 % (36-46); Hemoglobin 9.3 g/dL (12.0-16.0); Lymphocytes Absolute Auto 1400 /uL (1100-4500); Lymphocytes Percent Auto 9.6 % (25-40); Mean Corpuscular HGB Conc 32.1 % (30-36); Mean Corpuscular Hemoglobin 28.6 PG (26-34); Monocytes Absolute Auto 800 /uL (0-900); Neutrophils Absolute Auto 12600 /uL (1500-7000); Neutrophils Percent Auto 83.4 % (50-75); Platelet Count 286 X10^3/uL (150-400); Red Blood Cell Count 3.27 X10^6/uL (4.0-5.2); Red Cell Distribution Width 14.7 % (11.6-14.8); White Blood Cell Count 15.1 X10^3/uL (4.5-11.0)
[2023-06-21 06:04] LABS: BUN Creatinine Ratio 16.4 (6-22); Blood Urea Nitrogen 10 mg/dL (7-17); Calcium 8.6 mg/dL (8.4-10.2); Carbon Dioxide 29 mmol/L (22-32); Chloride 100 mmol/L (98-107); Estimated Glomerular Filt Rate > 60 mL/min (>60); Glucose 88 mg/dL (80-110); HEMOLYSIS < 15 (0-50); Potassium 3.6 mmol/L (3.4-5.1); Sodium 134 mmol/L (137-145)
[2023-06-21] MEDS: PIPERACILLIN/TAZO 3.375 GM in SODIUM CHLORIDE 0.9% 100 ML IV ×3 (06:06→21:59)
[2023-06-21 06:20] LABS: Procalcitonin 0.09 ng/mL (<0.5)
[2023-06-21] MEDS: DOXYCYCLINE HYCLATE 100 MG TABLET PO ×2 (09:12→20:42)
[2023-06-21] MEDS: FUROSEMIDE 40 MG TABLET PO (09:12)
[2023-06-21] MEDS: METOPROLOL IR 25 MG TABLET 12.5 MG PO ×2 (09:12→20:46)
[2023-06-21] MEDS: POTASSIUM CHLORIDE 20 MEQ TAB PO (09:12)
[2023-06-21] MEDS: GABAPENTIN 300 MG CAPSULE PO ×3 (09:12→20:44)
[2023-06-21] MEDS: APIXABAN 5 MG TABLET 10 MG PO ×2 (09:13→20:45)
[2023-06-21] MEDS: CLOBETASOL 0.05% CREAM 15 GM 1 APPLIC TOP ×2 (09:15→20:37)
[2023-06-21] MEDS: SODIUM CHLORIDE 0.9% FLUSH 10 ML IV (09:29)
[2023-06-21] MEDS: FLUTICASONE PROPION SALMETEROL 1 EACH INH ×2 (09:29→20:40)
[2023-06-21] MEDS: TRAMADOL 50 MG TABLET 100 MG PO (11:18)
[2023-06-21] MEDS: VANCOMYCIN 1,000 MG/200 ML PIGGYBACK 200 MG IV (11:32)
--- NOTE | 2023-06-21 12:27 | DIET.CONS ---
Dietary Consultation Note Admission Date: 06/08/2023 21:25 Assessment: 82y F admitted for BL PEs unresolved despite LOS 13d referred to nutrition for supportive nutrition for wound healing. Pt seen by wound care, has perianal skin breakdown, now with garcia in place. Pts POs have been marginal since admission with some meals consisting of Ensure Clear (9g PRO) and jello. Despite daily encouragement by family and room service flight attendant/inflight supervisor, pt with little interest in eating. Ht: 162.56 cm Wt: 69.3 kg BMI: 26.6 UBW: 72kg Last BM: 06/21/23 (06/21/23 10:37) MNA: 10 Dada Score: 17 Diet: 06/08/23 Breakfast Heart Healthy Diet Diet Modifications: Nutrition Percent Meal Consumed 25% 06/19/23 15:35 Percent Meal Consumed family brought food 06/19/23 12:57 Labs: RBC 3.27 X10^6/uL (4.0-5.2) L 06/21/23 05:10 Hgb 9.3 g/dL (12.0-16.0) L 06/21/23 05:10 Hct 29.1 % (36-46) L 06/21/23 05:10 Creatinine 0.61 mg/dL (0.52-1.04) 06/21/23 05:10 Lactate 1.8 mmol/L (0.7-2.1) 06/08/23 19:25 NT-Pro-B Natriuret Pep 2830 pg/mL (<450) H 06/14/23 04:40 Nutrition Diagnosis: Acute Moderate Malnutrition r/t poor appetite aeb pt hospitalized with BL PEs on LOS day 13, POs throughout hospital stay meeting less than 25-50% EER, pt with new onset anemia and elevated INR, pt with unhealing bullous pemphigoid. Interventions: 1. Pts daughter brought in familiar home foods to entice pt's appetite. Okay to continue. 2. Recc Ensure Clear with all meals as pt seems to tolerate this ONS which provides needed MVI and protein for healing. EER: 70g PRO (1g/kg), 2,000kcals (30kcals/kg) Monitoring/Evaluations: POs, POC Electronically Signed by: Sri Carbajal 06/21/23 12:[address] [id number]
--- NOTE | 2023-06-21 14:16 | PM.PN.1 ---
Subjective Subjective Interval history: Patient decided to pursue hospice. PUMP SERVICER HELPER arranging this. Family inquired about a pleurx catheter to drain off recurrent pleural fluid. Dr. Ana you contacted who is willing to place one on next week. Exam Vital Signs (past 8 hours): - 06/21/23 07:00 06/21/23 08:00 06/21/23 13:55 Temperature 98.6 F 99.0 F Pulse Rate 117 H 90 Respiratory Rate 18 18 Blood Pressure 124/51 L 100/51 L Pulse Oximetry 97 97 98 Oxygen Delivery Method Nasal Cannula Oxygen Flow Rate 1.5 1.5 1.5 Fraction of Inspired Oxygen 28 SaO2/FiO2 Ratio 350 Oxygen Delivery Method Nasal Cannula Oxygen Flow Rate 1.5 Narrative Exam Narrative: NAD, normal speech and calm. Ill-appearing. Atraumatic head, EOMI. Neck supple and midline trachea. Lungs CTA, normal rate and effort. Decreased base breath sounds. Heart RRR, without murmur, gallop, or rub. Abdomen Soft, NT, ND No leg edema. Bilateral groin bullous lesions with brando complexion of perineal tissue, likely from previous lichen sclerosis. Objective Labs 06/21/23 05:10 06/21/23 05:10 Labs: Laboratory Results - last 24 hr 06/20/23 06/21/23 06/21/23 18:19 05:10 05:10 WBC 15.1 H RBC 3.27 L Hgb 9.3 L Hct 29.1 L MCV 89.0 MCH 28.6 MCHC 32.1 RDW 14.7 Plt Count 286 Neut % (Auto) 83.4 H Lymph % (Auto) 9.6 L [place] % (Auto) 5.0 Eos % (Auto) 1.1 L Baso % (Auto) 0.9 Neut # (Auto) 95992 H Lymph # (Auto) 1400 [place] # (Auto) 800 Eos # (Auto) 200 Baso # (Auto) 100 Sodium 134 L Potassium 3.6 Chloride 100 Carbon Dioxide 29 BUN 10 Creatinine 0.61 Estimated GFR > 60 BUN/Creatinine Ratio 16.4 Glucose 88 Calcium 8.6 Procalcitonin Urine Color Yellow Urine Appearance Sl cloudy Urine pH 5.0 Ur Specific [place] 1.015 Urine Protein Negative Urine Glucose (UA) Negative Urine Ketones Trace H Urine Occult Blood Trace-intact Urine Nitrate Negative Urine Bilirubin Negative Urine Urobilinogen 0.2 Ur Leukocyte Esterase Negative Urine RBC 1-5/hpf D Urine WBC 0-1/hpf Ur Squamous Epith Cells 0-1 /hpf D Urine Bacteria Occasional (0-1) D Ur Culture Indicated? Cult not indicated 06/21/23 05:10 WBC RBC Hgb Hct MCV MCH MCHC RDW Plt Count Neut % (Auto) Lymph % (Auto) [place] % (Auto) Eos % (Auto) Baso % (Auto) Neut # (Auto) Lymph # (Auto) [place] # (Auto) Eos # (Auto) Baso # (Auto) Sodium Potassium Chloride Carbon Dioxide BUN Creatinine Estimated GFR BUN/Creatinine Ratio Glucose Calcium Procalcitonin 0.09 Urine Color Urine Appearance Urine pH Ur Specific [place] Urine Protein Urine Glucose (UA) Urine Ketones Urine Occult Blood Urine Nitrate Urine Bilirubin Urine Urobilinogen Ur Leukocyte Esterase Urine RBC Urine WBC Ur Squamous Epith Cells Urine Bacteria Ur Culture Indicated? [facility] Medical History Atrial fibrillation (2013) Chronic fatigue syndrome (~1992) Chronic pain COPD (chronic obstructive pulmonary disease) Depression Diaphragmatic hernia DJD of shoulder Elevated brain natriuretic peptide (BNP) level Elevated d-dimer Fibromyalgia (1992) Major 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 Migraines (1984) Mumps (1949) Osteoarthritis Osteopenia Osteoporosis (1989) Peripheral edema RLS (restless legs syndrome) Shortness of breath Surgical History Anesthesia History of bladder suspension procedure (1994) Other joint replacement by other means (1998) Previous back surgery (~12/17/22) S/P total abdominal hysterectomy and bilateral salpingo-oophorectomy (1964) Status post breast biopsy Family History Brother MVA (motor vehicle accident) Father CAD (coronary artery disease) Mother Pancreatic cancer Social History household members: none Smoking Status: Former smoker alcohol intake: never Assessment & Plan Assessment & Plan narrative: Patient is now pursuing hospice, semi-comfort care with no escalation of care. 1. Acute hypoxemic respiratory failure with recurrent transudative effusions, POA and resolved. -2 liters NC weaned off since 06/18. -thoracentesis for 1 liter 06/16. -ECHO ordered shows decreased EF at 45%, small pericardial effusion, and left pleural effusion, RVSP same as prior at 57 with right sided dilation. -CT chest showed mod L pleural effusion and small R effusion, no loculations, but bilateral consolidations which may be PNA vs pulm infarcts -resume oral lasix (BP permitting) -pleural fluid studies suggest transudative effusion, negative pleural culture, bact PCR pending, cytology pending -Dr. Ana you contacted after family inquired about pleurx catheter, he is willing to place one when he is in clinic on 06/24 but will get pleural US on 06/24 first to determine if enough fluid to warrant it. Holding eliquis on 06/24. 2. Coagulopathy, POA and active. -previous physician discussed with oncology who recommended giving vitamin K if INR elevated which initially helped normalize INR -once INR normal she was started on apixaban, her INR has since been rising from 1.9-2.3 -continue to check INR daily -gave additional vitamin k of 2.5 oral on 06/14 to see if nutrition is reason for elevated INR -continue eliquis, holding on 06/24 for potential pleurx placement 3. Bilateral pulmonary emboli/right lower extremity DVT/pulmonary infarcts with possible R heart failure. -continue anticoagulation (as able). -suspicion is PE caused by estradiol, now stopped taking it. -resume anticoagulation. 4.? Suspected gram positive or gram neg pneumonia, POA and improving. -given her severe leukocytosis, will empirically continue coverage for healthcare associated pneumonia.? Her leukocytosis is improved but remains elevated. -was on ceftriaxone, azithromycin. But broadened to zosyn for elevated WBC -white count may need be secondary to pulmonary infarcts but need to consider infected pleural effusion -pleural cell count and culture are negative for infection -Cont Zosyn and doxy (5-7 days course) 5. Permanent atrial fibrillation, POA and stable. -She is not anticoagulated at baseline prior to PE. Slightly tachycardic so beta tamiko was increased with improvement from 25 mg BID to 37.5 mg BID. on apixaban after holding as discussed above. -Resume metoprolol at a lower dose (Hypotensive 9/26). 6. COPD/asthma, POA and stable. -Duonebs prn.Not really wheezing on exam. 7. Chronic back pain, POA and stable. Continue her usual home medications 8. Anemia, new and active. -On June 04 her hemoglobin was normal at 13.1.? Had been downtrending but now stabilized. No obvious signs or symptoms of bleeding. -Monitor ( yest, today). 9. Possible pyelonephritis -CT with 2.1cm mass vs pyelo -first UA with pyuria but with squamous cells -repeat UA ordered from garcia -continue abx 10. 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 Borges wound care suggested possible bullous pemphigoid -clobetasol BID ordered -garcia ordered due to skin breakdown Other plans: -PT -out of bed Dispo: PUMP SERVICER HELPER arranging hospice. Pulm to place pleurx catheter on L side on 06/25 if 06/24 US shows enough fluid for it. If not enough, will dc home on 06/24. Time Spent With Patient Time with patient: 30 to 49 minutes with 50% spent counseling/coordinating care Quality VTE Deep Vein Thrombosis/Pulmonary Embolism Present on Admission: Yes
--- NOTE | 2023-06-21 14:31 | CM.DPC ---
DCP Cont. PATTERN CUTTER met with pt/dtrCony, to discuss thier preferences at discharge re: HH or hospice services. Pt states that what is most important to her to to go home, be with her cats and be kept comfortable w/family as cg's. Discussed what to expect with hospice care in the home, answered questions re: caregiving, agreed on a plan to begin the referral process to [facility]. Called [facility], they will plan to do an info visit tomorrow sometime in the am, they will call dtjavier Donnelly to establish a meeting time. Home O2 is the primary DME need, discussed this w/hospice intake. Family will take turns with providing for all her care needs. Per Hospitalist, he consulted with a Primary School Teacher Librarian to have a plurex catheter placed for continued comfort post d/c. He can only do this next , 06/25, so pt may end up not discharging home until that time. Faxed all clinicals to [facility] for review. Pt/family express feeling understanding and satisfied with the plan. Will continue to monitor and assist.
--- NOTE | 2023-06-21 14:49 | PT.IPTN ---
Current Diagnoses Pneumonia, unspecified organism (06/08/23) Non-pressure chronic ulcer of skin of other sites with unspecified severity (06/08/23) Other specified abnormal findings of blood chemistry (06/08/23) Physical Therapy Treatment Note M2 PT-IP Current Condition Start: 06/10/23 10:25 Freq: NEEDED Status: Active Protocol: Document 06/11/23 10:01 AB (Rec: 06/11/23 10:28 AB [id number]) Physical Therapy Current Condition Current Condition Evaluation Date 06/11/23 Treatment Diagnosis Pneumonia, hx of PE; weakness Onset Date 06/08/23 M3 PT-IP Subjective Start: 06/10/23 10:25 Freq: NEEDED Status: Active Protocol: Document 06/21/23 15:01 TS (Rec: 06/21/23 15:30 TS [id number]) Subjective Physical Therapy Visit Type Type Treatment Note Visit Start Time 14:49 Visit Stop Time 15:00 Total Visit Minutes 11 Number of BLACK STUDIES PROFESSOR Visits 1 Physical Therapy Visit Comments Patient Comments Pt found sitting EOB with nursing, pt reports being tired and she is going on hospice Saturday. M4 PT-IP Mobility and Gait Start: 06/10/23 10:25 Freq: NEEDED Status: Active Protocol: Document 06/21/23 15:01 TS (Rec: 06/21/23 15:30 TS [id number]) PT-Bed Mobility Assessment Sit to Supine Sit to Supine Minimal Assistance Scooting Scooting Up and Down in Bed Maximum Assistance PT-Transfer Assessment Sit to and From Stand Sit to and from Stand Contact Guard Assistance,1 Person Assistance,Use of Upper Extremities Equipment Transfer Assistive Device Gait Belt,Front Wheeled Walker Orthotic/Prosthetic Devices or Brace: No Comments Mobility Comments Sit to stand from bed CGA w/ FWW, pt is slow to stand. She ambulated in room ~10', pt became SOB, Spo2 mid 80's, she requested back to bed. Sit to supine Megan for LEs into bed. She required MaxA x2 to scoot to HOB. Pt was left with nursing tending to needs. Gait Assessment Gait Gait Assistance Required: Standby Assistance Distance (Feet) 10 Assistive Devices Assistive Device Gait Belt,4 Wheeled Walker Orthotic/Prosthetic Devices or Brace: No Gait Deviations General Gait Pattern Decreased Stride Length, Decreased Feet Clearance Factors Limiting Gait Function Factors Limiting Gait Function Decreased Activity Tolerance, Decreased Strength,Respiratory Distress Comments Gait Comments See mobility comments PT-Balance Assessment Sitting Balance and Reactions Static Sitting Balance Ability Normal Dynamic Sitting Balance Ability Normal Standing Balance and Reactions Static Standing Balance Ability Good Dynamic Standing Balance Ability Good Device Used FWW M5 PT-IP Objective Assessments Start: 06/10/23 10:25 Freq: NEEDED Status: Active Protocol: Document 06/11/23 10:01 AB (Rec: 06/11/23 10:28 AB [id number]) Orientation Orientation/Cognition Level of Alertness Alert Orientation Name,Age,Birthday,Month,Date, Year,Day of Week,Place, Situation Language Function Ability No Deficits Noted Safety Awareness Understands Safety Issues Memory Description No Deficits Noted Gross Range of Motion Upper Extremity ROM Assessment Within Functional Limits Lower Extremity ROM Assessment Within Functional Limits Strength Upper Extremity Strength Assessment Within Functional Limits Lower Extremity Strength Assessment Within Functional Limits M6 PT-IP Treatment Start: 06/10/23 10:25 Freq: NEEDED Status: Active Protocol: Document 06/21/23 15:01 TS (Rec: 06/21/23 15:30 TS [id number]) Physical Therapy Treatment Education Education Provided Safety M7 PT-IP Assessment and Plan Start: 06/10/23 10:25 Freq: NEEDED Status: Active Protocol: Document 06/21/23 15:01 TS (Rec: 06/21/23 15:30 TS [id number]) PT Summary Assessment and Plan Potential Rehabilitation Potential Fair Summary Impairments Pain,ROM,Strength,Balance,Bed Mobility,Transfers,Gait, Activity Tolerance Progress Towards Goals Slow Progress due to Medical Issues Assessment Summary Arlene continues to make slow progress with her mobility. She continues to have poor activity tolerance to mobility and o2 desats to mid 80's on 3.5L of o2. She tolerated ~10' of gait before needing rest break. Goals Bed Mobility Goal Independent Transfer Goal Independent,Front Wheeled Walker,Four Wheeled Walker Gait Goal Standby Assistance,Front Wheel Walker,Four Wheel Walker Gait Distance 50 Other Goals Pt to be able to ascend/ descend 2 steps using 1 hand rail with SBA to demonstrate improved strength and endurance to discharge safely to home. Days to Meet Goals 10 Frequency of Treatment Frequency Of Treatment Once a Day Treatment Plan Physical Therapy Treatment Plan Bed Mobility Training,Transfer Training,Gait Training, Therapeutic Exercise,Balance Retraining,Discharge Planning, Hot or Cold Pack,Neuromuscular Re-ed,Coordination Retraining ,Manual Therapy Precautions Other Precautions falls, O2 sat Recommendations To Nursing Amount of Assist Needed 1 Person Assist Discharge Recommendations PT Discharge Recommendations Home with 15/04 Assist Available,Home Health Equipment Needed for Home Before FWW Discharge Transportation Needs at Discharge Private Vehicle
[2023-06-21] MEDS: HYDROCODONE/ACET 5/325 TABLET 1 TAB PO (19:46)
[2023-06-21] MEDS: ATORVASTATIN 20 MG TABLET PO (20:45)
[2023-06-21] MEDS: TRAZODONE 50 MG TABLET PO (21:59)
[2023-06-21] MEDS: VANCOMYCIN TROUGH 1 REQUEST MISC (22:00)
[2023-06-21 23:18] LABS: Vancomycin Trough 12.3 ug/mL (10-20)
--- NOTE | 2023-06-21 23:56 | DI.RAD.S_ITS ---
PROCEDURE: XR CHEST 1V INDICATIONS: PICC placement. TECHNIQUE: One view of the chest was acquired. COMPARISON: [facility], CR, XR CHEST 1V, 06/18/2023, 6:30. FINDINGS: Surgical changes and devices: Right upper extremity PICC line extends into the right atrium with the tip approximately 3 cm inferior to the cavoatrial junction. Lungs and pleura: There are persistent bilateral pleural effusions, moderate on the left and small on the right, with associated bibasilar opacities consistent with compressive atelectasis or consolidation. There is also persistent pulmonary edema. No pneumothorax. Mediastinum: Mediastinal contours appear unchanged. Heart size is enlarged. Bones and chest wall: No suspicious bony lesions. Overlying soft tissues appear unremarkable. IMPRESSION: 1. New PICC line extends into the right atrium. Consider withdrawal by approximately 3 cm. 2. Persistent bilateral pleural effusions with associated compressive atelectasis or consolidation, left greater than right. 3. Persistent pulmonary edema. Dictated by: Darren Birmingham M.D. on 06/22/2023 at 0:25 Approved by: Darren Birmingham M.D. on 06/22/2023 at 0:34
[2023-06-22] VITALS (9 sets, daily range): BP systolic 111–117; BP diastolic 47–66; PULSE 98–113; RESP 16–18; TEMP 36.2–36.6; O2SAT 94–99
[2023-06-22] MEDS: TRAMADOL 50 MG TABLET 100 MG PO ×3 (01:20→20:56)
[2023-06-22] MEDS: VANCOMYCIN 1,000 MG/200 ML PIGGYBACK 200 MG IV (01:25)
[2023-06-22] MEDS: VANCOMYCIN PEAK 1 REQUEST MISC (03:57)
[2023-06-22 04:28] LABS: Vancomycin Peak 20.3 ug/mL (20-40)
[2023-06-22] MEDS: PIPERACILLIN/TAZO 3.375 GM in SODIUM CHLORIDE 0.9% 100 ML IV (05:14)
[2023-06-22] MEDS: FUROSEMIDE 20 MG/2 ML VIAL IV ×2 (08:12→17:28)
--- NOTE | 2023-06-22 08:12 | CM.DPC ---
DCP Cont. Reviewed chart for pt status. Met with pt briefly, she was found to be awake, comfortable. [facility] will be meeting w/pt and family today for the info visit, plan for admit to hospice either Saturday or Saturday, pending possible plurex catheter placement. DCP to continue to monitor. No further needs indicated at this time.
[2023-06-22] MEDS: GABAPENTIN 300 MG CAPSULE PO ×3 (08:13→20:57)
[2023-06-22] MEDS: POTASSIUM CHLORIDE 20 MEQ TAB PO (08:13)
[2023-06-22] MEDS: CLOBETASOL 0.05% CREAM 15 GM 1 APPLIC TOP ×2 (08:13→20:58)
[2023-06-22] MEDS: FLUTICASONE PROPION SALMETEROL 1 EACH INH ×2 (08:13→20:57)
[2023-06-22] MEDS: DOXYCYCLINE HYCLATE 100 MG TABLET PO (08:13)
[2023-06-22] MEDS: APIXABAN 5 MG TABLET 10 MG PO ×2 (08:13→20:57)
[2023-06-22] MEDS: SODIUM CHLORIDE 0.9% FLUSH 10 ML IV ×2 (08:14→21:05)
[2023-06-22] MEDS: ONDANSETRON 4 MG ODT SL (08:59)
--- NOTE | 2023-06-22 13:27 | PT.IPTN ---
Current Diagnoses Pneumonia, unspecified organism (06/08/23) Non-pressure chronic ulcer of skin of other sites with unspecified severity (06/08/23) Other specified abnormal findings of blood chemistry (06/08/23) Physical Therapy Treatment Note M2 PT-IP Current Condition Start: 06/10/23 10:25 Freq: NEEDED Status: Active Protocol: Document 06/11/23 10:01 AB (Rec: 06/11/23 10:28 AB [id number]) Physical Therapy Current Condition Current Condition Evaluation Date 06/11/23 Treatment Diagnosis Pneumonia, hx of PE; weakness Onset Date 06/08/23 M3 PT-IP Subjective Start: 06/10/23 10:25 Freq: NEEDED Status: Active Protocol: Document 06/22/23 13:23 AB(2) (Rec: 06/22/23 13:27 AB(2) [id number]) Subjective Physical Therapy Visit Type Type Discharge Summary Notes pt will be going on hospice care and hospitalist agreed to d/c PT. M7 PT-IP Assessment and Plan Start: 06/10/23 10:25 Freq: NEEDED Status: Active Protocol: Document 06/22/23 13:23 AB(2) (Rec: 06/22/23 13:27 AB(2) [id number]) PT Summary Assessment and Plan Summary Assessment Summary pt has made minimal progress with mobility with decrease activity tolerance affecting progress with decrease O2 sat with mobility. pt plans to go home and will have her daughter and grand daughter assist her. pt also going to have hospice care. will d/c PT Frequency of Treatment Frequency Of Treatment Discharge
--- NOTE | 2023-06-22 16:49 | P.PN_ITS ---
Subjective Subjective Interval history: Patient sleeping calmly and not awakened. CXR for PICC showed pulm edema so lasix started. Exam Vital Signs (past 8 hours): - 06/22/23 09:25 06/22/23 09:10 06/22/23 12:00 Temperature 97.3 F L Pulse Rate 98 H Respiratory Rate 17 Blood Pressure 111/55 L Pulse Oximetry 94 97 Oxygen Delivery Method Nasal Cannula Room Air Oxygen Flow Rate 1 2 Fraction of Inspired Oxygen 28 SaO2/FiO2 Ratio 350 Oxygen Delivery Method Nasal Cannula Oxygen Flow Rate 2 Narrative Exam Narrative: NAD, normal speech and calm. Ill-appearing. Atraumatic head, EOMI. Neck supple and midline trachea. Lungs CTA, normal rate and effort. Decreased base breath sounds. Heart RRR, without murmur, gallop, or rub. Abdomen Soft, NT, ND No leg edema. Bilateral groin bullous lesions with brando complexion of perineal tissue, likely from previous lichen sclerosis. Objective Labs 06/21/23 05:10 06/21/23 05:10 Labs: Laboratory Results - last 24 hr 06/21/23 06/22/23 22:30 03:53 Vancomycin Peak 20.3 Vancomycin Trough 12.3 PFSH Medical History Atrial fibrillation (2013) Chronic fatigue syndrome (~1992) Chronic pain COPD (chronic obstructive pulmonary disease) Depression Diaphragmatic hernia DJD of shoulder Elevated brain natriuretic peptide (BNP) level Elevated d-dimer Fibromyalgia (1992) Major 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 Migraines (1984) Mumps (1949) Osteoarthritis Osteopenia Osteoporosis (1989) Peripheral edema RLS (restless legs syndrome) Shortness of breath Surgical History Anesthesia History of bladder suspension procedure (1994) Other joint replacement by other means (1998) Previous back surgery (~12/17/22) S/P total abdominal hysterectomy and bilateral salpingo-oophorectomy (1964) Status post breast biopsy Family History Brother MVA (motor vehicle accident) Father CAD (coronary artery disease) Mother Pancreatic cancer Social History household members: none Smoking Status: Former smoker alcohol intake: never Assessment & Plan Assessment & Plan narrative: Patient is now pursuing hospice, semi-comfort care with no escalation of care. 1. Acute hypoxemic respiratory failure with recurrent transudative effusions, POA and resolved. -2 liters NC weaned off since 06/18. -thoracentesis for 1 liter 06/16. -ECHO ordered shows decreased EF at 45%, small pericardial effusion, and left pleural effusion, RVSP same as prior at 57 with right sided dilation. -CT chest showed mod L pleural effusion and small R effusion, no loculations, but bilateral consolidations which may be PNA vs pulm infarcts -trialing IV lasix 20mg daily as BP improved -pleural fluid studies suggest transudative effusion, negative pleural culture, bact PCR pending, cytology pending -Dr. Ana you contacted after family inquired about pleurx catheter, he is willing to place one when he is in clinic on 06/24 but will get pleural US on 06/24 first to determine if enough fluid to warrant it. Holding eliquis on 06/24. 2. Coagulopathy, POA and active. -previous physician discussed with oncology who recommended giving vitamin K if INR elevated which initially helped normalize INR -once INR normal she was started on apixaban, her INR has since been rising from 1.9-2.3 -continue to check INR daily -gave additional vitamin k of 2.5 oral on 06/14 to see if nutrition is reason for elevated INR -continue eliquis, holding on 06/24 for potential pleurx placement 3. Bilateral pulmonary emboli/right lower extremity DVT/pulmonary infarcts with possible R heart failure. -continue anticoagulation (as able). -suspicion is PE caused by estradiol, now stopped taking it. -resume anticoagulation. 4.? Suspected gram positive or gram neg pneumonia, POA and improving. -given her severe leukocytosis, will empirically continue coverage for healthcare associated pneumonia.? Her leukocytosis is improved but remains elevated. -was on ceftriaxone, azithromycin. But broadened to zosyn for elevated WBC -white count may need be secondary to pulmonary infarcts but need to consider infected pleural effusion -pleural cell count and culture are negative for infection -Cont Zosyn and doxy (5-7 days course) 5. Permanent atrial fibrillation, POA and stable. -She is not anticoagulated at baseline prior to PE. Slightly tachycardic so beta tamiko was increased with improvement from 25 mg BID to 37.5 mg BID. on apixaban after holding as discussed above. -Resume metoprolol at a lower dose (Hypotensive 06/18). 6. COPD/asthma, POA and stable. -Duonebs prn.Not really wheezing on exam. 7. Chronic back pain, POA and stable. Continue her usual home medications 8. Anemia, new and active. -On June 04 her hemoglobin was normal at 13.1.? Had been downtrending but now stabilized. No obvious signs or symptoms of bleeding. -Monitor ( yest, today). 9. Possible pyelonephritis -CT with 2.1cm mass vs pyelo -first UA with pyuria but with squamous cells -repeat UA ordered from garcia -continue abx 10. 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 Borges wound care suggested possible bullous pemphigoid -clobetasol BID ordered -garcia ordered due to skin breakdown Dispo: DIRECTOR ECONOMIC arranging hospice. Pulm to place pleurx catheter on L side on 06/25 if 06/24 US shows enough fluid for it. If not enough, will dc home on 06/24. Time Spent With Patient Time with patient: 30 to 49 minutes with 50% spent counseling/coordinating care Quality VTE Deep Vein Thrombosis/Pulmonary Embolism Present on Admission: Yes
--- NOTE | 2023-06-22 18:43 | PC.NURSE ---
Day shift: Pt A&Ox4. VSS. Pt declining meals. Adult daughter bringing meals from outside and pt eating roughly 50%-75% of those meals. Pt verbalizes wanting to go home. Up to BSC SBA w/ FWW. Pt requesting oxygen be turned up despite saturation 95% on RA. Provider aware. Care ongoing.
[2023-06-22] MEDS: ATORVASTATIN 20 MG TABLET PO (20:57)
[2023-06-22] MEDS: TRAZODONE 50 MG TABLET PO (20:57)
[2023-06-23 06:44] VITALS: BP 121/63; PULSE 136; RESP 18; TEMP 36.9; O2SAT 97
--- NOTE | 2023-06-23 08:05 | PM.PN.1 ---
Subjective Subjective Interval history: Patient started on IV lasix due to CXR with pulm cristian and urinated 1.3L. She notes no change in dyspnea. Awaiting potential plerux cath placement then home on hospice. Exam Vital Signs (past 8 hours): - 06/23/23 06:44 Temperature 98.5 F Pulse Rate 136 H Respiratory Rate 18 Blood Pressure 121/63 Pulse Oximetry 97 Fraction of Inspired Oxygen 28 SaO2/FiO2 Ratio 350 Oxygen Delivery Method Room Air Oxygen Flow Rate 3 Narrative Exam Narrative: NAD, normal speech and calm. Ill-appearing. Atraumatic head, EOMI. Neck supple and midline trachea. Lungs CTA, normal rate and effort. Decreased base breath sounds. Heart RRR, without murmur, gallop, or rub. Abdomen Soft, NT, ND No leg edema. Bilateral groin bullous lesions with brando complexion of perineal tissue, likely from previous lichen sclerosis. Garcia in place. Objective Labs 06/21/23 05:10 06/21/23 05:10 [facility] Medical History Atrial fibrillation (2013) Chronic fatigue syndrome (~1992) Chronic pain COPD (chronic obstructive pulmonary disease) Depression Diaphragmatic hernia DJD of shoulder Elevated brain natriuretic peptide (BNP) level Elevated d-dimer Fibromyalgia (1992) Major 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 Migraines (1984) Mumps (1949) Osteoarthritis Osteopenia Osteoporosis (1989) Peripheral edema RLS (restless legs syndrome) Shortness of breath Surgical History Anesthesia History of bladder suspension procedure (1994) Other joint replacement by other means (1998) Previous back surgery (~12/17/22) S/P total abdominal hysterectomy and bilateral salpingo-oophorectomy (1964) Status post breast biopsy Family History Brother MVA (motor vehicle accident) Father CAD (coronary artery disease) Mother Pancreatic cancer Social History household members: none Smoking Status: Former smoker alcohol intake: never Assessment & Plan Assessment & Plan narrative: Patient is now pursuing hospice, semi-comfort care with no escalation of care. 1. Acute hypoxemic respiratory failure with recurrent transudative effusions, POA and resolved. -2 liters NC weaned off since 06/18. -thoracentesis for 1 liter 06/16. -ECHO ordered shows decreased EF at 45%, small pericardial effusion, and left pleural effusion, RVSP same as prior at 57 with right sided dilation. -CT chest showed mod L pleural effusion and small R effusion, no loculations, but bilateral consolidations which may be PNA vs pulm infarcts -trialing IV lasix 20mg daily as BP improved, urinating well but not much improvement in dyspnea -pleural fluid studies suggest transudative effusion, negative pleural culture, bact PCR pending, cytology pending -Dr. Ana you contacted after family inquired about pleurx catheter, he is willing to place one when he is in clinic on 06/24 but will get pleural US on 06/24 first to determine if enough fluid to warrant it. Holding eliquis on 06/24. 2. Coagulopathy, POA and active. -previous physician discussed with oncology who recommended giving vitamin K if INR elevated which initially helped normalize INR -once INR normal she was started on apixaban, her INR has since been rising from 1.9-2.3 -continue to check INR daily -gave additional vitamin k of 2.5 oral on 06/14 to see if nutrition is reason for elevated INR -continue eliquis, holding on 06/24 for potential pleurx placement 3. Bilateral pulmonary emboli/right lower extremity DVT/pulmonary infarcts with possible R heart failure. -continue anticoagulation (as able). -suspicion is PE caused by estradiol, now stopped taking it. -resume anticoagulation. 4.? Suspected gram positive or gram neg pneumonia, POA and improving. -given her severe leukocytosis, will empirically continue coverage for healthcare associated pneumonia.? Her leukocytosis is improved but remains elevated. -was on ceftriaxone, azithromycin. But broadened to zosyn for elevated WBC -white count may need be secondary to pulmonary infarcts but need to consider infected pleural effusion -pleural cell count and culture are negative for infection -Cont Zosyn and doxy (5-7 days course) 5. Permanent atrial fibrillation, POA and stable. -She is not anticoagulated at baseline prior to PE. Slightly tachycardic so beta tamiko was increased with improvement from 25 mg BID to 37.5 mg BID. on apixaban after holding as discussed above. -continue home metoprolol tart 25mg BID 6. COPD/asthma, POA and stable. -Duonebs prn.Not really wheezing on exam. 7. Chronic back pain, POA and stable. Continue her usual home medications 8. Anemia, new and active. -On June 04 her hemoglobin was normal at 13.1.? Had been downtrending but now stabilized. No obvious signs or symptoms of bleeding. -Monitor ( yest, today). 9. Possible pyelonephritis -CT with 2.1cm mass vs pyelo -first UA with pyuria but with squamous cells -repeat UA ordered from garcia -continue abx 10. 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 Borges wound care suggested possible bullous pemphigoid -clobetasol BID ordered -garcia ordered due to skin breakdown Dispo: SENIOR ENLISTED ADVISOR arranging hospice. Pulm to place pleurx catheter on L side on 06/25 if 06/24 US shows enough fluid for it. If not enough, will dc home on 06/24 with hospice. Time Spent With Patient Time with patient: 30 to 49 minutes with 50% spent counseling/coordinating care Quality VTE Deep Vein Thrombosis/Pulmonary Embolism Present on Admission: Yes
[2023-06-23] MEDS: APIXABAN 5 MG TABLET 10 MG PO ×2 (08:45→21:18)
[2023-06-23] MEDS: FUROSEMIDE 20 MG/2 ML VIAL IV ×2 (08:45→16:32)
[2023-06-23] MEDS: CLOBETASOL 0.05% CREAM 15 GM 1 APPLIC TOP ×2 (08:45→21:18)
[2023-06-23] MEDS: GABAPENTIN 300 MG CAPSULE PO ×3 (08:46→21:19)
[2023-06-23] MEDS: POTASSIUM CHLORIDE 20 MEQ TAB PO (08:46)
[2023-06-23] MEDS: SODIUM CHLORIDE 0.9% FLUSH 10 ML IV ×2 (08:47→21:19)
[2023-06-23] MEDS: FLUTICASONE PROPION SALMETEROL 1 EACH INH (08:52)
[2023-06-23 09:00] VITALS: BP 121/67; PULSE 120; RESP 17; TEMP 36.2; O2SAT 97
[2023-06-23] MEDS: TRAMADOL 50 MG TABLET 100 MG PO (14:52)
--- NOTE | 2023-06-23 15:53 | CM.DPC ---
[facility] Clinical plan is for palliative placement of Pleurix chest drain to prevent further thoracentesis. CM team recieved call from Lea with [facility] and she confirms that their nurses are trained with management of Pleurix. They are saving a Saturday intake time for patient. CM team available for further progression of care needs.
[2023-06-23 19:00] VITALS: O2SAT 98
[2023-06-23 19:48] VITALS: BP 103/46; PULSE 114; RESP 16; TEMP 36.6; O2SAT 98
[2023-06-23] MEDS: HYDROCODONE/ACET 5/325 TABLET 1 TAB PO (20:34)
[2023-06-23 21:15] VITALS: BP 114/62; PULSE 101
[2023-06-23] MEDS: TRAZODONE 50 MG TABLET PO (21:18)
[2023-06-23] MEDS: ATORVASTATIN 20 MG TABLET PO (21:19)
[2023-06-23] MEDS: METOPROLOL IR 25 MG TABLET PO (21:19)
--- NOTE | 2023-06-24 06:00 | DI.US.S_ITS ---
PROCEDURE: US CHEST COMPARISON: [facility], CR, XR CHEST 1V, 06/21/2023, 23:53. [facility], CT, CT ANGIO CHEST ABDOMEN PELVIS, 06/20/2023, 10:10. INDICATIONS: QUANTIFY LEFT PLEURAL EFFUSION FOR PLEUREX FINDINGS: Moderate left pleural effusion. 7.2 cm from the left chest wall to the center of the pleural effusion. Small right pleural effusion. IMPRESSION: Moderate left pleural effusion. Small right pleural effusion. Dictated by: Ishmael Gibson M.D. on 06/24/2023 at 8:33 Approved by: Ishmael Gibson M.D. on 06/24/2023 at 8:35
[2023-06-24 07:00] VITALS: BP 111/54; PULSE 97; RESP 18; TEMP 36.2; O2SAT 99
[2023-06-24] MEDS: CLOBETASOL 0.05% CREAM 15 GM 1 APPLIC TOP ×2 (08:17→20:39)
[2023-06-24] MEDS: APIXABAN 5 MG TABLET 10 MG PO (08:17)
[2023-06-24] MEDS: FUROSEMIDE 20 MG/2 ML VIAL IV ×2 (08:17→17:34)
[2023-06-24] MEDS: GABAPENTIN 300 MG CAPSULE PO ×3 (08:18→20:39)
[2023-06-24] MEDS: SODIUM CHLORIDE 0.9% FLUSH 10 ML IV ×2 (08:18→20:40)
[2023-06-24] MEDS: POTASSIUM CHLORIDE 20 MEQ TAB PO (08:18)
[2023-06-24] MEDS: FLUTICASONE PROPION SALMETEROL 1 EACH INH (08:19)
--- NOTE | 2023-06-24 16:03 | PM.PN.1 ---
Subjective Subjective Interval history: No complaints today. Discussed with patient and daughter ultrasound findings, plan for pleurX catheter tomorrow. Discussed with Dr. Perez Exam Vital Signs (past 8 hours): Fraction of Inspired Oxygen 28 SaO2/FiO2 Ratio 350 Oxygen Delivery Method Nasal Cannula Oxygen Flow Rate 2 Narrative Exam Narrative: NAD, normal speech and calm. Ill-appearing. Atraumatic head, EOMI. Neck supple and midline trachea. Lungs CTA, normal rate and effort. Decreased base breath sounds. Heart RRR, without murmur, gallop, or rub. Abdomen Soft, NT, ND No leg edema. Bilateral groin bullous lesions with brando complexion of perineal tissue, likely from previous lichen sclerosis. Garcia in place. Objective Labs 06/21/23 05:10 06/21/23 05:10 [facility], [facility] Medical History Atrial fibrillation (2013) Chronic fatigue syndrome (~1992) Chronic pain COPD (chronic obstructive pulmonary disease) Depression Diaphragmatic hernia DJD of shoulder Elevated brain natriuretic peptide (BNP) level Elevated d-dimer Fibromyalgia (1992) Major 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 Migraines (1984) Mumps (1949) Osteoarthritis Osteopenia Osteoporosis (1989) Peripheral edema RLS (restless legs syndrome) Shortness of breath Surgical History Anesthesia History of bladder suspension procedure (1994) Other joint replacement by other means (1998) Previous back surgery (~12/17/22) S/P total abdominal hysterectomy and bilateral salpingo-oophorectomy (1964) Status post breast biopsy Family History Brother MVA (motor vehicle accident) Father CAD (coronary artery disease) Mother Pancreatic cancer Social History household members: none Smoking Status: Former smoker alcohol intake: never Assessment & Plan Assessment & Plan narrative: Patient is now pursuing hospice, semi-comfort care with no escalation of care. 1. Acute hypoxemic respiratory failure with recurrent transudative effusions, POA and resolved. -2 liters NC weaned off since 06/18. -thoracentesis for 1 liter 06/16. -ECHO ordered shows decreased EF at 45%, small pericardial effusion, and left pleural effusion, RVSP same as prior at 57 with right sided dilation. -CT chest showed mod L pleural effusion and small R effusion, no loculations, but bilateral consolidations which may be PNA vs pulm infarcts -trialing IV lasix 20mg daily as BP improved, urinating well but not much improvement in dyspnea -pleural fluid studies with total protein 2.5 (next AM 5.3). Cellcount 98191 approx 40% PMN and mononuclear cells each, 1767 RBC. Bacterial detection by PCR pending. Cultures negative. Cytology was ordered but not sent. -Dr. Ana you contacted after family inquired about pleurx catheter, he is willing to place one tomorrow after US today showed continued pleural effusion. -has continued on diuresis, will recheck labs to see how she is doing and to better evaluate outpatient dosing of diuretic therapy. 2. Coagulopathy, POA and active. -previous physician discussed with oncology who recommended giving vitamin K if INR elevated which initially helped normalize INR -once INR normal she was started on apixaban, her INR has since been rising from 1.9-2.3 -continue to check INR intermittently. -continue eliquis, holding on 06/24 for potential pleurx placement 3. Bilateral pulmonary emboli/right lower extremity DVT/pulmonary infarcts with possible R heart failure. -continue anticoagulation (as able). -suspicion is PE caused by estradiol, now stopped taking it. -resume anticoagulation. 4.? Suspected gram positive or gram neg pneumonia, POA and improving. -given her severe leukocytosis, will empirically continue coverage for healthcare associated pneumonia.? Her leukocytosis is improved but remains elevated. -was on ceftriaxone, azithromycin. But broadened to zosyn for elevated WBC -white count may need be secondary to pulmonary infarcts but need to consider infected pleural effusion -pleural cell count and culture are negative for infection -now completed course of antibiotics. 5. Permanent atrial fibrillation, POA and stable. -She is not anticoagulated at baseline prior to PE. Slightly tachycardic so beta tamiko was increased with improvement from 25 mg BID to 37.5 mg BID. on apixaban after holding as discussed above. -continue home metoprolol tart 25mg BID 6. COPD/asthma, POA and stable. -Duonebs prn.Not really wheezing on exam. 7. Chronic back pain, POA and stable. Continue her usual home medications 8. Anemia, new and active. -On June 04 her hemoglobin was normal at 13.1.? Had been downtrending but now stabilized. No obvious signs or symptoms of bleeding. -Monitor ( yest, today). 9. Possible pyelonephritis -CT with 2.1cm mass vs pyelo -first UA with pyuria but with squamous cells -repeat UA ordered from garcia -continue abx 10. 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 Pulm to place pleurx catheter on L side on 06/25 if 06/24 US shows enough fluid for it. Time Spent With Patient Time with patient: 30 to 49 minutes with 50% spent counseling/coordinating care Quality VTE Deep Vein Thrombosis/Pulmonary Embolism Present on Admission: Yes
[2023-06-24 19:00] VITALS: BP 110/46; PULSE 117; RESP 16; TEMP 35.9; O2SAT 100
[2023-06-24] MEDS: HYDROCODONE/ACET 5/325 TABLET 1 TAB PO (19:57)
[2023-06-24] MEDS: TRAZODONE 50 MG TABLET PO (20:39)
[2023-06-24] MEDS: METOPROLOL IR 25 MG TABLET PO (20:39)
[2023-06-24] MEDS: ATORVASTATIN 20 MG TABLET PO (20:39)
[2023-06-24] MEDS: TRAMADOL 50 MG TABLET 100 MG PO (22:37)
[2023-06-25 04:46] LABS: INR 3.3 (0.9-1.3); Prothrombin Time 38.1 SECONDS (10.1-12.7)
[2023-06-25 04:51] LABS: BUN Creatinine Ratio 32.7 (6-22); Blood Urea Nitrogen 17 mg/dL (7-17); Calcium 8.6 mg/dL (8.4-10.2); Carbon Dioxide 38 mmol/L (22-32); Chloride 96 mmol/L (98-107); Estimated Glomerular Filt Rate > 60 mL/min (>60); Glucose 100 mg/dL (80-110); HEMOLYSIS < 15 (0-50); Potassium 3.2 mmol/L (3.4-5.1); Sodium 132 mmol/L (137-145)
[2023-06-25 07:00] VITALS: BP 100/58; PULSE 68; RESP 16; TEMP 36.7; O2SAT 98
[2023-06-25 08:15] VITALS: O2SAT 98
[2023-06-25] MEDS: CLOBETASOL 0.05% CREAM 15 GM 1 APPLIC TOP (08:57)
[2023-06-25] MEDS: GABAPENTIN 300 MG CAPSULE PO ×2 (08:57→15:25)
[2023-06-25] MEDS: POTASSIUM CHLORIDE 20 MEQ TAB PO ×2 (08:57→09:30)
[2023-06-25] MEDS: METOPROLOL IR 25 MG TABLET PO (08:57)
[2023-06-25] MEDS: SODIUM CHLORIDE 0.9% FLUSH 10 ML IV (08:58)
[2023-06-25] MEDS: FUROSEMIDE 20 MG/2 ML VIAL IV ×2 (09:01→15:25)
--- NOTE | 2023-06-25 10:40 | CM.DPC ---
DCP Cont. Reviewed chart for status updates. Pt will be d/c home today after her plurex catheter placement, later this afternoon. Family will transport home, hospice to follow w/admit on Saturday. No further d/c needs identified at this time.
--- NOTE | 2023-06-25 12:49 | P.CONS_ITS ---
History of Present Illness Consult details Date Patient Seen: 06/25/23 Time Patient Seen: 12:50 Chief complaint: Decompensated heart failure and PE Requesting provider: Jewel Sen Narrative: Dear Dr. Sen and Dr. Ball, I had the pleasure of seeing your patient Arlene Rand with a history of allergic asthma, 51 pack-year smoking history, GERD, atrial fibrillation, migraine headaches who actually saw in January of 2023 with uncontrolled asthma symptoms escalated to moderate dose Advair and PFTs with moderately severe obstruction who was admitted to the hospital 06/04/2023 after 1 month of worsening leg edema in the setting of elevated NT proBNP who had decompensated heart failure but also incidental PE transferred to [facility] for an immediate risk PE treated with anticoagulation alone who returned 06/08/2023 for which he has been continuously hospitalized for continued decompensated heart failure complicated by bilateral pleural effusions, hypoxemic respiratory failure ultimately medically optimized and goals of care yield it transitioned to comfort focused care for whom were consulted for management of the recurrent left greater than right pleural effusion. To review she would worsening shortness of breath in April associ ated with elevated NT proBNP when she saw her physician on 05/28/2023. She had not responded to corticosteroids and response to diuretics had been limited. She was referred to the ED where she went on 06/04 which had signs of overwhelming decompensated heart failure but it sounds like PE was thought to be a large contribution which it was not. She re-presented 06/08/2023 with the highest ever NT proBNP of 8800. Echo revealed new left heart failure, worsening right heart failure, stable pulmonary hypertension with PA pressures of 57 mm Hg. She is had 3 [address]s since hospitalized showing decreased clot burden, small bilateral gusj-[id number]-[id number]-right pleural effusions increasing size on follow up chest CT 06/14/2023.. Thoracentesis on the left performed on the left on 06/16/2023 of 1100 mL with significant symptomatic relief. Apparently there was an attempted diuresis but several notes report oral diuretics. Her weights have been charted as unchanged since admission around the 155 lb for which is what she currently weighs. Her debbie weight was 147 lb on 06/15/2023. She was treated with antibiotics with a leukocytosis however no positive culture was noted the source was likely pulmonary infarction after PE. Goals of care discussion had on 06/20/2023 and follow up on 06/22/2023 was to discharge with hospice. The patient and daughter had a discussion about tunneled pleural catheter which they would like to proceed. Anticoagulation has been held since yesterday. I reviewed pleural fluid studies sent were protein but no LDH 46% macrophages. She tells me that she is actually had 6 months of progressive worsening shortness of breath and been limited in activity. Though initially ICS Laba had helped in January of 2022 sounds like she would progressive worsening shortness of breath culminating an elevated NT proBNP, increased leg edema and lack of responsiveness to steroids. She does want to go home with hospice and says her daughter's coordinating that. She is been in the hospital for 17 days. She is not felt improvement being on anticoagulation now for several weeks but did find significant relief of dyspnea with oxygen as well as thoracentesis done on 06/16. This time her white count is 15 from peak of 30. She is afebrile. As mentioned her weights have increased and she still has pitting edema. Meds Home Medications and Allergies Home Medications Medication Instructions Recorded Confirmed Type meclizine 25 mg tablet 25 mg PO TID PRN dizziness #90 tabs 05/20/20 06/09/23 Rx budesonide 0.5 mg/2 mL suspension 0.5 mg (2 mL) inhalation BID #120 01/02/21 06/09/23 Rx for nebulization mL metoprolol tartrate 25 mg tablet 25 mg PO BID #180 tabs 10/11/22 06/09/23 Rx Disabled Parking Permit See Rx Instructions .Route 03/19/23 06/09/23 Rx .COMPLEX #1 unit potassium chloride 20 mEq 20 meq PO DAILY #30 tabs 05/24/23 06/09/23 Rx tablet,extended release fluticasone 250 mcg-salmeterol 50 1 ea inhalation BID 05/28/23 06/09/23 History mcg/dose blistr powdr for inhalation ([employer] Inhub) Acid [employer] Officer (omeprazole) 20 mg PO AC reflux 06/09/23 06/09/23 History albuterol sulfate 90 mcg/actuation 2 puff inhalation Q4-6H PRN 06/09/23 06/09/23 History aerosol inhaler wheezing betamethasone dipropionate 0.05 % 1 applic topical BID PRN Rash 06/09/23 06/09/23 History topical ointment cyclobenzaprine 10 mg tablet 10 mg PO Q8HR PRN Muscle Spasm 06/09/23 06/09/23 History gabapentin 300 mg PO Q8H neuropathy 06/09/23 06/09/23 History pravastatin 40 mg tablet 40 mg PO HS high cholesterol 06/09/23 06/09/23 History sumatriptan succinate 100 mg 100 mg PO PRN PRN migraines 06/09/23 06/09/23 History tablet (Imitrex) tramadol 100 mg PO Q8HR PRN Pain (Scale 06/09/23 06/09/23 History Score 4-6) Orajel 3X Mouth Sores 10 ml PO 4XD PRN Analgesia 06/11/23 06/11/23 History apixaban 5 mg tablet (Eliquis) 5 mg PO BID #90 tabs 06/25/23 Rx furosemide 20 mg tablet 20 mg PO BID #60 tabs 06/25/23 06/09/23 Rx gabapentin 300 mg capsule 300 mg PO TID #90 caps 06/25/23 Rx hydrocodone 5 mg-acetaminophen 325 1 tab PO Q6H PRN pain 7 days #30 06/25/23 Rx mg tablet tabs trazodone 50 mg tablet 50 mg PO BEDTIME #30 tabs 06/25/23 Rx Allergies Allergy/AdvReac Type Severity Reaction Status Date / Time Sulfa (Sulfonamide Allergy Severe RASH Verified 06/04/23 13:39 Antibiotics) [SULFA (SULFONAMIDE ANTIBIOTICS)] bee venom protein (honey bee) Allergy Intermediate Throat Verified 06/04/23 13:39 swelling and breathing problems alendronate sodium AdvReac Severe Intolerable Verified 06/04/23 13:39 heartburn paroxetine [PAROXETINE] AdvReac Intermediate agitated, Verified 06/04/23 13:39 anxious turmeric AdvReac Broke out Verified 06/04/23 13:39 in spots GAUZE Allergy Mild SEVERE Uncoded 06/04/23 13:39 RASH/ REDNESS Exam Vital Signs (past 8 hours): - 06/25/23 07:00 06/25/23 08:15 Temperature 98.1 F Pulse Rate 68 Respiratory Rate 16 Blood Pressure 100/58 L Pulse Oximetry 98 98 Oxygen Delivery Method Nasal Cannula Oxygen Flow Rate 4 4 Fraction of Inspired Oxygen 28 SaO2/FiO2 Ratio 350 Oxygen Delivery Method Nasal Cannula Oxygen Flow Rate 4 Narrative Exam Narrative: Elderly, somewhat ill-appearing female lying in hospital bed, pleasant cooperati ve in no distress Const General: cooperative HENMT Head: normal to inspection Resp Effort & Inspection: normal respiratory effort and able to speak in complete sentences Other: Diminished breath sounds in bilateral lower lung artis. No wheezes rhonchi or rales. Skin Other: Bruising of the arms bilaterally Neuro General: patient alert, patient awake and patient oriented x3 Extrem Other: Trace to 1+ pitting edema of the bilateral lower extremities Psych Appearance: grossly normal Objective Imaging CT scan - chest: My impression: I reviewed serial chest CTs from 06/04/2023, 06/08/2023, 06/14/2023, and 06/20/2023 showing new PEs and bilateral [id number]-right pleural effusions, right lower lobe infiltrate likely pulmonary infarct; reflux of contrast into the IVC, dilated LA, RV Echo: My impression: I reviewed echo from 06/14/2023 showing new half for F, progressive RV dysfunction, RVSP 57 mm Hg, large left-sided pleural effusion, right atrium normal size, left atrium not commented Labs 06/21/23 05:10 06/25/23 04:22 Labs: Laboratory Results - last 24 hr 06/25/23 06/25/23 04:22 04:22 PT 38.1 H D INR 3.3 H Sodium 132 L Potassium 3.2 L Chloride 96 L Carbon Dioxide 38 H BUN 17 Creatinine 0.52 Estimated GFR > 60 BUN/Creatinine Ratio 32.7 H Glucose 100 Calcium 8.6 I reviewed serial labs showing progressively rising NT proBNP up to 8800 on admission [facility] Medical History Atrial fibrillation (2013) Chronic fatigue syndrome (~1992) Chronic pain COPD (chronic obstructive pulmonary disease) Depression Diaphragmatic hernia DJD of shoulder Elevated brain natriuretic peptide (BNP) level Elevated d-dimer Fibromyalgia (1992) Major 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 Migraines (1984) Mumps (1949) Osteoarthritis Osteopenia Osteoporosis (1989) Peripheral edema RLS (restless legs syndrome) Shortness of breath Surgical History Anesthesia History of bladder suspension procedure (1994) Other joint replacement by other means (1998) Previous back surgery (~12/17/22) S/P total abdominal hysterectomy and bilateral salpingo-oophorectomy (1964) Status post breast biopsy Family History Brother MVA (motor vehicle accident) Father CAD (coronary artery disease) Mother Pancreatic cancer Social History household members: none Tobacco & Substance Use Smoking Status: Former smoker alcohol intake: never Assessment & Plan Assessment and plan (1) Chronic obstructive pulmonary disease: Qualifiers: COPD type: unspecified COPD Qualified Code(s): J44.9 - Chronic obstructive pulmonary disease, unspecified Status: Chronic Plan: Patient has asthma that was probably uncontrolled at some point in time. She would dramatically responded to ICS Laba in 2021 but then had progressively worsening shortness of breath not responding to steroids, nebulizers ultimately due to the fact that she had decompensated heart failure. This is not actively contributing to her current clinical state. (2) Pneumonia: Qualifiers: Pneumonia type: due to unspecified organism Laterality: right Lung location: lower lobe of lung Qualified Code(s): J18.9 - Pneumonia, unspecified organism Status: Acute Plan: Patient had leukocytosis in the setting of recent pulmonary embolism with infarction with white count up to 30 improved to 15 for which she may have had a superimposed pneumonia. She actually has fairly significant PMNs in her pleural fluid which may be due to a effusion partly contributed by PE versus parapneumonic. She is been adequately treated with antibiotics which I deferred to the primary team. (3) Shortness of breath: Status: Acute Plan: Patient has worsening shortness of breath is almost certainly related to decompensated heart failure in the setting of pitting edema, rising NT proBNP, biventricular heart failure for which her weights have actually been increasing and she never was actually diuresed to the point of an DEAN. I think this is the largest contribution although she has multifactorial pathologies including longstanding asthma, new PE, etcetera (4) Bilateral pleural effusion: Status: Acute Plan: Patient has bilateral pleural effusions. The protein is low and macrophage predominant however LDH never sent but suspect that this is related to decompensated heart failure in the setting of an NT proBNP of 8800 the have been rising and optimize though it is not clear she is at her dry weight. This is almost certainly cardiac in nature and at this point we may not do any further investigation given the transitioned to more comfort focused approach. This time I discussed with her interventions usually involve optimizing cardiac disease, diuresis however given the goals to go home as soon as possible and with hospice I think it is reasonable to place a tunneled pleural catheter in the left pleural effusion which has been reaccumulating and she would signi ficant symptomatic relief. I did advise her typical treatments for air hunger include opioids, oxygen the latter of which he finds helpful in the former which she is not sure this is being prescribed by hospice. We did discuss tunneled pleural catheter and the increased risk of infection of 10-15% over 6 months which she would like to proceed with. We also discussed that if the goal is to improve air hunger then we will consider a right thoracentesis concurrently. I discussed with her the risks and benefits and she would like to proceed. She is hopeful to go home soon. Hospice will have to order the supplies and manage the catheter which will include draining and dressing as needed for shortness of breath and removal of the sutures in 2 weeks. (5) Pulmonary embolism and infarction: Status: Acute Plan: Patient has a PE contributing to acute onset shortness of breath in the setting of decompensated heart failure. Anticoagulation is held for the procedure however if hospice agreeable she should continue this in the hopes to improve her shortness of breath. I do not think this is the largest contribution but rather heart failure. Time Spent With Patient Time with patient: 70 minutes or more, with 50% spent counseling/coordinating
--- NOTE | 2023-06-25 14:15 | PM.DS.1 ---
History of Present Illness History of Present Illness Date Patient Seen: 06/25/23 Time Patient Seen: 14:15 Chief complaint: Decompensated heart failure and PE Narrative: Per admitting provider, 82 y/o patient who was diagnosed with PE several days ago, presents to ED hypoxemic, short of breath, with evidence of PNA. Discharge Providers Provider Date of admission: 06/08/23 21:25 Discharge Date: 06/25/23 Primary care physician: Matthew Tafoya MD Consults: 06/10/23 08:57 Consult to Physical Therapy Evaluate & Treat Comment: Physician Instructions: Evaluate and Treat 06/11/23 08:00 Consult to Dietitian, Adult Routine Comment: HEALTHY DIET RECOMMENDATIONS Reason For Exam: VERY POOR APPETITE AND DIET GUIDENCE ON HEART HEAL 06/13/23 14:22 Consult to Home Health Routine Comment: Bilat PEs, pneumonia, hypoxia, DVT Reason For Exam: Set up HH RN/PT/[employer] for d/c to home when stable 06/18/23 12:28 Consult to Dietitian, Adult Routine Comment: left groin wound Reason For Exam: Wound left groin Consult to Wound Care Routine Comment: Consulting Provider: [facility] 06/21/23 13:45 Consult to Pulmonology Routine Comment: Consulting Provider: [facility] Reason for consultation: Ana arnett do pleurx cath Has provider been notified: Yes Discharge provider: Ludwin Ball DO Summary Hospital Course Discharge Diagnosis: 1. Acute hypoxemic respiratory failure with recurrent transudative effusions, POA. 2. Coagulopathy, POA and active. 3. Bilateral pulmonary emboli/right lower extremity DVT/pulmonary infarcts with possible R heart failure. 4.? Suspected gram positive or gram neg pneumonia, POA and improving. 5. Permanent atrial fibrillation, POA and stable. 6. COPD/asthma, POA and stable. 7. Chronic back pain, POA and stable. 8. Anemia, new and active. 9. Possible pyelonephritis 10. 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 Respiratory failure is presumed secondary to acute, possibly on chronic diastolic heart failure (TTE approx EF 45%), in combination with likely bacterial pneumonia. She was treated with broad spectrum antibiotics and diuresed initially with some improvement in hypoxia, but still lingered on a few L of O2 via NC. Coagulopathy did improve with Vitamin K initially and may be due to her NOAC or possible due to volume overload as well. INR stayed around 3 with a change to apixaban which was continued. CT angio showed small decrease in her overall clot burden, done for continued hypoxia. She continued to have L pleural effusion, which was tapped with thoracentesis, and did not reveal a clear underlying etiology but not all fluid studies were sent (only total protein, but met criteria for transudative effusion). Cytology was ordered but not sent. With continued difficulty in weaning her from O2, patient elected to discharge home on hospice after extensive goals of care discussions. Pulmonology was consulted and placed PleurX catheter for recurrent pleural effusion on day of discharge. There was no pneumothorax following the placement and there was improvement in the size of her effusion. Wound care was consulted for her rash in her groin, and non-adherent dressings were recommend with outpatient dermatology follow up recommended if desired with goals of care. Time Spent with Patient Time spent: Greater than 30 minutes Exam Vital Signs (past 8 hours): - 06/25/23 07:00 06/25/23 08:15 Temperature 98.1 F Pulse Rate 68 Respiratory Rate 16 Blood Pressure 100/58 L Pulse Oximetry 98 98 Oxygen Delivery Method Nasal Cannula Oxygen Flow Rate 4 4 Fraction of Inspired Oxygen 28 SaO2/FiO2 Ratio 350 Oxygen Delivery Method Nasal Cannula Oxygen Flow Rate 4 Narrative Exam Narrative: NAD, normal speech and calm. Ill-appearing. Atraumatic head, EOMI. Neck supple and midline trachea. Lungs CTA, normal rate and effort. Decreased base breath sounds. Heart RRR, without murmur, gallop, or rub. Abdomen Soft, NT, ND No leg edema. Objective Labs 06/21/23 05:10 06/25/23 04:22 Labs: Laboratory Results - last 24 hr 06/25/23 06/25/23 04:22 04:22 PT 38.1 H D INR 3.3 H Sodium 132 L Potassium 3.2 L Chloride 96 L Carbon Dioxide 38 H BUN 17 Creatinine 0.52 Estimated GFR > 60 BUN/Creatinine Ratio 32.7 H Glucose 100 Calcium 8.6 [facility] Medical History Atrial fibrillation (2013) Chronic fatigue syndrome (~1992) Chronic pain COPD (chronic obstructive pulmonary disease) Depression Diaphragmatic hernia DJD of shoulder Elevated brain natriuretic peptide (BNP) level Elevated d-dimer Fibromyalgia (1992) Major 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 Migraines (1984) Mumps (1950) Osteoarthritis Osteopenia Osteoporosis (1989) Peripheral edema RLS (restless legs syndrome) Shortness of breath Surgical History Anesthesia History of bladder suspension procedure (1994) Other joint replacement by other means (1998) Previous back surgery (~12/17/22) S/P total abdominal hysterectomy and bilateral salpingo-oophorectomy (1964) Status post breast biopsy Family History Brother MVA (motor vehicle accident) Father CAD (coronary artery disease) Mother Pancreatic cancer Social History household members: none Smoking Status: Former smoker alcohol intake: never Discharge Plan Discharge Plan Patient Disposition: Hospice - Home Provider Discharge Comment: You were admitted to the hospital with weakness and shortness of breath. Unable to wean from oxygen, now with pleurX catheter for pleural effusion. Continue with eliquis and medications at home. Discharged on hospice, continue to adjust medications based on preferences moving forward. Instructions for catheter. 1) Drain catheter via provided instructions and video as needed with new dressing applied with each drainage 2) Hospice to receive instructions to drain as needed up to 1L each session 3) Re-dress catheter if soiled; showers okay but do not submerge site under water 4) No specific follow-up in pulmonary clinic given discharge to hospice; routine wound care monitoring for redness, drainage, increasing pain or purulence 5) Anticipate some soreness at insertion site for a few days anticipated to improve 6) Please notify hospice of left pleurx catheter and drainage instructions as well as to order supplies; initial supplies given to patient 3 kits 7) Please have hospice remove both sutures in 2 weeks around 07/09; take care not to damage catheter Discharge orders & Medications Prescriptions: New trazodone 50 mg Tablet 50 mg PO BEDTIME Qty: 30 0RF gabapentin 300 mg Capsule 300 mg PO TID Qty: 90 0RF Eliquis 5 mg Tablet 5 mg PO BID Qty: 90 0RF hydrocodone-acetaminophen 5-325 mg tablet 1 tab PO Q6H PRN (Reason: pain) 7 Days Qty: 30 0RF Continued metoprolol tartrate 25 mg tablet 25 mg PO BID Qty: 180 1RF potassium chloride 20 mEq tablet extended release 20 meq PO DAILY Qty: 30 1RF budesonide 0.5 mg/2 mL suspension for nebulization 0.5 mg inhalation BID Qty: 120 11RF Disabled Parking Permit See Rx Instructions .ROUTE .COMPLEX Qty: 1 0RF Rx Instructions: I find this patient to be medically disabled and qualify for disabled parking as indicated and signed on the accompanying disabled parking application for individuals. fluticasone propion-salmeterol [Wixela Inhub] 250-50 mcg/dose blister with device 1 ea inhalation BID meclizine 25 mg tablet 25 mg PO TID PRN (Reason: dizziness) Qty: 90 0RF Hold Instructions: Sporadic use cyclobenzaprine 10 mg tablet 10 mg PO Q8HR PRN (Reason: Muscle Spasm) tramadol tablet 100 mg PO Q8HR PRN (Reason: Pain (Scale Score 4-6)) albuterol sulfate 90 mcg/actuation HFA aerosol inhaler 2 puff inhalation Q4-6H PRN (Reason: wheezing) betamethasone dipropionate 0.05 % ointment 1 applic topical BID PRN (Reason: Rash) Protocol: Age Greater than 75 Protocol Text: Age less than 75 years, to be administred with initial in subcutaneous dose Acid Project Leader (omeprazole) capsule 20 mg PO AC gabapentin capsule 300 mg PO Q8H pravastatin 40 mg tablet 40 mg PO HS sumatriptan succinate [Imitrex] 100 mg tablet 100 mg PO PRN PRN (Reason: migraines) Rx Instructions: Take 1/2 to 1 tablet by mouth at onset of headache. May repeat one dose in 2 hours as needed. Orajel 3X Mouth Sores 10 ml PO 4XD PRN (Reason: Analgesia) Rx Instructions: up to 4x/day after meals and at bedtime Changed furosemide 20 mg tablet 20 mg PO BID Qty: 60 0RF Follow up/Referrals: Matthew Tafoya MD [Primary Care Provider] - Diet/Activity/Treatments Diet: Diet as Tolerated and Regular Diet comment: As tolerated, no restrictions. Activity: As tolerated, no restrictions Visit Report/Discharge Packet Stand Alone Forms: Patient Portal/API, Stroke Signs & Symptoms Discharge Data Primary Care Provider: Matthew Tafoya Quality VTE Deep Vein Thrombosis/Pulmonary Embolism Present on Admission: Yes
[2023-06-25] MEDS: CEFAZOLIN 2 GM/100 ML PREMIX 100 ML IV (17:08)
--- NOTE | 2023-06-25 17:38 | DI.RAD.S_ITS ---
PROCEDURE: XR CHEST 1V INDICATIONS: Pleurx placement TECHNIQUE: One view of the chest was acquired. COMPARISON: [facility], CR, XR CHEST 1V, 06/21/2023, 23:53. [facility], CR, XR CHEST 1V, 06/18/2023, 6:30. FINDINGS: Surgical changes and devices: Right upper extremity approach PICC tip projects over the cavoatrial junction. Left chest tube tip projects over upper lung zone. Lungs and pleura: Moderate pleural effusions and bibasilar atelectasis/consolidation. No pneumothorax. Mediastinum: Mediastinal contours appear normal. Heart size is normal. Bones and chest wall: No suspicious bony lesions. Overlying soft tissues appear unremarkable. IMPRESSION: Left chest tube tip projects over the upper lung zone. Right upper extremity approach PICC tip projects over the cavoatrial junction. Moderate pleural effusions with bibasilar atelectasis/consolidation. Dictated by: Bright Quiñonez M.D. on 06/25/2023 at 18:22 Approved by: Bright Quiñonez M.D. on 06/25/2023 at 18:22
[2023-06-25] MEDS: LIDOCAINE 1% W/EPI 30 ML INJ (17:42)
--- NOTE | 2023-06-25 17:51 | P.PCN_ITS ---
Procedures Date/Time Date of procedure: 06/25/23 Time of procedure: 17:52 General Procedure description: Left tunneled pleural catheter Chest Tube Progress: Date/Time Date of procedure: 06/25/23 Time of procedure: 1751 General Procedure description: Left tunneled pleural catheter (PleurX) placement Chest Tube Chest Tube Location: Lateral Chest (left) Amount of initial drainage (ml): 800 Post procedure CXR?: Yes Patient tolerated procedure well: Yes Progress: PULMONOLOGY OPERATIVE REPORT Pt. Name/Age/:? Arlene Rand 1940 Medical Record Number: ? [id number] Date of Surgery: 06/25/1941 Preoperative Diagnosis: Recurrent left pleural effusion likely transudative/cardiac Postoperative Diagnosis:? Same Procedure(s): 1. LEFT Tunneled Pleural Catheter Placement (PleurX Drain) CPT: 68628 Surgeon(s): Chris Perez MD? ? Auxiliary Powerplant Operator(s):none Anesthesia: lidocaine 1% with 1:100,000 epinephrine 20mL subcutaneous Antibiotic: 2gm IV cefazolin within 60 minutes prior to incision Findings: moderate anechoic left pleural effusion Indications: Recurrent symptmoatic leftp leural effusion Procedure in Detail: After the procedure was explained to the patient, including the risks, benefits and possible complications, the patient signed the informed consent. Following identification, the patient was taken to the operating suite. Following administration of antibiotic, the patient was positioned in a Semi-Rowan's position. A timeout was undertaken. The following items were reviewed: Procedure in Detail: The patient was positioned on the hospital stretcher in the semi-Rowan's position position. The left chest was prepped and draped sterilely. Thoracic ultrasound was used to identify the moderate to large left pleural effusion and john appropriate site of insertion. Vascular ultrasound was used to rule out any underlying vessels at thoracentesis site. 1% lidocaine with 1:100,000 epinephrine was injected into thoracentesis and tunneling site as well as subcutaneous tract connecting the two sites. Two 1.5cm incisions were made over these sites. 18 gauge finder catheter and needle was used to access the pleural space at thoracentesis site and via Seldinger technique a wire was inserted through the catheter. Subsequently the catheter was removed.? Subsequently, tunneling tool was used to tunnel the catheter from catheter insertion site to the thoracentesis site and pulled through, ensuring the cuff was 1-2cm under the skin away from catheter insertion site. Finally, using serial dilators and a peel-away, the catheter was inserted over the guidewire into the pleural space. Aspiration of fluid confirmed proper positioning. Two incision sites were sutured with 2-0 silk. 800mL fluid was drained using included drainage kit after which patient experienced symptoms and there was no residual effusion. Finally, the included dressing kit was used to dress the catheter completely under sterile dressing after cleaning. Estimated Blood Loss:? Minimal ? Transfused:? No Complications:? none Instructions: 1) Drain catheter via provided instructions and video as needed with new dressing applied with each drainage 2) Hospice to receive instructions to drain as needed up to 1L each session 3) Re-dress catheter if soiled; showers okay but do not submerge site under water 4) No specific follow-up in pulmonary clinic given discharge to hospice; routine wound care monitoring for redness, drainage, increasing pain or purul ence 5) Anticipate some soreness at insertion site for a few days anticipated to improve 6) Please notify hospice of left pleurx catheter and drainage instructions as well as to order supplies; initial supplies given to patient 3 kits 7) Please have hospice remove both sutures in 2 weeks around 07/09; take care not to damage catheter Specimens: None Drains:? LEFT Pleurx Drain
--- NOTE | 2023-06-25 19:22 | PC.NURSE ---
Patient teaching done at bedside with daughter present. Education done with daughter regarding alexandre care, garcia care, and videos/information packets given and watched regarding pleural drain. Daughter is aware if she had any concerns or issues def. to Hospice nurse for assistance and questions. Patient was weak but able to ambulate to with FWW and gait belt, assistance to private vehicle. Patient left in stable condition. PICC line removed by nurse Naomie Montano Patient an. well.
== END 2023-06-25 19:00 | disposition hospice, home (50) | DRG 177 ==
LOC: ED 21:16 → AC 21:25 → ICU 21:52 → AC 06-17 14:42
PROVIDERS: Emergency Medicine; Family Medicine; Hospitalist; Internal Medicine; Student in an Organized Health Care Education/Training Program; Admitting Provider Internal Medicine; Emergency Provider Emergency Medicine; PCP Pediatrics; Referring Provider Emergency Medicine; Visit Provider Internal Medicine
DX: J15.69 Pneumonia due to other Gram-negative bacteria (principal); I26.99 Other pulmonary embolism without acute cor pulmonale; J96.01 Acute respiratory failure with hypoxia; D68.9 Coagulation defect, unspecified; I48.21 Permanent atrial fibrillation; I82.401 Acute embolism and thrombosis of unspecified deep veins of right lower extremity; L12.0 Bullous pemphigoid; N12 Tubulo-interstitial nephritis, not specified as acute or chronic; J44.0 Chronic obstructive pulmonary disease with (acute) lower respiratory infection; K21.9 Gastro-esophageal reflux disease without esophagitis; K44.9 Diaphragmatic hernia without obstruction or gangrene; G47.00 Insomnia, unspecified; M79.7 Fibromyalgia; Y95 Nosocomial condition; G89.29 Other chronic pain; M54.9 Dorsalgia, unspecified; D64.9 Anemia, unspecified; Z87.891 Personal history of nicotine dependence; Z79.01 Long term (current) use of anticoagulants
CPT/HCPCS: 32550; 36415; 36569; 36592; 71045; 71250; 71260; 71275; 74174; 76604; 76770; 80048; 80053; 80202; 81001; 82550; 83605; 83690; 83735; 83880; 84145; 84155; 84484; 85014; 85018; 85025; 85027; 85379; 85384; 85610; 85730; 87040; 87070; 87075; 87077; 87086; 87205; 87797; 87801; 89051; 93005; 93010; 93307; 94640; 94760; 94762; 96365; 96366; 96367; 97116; 97162; 97530; 99232; 99233; 99285; J0690; J0692; J0696; J1642; J1940; J2543; J7613; Q9967

== ENCOUNTER → 2023-07-31 13:34 | Outpatient (ROUT) | payer MEDICARE, MEDICAID, SELFPAY ==
[2023-06-08 23:00] VITALS: BMI 26.6
[2023-07-31 14:01] LABS: BUN Creatinine Ratio 39.6 (6-22); Blood Urea Nitrogen 21 mg/dL (7-17); Calcium 9.5 mg/dL (8.4-10.2); Carbon Dioxide 31 mmol/L (22-32); Chloride 97 mmol/L (98-107); Estimated Glomerular Filt Rate > 60 mL/min (>60); Glucose 86 mg/dL (80-110); HEMOLYSIS 21 (0-50); Potassium 4.1 mmol/L (3.4-5.1); Sodium 135 mmol/L (137-145)
== END ==
PROVIDERS: PCP Pediatrics; Visit Provider Family Medicine
DX: I26.09 Other pulmonary embolism with acute cor pulmonale (principal); I50.9 Heart failure, unspecified
CPT/HCPCS: 80048

== ENCOUNTER → 2023-08-12 12:14 | Outpatient (CLI) | payer MEDICARE, MEDICAID, SELFPAY ==
[2023-06-08 23:00] VITALS: BMI 26.6
[2023-08-12 12:40] LABS: Add Manual Diff / Slide Review NO; Basophils Absolute Auto 100 /uL (0-100); Basophils Percent Auto 0.8 % (0-2); Eosinophils Absolute Auto 100 /uL (0-450); Eosinophils Percent Auto 1.5 % (2-4); Hematocrit 30.2 % (36-46); Hemoglobin 9.9 g/dL (12.0-16.0); Lymphocytes Absolute Auto 1900 /uL (1100-4500); Mean Corpuscular HGB Conc 32.8 % (30-36); Mean Corpuscular Hemoglobin 30.5 PG (26-34); Mean Corpuscular Volume 93.1 fL (80-100); Monocytes Absolute Auto 700 /uL (0-900); Monocytes Percent Auto 7.1 % (3-14); Neutrophils Absolute Auto 6600 /uL (1500-7000); Neutrophils Percent Auto 70.6 % (50-75); Platelet Count 239 X10^3/uL (150-400); Red Blood Cell Count 3.24 X10^6/uL (4.0-5.2); Red Cell Distribution Width 18.8 % (11.6-14.8); White Blood Cell Count 9.3 X10^3/uL (4.5-11.0)
[2023-08-12 13:04] LABS: INR 1.4 (0.9-1.3); Prothrombin Time 15.9 SECONDS (10.1-12.7)
== END ==
PROVIDERS: PCP Pediatrics; Referring Provider Family Medicine; Visit Provider Family Medicine
DX: N02 Recurrent and persistent hematuria (principal); R79.1 Abnormal coagulation profile
CPT/HCPCS: 85025; 85610

== ENCOUNTER → 2023-09-06 10:00 | Outpatient (CLI) | payer MEDICARE, MEDICAID, SELFPAY ==
[2023-06-08 23:00] VITALS: BMI 26.6
[2023-09-06 10:58] LABS: Add Manual Diff / Slide Review NO; Basophils Absolute Auto 100 /uL (0-100); Basophils Percent Auto 0.3 % (0-2); Eosinophils Absolute Auto 0 /uL (0-450); Eosinophils Percent Auto 0.1 % (2-4); Hemoglobin 9.4 g/dL (12.0-16.0); Lymphocytes Absolute Auto 2000 /uL (1100-4500); Lymphocytes Percent Auto 8.5 % (25-40); Mean Corpuscular HGB Conc 31.5 % (30-36); Mean Corpuscular Volume 92.1 fL (80-100); Monocytes Absolute Auto 1200 /uL (0-900); Monocytes Percent Auto 4.9 % (3-14); Neutrophils Absolute Auto 20500 /uL (1500-7000); Neutrophils Percent Auto 86.2 % (50-75); Platelet Count 399 X10^3/uL (150-400); Red Blood Cell Count 3.26 X10^6/uL (4.0-5.2); Red Cell Distribution Width 18.3 % (11.6-14.8); White Blood Cell Count 23.8 X10^3/uL (4.5-11.0)
[2023-09-06 11:30] LABS: Alanine Aminotransferase 33 IU/L (<35); Albumin 3.3 g/dL (3.5-5.0); Albumin Globulin Ratio 1.3 (1.0-2.8); Alkaline Phosphatase 104 U/L (38-126); Aspartate Aminotransferase 29 IU/L (14-36); BUN Creatinine Ratio 36.8 (6-22); Bilirubin Total 0.5 mg/dL (0.2-1.3); Blood Urea Nitrogen 21 mg/dL (7-17); Calcium 9.3 mg/dL (8.4-10.2); Carbon Dioxide 31 mmol/L (22-32); Chloride 96 mmol/L (98-107); Estimated Glomerular Filt Rate > 60 mL/min (>60); Globulin 2.5 g/dL (1.7-4.1); Glucose 91 mg/dL (80-110); HEMOLYSIS < 15 (0-50); Potassium 4.1 mmol/L (3.4-5.1); Sodium 136 mmol/L (137-145); Total Protein 5.8 g/dL (6.3-8.2)
[2023-09-06 11:57] LABS: TSH w/ Reflex to FT4 1.33 uIU/mL (0.47-4.68)
[2023-09-06 15:25] LABS: Hemoglobin A1C% w Est Avg Glu 5.2 % (4.0-6.0)
[2023-09-11 15:57] LABS: ANA Screen, IFA Negative (.)
== END ==
PROVIDERS: PCP Family Medicine; Referring Provider Family Medicine; Visit Provider Family Medicine
DX: I50.23 Acute on chronic systolic (congestive) heart failure (principal); R21 Rash and other nonspecific skin eruption; J90 Pleural effusion, not elsewhere classified; R60.9 Edema, unspecified; E78.5 Hyperlipidemia, unspecified; I48.91 Unspecified atrial fibrillation
CPT/HCPCS: 36415; 80053; 83036; 84443; 85025; 86038

== ENCOUNTER 2023-09-17 10:52 | Emergency (ER) | payer MEDICARE, MEDICAID, SELFPAY ==
[2023-06-08 23:00] VITALS: BMI 26.6
[2023-09-17] VITALS (64 sets, daily range): BP systolic 84–106; BP diastolic 35–67; PULSE 96–124; RESP 11–32; TEMP 36.6; O2SAT 95–100
--- NOTE | 2023-09-17 10:53 | ED.SOB ---
HPI - SOB/Dyspnea <Graciela Howard, DO - Last Filed: 09/18/23 19:51> General Chief Complaint: Shortness of Breath/Dyspnea Stated Complaint: Difficulty Breathing Time Seen by Provider: 09/17/23 10:53 History of Present Illness HPI Narrative: Patient 82-year-old female with complicated history. Recently diagnosed with bilateral pulmonary embolism, in May return to the ED 4 days later where she then had a prolonged hospital stay June 08 through June 25. She was diagnosed with suspected pneumonia congestive heart failure, pulmonary hypertension, she actually has a PleurX catheter in on the left side. She was discharged home on hospice however today family revoked hospice stating that she was improving. EMS was called for possible increasing shortness of breath. Patient is unclear why she is here and would like us to ask her daughter. Upon arrival she was off her home oxygen of 3 L and was hypoxic in the 80s. EMS reports that they put her on her oxygen, and her oxygen improved. She was hypotensive slightly with the pressure 97/57 and tachycardic. She is on Eliquis for her PE she has multiple bruising all over. She has no complaints. Daughter is at bedside. She reports that she was discharged home on hospice but has really been doing well. She has got a for dex catheter on the left side but she reports that she has not needed to drain it at all. Today she says she got up to use the restroom which she does frequently being on Lasix which she tripped and fell. She is complaining of some left ankle pain. Daughter reports that she has been recovering pretty well. Once she fell though she revoked hospice so that she could come to the ED. Related Data Home Medications Medication Instructions Recorded Confirmed Acid Rehab Assistant (omeprazole) 20 mg PO AC reflux 06/09/23 09/17/23 albuterol sulfate 90 mcg/actuation 2 puff inhalation Q4-6H PRN 06/09/23 09/17/23 aerosol inhaler wheezing cyclobenzaprine 10 mg tablet 10 mg PO Q8HR PRN Muscle Spasm 06/09/23 09/17/23 sumatriptan succinate 100 mg 100 mg PO PRN PRN migraines 06/09/23 09/17/23 tablet (Imitrex) tramadol 100 mg PO Q8HR PRN Pain (Scale 06/09/23 09/17/23 Score 4-6) Orajel 3X Mouth Sores 10 ml PO 4XD PRN Analgesia 06/11/23 09/06/23 apixaban 5 mg tablet (Eliquis) 2.5 mg PO BID 09/04/23 09/17/23 metoprolol tartrate 25 mg tablet 37.5 mg PO DAILY 09/06/23 09/06/23 digoxin 125 mcg (0.125 mg) tablet 125 mcg PO DAILY 09/17/23 09/17/23 furosemide 20 mg tablet 60 mg PO BID 09/17/23 09/17/23 gabapentin 300 mg capsule 600 mg PO TID 09/17/23 09/17/23 guaifenesin 600 mg tablet, 600 - 1,200 mg PO BID PRN cough 09/17/23 09/17/23 extended release 12 hr hydrocodone 5 mg-acetaminophen 325 1 tab PO 4XD PRN Pain (Scale Score 09/17/23 09/17/23 mg tablet 7-10) spironolactone 25 mg tablet 25 mg PO DAILY 09/17/23 09/17/23 fluticasone 500 mcg-salmeterol 50 1 inh inhalation BID 09/18/23 09/18/23 mcg/dose blistr powdr for inhalation Previous Rx's Medication Instructions Recorded meclizine 25 mg tablet 25 mg PO TID PRN dizziness #90 tabs 05/20/20 budesonide 0.5 mg/2 mL suspension 0.5 mg (2 mL) inhalation BID #120 01/02/21 for nebulization mL Disabled Parking Permit See Rx Instructions .Route 03/19/23 .COMPLEX #1 unit potassium chloride 20 mEq 20 meq PO DAILY #30 tabs 05/24/23 tablet,extended release trazodone 50 mg tablet 50 mg PO BEDTIME #30 tabs 06/25/23 fluticasone 500 mcg-salmeterol 50 1 inh inhalation BID #60 ea 09/04/23 mcg/dose blistr powdr for inhalation Allergies Allergy/AdvReac Type Severity Reaction Status Date / Time Sulfa (Sulfonamide Allergy Severe RASH Verified 09/06/23 09:24 Antibiotics) [SULFA (SULFONAMIDE ANTIBIOTICS)] bee venom protein (honey bee) Allergy Intermediate Throat Verified 09/06/23 09:24 swelling and breathing problems alendronate sodium AdvReac Severe Intolerable Verified 09/06/23 09:24 heartburn paroxetine [PAROXETINE] AdvReac Intermediate agitated, Verified 09/06/23 09:24 anxious turmeric AdvReac Broke out Verified 09/06/23 09:24 in spots GAUZE Allergy Mild SEVERE Uncoded 09/06/23 09:24 RASH/ REDNESS Patient History <Graciela Howard DO - Last Filed: 09/18/23 19:51> Medical History Atrial fibrillation (2013) Chronic fatigue syndrome (~1992) Chronic pain COPD (chronic obstructive pulmonary disease) Depression Diaphragmatic hernia DJD of shoulder Elevated brain natriuretic peptide (BNP) level Elevated d-dimer Fibromyalgia (1992) Major 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 Migraines (1984) Mumps (1949) Osteoarthritis Osteopenia Osteoporosis (1989) Peripheral edema RLS (restless legs syndrome) Shortness of breath Surgical History Anesthesia History of bladder suspension procedure (1994) Other joint replacement by other means (1998) Previous back surgery (~12/17/22) S/P total abdominal hysterectomy and bilateral salpingo-oophorectomy (1964) Status post breast biopsy Family History Brother MVA (motor vehicle accident) Father CAD (coronary artery disease) Mother Pancreatic cancer Social History household members: none Smoking Status: Former smoker alcohol intake: never Exam <Graciela Howard DO - Last Filed: 09/18/23 19:51> Initial Vital Signs Initial Vital Signs: Vital Signs Blood Pressure 106/56 L 09/17/23 10:52 GENERAL: Alert chronically ill 82-year-old female, looks mildly pale HEENT: Head atraumatic,EOMI, pupils reactive, face symmetric, moist mucous membranes CARDIOVASCULAR: Regular rate and rhythm without murmurs, rubs or gallops. RESPIRATORY: Breath sounds equal bilaterally, no wheezes rales or rhonchi. ABDOMEN: Soft, nontender. Normoactive bowel sounds all 4 quadrants. No guarding or rebound. EXTREMITIES: Normal range of motion, no clubbing or edema. Neurovascularly intact Left lower extremity ankle tender bilateral contusions minimal edema distal pedal pulse present bilaterally NEUROLOGICAL: Alert and oriented x3. SKIN: Warm, dry, no laceration, no petechiae, no rashes or lesions. <Jerman Marshall, DO - Last Filed: 09/18/23 18:00> Initial Vital Signs Initial Vital Signs: Vital Signs Blood Pressure 106/56 L 09/17/23 10:52 Procedures <Graciela Howard, DO - Last Filed: 09/18/23 19:51> Orthopedic Splinting/Casting Injury #1: Lower Extremity Immobilizer: posterior splint and stirrup splint Post splinting neuro exam: intact Post splinting vascular exam: intact Placed by: Nursing Course <Graciela Howard, DO - Last Filed: 09/18/23 19:51> Orders Ordered: ED Orders 09/18/23 11:45 Respiratory Panel (Film Array) Stat 09/18/23 13:58 Digoxin Stat Hemoglobin and Hematocrit Stat Discontinued Medications Hydrocodone Bitart/Acetaminophen (Hydrocodone/Acet 5/325 Tablet) 1 tab PO NOW ONE Stop: 09/17/23 19:38 Last Admin: 09/17/23 20:13 Dose: 1 tab Documented By: DOUGLAS Hydrocodone Bitart/Acetaminophen (Hydrocodone/Acet 5/325 Tablet) 1 tab PO Q4H PRN PRN Reason: Pain, Moderate (4-6) Last Admin: 09/18/23 17:22 Dose: 1 tab Documented By: Admin: 09/18/23 09:54 Dose: 1 tab Documented By: RB Fentanyl (Fentanyl 100 Mcg/2 Ml Inj) 50 mcg IV NOW ONE Stop: 09/17/23 19:38 Last Admin: 09/17/23 19:44 Dose: 50 mcg Documented By: DOUGLAS Furosemide (Furosemide 40 Mg/4 Ml Vial) 40 mg IV NOW ONE Stop: 09/17/23 12:58 Last Admin: 09/17/23 13:08 Dose: 40 mg Documented By: BS Furosemide (Furosemide 40 Mg/4 Ml Vial) 40 mg IV NOW ONE Stop: 09/18/23 06:55 Last Admin: 09/18/23 08:06 Dose: 40 mg Documented By: RB Ceftriaxone Sodium 2,000 mg/ (Sodium Chloride) 100 mls @ 200 mls/hr IV NOW ONE Stop: 09/17/23 15:05 Last Infusion: 09/17/23 16:09 Dose: Infused Documented By: Admin: 09/17/23 15:35 Dose: 200 mls/hr Documented By: DOUGLAS Azithromycin 500 mg/ Dextrose 250 mls @ 250 mls/hr IV NOW ONE Stop: 09/17/23 15:05 Last Infusion: 09/17/23 17:53 Dose: Infused Documented By: Admin: 09/17/23 16:38 Dose: 250 mls/hr Documented By: ALEYDA Ceftriaxone Sodium 2,000 mg/ (Sodium Chloride) 100 mls @ 200 mls/hr IV NOW ONE Stop: 09/18/23 09:16 Last Infusion: 09/18/23 10:35 Dose: Infused Documented By: Admin: 09/18/23 09:54 Dose: 200 mls/hr Documented By: ANNA Azithromycin 500 mg/ Dextrose 250 mls @ 250 mls/hr IV NOW ONE Stop: 09/18/23 09:16 Last Infusion: 09/18/23 11:52 Dose: Infused Documented By: Admin: 09/18/23 10:40 Dose: 250 mls/hr Documented By: SYLVIA Morphine Sulfate (Morphine 2 Mg/Ml Inj) 2 mg IV NOW ONE Stop: 09/17/23 12:58 Last Admin: 09/17/23 13:08 Dose: 2 mg Documented By: DOUGLAS Morphine Sulfate (Morphine 2 Mg/Ml Inj) 2 mg IV Q2HR PRN PRN Reason: Pain, Moderate (4-6) Last Admin: 09/18/23 08:06 Dose: 2 mg Documented By: ANNA Ondansetron HCl (Ondansetron 4 Mg/2 Ml Inj) 4 mg IV NOW ONE Stop: 09/18/23 08:50 Last Admin: 09/18/23 09:04 Dose: 4 mg Documented By: ALEYDA Vital Signs Vital signs: Vital Signs - 8 hr 09/18/23 12:00 09/18/23 12:00 09/18/23 12:16 Temperature Pulse Rate 99 H Respiratory Rate 23 Blood Pressure 112/69 124/56 L Pulse Oximetry 100 Oxygen Delivery Method Oxygen Flow Rate 09/18/23 12:16 09/18/23 12:30 09/18/23 12:30 Temperature Pulse Rate 109 H 104 H Respiratory Rate 26 H 20 Blood Pressure 110/65 Pulse Oximetry 100 100 Oxygen Delivery Method Oxygen Flow Rate 09/18/23 12:45 09/18/23 12:45 09/18/23 13:00 Temperature Pulse Rate 102 H Respiratory Rate 22 Blood Pressure 111/66 111/58 L Pulse Oximetry 96 Oxygen Delivery Method Nasal Cannula Oxygen Flow Rate 3 09/18/23 13:00 09/18/23 13:15 09/18/23 13:15 Temperature Pulse Rate 95 H 104 H Respiratory Rate 19 23 Blood Pressure 109/68 Pulse Oximetry 96 98 Oxygen Delivery Method Nasal Cannula Nasal Cannula Oxygen Flow Rate 3 3 09/18/23 13:30 09/18/23 13:31 09/18/23 13:31 Temperature Pulse Rate 108 H 111 H Respiratory Rate 22 21 Blood Pressure 117/69 Pulse Oximetry 99 98 Oxygen Delivery Method Nasal Cannula Nasal Cannula Oxygen Flow Rate 3 3 09/18/23 13:45 09/18/23 13:45 09/18/23 14:00 Temperature Pulse Rate 109 H Respiratory Rate 21 Blood Pressure 114/60 100/50 L Pulse Oximetry 100 Oxygen Delivery Method Nasal Cannula Oxygen Flow Rate 3 09/18/23 14:00 09/18/23 14:15 09/18/23 14:15 Temperature Pulse Rate 100 H 96 H Respiratory Rate 23 20 Blood Pressure 101/55 L Pulse Oximetry 100 100 Oxygen Delivery Method Nasal Cannula Nasal Cannula Oxygen Flow Rate 3 3 09/18/23 14:30 09/18/23 14:30 09/18/23 14:45 Temperature Pulse Rate 99 H Respiratory Rate 21 Blood Pressure 103/56 L 109/50 L Pulse Oximetry 100 Oxygen Delivery Method Nasal Cannula Oxygen Flow Rate 3 09/18/23 14:45 09/18/23 15:00 09/18/23 15:00 Temperature Pulse Rate 104 H 110 H Respiratory Rate 20 18 Blood Pressure 104/59 L Pulse Oximetry 99 99 Oxygen Delivery Method Nasal Cannula Nasal Cannula Oxygen Flow Rate 3 3 09/18/23 15:15 09/18/23 15:15 09/18/23 15:30 Temperature Pulse Rate 102 H Respiratory Rate 20 Blood Pressure 110/54 L 109/55 L Pulse Oximetry 96 Oxygen Delivery Method Nasal Cannula Oxygen Flow Rate 3 09/18/23 15:30 09/18/23 15:45 09/18/23 15:45 Temperature Pulse Rate 103 H 102 H Respiratory Rate 20 20 Blood Pressure 111/58 L Pulse Oximetry 99 100 Oxygen Delivery Method Nasal Cannula Nasal Cannula Oxygen Flow Rate 3 3 09/18/23 16:00 09/18/23 16:00 09/18/23 16:16 Temperature Pulse Rate 106 H Respiratory Rate 22 Blood Pressure 95/51 L 107/53 L Pulse Oximetry 100 Oxygen Delivery Method Nasal Cannula Oxygen Flow Rate 3 09/18/23 16:16 09/18/23 16:30 09/18/23 16:30 Temperature Pulse Rate 113 H 106 H Respiratory Rate 22 22 Blood Pressure 110/54 L Pulse Oximetry 99 100 Oxygen Delivery Method Nasal Cannula Nasal Cannula Oxygen Flow Rate 3 3 09/18/23 16:45 09/18/23 16:45 09/18/23 17:00 Temperature 98.4 F Pulse Rate 111 H 113 H Respiratory Rate 20 28 H Blood Pressure 121/58 L Pulse Oximetry 100 95 Oxygen Delivery Method Nasal Cannula Nasal Cannula Oxygen Flow Rate 3 3 <Jerman Marshall DO - Last Filed: 09/18/23 18:00> Orders Ordered: ED Orders 09/18/23 11:45 Respiratory Panel (Film Array) Stat 09/18/23 13:58 Digoxin Stat Hemoglobin and Hematocrit Stat Discontinued Medications Hydrocodone Bitart/Acetaminophen (Hydrocodone/Acet 5/325 Tablet) 1 tab PO NOW ONE Stop: 09/17/23 19:38 Last Admin: 09/17/23 20:13 Dose: 1 tab Documented By: DOUGLAS Hydrocodone Bitart/Acetaminophen (Hydrocodone/Acet 5/325 Tablet) 1 tab PO Q4H PRN PRN Reason: Pain, Moderate (4-6) Last Admin: 09/18/23 17:22 Dose: 1 tab Documented By: Admin: 09/18/23 09:54 Dose: 1 tab Documented By: ANNA Fentanyl (Fentanyl 100 Mcg/2 Ml Inj) 50 mcg IV NOW ONE Stop: 09/17/23 19:38 Last Admin: 09/17/23 19:44 Dose: 50 mcg Documented By: DOUGLAS Furosemide (Furosemide 40 Mg/4 Ml Vial) 40 mg IV NOW ONE Stop: 09/17/23 12:58 Last Admin: 09/17/23 13:08 Dose: 40 mg Documented By: DOUGLAS Furosemide (Furosemide 40 Mg/4 Ml Vial) 40 mg IV NOW ONE Stop: 09/18/23 06:55 Last Admin: 09/18/23 08:06 Dose: 40 mg Documented By: ANNA Ceftriaxone Sodium 2,000 mg/ (Sodium Chloride) 100 mls @ 200 mls/hr IV NOW ONE Stop: 09/17/23 15:05 Last Infusion: 09/17/23 16:09 Dose: Infused Documented By: Admin: 09/17/23 15:35 Dose: 200 mls/hr Documented By: DOUGLAS Azithromycin 500 mg/ Dextrose 250 mls @ 250 mls/hr IV NOW ONE Stop: 09/17/23 15:05 Last Infusion: 09/17/23 17:53 Dose: Infused Documented By: Admin: 09/17/23 16:38 Dose: 250 mls/hr Documented By: ALEYDA Ceftriaxone Sodium 2,000 mg/ (Sodium Chloride) 100 mls @ 200 mls/hr IV NOW ONE Stop: 09/18/23 09:16 Last Infusion: 09/18/23 10:35 Dose: Infused Documented By: Admin: 09/18/23 09:54 Dose: 200 mls/hr Documented By: ANNA Azithromycin 500 mg/ Dextrose 250 mls @ 250 mls/hr IV NOW ONE Stop: 09/18/23 09:16 Last Infusion: 09/18/23 11:52 Dose: Infused Documented By: Admin: 09/18/23 10:40 Dose: 250 mls/hr Documented By: SYLVIA Morphine Sulfate (Morphine 2 Mg/Ml Inj) 2 mg IV NOW ONE Stop: 09/17/23 12:58 Last Admin: 09/17/23 13:08 Dose: 2 mg Documented By: DOUGLAS Morphine Sulfate (Morphine 2 Mg/Ml Inj) 2 mg IV Q2HR PRN PRN Reason: Pain, Moderate (4-6) Last Admin: 09/18/23 08:06 Dose: 2 mg Documented By: ANNA Ondansetron HCl (Ondansetron 4 Mg/2 Ml Inj) 4 mg IV NOW ONE Stop: 09/18/23 08:50 Last Admin: 09/18/23 09:04 Dose: 4 mg Documented By: ALEYDA Vital Signs Vital signs: Vital Signs - 8 hr 09/18/23 12:00 09/18/23 12:00 09/18/23 12:16 Temperature Pulse Rate 99 H Respiratory Rate 23 Blood Pressure 112/69 124/56 L Pulse Oximetry 100 Oxygen Delivery Method Oxygen Flow Rate 09/18/23 12:16 09/18/23 12:30 09/18/23 12:30 Temperature Pulse Rate 109 H 104 H Respiratory Rate 26 H 20 Blood Pressure 110/65 Pulse Oximetry 100 100 Oxygen Delivery Method Oxygen Flow Rate 09/18/23 12:45 09/18/23 12:45 09/18/23 13:00 Temperature Pulse Rate 102 H Respiratory Rate 22 Blood Pressure 111/66 111/58 L Pulse Oximetry 96 Oxygen Delivery Method Nasal Cannula Oxygen Flow Rate 3 09/18/23 13:00 09/18/23 13:15 09/18/23 13:15 Temperature Pulse Rate 95 H 104 H Respiratory Rate 19 23 Blood Pressure 109/68 Pulse Oximetry 96 98 Oxygen Delivery Method Nasal Cannula Nasal Cannula Oxygen Flow Rate 3 3 09/18/23 13:30 09/18/23 13:31 09/18/23 13:31 Temperature Pulse Rate 108 H 111 H Respiratory Rate 22 21 Blood Pressure 117/69 Pulse Oximetry 99 98 Oxygen Delivery Method Nasal Cannula Nasal Cannula Oxygen Flow Rate 3 3 09/18/23 13:45 09/18/23 13:45 09/18/23 14:00 Temperature Pulse Rate 109 H Respiratory Rate 21 Blood Pressure 114/60 100/50 L Pulse Oximetry 100 Oxygen Delivery Method Nasal Cannula Oxygen Flow Rate 3 09/18/23 14:00 09/18/23 14:15 09/18/23 14:15 Temperature Pulse Rate 100 H 96 H Respiratory Rate 23 20 Blood Pressure 101/55 L Pulse Oximetry 100 100 Oxygen Delivery Method Nasal Cannula Nasal Cannula Oxygen Flow Rate 3 3 09/18/23 14:30 09/18/23 14:30 09/18/23 14:45 Temperature Pulse Rate 99 H Respiratory Rate 21 Blood Pressure 103/56 L 109/50 L Pulse Oximetry 100 Oxygen Delivery Method Nasal Cannula Oxygen Flow Rate 3 09/18/23 14:45 09/18/23 15:00 09/18/23 15:00 Temperature Pulse Rate 104 H 110 H Respiratory Rate 20 18 Blood Pressure 104/59 L Pulse Oximetry 99 99 Oxygen Delivery Method Nasal Cannula Nasal Cannula Oxygen Flow Rate 3 3 09/18/23 15:15 09/18/23 15:15 09/18/23 15:30 Temperature Pulse Rate 102 H Respiratory Rate 20 Blood Pressure 110/54 L 109/55 L Pulse Oximetry 96 Oxygen Delivery Method Nasal Cannula Oxygen Flow Rate 3 09/18/23 15:30 09/18/23 15:45 09/18/23 15:45 Temperature Pulse Rate 103 H 102 H Respiratory Rate 20 20 Blood Pressure 111/58 L Pulse Oximetry 99 100 Oxygen Delivery Method Nasal Cannula Nasal Cannula Oxygen Flow Rate 3 3 09/18/23 16:00 09/18/23 16:00 09/18/23 16:16 Temperature Pulse Rate 106 H Respiratory Rate 22 Blood Pressure 95/51 L 107/53 L Pulse Oximetry 100 Oxygen Delivery Method Nasal Cannula Oxygen Flow Rate 3 09/18/23 16:16 09/18/23 16:30 09/18/23 16:30 Temperature Pulse Rate 113 H 106 H Respiratory Rate 22 22 Blood Pressure 110/54 L Pulse Oximetry 99 100 Oxygen Delivery Method Nasal Cannula Nasal Cannula Oxygen Flow Rate 3 3 09/18/23 16:45 09/18/23 16:45 09/18/23 17:00 Temperature 98.4 F Pulse Rate 111 H 113 H Respiratory Rate 20 28 H Blood Pressure 121/58 L Pulse Oximetry 100 95 Oxygen Delivery Method Nasal Cannula Nasal Cannula Oxygen Flow Rate 3 3 MDM - SOB/Dyspnea <Graciela Howard, DO - Last Filed: 09/18/23 19:51> Lab Data 09/18/23 13:58 09/18/23 03:50 Labs: Lab Results 09/17/23 09/17/23 09/18/23 Range/Units 11:02 13:48 03:50 WBC 19.7 H 16.7 H (4.5-11.0) X10^3/uL RBC 2.85 L 2.66 L (4.0-5.2) X10^6/uL Hgb 8.2 L 7.2 L (12.0-16.0) g/dL Hct 25.6 L 23.4 L (36-46) % MCV 89.5 88.0 (80-100) fL MCH 28.6 27.2 (26-34) PG MCHC 31.9 30.9 (30-36) % RDW 18.2 H 18.6 H (11.6-14.8) % Plt Count 345 299 (150-400) X10^3/uL Neut % (Auto) 84.2 H 81.6 H (50-75) % Lymph % (Auto) 9.5 L 11.3 L (25-40) % [place] % (Auto) 5.2 5.3 (3-14) % Eos % (Auto) 0.2 L 0.4 L (2-4) % Baso % (Auto) 0.9 1.4 (0-2) % Neut # (Auto) 55812 H 86336 H (5359-8988) /uL Lymph # (Auto) 1900 1900 (6668-6252) /uL [place] # (Auto) 1000 H 900 (0-900) /uL Eos # (Auto) 0 100 (0-450) /uL Baso # (Auto) 200 H 200 H (0-100) /uL PT 22.7 H (9.4-12.5) SECONDS INR 2.0 H (0.9-1.3) APTT 28 (25.1-36.5) SECONDS Sodium 131 L 131 L (137-145) mmol/L Potassium 4.8 4.0 (3.4-5.1) mmol/L Chloride 91 L 93 L (98-107) mmol/L Carbon Dioxide 33 H 35 H (22-32) mmol/L BUN 18 H 18 H (7-17) mg/dL Creatinine 0.86 0.72 (0.52-1.04) mg/dL Estimated GFR > 60 > 60 (>60) mL/min BUN/Creatinine Ratio 20.9 25.0 H (6-22) Glucose 109 104 (80-110) mg/dL Calcium 9.4 8.8 (8.4-10.2) mg/dL Total Bilirubin 0.7 (0.2-1.3) mg/dL AST 61 H (14-36) IU/L ALT 39 H (<35) IU/L Alkaline Phosphatase 112 (38-126) U/L Total Creatine Kinase 67 39 (30-135) U/L Troponin I 0.610 H* 0.814 H* 0.532 H* (0.01-0.034) ng/mL NT-Pro-B Natriuret Pep 9620 H (<450) pg/mL Total Protein 6.2 L (6.3-8.2) g/dL Albumin 3.3 L (3.5-5.0) g/dL Globulin 2.9 (1.7-4.1) g/dL Albumin/Globulin Ratio 1.1 (1.0-2.8) Lipase 28 (23-300) U/L Digoxin (0.8-2.0) ng/mL Chlamy pneumoniae PCR (Not Detect) Adenovirus (PCR) (Not Detect) B.parapertussis DNA PCR (Not Detecte) Coronavirus OC43 (PCR) (Not Detect) Coronavirus HKU1 (PCR) (Not Detect) Coronavirus 229E (PCR) (Not Detect) SARS-CoV-2 (PCR) (Not Detecte) Coronavirus NL63 (PCR) (Not Detect) Human Metapneumovir PCR (Not Detect) Influenza Type A (PCR) (Not Detect) Influenza Type B (PCR) (Not Detect) M. pneumoniae (PCR) (Not Detect) Parainfluenza 1 (PCR) (Not Detect) Parainfluenza 2 (PCR) (Not Detect) Parainfluenza 3 (PCR) (Not Detect) Parainfluenza 4 (PCR) (Not Detect) RSV (PCR) (Not Detect) Entero/Rhino (PCR) (Not Detect) Blood Type Antibody Screen Crossmatch 09/18/23 09/18/23 09/18/23 Range/Units 07:20 11:45 13:58 WBC (4.5-11.0) X10^3/uL RBC (4.0-5.2) X10^6/uL Hgb 9.8 L (12.0-16.0) g/dL Hct 30.1 L (36-46) % MCV (80-100) fL MCH (26-34) PG MCHC (30-36) % RDW (11.6-14.8) % Plt Count (150-400) X10^3/uL Neut % (Auto) (50-75) % Lymph % (Auto) (25-40) % [place] % (Auto) (3-14) % Eos % (Auto) (2-4) % Baso % (Auto) (0-2) % Neut # (Auto) (7595-5415) /uL Lymph # (Auto) (1367-4460) /uL [place] # (Auto) (0-900) /uL Eos # (Auto) (0-450) /uL Baso # (Auto) (0-100) /uL PT (9.4-12.5) SECONDS INR (0.9-1.3) APTT (25.1-36.5) SECONDS Sodium (137-145) mmol/L Potassium (3.4-5.1) mmol/L Chloride (98-107) mmol/L Carbon Dioxide (22-32) mmol/L BUN (7-17) mg/dL Creatinine (0.52-1.04) mg/dL Estimated GFR (>60) mL/min BUN/Creatinine Ratio (6-22) Glucose (80-110) mg/dL Calcium (8.4-10.2) mg/dL Total Bilirubin (0.2-1.3) mg/dL AST (14-36) IU/L ALT (<35) IU/L Alkaline Phosphatase (38-126) U/L Total Creatine Kinase (30-135) U/L Troponin I (0.01-0.034) ng/mL NT-Pro-B Natriuret Pep (<450) pg/mL Total Protein (6.3-8.2) g/dL Albumin (3.5-5.0) g/dL Globulin (1.7-4.1) g/dL Albumin/Globulin Ratio (1.0-2.8) Lipase (23-300) U/L Digoxin < 0.4 L (0.8-2.0) ng/mL Chlamy pneumoniae PCR Not detected (Not Detect) Adenovirus (PCR) Not detected (Not Detect) B.parapertussis DNA PCR Not detected (Not Detecte) Coronavirus OC43 (PCR) Not detected (Not Detect) Coronavirus HKU1 (PCR) Not detected (Not Detect) Coronavirus 229E (PCR) Not detected (Not Detect) SARS-CoV-2 (PCR) Not detected (Not Detecte) Coronavirus NL63 (PCR) Not detected (Not Detect) Human Metapneumovir PCR Not detected (Not Detect) Influenza Type A (PCR) Not detected (Not Detect) Influenza Type B (PCR) Not detected (Not Detect) M. pneumoniae (PCR) Not detected (Not Detect) Parainfluenza 1 (PCR) Not detected (Not Detect) Parainfluenza 2 (PCR) Not detected (Not Detect) Parainfluenza 3 (PCR) Not detected (Not Detect) Parainfluenza 4 (PCR) Not detected (Not Detect) RSV (PCR) Not detected (Not Detect) Entero/Rhino (PCR) Not detected (Not Detect) Blood Type O Positive Antibody Screen Negative Crossmatch See Detail Imaging Data Chest x-ray: Radiologist's Impression: PROCEDURE: XR CHEST 1V INDICATIONS: short of breath TECHNIQUE: One view of the chest was acquired. COMPARISON: [facility], CR, XR CHEST 1V, 06/25/2023, 17:36. FINDINGS: Surgical changes and devices: The right PICC has been removed. There is a new left thoracostomy tube, the tip of which is projected over the left apex. Lungs and pleura: There is likely a trace right pleural effusion tracking along the oblique fissure and at the right pericolic gutter. There is a small left pleural effusion. No pneumothorax. Mediastinum: Mediastinal contours appear normal. Heart size is normal. Bones and chest wall: No suspicious bony lesions. Overlying soft tissues appear unremarkable. IMPRESSION: Trace right effusion and small left effusion. Dictated by: Fifi Hernandez M.D. on 09/17/2023 at 11:45 Extremity x-ray #1: Radiologist's Impression: PROCEDURE: XR ANKLE LT MIN 3V INDICATIONS: fall, swelling, ecchymosis TECHNIQUE: 3 views of the ankle were acquired. COMPARISON: None. FINDINGS: Bones: There is a displaced medial malleolar fracture and a comminuted, displaced lateral malleolar fracture. There is likely widening of the lateral aspect of the mortise joint. Soft tissues: There is a tibiotalar joint effusion and lateral malleolar soft tissue swelling. IMPRESSION: Displaced, bimalleolar fracture with widening at the mortise joint. Dictated by: Fifi Hernandez M.D. on 09/17/2023 at 12:12 CT scan - chest: Radiologist's Impression: PROCEDURE: CT ANGIO CHEST PE PROTOCOL INDICATIONS: prior pe, hypoxia TECHNIQUE: After the administration of intravenous contrast, 2 mm thick sections acquired from the pulmonary apices to the posterior costophrenic angles. 3-dimensional maximum intensity projection (MIP) coronal and sagittal reformats were then acquired through the thorax. For radiation dose reduction, the following was used: automated exposure control, adjustment of mA and/or kV according to patient size. COMPARISON: [facility], CT, CT ANGIO CHEST ABDOMEN PELVIS, 06/20/2023, 10:10. FINDINGS: Image quality: Diagnostic. Pulmonary arteries: There is adherent filling defect along the wall of the left lower lobe pulmonary artery consistent with chronic adherent clot. At its distal aspect, it occludes, possibly secondary to dense collapse of the left lower lobe. There is moderate left pleural fluid with a subpulmonic component. No right-sided pulmonary emboli. Lower Neck: No enlarged lymph nodes. Thyroid: No thyroid nodules which require sonographic follow up, per consensus guidelines. Axillae: No enlarged lymph nodes. Chest Wall: Unremarkable. Bones: Old upper thoracic compression. Lungs and Pleura: Dense collapse of the left lower lobe. Moderate left pleural fluid with a subpulmonic component. Small right pleural effusion with minimal right basilar atelectasis. Patchy consolidation, right middle lobe. Heart: Cardiomegaly. No pericardial effusion. Moderately severe LAD calcifications. Thoracic Vessels: No aortic aneurysm. Mediastinum and Afia: No enlarged lymph nodes. Esophagus: No wall thickening. No hiatal hernia. Upper Abdomen: Visualized upper abdomen solid organs and bowel loops appear normal. IMPRESSION: 1. There is chronic minimal pulmonary embolus involving the left lower lobe pulmonary artery with wall it here in clot, nonocclusive. The basilar segment pulmonary arteries occluded distally, possibly secondary to dense collapse of the left lower lobe. 2. Dense collapse of the left lower lobe. 3. Moderate left pleural effusion with subpulmonic component. 4. Small right pleural effusion with right basilar atelectasis. 5. Patchy pneumonia, right middle lobe. Dictated by: Tunde Andrews M.D. on 09/17/2023 at 14:04 ECG Data Interpretation: EKG 1. Sinus tachycardia rate 105 OH interval 188 QRS [address] changes EKG 2. Sinus rhythm rate [address] changes MDM Narrative Medical decision making narrative: Patient 82-year-old female with multiple comorbidities presenting today with ground level fall. She was admitted to hospice however daughter felt that she has been improving over the last couple of months. She actually reports that they are draining her PleurX catheter every couple of days and they have been doing so. Today she got up to use the restroom she tripped and fell. She is found to have a bimalleolar ankle fracture. Blood work reviewed: Leukocytosis 19.7, previously 23.8, anemia hemoglobin 8.2 with hematocrit 25.6, previously 9.4 and 30 respectively, INR 2.0, sodium 131, potassium 4.8, chloride 91, carbon dioxide 33, BUN 18 AST 61, ALT 39, alk-phos 112, bilirubin 0.7, troponin 0.610--> 0.814, BNP 9620 Imaging: Head CT negative, chest x-ray bright trace effusion, left small effusion, ankle x-ray displaced bimalleolar fracture widening of the mortise joint, CT angio chest does show chronic minimal pulmonary embolus in left lower lobe, nonocclusive, dense collapse of left lower lobe, moderate left pleural effusion with some pulmonic component, small right pleural effusion right basilar atelectasis, patchy pneumonia middle right lobe Patient very complicated was in hospice earlier today however due to fall hospice was revoked she is brought to the ED. She is found to have left bimalleolar ankle fracture elevated troponin consistent with congestive heart failure and anemia. She has a PleurX catheter we were able to drain off 500 cc in the ED using her own supplies. Her blood pressure actually improved after the drainage of fluid. She chronically requires oxygen. Discussed case with Dr. Ball hospitalist. He reports that if orthopedics is to do surgery on her ankle she would need to go somewhere with Cardiology has she has multiple comorbidities. Dr. [facility] updated on symptoms and test results states that patient will likely need surgery if she wants to walk Dr. Arellano while on-call for Cardiology agrees with transfer with elevated troponin and multiple issues. Agrees with diuresis as well. Long discussion with patient and daughter. Multiple comorbidities was recently on hospice. Now has a congestive heart failure exacerbation which I suspect is why there is slight elevation in troponin. She has no EKG changes. She also likely has a pneumonia she is got leukocytosis of 19 and a patchy infiltrate on the right side. Blood pressure has remained soft in the ED between systolic of 90 and 100. Daughter states that her baseline blood pressure is about 105-110. Blood pressure did improve after pleural effusion was drained. Patient and family agree to no intubation and no chest compressions. But ultimately would like surgery and treatment. Lockhart catheter placed she received Lasix. She is given antibiotics Rocephin and azithromycin for possible pneumonia. Dr. Quick hospitalist at [facility] has been updated patient's symptoms test results. States that she will accept the patient. Not guarantee that patient will have surgery during this admission. Awaiting bed placement, which may be a long wait she is on multiple other lists as well Patient signed out to Dr. Joanna marshall: Received turned over. To be patient's history and physical and workup up to this point. Patient has been stable overnight. Her troponin is downtrending. Patient has had a decrease in her hemoglobin and hematocrit but no any signs of active bleeding. There has been no movement on potential transfer. Care transferred back to Dr. Howard the change of shift to continue to evaluate until disposition could be met. Dr. Howard: Patient signed out to me by Dr. Marshall seen evaluated patient myself. She remains hypotensive but stable throughout the night. Hemoglobin lower today 7.2 with elevated troponin hypotension reasonable to transfuse 1 unit of blood. She is able to eat breakfast this morning. Actually discuss case with ethics if patient wants to attempt to have surgery for her ankle seems reasonable to pursue that pass. Patient family both understand that she may or may not be a good surgical candidate. Due to severity of disease we are unable to keep her at this hospital. Her pain for ankle is well-controlled. Dr. Ruvalcaba accepts patient to [facility] <Jerman Marshall, DO - Last Filed: 09/18/23 18:00> Lab Data Labs: Lab Results 09/17/23 09/17/23 09/18/23 Range/Units 11:02 13:48 03:50 WBC 19.7 H 16.7 H (4.5-11.0) X10^3/uL RBC 2.85 L 2.66 L (4.0-5.2) X10^6/uL Hgb 8.2 L 7.2 L (12.0-16.0) g/dL Hct 25.6 L 23.4 L (36-46) % MCV 89.5 88.0 (80-100) fL MCH 28.6 27.2 (26-34) PG MCHC 31.9 30.9 (30-36) % RDW 18.2 H 18.6 H (11.6-14.8) % Plt Count 345 299 (150-400) X10^3/uL Neut % (Auto) 84.2 H 81.6 H (50-75) % Lymph % (Auto) 9.5 L 11.3 L (25-40) % [place] % (Auto) 5.2 5.3 (3-14) % Eos % (Auto) 0.2 L 0.4 L (2-4) % Baso % (Auto) 0.9 1.4 (0-2) % Neut # (Auto) 74945 H 95844 H (4728-8425) /uL Lymph # (Auto) 1900 1900 (4772-6462) /uL [place] # (Auto) 1000 H 900 (0-900) /uL Eos # (Auto) 0 100 (0-450) /uL Baso # (Auto) 200 H 200 H (0-100) /uL PT 22.7 H (9.4-12.5) SECONDS INR 2.0 H (0.9-1.3) APTT 28 (25.1-36.5) SECONDS Sodium 131 L 131 L (137-145) mmol/L Potassium 4.8 4.0 (3.4-5.1) mmol/L Chloride 91 L 93 L (98-107) mmol/L Carbon Dioxide 33 H 35 H (22-32) mmol/L BUN 18 H 18 H (7-17) mg/dL Creatinine 0.86 0.72 (0.52-1.04) mg/dL Estimated GFR > 60 > 60 (>60) mL/min BUN/Creatinine Ratio 20.9 25.0 H (6-22) Glucose 109 104 (80-110) mg/dL Calcium 9.4 8.8 (8.4-10.2) mg/dL Total Bilirubin 0.7 (0.2-1.3) mg/dL AST 61 H (14-36) IU/L ALT 39 H (<35) IU/L Alkaline Phosphatase 112 (38-126) U/L Total Creatine Kinase 67 39 (30-135) U/L Troponin I 0.610 H* 0.814 H* 0.532 H* (0.01-0.034) ng/mL NT-Pro-B Natriuret Pep 9620 H (<450) pg/mL Total Protein 6.2 L (6.3-8.2) g/dL Albumin 3.3 L (3.5-5.0) g/dL Globulin 2.9 (1.7-4.1) g/dL Albumin/Globulin Ratio 1.1 (1.0-2.8) Lipase 28 (23-300) U/L Digoxin (0.8-2.0) ng/mL Chlamy pneumoniae PCR (Not Detect) Adenovirus (PCR) (Not Detect) B.parapertussis DNA PCR (Not Detecte) Coronavirus OC43 (PCR) (Not Detect) Coronavirus HKU1 (PCR) (Not Detect) Coronavirus 229E (PCR) (Not Detect) SARS-CoV-2 (PCR) (Not Detecte) Coronavirus NL63 (PCR) (Not Detect) Human Metapneumovir PCR (Not Detect) Influenza Type A (PCR) (Not Detect) Influenza Type B (PCR) (Not Detect) M. pneumoniae (PCR) (Not Detect) Parainfluenza 1 (PCR) (Not Detect) Parainfluenza 2 (PCR) (Not Detect) Parainfluenza 3 (PCR) (Not Detect) Parainfluenza 4 (PCR) (Not Detect) RSV (PCR) (Not Detect) Entero/Rhino (PCR) (Not Detect) Blood Type Antibody Screen Crossmatch 09/18/23 09/18/23 09/18/23 Range/Units 07:20 11:45 13:58 WBC (4.5-11.0) X10^3/uL RBC (4.0-5.2) X10^6/uL Hgb 9.8 L (12.0-16.0) g/dL Hct 30.1 L (36-46) % MCV (80-100) fL MCH (26-34) PG MCHC (30-36) % RDW (11.6-14.8) % Plt Count (150-400) X10^3/uL Neut % (Auto) (50-75) % Lymph % (Auto) (25-40) % [place] % (Auto) (3-14) % Eos % (Auto) (2-4) % Baso % (Auto) (0-2) % Neut # (Auto) (8224-9754) /uL Lymph # (Auto) (3155-8284) /uL [place] # (Auto) (0-900) /uL Eos # (Auto) (0-450) /uL Baso # (Auto) (0-100) /uL PT (9.4-12.5) SECONDS INR (0.9-1.3) APTT (25.1-36.5) SECONDS Sodium (137-145) mmol/L Potassium (3.4-5.1) mmol/L Chloride (98-107) mmol/L Carbon Dioxide (22-32) mmol/L BUN (7-17) mg/dL Creatinine (0.52-1.04) mg/dL Estimated GFR (>60) mL/min BUN/Creatinine Ratio (6-22) Glucose (80-110) mg/dL Calcium (8.4-10.2) mg/dL Total Bilirubin (0.2-1.3) mg/dL AST (14-36) IU/L ALT (<35) IU/L Alkaline Phosphatase (38-126) U/L Total Creatine Kinase (30-135) U/L Troponin I (0.01-0.034) ng/mL NT-Pro-B Natriuret Pep (<450) pg/mL Total Protein (6.3-8.2) g/dL Albumin (3.5-5.0) g/dL Globulin (1.7-4.1) g/dL Albumin/Globulin Ratio (1.0-2.8) Lipase (23-300) U/L Digoxin < 0.4 L (0.8-2.0) ng/mL Chlamy pneumoniae PCR Not detected (Not Detect) Adenovirus (PCR) Not detected (Not Detect) B.parapertussis DNA PCR Not detected (Not Detecte) Coronavirus OC43 (PCR) Not detected (Not Detect) Coronavirus HKU1 (PCR) Not detected (Not Detect) Coronavirus 229E (PCR) Not detected (Not Detect) SARS-CoV-2 (PCR) Not detected (Not Detecte) Coronavirus NL63 (PCR) Not detected (Not Detect) Human Metapneumovir PCR Not detected (Not Detect) Influenza Type A (PCR) Not detected (Not Detect) Influenza Type B (PCR) Not detected (Not Detect) M. pneumoniae (PCR) Not detected (Not Detect) Parainfluenza 1 (PCR) Not detected (Not Detect) Parainfluenza 2 (PCR) Not detected (Not Detect) Parainfluenza 3 (PCR) Not detected (Not Detect) Parainfluenza 4 (PCR) Not detected (Not Detect) RSV (PCR) Not detected (Not Detect) Entero/Rhino (PCR) Not detected (Not Detect) Blood Type O Positive Antibody Screen Negative Crossmatch See Detail MDM Narrative Medical decision making narrative: Patient 82-year-old female with multiple comorbidities presenting today with ground level fall. She was admitted to hospice however daughter felt that she has been improving over the last couple of months. She actually reports that they are draining her PleurX catheter every couple of days and they have been doing so. Today she got up to use the restroom she tripped and fell. She is found to have a bimalleolar ankle fracture. Blood work reviewed: Leukocytosis 19.7, previously 23.8, anemia hemoglobin 8.2 with hematocrit 25.6, previously 9.4 and 30 respectively, INR 2.0, sodium 131, potassium 4.8, chloride 91, carbon dioxide 33, BUN 18 AST 61, ALT 39, alk-phos 112, bilirubin 0.7, troponin 0.610--> 0.814, BNP 9620 Imaging: Head CT negative, chest x-ray bright trace effusion, left small effusion, ankle x-ray displaced bimalleolar fracture widening of the mortise joint, CT angio chest does show chronic minimal pulmonary embolus in left lower lobe, nonocclusive, dense collapse of left lower lobe, moderate left pleural effusion with some pulmonic component, small right pleural effusion right basilar atelectasis, patchy pneumonia middle right lobe Patient very complicated was in hospice earlier today however due to fall hospice was revoked she is brought to the ED. She is found to have left bimalleolar ankle fracture elevated troponin consistent with congestive heart failure and anemia. She has a PleurX catheter we were able to drain off 500 cc in the ED using her own supplies. Her blood pressure actually improved after the drainage of fluid. She chronically requires oxygen. Discussed case with Dr. Ball hospitalist. He reports that if orthopedics is to do surgery on her ankle she would need to go somewhere with Cardiology has she has multiple comorbidities. Dr. [facility] updated on symptoms and test results states that patient will likely need surgery if she wants to walk Dr. Arellano while on-call for Cardiology agrees with transfer with elevated troponin and multiple issues. Agrees with diuresis as well. Long discussion with patient and daughter. Multiple comorbidities was recently on hospice. Now has a congestive heart failure exacerbation which I suspect is why there is slight elevation in troponin. She has no EKG changes. She also likely has a pneumonia she is got leukocytosis of 19 and a patchy infiltrate on the right side. Blood pressure has remained soft in the ED between systolic of 90 and 100. Daughter states that her baseline blood pressure is about 105-110. Blood pressure did improve after pleural effusion was drained. Patient and family agree to no intubation and no chest compressions. But ultimately would like surgery and treatment. Lockhart catheter placed she received Lasix. She is given antibiotics Rocephin and azithromycin for possible pneumonia. Dr. Quick hospitalist at [facility] has been updated patient's symptoms test results. States that she will accept the patient. Not guarantee that patient will have surgery during this admission. Awaiting bed placement, which may be a long wait she is on multiple other lists as well Patient signed out to Dr. Joanna marshall: Received turned over. To be patient's history and physical and workup up to this point. Patient has been stable overnight. Her troponin is downtrending. Patient has had a decrease in her hemoglobin and hematocrit but no any signs of active bleeding. There has been no movement on potential transfer. Care transferred back to Dr. Howard the change of shift to continue to evaluate until disposition could be met. Critical Care Time <Graciela Howard, DO - Last Filed: 09/18/23 19:51> Critical Care Time Critical Care Time: Yes Total Critical Care Time: 62 Attestation: The high probability of a clinically significant, sudden or life threatening deterioration of the [cardiovascular] system(s) required my full and direct attention, intervention and personal management. The aggregate critical care time was 62 minutes. This time is in addition to time spent performing reported procedures but includes the following: [x] Data Review and interpretation [x] Patient assessment and monitoring of vital signs [x] Documentation [x] Medication orders and management Discharge Plan Departure Patient Disposition: Xfer [facility] Clinical Impression: CHF (congestive heart failure), Anemia, Elevated troponin, Ankle fracture, left Prescriptions: No Action potassium chloride 20 mEq tablet extended release 20 meq PO DAILY Qty: 30 1RF budesonide 0.5 mg/2 mL suspension for nebulization 0.5 mg inhalation BID Qty: 120 11RF Disabled Parking Permit See Rx Instructions .ROUTE .COMPLEX Qty: 1 0RF Rx Instructions: I find this patient to be medically disabled and qualify for disabled parking as indicated and signed on the accompanying disabled parking application for individuals. metoprolol tartrate 25 mg tablet 37.5 mg PO DAILY Rx Instructions: APPT NEEDED WITH NEW PCP ALFREDO/BEFORE END OF RX + FUTURE FILLS. PLEASE CALL CLINIC TO SCHEDULE. THANK YOU 07/09/23. meclizine 25 mg tablet 25 mg PO TID PRN (Reason: dizziness) Qty: 90 0RF Hold Instructions: Sporadic use cyclobenzaprine 10 mg tablet 10 mg PO Q8HR PRN (Reason: Muscle Spasm) tramadol tablet 100 mg PO Q8HR PRN (Reason: Pain (Scale Score 4-6)) albuterol sulfate 90 mcg/actuation HFA aerosol inhaler 2 puff inhalation Q4-6H PRN (Reason: wheezing) Acid Rehab Assistant (omeprazole) capsule 20 mg PO AC sumatriptan succinate [Imitrex] 100 mg tablet 100 mg PO PRN PRN (Reason: migraines) Rx Instructions: Take 1/2 to 1 tablet by mouth at onset of headache. May repeat one dose in 2 hours as needed. Orajel 3X Mouth Sores 10 ml PO 4XD PRN (Reason: Analgesia) Rx Instructions: up to 4x/day after meals and at bedtime trazodone 50 mg Tablet 50 mg PO BEDTIME Qty: 30 0RF gabapentin 300 mg capsule 600 mg PO TID furosemide 20 mg tablet 60 mg PO BID hydrocodone-acetaminophen 5-325 mg tablet 1 tab PO 4XD PRN (Reason: Pain (Scale Score 7-10)) spironolactone 25 mg tablet 25 mg PO DAILY digoxin 125 mcg (0.125 mg) tablet 125 mcg PO DAILY guaifenesin 600 mg tablet extended release 12hr 600 - 1,200 mg PO BID PRN (Reason: cough) fluticasone propion-salmeterol 500-50 mcg/dose Blister With Device 1 inh INHALATION BID Eliquis 5 mg tablet 2.5 mg PO BID fluticasone propion-salmeterol 500-50 mcg/dose blister with device 1 inh inhalation BID Qty: 60 11RF Rx Instructions: rinse mouth with water, gargle and spit after each use Referrals: Maday Gross, [Primary Care Provider] -
--- NOTE | 2023-09-17 11:04 | DI.CT.S_ITS ---
PROCEDURE: CT HEAD/BRAIN WO CON INDICATIONS: fall on eliquis TECHNIQUE: Noncontrast 4.5 mm thick angled axial sections acquired from the foramen magnum to the vertex, with coronal and sagittal reformats. For radiation dose reduction, the following was used: automated exposure control, adjustment of mA and/or kV according to patient size. COMPARISON: None. FINDINGS: Image quality: Diagnostic, with note made of motion artifact. CSF spaces: Basal cisterns are patent. No extra-axial fluid collections. The ventricles are symmetric in size and shape. Brain: No intracranial bleeds or masses. There is cerebral volume loss for age, with resultant ventricular and sulcal prominence. There are periventricular and deep white matter chronic small vessel ischemic changes. There is intracranial internal carotid artery atherosclerosis. Skull and face: Calvarium and visualized facial bones appear intact, without suspicious lesions. Sinuses: Visualized sinuses and mastoids are clear. IMPRESSION: No acute intracranial hemorrhage is seen. No acute intracranial pathology. Dictated by: Osmani Valdivia M.D. on 09/17/2023 at 10:47 Approved by: Osmani Valdivia M.D. on 09/17/2023 at 10:48
--- NOTE | 2023-09-17 11:05 | DI.RAD.S_ITS ---
PROCEDURE: XR CHEST 1V INDICATIONS: short of breath TECHNIQUE: One view of the chest was acquired. COMPARISON: [facility], CR, XR CHEST 1V, 06/25/2023, 17:36. FINDINGS: Surgical changes and devices: The right PICC has been removed. There is a new left thoracostomy tube, the tip of which is projected over the left apex. Lungs and pleura: There is likely a trace right pleural effusion tracking along the oblique fissure and at the right pericolic gutter. There is a small left pleural effusion. No pneumothorax. Mediastinum: Mediastinal contours appear normal. Heart size is normal. Bones and chest wall: No suspicious bony lesions. Overlying soft tissues appear unremarkable. IMPRESSION: Trace right effusion and small left effusion. Dictated by: Fifi Hernandez M.D. on 09/17/2023 at 11:45 Approved by: Fifi Hernandez M.D. on 09/17/2023 at 11:46
[2023-09-17 11:15] LABS: Add Manual Diff / Slide Review NO; Basophils Absolute Auto 200 /uL (0-100); Basophils Percent Auto 0.9 % (0-2); Eosinophils Absolute Auto 0 /uL (0-450); Eosinophils Percent Auto 0.2 % (2-4); Hematocrit 25.6 % (36-46); Hemoglobin 8.2 g/dL (12.0-16.0); Lymphocytes Absolute Auto 1900 /uL (1100-4500); Lymphocytes Percent Auto 9.5 % (25-40); Mean Corpuscular HGB Conc 31.9 % (30-36); Mean Corpuscular Hemoglobin 28.6 PG (26-34); Mean Corpuscular Volume 89.5 fL (80-100); Monocytes Absolute Auto 1000 /uL (0-900); Monocytes Percent Auto 5.2 % (3-14); Neutrophils Absolute Auto 16600 /uL (1500-7000); Neutrophils Percent Auto 84.2 % (50-75); Platelet Count 345 X10^3/uL (150-400); Red Blood Cell Count 2.85 X10^6/uL (4.0-5.2); Red Cell Distribution Width 18.2 % (11.6-14.8); White Blood Cell Count 19.7 X10^3/uL (4.5-11.0)
[2023-09-17 11:22] LABS: Prothrombin Time 22.7 SECONDS (9.4-12.5)
[2023-09-17 11:24] LABS: PTT Partial Thromboplastin Tim 28 SECONDS (25.1-36.5)
--- NOTE | 2023-09-17 11:24 | DI.RAD.S_ITS ---
PROCEDURE: XR ANKLE LT MIN 3V INDICATIONS: fall, swelling, ecchymosis TECHNIQUE: 3 views of the ankle were acquired. COMPARISON: None. FINDINGS: Bones: There is a displaced medial malleolar fracture and a comminuted, displaced lateral malleolar fracture. There is likely widening of the lateral aspect of the mortise joint. Soft tissues: There is a tibiotalar joint effusion and lateral malleolar soft tissue swelling. IMPRESSION: Displaced, bimalleolar fracture with widening at the mortise joint. Dictated by: Fifi Hernandez M.D. on 09/17/2023 at 12:12 Approved by: Fifi Hernandez M.D. on 09/17/2023 at 12:13
[2023-09-17 12:14] LABS: Alanine Aminotransferase 39 IU/L (<35); Albumin 3.3 g/dL (3.5-5.0); Albumin Globulin Ratio 1.1 (1.0-2.8); Alkaline Phosphatase 112 U/L (38-126); Aspartate Aminotransferase 61 IU/L (14-36); BUN Creatinine Ratio 20.9 (6-22); Bilirubin Total 0.7 mg/dL (0.2-1.3); Blood Urea Nitrogen 18 mg/dL (7-17); Calcium 9.4 mg/dL (8.4-10.2); Carbon Dioxide 33 mmol/L (22-32); Chloride 91 mmol/L (98-107); Creatine Kinase 67 U/L (30-135); Estimated Glomerular Filt Rate > 60 mL/min (>60); Globulin 2.9 g/dL (1.7-4.1); Glucose 109 mg/dL (80-110); HEMOLYSIS < 15 (0-50); Lipase 28 U/L (23-300); Potassium 4.8 mmol/L (3.4-5.1); Sodium 131 mmol/L (137-145); Total Protein 6.2 g/dL (6.3-8.2)
[2023-09-17 12:22] LABS: NT-proBNP (BNP-Adult 18+) 9620 pg/mL (<450)
[2023-09-17] MEDS: FUROSEMIDE 40 MG/4 ML VIAL IV (13:08)
[2023-09-17] MEDS: MORPHINE 2 MG/ML INJ IV (13:08)
--- NOTE | 2023-09-17 13:49 | DI.CT.S_ITS ---
PROCEDURE: CT ANGIO CHEST PE PROTOCOL INDICATIONS: prior pe, hypoxia TECHNIQUE: After the administration of intravenous contrast, 2 mm thick sections acquired from the pulmonary apices to the posterior costophrenic angles. 3-dimensional maximum intensity projection (MIP) coronal and sagittal reformats were then acquired through the thorax. For radiation dose reduction, the following was used: automated exposure control, adjustment of mA and/or kV according to patient size. COMPARISON: Merged With [facility], CT, CT ANGIO CHEST ABDOMEN PELVIS, 06/20/2023, 10:10. FINDINGS: Image quality: Diagnostic. Pulmonary arteries: There is adherent filling defect along the wall of the left lower lobe pulmonary artery consistent with chronic adherent clot. At its distal aspect, it occludes, possibly secondary to dense collapse of the left lower lobe. There is moderate left pleural fluid with a subpulmonic component. No right-sided pulmonary emboli. Lower Neck: No enlarged lymph nodes. Thyroid: No thyroid nodules which require sonographic follow up, per consensus guidelines. Axillae: No enlarged lymph nodes. Chest Wall: Unremarkable. Bones: Old upper thoracic compression. Lungs and Pleura: Dense collapse of the left lower lobe. Moderate left pleural fluid with a subpulmonic component. Small right pleural effusion with minimal right basilar atelectasis. Patchy consolidation, right middle lobe. Heart: Cardiomegaly. No pericardial effusion. Moderately severe LAD calcifications. Thoracic Vessels: No aortic aneurysm. Mediastinum and Afia: No enlarged lymph nodes. Esophagus: No wall thickening. No hiatal hernia. Upper Abdomen: Visualized upper abdomen solid organs and bowel loops appear normal. IMPRESSION: 1. There is chronic minimal pulmonary embolus involving the left lower lobe pulmonary artery with wall it here in clot, nonocclusive. The basilar segment pulmonary arteries occluded distally, possibly secondary to dense collapse of the left lower lobe. 2. Dense collapse of the left lower lobe. 3. Moderate left pleural effusion with subpulmonic component. 4. Small right pleural effusion with right basilar atelectasis. 5. Patchy pneumonia, right middle lobe. Dictated by: Tunde Andrews M.D. on 09/17/2023 at 14:04 Approved by: Tunde Andrews M.D. on 09/17/2023 at 14:17
[2023-09-17 14:35] LABS: Troponin I 0.814 ng/mL (0.01-0.034)
[2023-09-17] MEDS: cefTRIAXone 2,000 MG in SODIUM CHLORIDE 0.9% 100 ML 200 MG IV (15:35)
--- NOTE | 2023-09-17 15:46 | DI.ECHO.S_ITS ---
[facility] +---------+ : : [address] : : : : [id number] : : : : Phone: [phone]+ Echocardiogram Report + + :Name: PONCE WILSON Study Date: 09/17/2023 Height: 64 in : :[facility] ReadingLocation: Weight: 175 lb: : Gender: Female BSA: 1.8 m2 : :: 1940 Age: 82 yrs BP: 86/48 mmHg: :Reason For Study: SOB : : Performed By: Megan Hoang : :Referring: ARTEMIO MOHAMUD : + + Interpretation Summary Limited Echo 1) Normal left ventricular size and systolic function (EF 60-65%). 2) The interventricular septum is flattened, consistent with a right ventricular pressure overload condition. 3) Moderately enlarged right ventricle with moderately reduced function. 3) There is moderate tricuspid regurgitation. 4) The right ventricular systolic pressure is estimated to be at least 57 mmHg based on an estimated right atrial pressure of 8 mm Hg. 5) There is a trivial to small pericardial effusion noted. 6) There is a large left-sided pleural effusion. 7) Compared to the Echo done 06/14/2023, LVEF has improved from 45-50% to 60- 65% on this study. Procedure: A two-dimensional transthoracic echocardiogram with color flow and Doppler was performed in limited views only. The study quality was technically adequate. Comparison is made with the echocardiogram of 06-14-23. The heart rate ranged between 105-106 bpm during the study. Left Ventricle: The left ventricle is normal in size. There is normal left ventricular wall thickness. The ejection fraction is estimated to be 60-65%. The interventricular septum is flattened, consistent with a right ventricular pressure overload condition. Diastolic function could not be accurately assessed due to tachycardia. Right Ventricle: The right ventricle is moderately dilated. Right ventricular systolic function is moderately reduced. Atria: The left atrium is mildly dilated. Right atrial size is normal. The interatrial septum grossly appears intact with no obvious evidence for an atrial septal defect. Mitral Valve: The mitral valve is grossly normal. There is no mitral regurgitation noted. Aortic Valve: The aortic valve opens well. No aortic regurgitation is present. Tricuspid Valve: The tricuspid valve leaflets are thin and pliable. The tricuspid valve leaflets are thickened and/or calcified, but open well. There is moderate tricuspid regurgitation. The right ventricular systolic pressure is estimated to be at least 57 mmHg based on an estimated right atrial pressure of 8 mm Hg. Pulmonic Valve: The pulmonic valve is not well seen, but is grossly normal. There is a trace or physiologic amount of pulmonic regurgitation. Great Vessels: The aortic root is normal size. The IVC is of normal diameter and collapses less than 50% with a sniff. This suggests a right atrial pressure of 8 mm Hg. Pericardium/ Pleura There is a trivial to small pericardial effusion noted. There is a large left-sided pleural effusion. MMode/2D Measurements & Calculations LVIDd: 4.3 cm LVOT diam: 1.9 cm LVIDs: 2.4 cm Ao root diam: 3.1 cm FS: 43.5 % IVSd: 0.69 cm LVPWd: 0.73 cm LV austin. diameter/BSA (cm/m^2): 2.3 LV sys. diameter/BSA (cm/m^2): 1.3 LA A2 area: 23.7 cm2 RA long axis: 5.1 cm LA A4 area: 26.8 cm2 RA area: 17.4 cm2 LA length (vol): 6.8 cm RA vol: 50.6 ml LA vol: 79.7 ml RA : 27.4 ml/m2 LA vol index: 43.1 ml/m2 IVC diam: 1.6 cm Doppler Measurements & Calculations Ao V2 max: 115.0 cm/sec LVOT Max Loco: 78.4 cm/sec Ao V2 mean: 84.0 cm/sec LV V1 max P.5 mmHg Ao max P.3 mmHg LV V1 VTI: 10.7 cm Ao mean P.1 mmHg EWA(I,D): 1.6 cm2 Ao V2 VTI: 18.0 cm EWA(V,D): 1.9 cm2 sev ratio: 0.60 EWA indexed to BSA (cm^2/m^2): 0.88 MV E max loco: 113.3 cm/sec TR max loco: 351.0 cm/sec MV A max loco: 36.8 cm/sec TR max P.3 mmHg MV E/A: 3.1 PA V2 max: 79.5 cm/sec Med Peak E' Loco: 4.7 cm/sec PA V2 mean: 47.5 cm/sec E/E' med: 24.2 PA mean P.2 mmHg Lat Peak E' Loco: 4.6 cm/sec PA pr(Accel): 48.2 mmHg E/E' lat: 24.8 E/e' average: 24.5 MV dec time: 0.13 sec SV(LVOT): 29.3 ml Reading Physician:05:10 PM
--- NOTE | 2023-09-17 16:10 | PC.NURSE ---
Pt having ECHO performed
[2023-09-17] MEDS: AZITHROMYCIN 500 MG in DEXTROSE 5% IN WATER 250 ML 250 MG IV (16:38)
--- NOTE | 2023-09-17 19:41 | PC.NURSE ---
I received report that this patient was denied beds at [facility], , [facility] and [place] due to no availability. They are on the wait list at [facility] and [facility] as of 09/17.
[2023-09-17] MEDS: fentaNYL 100 MCG/2 ML INJ 50 MCG IV (19:44)
[2023-09-17] MEDS: HYDROCODONE/ACET 5/325 TABLET 1 TAB PO (20:13)
--- NOTE | 2023-09-17 21:50 | PC.NURSE ---
patient moved from stretcher to a hospital bed with no complications. Dr. Marshall and battery charger conveyor line aware.
[2023-09-18] VITALS (85 sets, daily range): BP systolic 84–124; BP diastolic 45–75; PULSE 85–124; RESP 13–29; TEMP 36.5–36.9; O2SAT 91–100
--- NOTE | 2023-09-18 04:05 | PC.NURSE ---
She was awakened for lab draw.Her right foot in orthoglass splint was elevated on a pillow and her toes were warm and pink with cap refill less than 2 seconds in them.She denied pain or being uncomfortable.She was encouraged to cough and deep breathe which she did.
[2023-09-18 04:18] LABS: Add Manual Diff / Slide Review NO; Basophils Absolute Auto 200 /uL (0-100); Basophils Percent Auto 1.4 % (0-2); Blood Urea Nitrogen 18 mg/dL (7-17); Calcium 8.8 mg/dL (8.4-10.2); Carbon Dioxide 35 mmol/L (22-32); Chloride 93 mmol/L (98-107); Creatine Kinase 39 U/L (30-135); Eosinophils Absolute Auto 100 /uL (0-450); Eosinophils Percent Auto 0.4 % (2-4); Estimated Glomerular Filt Rate > 60 mL/min (>60); Glucose 104 mg/dL (80-110); HEMOLYSIS < 15 (0-50); Hematocrit 23.4 % (36-46); Hemoglobin 7.2 g/dL (12.0-16.0); Lymphocytes Absolute Auto 1900 /uL (1100-4500); Lymphocytes Percent Auto 11.3 % (25-40); Mean Corpuscular HGB Conc 30.9 % (30-36); Mean Corpuscular Hemoglobin 27.2 PG (26-34); Monocytes Absolute Auto 900 /uL (0-900); Monocytes Percent Auto 5.3 % (3-14); Neutrophils Absolute Auto 13600 /uL (1500-7000); Neutrophils Percent Auto 81.6 % (50-75); Platelet Count 299 X10^3/uL (150-400); Red Blood Cell Count 2.66 X10^6/uL (4.0-5.2); Red Cell Distribution Width 18.6 % (11.6-14.8); Sodium 131 mmol/L (137-145); White Blood Cell Count 16.7 X10^3/uL (4.5-11.0)
[2023-09-18 04:31] LABS: Troponin I 0.532 ng/mL (0.01-0.034)
[2023-09-18] MEDS: FUROSEMIDE 40 MG/4 ML VIAL IV (08:06)
[2023-09-18] MEDS: MORPHINE 2 MG/ML INJ IV (08:06)
[2023-09-18] MEDS: ONDANSETRON 4 MG/2 ML INJ IV (09:04)
[2023-09-18] MEDS: HYDROCODONE/ACET 5/325 TABLET 1 TAB PO ×2 (09:54→17:22)
[2023-09-18] MEDS: cefTRIAXone 2,000 MG in SODIUM CHLORIDE 0.9% 100 ML 200 MG IV (09:54)
[2023-09-18] MEDS: AZITHROMYCIN 500 MG in DEXTROSE 5% IN WATER 250 ML 250 MG IV (10:40)
[2023-09-18 12:49] LABS: Adenovirus Not Detected (Not Detect); B. parapertussis Not Detected (Not Detecte); Bordetella pertussis Not Detected (Not Detect); Chlamydophila pneumoniae Not Detected (Not Detect); Coronavirus 229E Not Detected (Not Detect); Coronavirus HKU1 Not Detected (Not Detect); Coronavirus NL 63 Not Detected (Not Detect); Coronavirus OC43 Not Detected (Not Detect); Human Metapneumovirus Not Detected (Not Detect); Human Rhinovirus/Enterovirus Not Detected (Not Detect); Influenza A Not Detected (Not Detect); Influenza B Not Detected (Not Detect); Mycoplasma pneumoniae Not Detected (Not Detect); Parainfluenza Virus 1 Not Detected (Not Detect); Parainfluenza Virus 2 Not Detected (Not Detect); Parainfluenza Virus 3 Not Detected (Not Detect); Parainfluenza Virus 4 Not Detected (Not Detect); Respiratory Syncytial Virus Not Detected (Not Detect); SARS- CoV-2 Not Detected (Not Detecte)
[2023-09-18 14:06] LABS: Hematocrit 30.1 % (36-46); Hemoglobin 9.8 g/dL (12.0-16.0)
[2023-09-18 14:30] LABS: Digoxin < 0.4 ng/mL (0.8-2.0)
== END 2023-09-18 17:30 | disposition short-term general hospital (02) ==
PROVIDERS: Emergency Medicine; Emergency Provider Emergency Medicine; PCP Family Medicine
DX: D64.9 Anemia, unspecified (principal); I50.9 Heart failure, unspecified; S82.892A Other fracture of left lower leg, initial encounter for closed fracture; I95.9 Hypotension, unspecified; R79.89 Other specified abnormal findings of blood chemistry; R00.0 Tachycardia, unspecified; Z79.01 Long term (current) use of anticoagulants; Z79.899 Other long term (current) drug therapy; Z20.822 Contact with and (suspected) exposure to COVID-19; W18.30XA Fall on same level, unspecified, initial encounter
CPT/HCPCS: 36415; 36430; 70450; 71045; 71275; 73610; 80048; 80053; 80162; 82550; 83690; 83880; 84484; 85014; 85018; 85025; 85610; 85730; 86850; 86900; 86901; 87040; 87070; 87075; 87205; 87633; 93005; 93307; 96365; 96366; 96367; 96375; 96376; 99285; 99291; P9016; J0696; J1940; J2270; J2405; J3010

== ENCOUNTER 2023-09-27 11:28 | Emergency (ER) | payer MEDICARE, MEDICAID, SELFPAY ==
[2023-09-27] VITALS (13 sets, daily range): BP systolic 85–116; BP diastolic 51–65; PULSE 85–89; RESP 16–26; TEMP 36.9; O2SAT 78–100; BMI 24.4
--- NOTE | 2023-09-27 12:58 | PC.NURSE ---
Dr Marshall aware of sat% 78 on 6L. No new orders at this time. pt aaox3, denies being more SOB than normal. Denies more pain than normal. does not appear in any acute distress. uses 3L at home at baseline. 100ml fluid removed from pleurx drain. Pt tolerated well
--- NOTE | 2023-09-27 13:10 | DI.RAD.S_ITS ---
PROCEDURE: XR CHEST 1V INDICATIONS: Shortness of breath/hypoxia TECHNIQUE: One view of the chest was acquired. COMPARISON: [facility], , XR CHEST 1V, 09/17/2023, 11:02. FINDINGS: Surgical changes and devices: Similar positioning of apically oriented left thoracostomy tube since prior radiograph 09/17/2023. Lungs and pleura: Interval decrease in left pleural effusion, now small in size no pneumothorax. No focal airspace consolidation. Mediastinum: Mediastinal contours appear normal. Heart size is normal. Bones and chest wall: No suspicious bony lesions. Overlying soft tissues appear unremarkable. IMPRESSION: Decreased size of left pleural effusion since 09/17/2023. Approved by: Alisia Herrera M.D. on 09/27/2023 at 14:54
--- NOTE | 2023-09-27 13:25 | ED.GENADULT ---
HPI - General Adult General Chief complaint: Shortness of Breath/Dyspnea Stated complaint: Needs Lung Cath Drained Time Seen by Provider: 09/27/23 13:00 Source: patient and family Mode of arrival: EMS Limitations: no limitations History of Present Illness HPI narrative: Patient is an 82-year-old female. She has a PleurX catheter in her left lung. Is on home oxygen. Has a resident at a half-way facility. This morning was reported that she was getting short of breath. She was sent to the emergency department to have her catheter drained. At the time of my evaluation patient states she was no longer short of breath. No chest pain. No fevers. No cough. Patient's family is at bedside stating that they did see her this morning and she was complaining that she felt like her lungs were becoming full of fluid and did report short of breath. Related Data Home Medications Medication Instructions Recorded Confirmed Acid Education And Training Manager (omeprazole) 20 mg PO AC reflux 06/09/23 09/17/23 albuterol sulfate 90 mcg/actuation 2 puff inhalation Q4-6H PRN 06/09/23 09/17/23 aerosol inhaler wheezing cyclobenzaprine 10 mg tablet 10 mg PO Q8HR PRN Muscle Spasm 06/09/23 09/17/23 sumatriptan succinate 100 mg 100 mg PO PRN PRN migraines 06/09/23 09/17/23 tablet (Imitrex) tramadol 100 mg PO Q8HR PRN Pain (Scale 06/09/23 09/17/23 Score 4-6) Orajel 3X Mouth Sores 10 ml PO 4XD PRN Analgesia 06/11/23 09/06/23 apixaban 5 mg tablet (Eliquis) 2.5 mg PO BID 09/04/23 09/17/23 metoprolol tartrate 25 mg tablet 37.5 mg PO DAILY 09/06/23 09/06/23 digoxin 125 mcg (0.125 mg) tablet 125 mcg PO DAILY 09/17/23 09/17/23 furosemide 20 mg tablet 60 mg PO BID 09/17/23 09/17/23 gabapentin 300 mg capsule 600 mg PO TID 09/17/23 09/17/23 guaifenesin 600 mg tablet, 600 - 1,200 mg PO BID PRN cough 09/17/23 09/17/23 extended release 12 hr hydrocodone 5 mg-acetaminophen 325 1 tab PO 4XD PRN Pain (Scale Score 09/17/23 09/17/23 mg tablet 7-10) spironolactone 25 mg tablet 25 mg PO DAILY 09/17/23 09/17/23 fluticasone 500 mcg-salmeterol 50 1 inh inhalation BID 09/18/23 09/18/23 mcg/dose blistr powdr for inhalation Previous Rx's Medication Instructions Recorded meclizine 25 mg tablet 25 mg PO TID PRN dizziness #90 tabs 05/20/20 budesonide 0.5 mg/2 mL suspension 0.5 mg (2 mL) inhalation BID #120 01/02/21 for nebulization mL Disabled Parking Permit See Rx Instructions .Route 03/19/23 .COMPLEX #1 unit potassium chloride 20 mEq 20 meq PO DAILY #30 tabs 05/24/23 tablet,extended release trazodone 50 mg tablet 50 mg PO BEDTIME #30 tabs 06/25/23 fluticasone 500 mcg-salmeterol 50 1 inh inhalation BID #60 ea 09/04/23 mcg/dose blistr powdr for inhalation Allergies Allergy/AdvReac Type Severity Reaction Status Date / Time Sulfa (Sulfonamide Allergy Severe RASH Verified 09/06/23 09:24 Antibiotics) [SULFA (SULFONAMIDE ANTIBIOTICS)] bee venom protein (honey bee) Allergy Intermediate Throat Verified 09/06/23 09:24 swelling and breathing problems alendronate sodium AdvReac Severe Intolerable Verified 09/06/23 09:24 heartburn paroxetine [PAROXETINE] AdvReac Intermediate agitated, Verified 09/06/23 09:24 anxious turmeric AdvReac Broke out Verified 09/06/23 09:24 in spots GAUZE Allergy Mild SEVERE Uncoded 09/06/23 09:24 RASH/ REDNESS Review of Systems Cardiovascular Cardiovascular: Reports system reviewed and no additional complaints, except as documented Respiratory Respiratory: Reports system reviewed and no additional complaints, except as documented Gastrointestinal Gastrointestinal: Reports system reviewed and no additional complaints, except as documented Integumentary/Breasts Skin/Breast: Reports system reviewed and no additional complaints, except as documented Neurologic Neurologic: Reports system reviewed and no additional complaints, except as documented 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 Chronic fatigue syndrome (~1992) COPD (chronic obstructive pulmonary disease) Depression Mumps (1949) Fibromyalgia (1992) Osteoporosis (1989) Migraines (1984) RLS (restless legs syndrome) Osteoarthritis Atrial fibrillation (2013) Surgical History Anesthesia History of bladder suspension procedure (1994) Other joint replacement by other means (1998) Previous back surgery (~12/17/22) S/P total abdominal hysterectomy and bilateral salpingo-oophorectomy (1964) Status post breast biopsy Family History Brother MVA (motor vehicle accident) Father CAD (coronary artery disease) Mother Pancreatic cancer Social History household members: none Smoking Status: Former smoker alcohol intake: never Smoking Status: Former smoker alcohol intake frequency: 0-2 drinks per day Substance Use Type: does not use Exam Initial Vital Signs Initial Vital Signs: Vital Signs Temperature 98.4 F 09/27/23 11:46 Pulse Rate 89 09/27/23 11:46 Respiratory Rate 20 09/27/23 11:46 Blood Pressure 115/53 L 09/27/23 11:46 Pulse Oximetry 97 09/27/23 11:46 Oxygen Delivery Method Room Air 09/27/23 11:46 Const General: cooperative and comfortable HENMT Head: normal to inspection Resp Effort & Inspection: normal respiratory effort Auscultation: clear to auscultation bilaterally, no rhonchi and no wheezes Cardio Rate: regular rate GI Inspection: normal to inspection Skin General: no rashes or lesions noted Neuro General: patient alert and patient awake Course Orders Ordered: ED Orders 09/27/23 13:10 XR chest 1V Stat Discontinued Medications Acetaminophen (Acetaminophen 325 Mg Tablet) 650 mg PO NOW ONE Stop: 09/27/23 13:47 Last Admin: 09/27/23 13:56 Dose: 650 mg Documented By: MELODIE Vital Signs Vital signs: Vital Signs - 8 hr 09/27/23 11:46 09/27/23 12:50 09/27/23 12:58 Temperature 98.4 F Pulse Rate 89 88 Respiratory Rate 20 26 H Blood Pressure 115/53 L 105/65 109/60 Pulse Oximetry 97 78 L Oxygen Delivery Method Room Air Nasal Cannula Oxygen Flow Rate 6 09/27/23 13:00 09/27/23 13:30 09/27/23 13:30 Temperature Pulse Rate Respiratory Rate Blood Pressure 105/59 L 116/62 Pulse Oximetry 83 L Oxygen Delivery Method Nasal Cannula Oxygen Flow Rate 6 09/27/23 13:35 Temperature Pulse Rate Respiratory Rate Blood Pressure Pulse Oximetry 85 L Oxygen Delivery Method Nasal Cannula Oxygen Flow Rate 6 Medical Decision Making Imaging Data Chest x-ray: My Impression: No focal consolidations MDM Narrative Medical decision making narrative: We were able to drain approximately 100 cc of fluid from the PleurX catheter. Patient remained hypoxic on her baseline 3 L of nasal cannula. She did have to be increased to 6 L. chest x-ray was ordered. Very minimal effusion left. No focal consolidation. I did have the patient take several deep breaths and her oxygen saturation improved. We then had her use the incentive spirometer and now her oxygen saturations greater than 90% on her normal 3 L. I suspect that she is just developing atelectasis because she has not getting up and moving. Will send home with incentive spirometer. Return to the emergency department as needed. Discharge Plan Departure Patient Disposition: Home Clinical Impression: Pleural effusion Instructions: How to Use an Incentive Spirometer Activity Restrictions/Additional Instructions: It is important that Arlene use the incentive spirometer on a regular basis (at least once an hour) in order to make sure that she does not develop atelectasis or pneumonia. Please contact her primary care doctor to determine further treatment with regard to the lung catheter and future drainage if needed. Return to the emergency department for new symptoms. Prescriptions: No Action potassium chloride 20 mEq tablet extended release 20 meq PO DAILY Qty: 30 1RF budesonide 0.5 mg/2 mL suspension for nebulization 0.5 mg inhalation BID Qty: 120 11RF Disabled Parking Permit See Rx Instructions .ROUTE .COMPLEX Qty: 1 0RF Rx Instructions: I find this patient to be medically disabled and qualify for disabled parking as indicated and signed on the accompanying [employer] parking application for individuals. metoprolol tartrate 25 mg tablet 37.5 mg PO DAILY Rx Instructions: APPT NEEDED WITH NEW PCP ALFREDO/BEFORE END OF RX + FUTURE FILLS. PLEASE CALL CLINIC TO SCHEDULE. THANK YOU 07/09/23. meclizine 25 mg tablet 25 mg PO TID PRN (Reason: dizziness) Qty: 90 0RF Hold Instructions: Sporadic use cyclobenzaprine 10 mg tablet 10 mg PO Q8HR PRN (Reason: Muscle Spasm) tramadol tablet 100 mg PO Q8HR PRN (Reason: Pain (Scale Score 4-6)) albuterol sulfate 90 mcg/actuation HFA aerosol inhaler 2 puff inhalation Q4-6H PRN (Reason: wheezing) Acid Education And Training Manager (omeprazole) capsule 20 mg PO AC sumatriptan succinate [Imitrex] 100 mg tablet 100 mg PO PRN PRN (Reason: migraines) Rx Instructions: Take 1/2 to 1 tablet by mouth at onset of headache. May repeat one dose in 2 hours as needed. Orajel 3X Mouth Sores 10 ml PO 4XD PRN (Reason: Analgesia) Rx Instructions: up to 4x/day after meals and at bedtime trazodone 50 mg Tablet 50 mg PO BEDTIME Qty: 30 0RF gabapentin 300 mg capsule 600 mg PO TID furosemide 20 mg tablet 60 mg PO BID hydrocodone-acetaminophen 5-325 mg tablet 1 tab PO 4XD PRN (Reason: Pain (Scale Score 7-10)) spironolactone 25 mg tablet 25 mg PO DAILY digoxin 125 mcg (0.125 mg) tablet 125 mcg PO DAILY guaifenesin 600 mg tablet extended release 12hr 600 - 1,200 mg PO BID PRN (Reason: cough) fluticasone propion-salmeterol 500-50 mcg/dose Blister With Device 1 inh INHALATION BID Eliquis 5 mg tablet 2.5 mg PO BID fluticasone propion-salmeterol 500-50 mcg/dose blister with device 1 inh inhalation BID Qty: 60 11RF Rx Instructions: rinse mouth with water, gargle and spit after each use Referrals: Maday Gross DO [Primary Care Provider] - Stand Alone Forms: Patient Portal/API
[2023-09-27] MEDS: ACETAMINOPHEN 325 MG TABLET 650 MG PO (13:56)
== END 2023-09-27 16:37 | disposition home or self-care (01) ==
PROVIDERS: Emergency Provider Emergency Medicine; PCP Family Medicine
DX: J90 Pleural effusion, not elsewhere classified (principal)
CPT/HCPCS: 71045; 99283; 99284

== ENCOUNTER → 2023-09-28 19:07 | Outpatient (ROUT) | payer MEDICARE, MEDICAID, SELFPAY ==
[2023-09-28 19:43] LABS: Bilirubin Urine UA NEGATIVE (NEGATIVE); Color Urine UA YELLOW; Glucose Urine UA 1+ g/dL (Negative); Ketones Urine UA NEGATIVE (NEGATIVE); Leukocyte Esterase Urine UA 2+ (NEGATIVE); Nitrite Urine UA NEGATIVE (Negative); Occult Blood Urine UA 1+ (Negative); Protein Urine UA 1+ (Negative); Specific Gravity Urine UA >=1.030 (1.000-1.035); Urobilinogen Urine UA 0.2 E.U./dL (0.2)
[2023-09-28 19:49] LABS: Appearance Urine UA CLOUDY; Bacteria Urine Moderate (10-30); RBC Urine 1-5/HPF (0-5/HPF); Squamous Epithelial Cell Urine 10-30 /HPF (0-5/HPF); WBC Urine 30-100/HPF (0-5/HPF)
[2023-09-28 19:50] LABS: Culture Indicated Urine Specimen Cultured
== END ==
PROVIDERS: PCP Family Medicine; Visit Provider Internal Medicine
DX: R82.90 Unspecified abnormal findings in urine (principal); D72.829 Elevated white blood cell count, unspecified
CPT/HCPCS: 81001; 87077; 87086

== ENCOUNTER → 2023-10-30 15:05 | Outpatient (CLI) | payer MEDICARE, MEDICAID, SELFPAY ==
--- NOTE | 2023-10-30 15:08 | DI.RAD.S_ITS ---
PROCEDURE: XR ANKLE LT MIN 3V INDICATIONS: Displaced bimalleolar fracture of left lower leg, subsequent TECHNIQUE: 3 views of the ankle were acquired. COMPARISON: [facility], , XR ANKLE LT MIN 3V, 09/17/2023, 11:37. FINDINGS: Bones: Interval screw fixation of the medial malleolus and screw and plate fixation of the distal fibula. There is near anatomic alignment, only with a 1 mm cortical step-off of the medial malleolus. Soft tissues: No tibiotalar joint effusion. Achilles tendon appears normal. IMPRESSION: Interval ankle ORIF, without hardware complication. Dictated by: Bright Quiñonez M.D. on 10/30/2023 at 16:52 Approved by: Bright Quiñonez M.D. on 10/30/2023 at 16:53
--- NOTE | 2023-10-30 15:08 | DI.RAD.S_ITS ---
PROCEDURE: XR FOOT LT MIN 3V INDICATIONS: Displaced bimalleolar fracture of left lower leg, subsequent TECHNIQUE: 3 views of the foot were acquired. COMPARISON: [facility], CR, XR FOOT RT MIN 3V, 05/23/2021, 11:42. FINDINGS: Bones: No fractures or dislocations. No suspicious bony lesions. Interval ankle ORIF. Dorsal calcaneal enthesophyte. Soft tissues: No tibiotalar joint effusion. Achilles tendon appears normal. IMPRESSION: No acute bony abnormality. Dictated by: Bright Quiñonez M.D. on 10/30/2023 at 16:53 Approved by: Bright Quiñonez M.D. on 10/30/2023 at 16:53
== END ==
LOC: RAD 15:07
PROVIDERS: PCP Family Medicine; Referring Provider Nurse Practitioner; Visit Provider Nurse Practitioner
DX: S82.842D Displaced bimalleolar fracture of left lower leg, subsequent encounter for closed fracture with routine healing (principal); Z98.890 Other specified postprocedural states
CPT/HCPCS: 73610; 73630

== ENCOUNTER 2023-11-24 16:51 | Inpatient (IN) | payer MEDICARE, MEDICAID, SELFPAY ==
[2023-11-24] VITALS (93 sets, daily range): BP systolic 82–130; BP diastolic 43–94; PULSE 58–95; RESP 18–39; TEMP 30.8–36.8; O2SAT 86–99
--- NOTE | 2023-11-24 17:02 | ED.GENADULT ---
HPI - General Adult General Chief complaint: Shortness of Breath/Dyspnea Stated complaint: Hypoxia Time Seen by Provider: 11/24/23 17:01 History of Present Illness HPI narrative: 83-year-old female with history of recurrent pleural effusions, asthma, heart failure, COPD, hyperlipidemia, pulmonary embolism, pneumonia, atrial fibrillation, on Eliquis, digoxin, Lasix presents with hypoxia and shortness of breath. She presents with EMS. Patient appears critically on arrival, hypoxic despite nasal cannula. She reportedly is being treated for COVID pneumonia. We are immediately requesting RT, and daughter is arriving. Patient denies fevers or chest pain to me though seems confused. Limited additional history at this time. Daughter arrived and corroborates available history. With daughter at bedside, I spoke with patient and confirmed she WOULD want intubation if needed. She would NOT want chest compressions. Related Data Home Medications Medication Instructions Recorded Confirmed Acid Key Account Coordinator (omeprazole) 20 mg PO AC reflux 06/09/23 09/17/23 albuterol sulfate 90 mcg/actuation 2 puff inhalation Q4-6H PRN 06/09/23 09/17/23 aerosol inhaler wheezing cyclobenzaprine 10 mg tablet 10 mg PO Q8HR PRN Muscle Spasm 06/09/23 09/17/23 sumatriptan succinate 100 mg 100 mg PO PRN PRN migraines 06/09/23 09/17/23 tablet (Imitrex) tramadol 100 mg PO Q8HR PRN Pain (Scale 06/09/23 09/17/23 Score 4-6) Orajel 3X Mouth Sores 10 ml PO 4XD PRN Analgesia 06/11/23 09/06/23 apixaban 5 mg tablet (Eliquis) 2.5 mg PO BID 09/04/23 09/17/23 metoprolol tartrate 25 mg tablet 37.5 mg PO DAILY 09/06/23 09/06/23 digoxin 125 mcg (0.125 mg) tablet 125 mcg PO DAILY 09/17/23 09/17/23 furosemide 20 mg tablet 60 mg PO BID 09/17/23 09/17/23 gabapentin 300 mg capsule 600 mg PO TID 09/17/23 09/17/23 guaifenesin 600 mg tablet, 600 - 1,200 mg PO BID PRN cough 09/17/23 09/17/23 extended release 12 hr hydrocodone 5 mg-acetaminophen 325 1 tab PO 4XD PRN Pain (Scale Score 09/17/23 09/17/23 mg tablet 7-10) spironolactone 25 mg tablet 25 mg PO DAILY 09/17/23 09/17/23 fluticasone 500 mcg-salmeterol 50 1 inh inhalation BID 09/18/23 09/18/23 mcg/dose blistr powdr for inhalation Previous Rx's Medication Instructions Recorded meclizine 25 mg tablet 25 mg PO TID PRN dizziness #90 tabs 05/20/20 budesonide 0.5 mg/2 mL suspension 0.5 mg (2 mL) inhalation BID #120 01/02/21 for nebulization mL Disabled Parking Permit See Rx Instructions .Route 03/19/23 .COMPLEX #1 unit potassium chloride 20 mEq 20 meq PO DAILY #30 tabs 05/24/23 tablet,extended release trazodone 50 mg tablet 50 mg PO BEDTIME #30 tabs 06/25/23 fluticasone 500 mcg-salmeterol 50 1 inh inhalation BID #60 ea 09/04/23 mcg/dose blistr powdr for inhalation Allergies Allergy/AdvReac Type Severity Reaction Status Date / Time Sulfa (Sulfonamide Allergy Severe RASH Verified 11/24/23 17:03 Antibiotics) [SULFA (SULFONAMIDE ANTIBIOTICS)] bee venom protein (honey bee) Allergy Intermediate Throat Verified 11/24/23 17:03 swelling and breathing problems alendronate sodium AdvReac Severe Intolerable Verified 11/24/23 17:03 heartburn paroxetine [PAROXETINE] AdvReac Intermediate agitated, Verified 11/24/23 17:03 anxious turmeric AdvReac Broke out Verified 11/24/23 17:03 in spots GAUZE Allergy Mild SEVERE Uncoded 09/06/23 09:24 RASH/ REDNESS Review of Systems Review of Systems Narrative: Available history above. 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 Chronic fatigue syndrome (~1992) COPD (chronic obstructive pulmonary disease) Depression Mumps (1949) Fibromyalgia (1992) Osteoporosis (1989) Migraines (1984) RLS (restless legs syndrome) Osteoarthritis Atrial fibrillation (2013) Surgical History Anesthesia History of bladder suspension procedure (1994) Other joint replacement by other means (1998) Previous back surgery (~12/17/22) S/P total abdominal hysterectomy and bilateral salpingo-oophorectomy (1964) Status post breast biopsy Family History Brother MVA (motor vehicle accident) Father CAD (coronary artery disease) Mother Pancreatic cancer Social History household members: none Smoking Status: Former smoker alcohol intake: never Smoking Status: Former smoker alcohol intake frequency: 0-2 drinks per day Substance Use Type: does not use Exam Narrative Exam Narrative: Const: Patient appears severely dyspneic, with shallow respirations, able to speak in 1-2 words; she appears toxic Eyes: PERRLA, EOMI ENT: mucous membranes dry Neck: supple, non-tender Resp: Respiratory distress with prominent tachypnea, poor aeration bilaterally with mild wheezing on expiration Card: regular rate and rhythm, no murmurs Abd: non tender diffusely, no rigidity or rebound or guarding Back: no T or L spine tenderness, no CVA tenderness bilaterally Extrem: no deformities, no swelling bilateral lower extremities, 2+ distal pulses all extremities Neuro: ANOx2/4, coach cleaner grossly intact, grossly intact sensation and strength all extremities Skin: no rash, warm and dry Initial Vital Signs Initial Vital Signs: Vital Signs Temperature 98.3 F 11/24/23 16:56 Pulse Rate 61 11/24/23 16:56 Respiratory Rate 24 11/24/23 16:56 Blood Pressure 100/49 L 11/24/23 16:56 Pulse Oximetry 98 11/24/23 16:56 Oxygen Delivery Method Aerosol Mask 11/24/23 16:56 Oxygen Flow Rate 6 11/24/23 16:56 Course Course Course Narrative: This patient presents critically ill with respiratory failure, and I am immediately initiating aggressive treatment and workup. RT is at bedside, and I am transitioning her to BiPAP. I am ordering nebs, steroids, broad antibiotics, in the setting of broad workup. I have considered a broad differential including but not limited to worsening COVID pneumonia or concurrent bacterial pneumonia, with these 2 etiologies most likely, though was COPD exacerbation, CHF exacerbation, pulmonary embolism, pneumothorax possible. I performed a bedside ultrasound that shows intact bilateral lung slide and no large pericardial effusion or substantial B-lines, with pneumonia seeming more likely in the setting. I am working to stabilize patient so that she can receive an emergent CTA chest however. Staff aware. Patient and daughter agree with plan. CBC with leukocytosis, though there appears to be a chronic element to this; anemia improved from prior which could suggest hemoconcentration. No thrombocytopenia. Troponin elevation consistent with NSTEMI type 2 in the setting of hypoxic respiratory failure; I note it has been elevated beyond this in last few months. BNP very elevated. Chemistry with worsening of chronic appearing hyponatremia, with creatinine within normal limits, no LFT elevation. Urine dip with leukocyte esterase, trace protein, full urinalysis pending. Patient is not improving sufficiently on BiPAP. While we are oxygenating and ventilating, she has clear evidence of substantial respiratory fatigue. I do not think she can keep this going much longer. I spoke with patient and daughter again, and they again consent to intubation. However, fully understanding that patient could very soon, they are requesting I wait for grandchildren to arrive to speak with patient again. Daughter who is POA is fully aware of substantial risks of both waiting and the intubation when we perform it, and the potential that patient is unable to be weaned off ventilator. I was preparing to intubate patient, when she demonstrated substantial improvement. We are now able to remove BiPAP, and she is speaking in full sentences on nasal cannula. Work of breathing is now very reasonable. CXR with probable substantial PNA, though PE is still on differential. In this setting, I am holding intubation. CTA PE study will be obtained, and she will be reassessed for admission. Broad spectrum antibiotics being given. Note BP is intermittently decreasing despite fluids; I am ordering NE gtt with MAP goal 65. I am signing out to Dr. Marshall with this plan. CRITICAL CARE: I spent 50 minutes assessing, resuscitating, reassessing this patient, interpreting studies, speaking with family consultants, outside of procedures, in the setting of respiratory failure requiring BiPAP. Orders Ordered: ED Orders 11/24/23 17:02 Urinalysis and Microscopic Stat Urine Culture Stat 11/24/23 17:10 CT angio chest PE protocol Stat Respiratory Panel (Film Array) Stat VBG [Venous Blood Gas] Stat EKG-12 Lead Stat 11/24/23 17:20 BNP [NT-proBNP (BNP-Adult 18+)] Stat CBC Auto Diff [Complete Blood Count AUTO DIFF] Stat CMP [Comprehensive Metabolic Panel] Stat Troponin I Stat 11/24/23 17:25 BiPAP Ventilatory Support RT PROTOCOL 11/24/23 17:44 ABG [Arterial Blood Gas] Stat 11/24/23 17:46 XR chest 1V Stat 11/24/23 18:15 Blood Culture Stat Albuterol/Ipratropium (Albuterol/Ipratropium 3 Ml Ampul) 3 ml INH Q1H PRN PRN Reason: Shortness Of Breath Discontinued Medications Sodium Chloride 9 ml/ (Epinephrine HCl 0.1 mg) 0 ml IV NOW ONE Stop: 11/24/23 17:47 Piperacillin Sod/Tazobactam (Sod 4.5 gm/ Sodium Chloride) 100 mls @ 200 mls/hr IV NOW ONE Stop: 11/24/23 17:12 Last Infusion: 11/24/23 18:00 Dose: Infused Documented By: Admin: 11/24/23 17:21 Dose: 200 mls/hr Documented By: NIKIA Vancomycin HCl 1,250 mg/ (Sodium Chloride) 500 mls @ 250 mls/hr IV NOW ONE Stop: 11/24/23 19:44 Vancomycin HCl (Vancomycin) 1,250 mg in 250 mls @ 125 mls/hr IV NOW PITA Stop: 11/24/23 19:00 Last Admin: 11/24/23 18:00 Dose: 125 mls/hr Documented By: ANNA Sodium Chloride (Normal Saline 0.9%) 1,000 mls @ 1,000 mls/hr IV BOLUS ONE Stop: 11/24/23 18:43 Last Admin: 11/24/23 17:45 Dose: 1,000 mls/hr Documented By: ANNA Ketamine HCl (Ketamine 500 Mg/5 Ml Inj) 60 mg IV NOW ONE Stop: 11/24/23 17:47 Methylprednisolone (Methylprednisolone 125 Mg/2 Ml Vial) 125 mg IV NOW ONE Stop: 11/24/23 17:12 Last Admin: 11/24/23 17:21 Dose: 125 mg Documented By: NIKIA Rocuronium [place] (Rocuronium 50 Mg/5 Ml Inj) 60 mg IV NOW ONE Stop: 11/24/23 17:47 Vital Signs Vital signs: Vital Signs - 8 hr 11/24/23 16:56 11/24/23 16:58 11/24/23 17:00 Temperature 98.3 F Pulse Rate 61 59 L 58 L Respiratory Rate 24 26 H 26 H Blood Pressure 100/49 L Pulse Oximetry 98 97 97 Oxygen Delivery Method Aerosol Mask Aerosol Mask Aerosol Mask Oxygen Flow Rate 6 6 6 11/24/23 17:00 11/24/23 17:05 11/24/23 17:10 Temperature Pulse Rate 60 60 Respiratory Rate 26 H 27 H Blood Pressure 96/51 L Pulse Oximetry 97 Oxygen Delivery Method Oxygen Flow Rate 11/24/23 17:15 11/24/23 17:20 11/24/23 17:25 Temperature Pulse Rate 78 67 Respiratory Rate 26 H 28 H Blood Pressure 96/51 L Pulse Oximetry 94 94 Oxygen Delivery Method Oxygen Flow Rate 11/24/23 17:25 11/24/23 17:30 11/24/23 17:30 Temperature Pulse Rate 70 81 Respiratory Rate 27 H 26 H Blood Pressure 87/49 L Pulse Oximetry 93 87 L Oxygen Delivery Method Oxygen Flow Rate 11/24/23 17:34 11/24/23 17:34 11/24/23 17:35 Temperature Pulse Rate 90 90 Respiratory Rate 27 H 26 H Blood Pressure 91/49 L Pulse Oximetry 94 93 Oxygen Delivery Method Oxygen Flow Rate 11/24/23 17:35 11/24/23 17:40 11/24/23 17:40 Temperature Pulse Rate 88 Respiratory Rate 27 H Blood Pressure 88/52 L 82/47 L Pulse Oximetry 94 Oxygen Delivery Method BiPAP Oxygen Flow Rate 11/24/23 17:45 11/24/23 17:45 11/24/23 17:50 Temperature Pulse Rate 87 87 Respiratory Rate 27 H 27 H Blood Pressure 84/52 L Pulse Oximetry 95 96 Oxygen Delivery Method BiPAP BiPAP Oxygen Flow Rate 11/24/23 17:50 11/24/23 17:55 11/24/23 17:55 Temperature Pulse Rate 86 Respiratory Rate 25 H Blood Pressure 86/49 L 84/48 L Pulse Oximetry 95 Oxygen Delivery Method Oxygen Flow Rate 11/24/23 18:00 11/24/23 18:00 11/24/23 18:05 Temperature Pulse Rate 85 80 Respiratory Rate 24 27 H Blood Pressure 90/46 L Pulse Oximetry 95 94 Oxygen Delivery Method BiPAP Oxygen Flow Rate 11/24/23 18:05 Temperature Pulse Rate Respiratory Rate Blood Pressure 92/44 L Pulse Oximetry Oxygen Delivery Method Oxygen Flow Rate Medical Decision Making Lab Data 11/24/23 17:20 11/24/23 17:20 Labs: Lab Results 11/24/23 11/24/23 11/24/23 Range/Units 17:02 17:20 17:44 WBC 15.1 H (4.5-11.0) X10^3/uL RBC 4.13 (4.0-5.2) X10^6/uL Hgb 11.4 L (12.0-16.0) g/dL Hct 35.3 L (36-46) % MCV 85.6 (80-100) fL MCH 27.6 (26-34) PG MCHC 32.2 (30-36) % RDW 18.1 H (11.6-14.8) % Plt Count 204 (150-400) X10^3/uL Neut % (Auto) 77.1 H (50-75) % Lymph % (Auto) 16.6 L (25-40) % [place] % (Auto) 5.6 (3-14) % Eos % (Auto) 0.2 L (2-4) % Baso % (Auto) 0.5 (0-2) % Neut # (Auto) 52339 H (8733-3973) /uL Lymph # (Auto) 2500 (2484-3915) /uL [place] # (Auto) 800 (0-900) /uL Eos # (Auto) 0 (0-450) /uL Baso # (Auto) 100 (0-100) /uL ABG Sample Site Left radial ABG pH 7.35 (7.35-7.45) ABG pCO2 60.6 H (35-45) mmHg ABG pO2 27 L* (80-100) mmHg ABG HCO3 34 H (23-27) mmol/L ABG Total CO2 35 H (23-27) mmol/L ABG O2 Saturation 45 L* (95-100) % ABG Base Excess 8.0 H (-2-3) mmol/L FiO2 45 Sodium 127 L (137-145) mmol/L Potassium 3.6 (3.4-5.1) mmol/L Chloride 92 L (98-107) mmol/L Carbon Dioxide 35 H (22-32) mmol/L BUN 23 H (7-17) mg/dL Creatinine 0.60 (0.52-1.04) mg/dL Estimated GFR > 60 (>60) mL/min BUN/Creatinine Ratio 38.3 H (6-22) Glucose 117 H (80-110) mg/dL Calcium 9.4 (8.4-10.2) mg/dL Total Bilirubin 0.5 (0.2-1.3) mg/dL AST 36 (14-36) IU/L ALT 21 (<35) IU/L Alkaline Phosphatase 103 (38-126) U/L Troponin I 0.308 H* (0.01-0.034) ng/mL NT-Pro-B Natriuret Pep 8120 H (<450) pg/mL Total Protein 5.9 L (6.3-8.2) g/dL Albumin 2.9 L (3.5-5.0) g/dL Globulin 3.0 (1.7-4.1) g/dL Albumin/Globulin Ratio 1.0 (1.0-2.8) Urine Color Yellow Urine Appearance Clear Urine pH 5.5 (4.5-8.0) Ur Specific [place] 1.015 (1.000-1.035) Urine Protein Trace H (Negative) Urine Glucose (UA) 1+ H (Negative) g/dL Urine Ketones Negative (NEGATIVE) Urine Occult Blood Trace-intact (Negative) Urine Nitrate Negative (Negative) Urine Bilirubin Negative (NEGATIVE) Urine Urobilinogen 0.2 (0.2) E.U./dL Ur Leukocyte Esterase 2+ H (NEGATIVE) Urine RBC 0-1/hpf (0-5/HPF) Urine WBC 10-30/hpf H (0-5/HPF) Ur Squamous Epith Cells 0-1 /hpf D (0-5/HPF) Urine Bacteria Many (>30) H (None) Ur Culture Indicated? Specimen cultured Vol Urine Centrifuged Low vol <10ml (spun) A Discharge Plan Departure Clinical Impression: Respiratory failure Prescriptions: No Action potassium chloride 20 mEq tablet extended release 20 meq PO DAILY Qty: 30 1RF budesonide 0.5 mg/2 mL suspension for nebulization 0.5 mg inhalation BID Qty: 120 11RF Disabled Parking Permit See Rx Instructions .ROUTE .COMPLEX Qty: 1 0RF Rx Instructions: I find this patient to be medically disabled and qualify for disabled parking as indicated and signed on the accompanying disabled parking application for individuals. metoprolol tartrate 25 mg tablet 37.5 mg PO DAILY Rx Instructions: APPT NEEDED WITH NEW PCP ALFREDO/BEFORE END OF RX + FUTURE FILLS. PLEASE CALL CLINIC TO SCHEDULE. THANK YOU 07/09/23. meclizine 25 mg tablet 25 mg PO TID PRN (Reason: dizziness) Qty: 90 0RF Hold Instructions: Sporadic use cyclobenzaprine 10 mg tablet 10 mg PO Q8HR PRN (Reason: Muscle Spasm) tramadol tablet 100 mg PO Q8HR PRN (Reason: Pain (Scale Score 4-6)) albuterol sulfate 90 mcg/actuation HFA aerosol inhaler 2 puff inhalation Q4-6H PRN (Reason: wheezing) Acid Key Account Coordinator (omeprazole) capsule 20 mg PO AC sumatriptan succinate [Imitrex] 100 mg tablet 100 mg PO PRN PRN (Reason: migraines) Rx Instructions: Take 1/2 to 1 tablet by mouth at onset of headache. May repeat one dose in 2 hours as needed. Orajel 3X Mouth Sores 10 ml PO 4XD PRN (Reason: Analgesia) Rx Instructions: up to 4x/day after meals and at bedtime trazodone 50 mg Tablet 50 mg PO BEDTIME Qty: 30 0RF gabapentin 300 mg capsule 600 mg PO TID furosemide 20 mg tablet 60 mg PO BID hydrocodone-acetaminophen 5-325 mg tablet 1 tab PO 4XD PRN (Reason: Pain (Scale Score 7-10)) spironolactone 25 mg tablet 25 mg PO DAILY digoxin 125 mcg (0.125 mg) tablet 125 mcg PO DAILY guaifenesin 600 mg tablet extended release 12hr 600 - 1,200 mg PO BID PRN (Reason: cough) fluticasone propion-salmeterol 500-50 mcg/dose Blister With Device 1 inh INHALATION BID Eliquis 5 mg tablet 2.5 mg PO BID fluticasone propion-salmeterol 500-50 mcg/dose blister with device 1 inh inhalation BID Qty: 60 11RF Rx Instructions: rinse mouth with water, gargle and spit after each use Referrals: Maday Gross DO [Primary Care Provider] -
--- NOTE | 2023-11-24 17:10 | DI.CT.S_ITS ---
PROCEDURE: CT ANGIO CHEST PE PROTOCOL INDICATIONS: assess for PE vs PNA TECHNIQUE: After the administration of intravenous contrast, 2 mm thick sections acquired from the pulmonary apices to the posterior costophrenic angles. 3-dimensional maximum intensity projection (MIP) coronal and sagittal reformats were then acquired through the thorax. For radiation dose reduction, the following was used: automated exposure control, adjustment of mA and/or kV according to patient size. COMPARISON: [facility], CT, CT ANGIO CHEST PE PROTOCOL, 09/17/2023, 13:18. [facility], CR, XR CHEST 1V, 11/24/2023, 18:36. FINDINGS: Image quality: Diagnostic Lungs and pleura: Diffuse septal thickening. Left upper lobe and left lower lobe dense consolidations moderate opacities also seen in the right lower lobe. There is also bronchial thickening. Trace bilateral effusions. Mediastinum, heart, and esophagus: Dilated pulmonary system likely indicating chronically high pulmonary pressures. Poor opacifications seen in the left lower lobe distal arteries, possibly related to artifact or old thrombus. No acute appearing embolus is seen. Cardiomegaly. Coronary calcifications. Mildly enlarged mediastinal lymph nodes are present, also seen previously. Nonspecific esophageal wall thickening also present. Chest wall and thyroid: Unremarkable. Mild anasarca. Upper abdomen: Possible liver cysts. These are only partially evaluated. No gross abnormality elsewhere by arterial phase CT. Nonspecific fat stranding also seen in the left upper retroperitoneum, as before Bones: Degenerative changes, no acute or suspicious findings. Nonacute appearing rib fractures are also present. IMPRESSION: Predominant finding is pneumonia, particularly involving the left lung. Small pleural effusions are present. Superimposed septal thickening may represent edema. Consider future imaging surveillance to assess for resolution. No acute appearing pulmonary embolism. Partial non opacification of the left lower lobe arteries, likely related to subacute to chronic thrombi. Cardiomegaly. Imaging evidence of chronically elevated pulmonary and right heart pressures. Coronary disease. Mildly enlarged mediastinal hilar lymph nodes, possibly reactive. Attention on follow-up. Nonspecific fat stranding partially seen in the left upper retroperitoneum as before. Other findings above. Dictated by: Khoa Mares M.D. on 11/24/2023 at 19:30 Approved by: Khoa Mares M.D. on 11/24/2023 at 19:35
[2023-11-24 17:19] LABS: Add Manual Diff / Slide Review NO; Basophils Absolute Auto 100 /uL (0-100); Basophils Percent Auto 0.5 % (0-2); Eosinophils Absolute Auto 0 /uL (0-450); Eosinophils Percent Auto 0.2 % (2-4); Hematocrit 35.3 % (36-46); Hemoglobin 11.4 g/dL (12.0-16.0); Lymphocytes Absolute Auto 2500 /uL (1100-4500); Lymphocytes Percent Auto 16.6 % (25-40); Mean Corpuscular HGB Conc 32.2 % (30-36); Mean Corpuscular Hemoglobin 27.6 PG (26-34); Mean Corpuscular Volume 85.6 fL (80-100); Monocytes Absolute Auto 800 /uL (0-900); Monocytes Percent Auto 5.6 % (3-14); Neutrophils Absolute Auto 11600 /uL (1500-7000); Neutrophils Percent Auto 77.1 % (50-75); Platelet Count 204 X10^3/uL (150-400); Red Blood Cell Count 4.13 X10^6/uL (4.0-5.2); Red Cell Distribution Width 18.1 % (11.6-14.8); White Blood Cell Count 15.1 X10^3/uL (4.5-11.0)
[2023-11-24] MEDS: methylPREDNISolone 125 MG/2 ML VIAL IV (17:21)
[2023-11-24] MEDS: PIPERACILLIN/TAZO 4.5 GM in SODIUM CHLORIDE 0.9% 100 ML IV (17:21)
[2023-11-24 17:31] LABS: Alanine Aminotransferase 21 IU/L (<35); Albumin 2.9 g/dL (3.5-5.0); Alkaline Phosphatase 103 U/L (38-126); Aspartate Aminotransferase 36 IU/L (14-36); BUN Creatinine Ratio 38.3 (6-22); Bilirubin Total 0.5 mg/dL (0.2-1.3); Blood Urea Nitrogen 23 mg/dL (7-17); Calcium 9.4 mg/dL (8.4-10.2); Carbon Dioxide 35 mmol/L (22-32); Chloride 92 mmol/L (98-107); Estimated Glomerular Filt Rate > 60 mL/min (>60); Glucose 117 mg/dL (80-110); HEMOLYSIS < 15 (0-50); Potassium 3.6 mmol/L (3.4-5.1); Sodium 127 mmol/L (137-145); Total Protein 5.9 g/dL (6.3-8.2)
--- NOTE | 2023-11-24 17:35 | PC.NURSE ---
This RN changed patient blood pressure to 5 min intervals.
[2023-11-24 17:42] LABS: Appearance Urine UA CLEAR; Bilirubin Urine UA NEGATIVE (NEGATIVE); Color Urine UA YELLOW; Glucose Urine UA 1+ g/dL (Negative); Ketones Urine UA NEGATIVE (NEGATIVE); Leukocyte Esterase Urine UA 2+ (NEGATIVE); Nitrite Urine UA NEGATIVE (Negative); Occult Blood Urine UA TRACE-INTACT (Negative); Protein Urine UA TRACE (Negative); Specific Gravity Urine UA 1.015 (1.000-1.035); Urobilinogen Urine UA 0.2 E.U./dL (0.2)
[2023-11-24 17:43] LABS: NT-proBNP (BNP-Adult 18+) 8120 pg/mL (<450)
[2023-11-24] MEDS: SODIUM CHLORIDE 0.9% 1,000 ML 1000 ML IV (17:45)
--- NOTE | 2023-11-24 17:46 | DI.RAD.S_ITS ---
PROCEDURE: XR CHEST 1V INDICATIONS: sob TECHNIQUE: One view of the chest was acquired. COMPARISON: [facility], CT, CT ANGIO CHEST PE PROTOCOL, 11/24/2023, 19:04. [facility], CR, XR CHEST 1V, 09/27/2023, 13:14. FINDINGS: Surgical changes and devices: Left-sided chest tube remains unchanged. Lungs and pleura: Multifocal pulmonary infiltrates or nodular consolidation noted the left lung and mid right lung. Atelectasis and or infiltrate. No pneumothorax. Right lung and pleural space is clear Mediastinum: Mediastinal contours appear normal. Heart size is normal. Bones and chest wall: No suspicious bony lesions. Overlying soft tissues appear unremarkable. IMPRESSION: Left-sided chest tube with stable left pleural effusion. No pneumothorax. Bilateral multifocal consolidation or nodular infiltrates Approved by: Kevin Rodriguez M.D. on 11/24/2023 at 18:27
[2023-11-24 17:55] LABS: pH Urine UA 5.5 (4.5-8.0)
[2023-11-24 17:59] LABS: Troponin I 0.308 ng/mL (0.01-0.034)
[2023-11-24] MEDS: VANCOMYCIN 1,250 MG/250 ML PIGGYBACK 125 MG IV (18:00)
--- NOTE | 2023-11-24 18:05 | PC.NURSE ---
This RN opened the crash cart to obtain ordered epi for provider. Charge nurse informed.
[2023-11-24 18:58] LABS: PCO2 ABG 60.6 mmHg (35-45); pH ABG 7.35 (7.35-7.45)
[2023-11-24 18:59] LABS: Bacteria Urine Many (>30); Culture Indicated Urine Specimen Cultured; RBC Urine 0-1/HPF (0-5/HPF); Squamous Epithelial Cell Urine 0-1 /HPF (0-5/HPF); Urine Volume Low Vol <10mL (spun); WBC Urine 10-30/HPF (0-5/HPF)
--- NOTE | 2023-11-24 18:59 | PC.NURSE ---
This RN gave both pulled epi boxes, ketamine, and rapid sequence intubation kit to RN ZG upon transfer of care.
[2023-11-24 19:01] LABS: HCO3 ABG 34 mmol/L (23-27); PO2 ABG 27 mmHg (80-100); TCO2 ABG 35 mmol/L (23-27)
[2023-11-24 19:02] LABS: Allen Test for ABG Passed? Yes, Passed; Blood Gas Collection Site Left Radial; Fractionated Inspired Oxygen 45; Oxygen Saturation ABG 45 % (95-100)
[2023-11-24] MEDS: NOREPINEPHRINE BITARTRATE/D5W 4 MG/250 ML PLAST..BAG 19.901 MG IV (19:16)
[2023-11-24 19:21] LABS: Lactate (Lactic Acid) 2.2 mmol/L (0.7-2.1)
--- NOTE | 2023-11-24 20:19 | PC.NURSE ---
patient has large area of bruised tissues on her bottom. Family is aware of this condition. when the patient was turned and cleaned a large amount of stool was noted on her rectum and vagina/ coating the urinary catheter. She was cleaned with soap and water and a new barrier pad was placed one her coccyx. Barrier cream was applied around her bottom and an ABD was placed and then a new brief was applied.
[2023-11-24] MEDS: SODIUM CHLORIDE 0.9% 1,000 ML 100 ML IV (20:24)
[2023-11-24 20:40] LABS: Adenovirus Not Detected (Not Detect); B. parapertussis Not Detected (Not Detecte); Bordetella pertussis Not Detected (Not Detect); Chlamydophila pneumoniae Not Detected (Not Detect); Coronavirus 229E Not Detected (Not Detect); Coronavirus HKU1 Not Detected (Not Detect); Coronavirus NL 63 Not Detected (Not Detect); Coronavirus OC43 Not Detected (Not Detect); Human Metapneumovirus Not Detected (Not Detect); Human Rhinovirus/Enterovirus Not Detected (Not Detect); Influenza A Not Detected (Not Detect); Influenza B Not Detected (Not Detect); Mycoplasma pneumoniae Not Detected (Not Detect); Parainfluenza Virus 1 Not Detected (Not Detect); Parainfluenza Virus 2 Not Detected (Not Detect); Parainfluenza Virus 3 Not Detected (Not Detect); Parainfluenza Virus 4 Not Detected (Not Detect); Respiratory Syncytial Virus Not Detected (Not Detect); SARS- CoV-2 Detected (Not Detecte)
[2023-11-24 20:48] LABS: Reflexed Lactate in 2 Hours Y
[2023-11-24 21:53] LABS: Lactate 2HR (Lactic Acid Rflx) 2.9 mmol/L (0.7-2.1)
[2023-11-25] VITALS (107 sets, daily range): BP systolic 84–147; BP diastolic 46–78; PULSE 55–98; RESP 16–26; TEMP 36.4–36.6; O2SAT 89–100
--- NOTE | 2023-11-25 03:52 | PM.HP.1 ---
History of Present Illness History of Present Illness Date Patient Seen: 11/24/23 Time Patient Seen: 23:30 Chief complaint: Hypoxia Narrative: 83 years old female with a past medical history of congestive heart failure, recurrent pleural effusion on the Pleurx catheter drain, COPD, pulm embolism, atrial fibrillation on Eliquis, asthma and multiple other medical issues was brought to the emergency room for progressive shortness of breath with hypoxemia. Patient was recently diagnosed with COVID-pneumonia and was being treated. Denies any chest pain palpitations dizziness. Noted to be hypoxemic on arrival with chest x-ray concerning for pneumonia. CT chest is confirming pneumonia primarily in the left lung and no embolism. Labs revealed a white count of 15.1 with a hemoglobin of 0.4. ABG showed a pH of 7.35 with a pCO2 of 60.6. BMP showed a sodium of 120 with a creatinine of 0.6 and a troponin of 0.308/BNP of 8100. Urine analysis showed 10-30 WBCs. COVID was detected. Patient was also noted to be initially hypotensive needing a brief course of Levophed in the emergency room and was given IV Solu-Medrol/Zosyn and vancomycin with nebulizers and oxygen supplementation. 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 Chronic fatigue syndrome (~1992) COPD (chronic obstructive pulmonary disease) Depression Mumps (1949) Fibromyalgia (1992) Osteoporosis (1989) Migraines (1984) RLS (restless legs syndrome) Osteoarthritis Atrial fibrillation (2013) Surgical History Anesthesia History of bladder suspension procedure (1994) Other joint replacement by other means (1998) Previous back surgery (~12/17/22) S/P total abdominal hysterectomy and bilateral salpingo-oophorectomy (1964) Status post breast biopsy Family History Brother MVA (motor vehicle accident) Father CAD (coronary artery disease) Mother Pancreatic cancer Social History household members: none Smoking Status: Former smoker alcohol intake: former Meds Home Medications and Allergies Home Medications Medication Instructions Recorded Confirmed Type meclizine 25 mg tablet 25 mg PO TID PRN dizziness #90 tabs 05/20/20 09/17/23 Rx budesonide 0.5 mg/2 mL suspension 0.5 mg (2 mL) inhalation BID #120 01/02/21 09/17/23 Rx for nebulization mL Disabled Parking Permit See Rx Instructions .Route 03/19/23 09/06/23 Rx .COMPLEX #1 unit potassium chloride 20 mEq 20 meq PO DAILY #30 tabs 05/24/23 09/17/23 Rx tablet,extended release Acid Retail Visual Merchandiser (omeprazole) 20 mg PO AC reflux 06/09/23 09/17/23 History albuterol sulfate 90 mcg/actuation 2 puff inhalation Q4-6H PRN 06/09/23 09/17/23 History aerosol inhaler wheezing cyclobenzaprine 10 mg tablet 10 mg PO Q8HR PRN Muscle Spasm 06/09/23 09/17/23 History sumatriptan succinate 100 mg 100 mg PO PRN PRN migraines 06/09/23 09/17/23 History tablet (Imitrex) tramadol 100 mg PO Q8HR PRN Pain (Scale 06/09/23 09/17/23 History Score 4-6) Orajel 3X Mouth Sores 10 ml PO 4XD PRN Analgesia 06/11/23 09/06/23 History trazodone 50 mg tablet 50 mg PO BEDTIME #30 tabs 06/25/23 09/17/23 Rx apixaban 5 mg tablet (Eliquis) 2.5 mg PO BID 09/04/23 09/17/23 History fluticasone 500 mcg-salmeterol 50 1 inh inhalation BID #60 ea 09/04/23 09/17/23 Rx mcg/dose blistr powdr for inhalation metoprolol tartrate 25 mg tablet 37.5 mg PO DAILY 09/06/23 09/06/23 History digoxin 125 mcg (0.125 mg) tablet 125 mcg PO DAILY 09/17/23 09/17/23 History furosemide 20 mg tablet 60 mg PO BID 09/17/23 09/17/23 History gabapentin 300 mg capsule 600 mg PO TID 09/17/23 09/17/23 History guaifenesin 600 mg tablet, 600 - 1,200 mg PO BID PRN cough 09/17/23 09/17/23 History extended release 12 hr hydrocodone 5 mg-acetaminophen 325 1 tab PO 4XD PRN Pain (Scale Score 09/17/23 09/17/23 History mg tablet 7-10) spironolactone 25 mg tablet 25 mg PO DAILY 09/17/23 09/17/23 History fluticasone 500 mcg-salmeterol 50 1 inh inhalation BID 09/18/23 09/18/23 History mcg/dose blistr powdr for inhalation Allergies Allergy/AdvReac Type Severity Reaction Status Date / Time Sulfa (Sulfonamide Allergy Severe RASH Verified 11/24/23 17:03 Antibiotics) [SULFA (SULFONAMIDE ANTIBIOTICS)] bee venom protein (honey bee) Allergy Intermediate Throat Verified 11/24/23 17:03 swelling and breathing problems alendronate sodium AdvReac Severe Intolerable Verified 11/24/23 17:03 heartburn paroxetine [PAROXETINE] AdvReac Intermediate agitated, Verified 11/24/23 17:03 anxious turmeric AdvReac Broke out Verified 11/24/23 17:03 in spots GAUZE Allergy Mild SEVERE Uncoded 09/06/23 09:24 RASH/ REDNESS Review of Systems Review of Systems Narrative: A 12 point review of system is negative unless otherwise stated in the history of present illness Exam Vital Signs (past 8 hours): - 11/24/23 19:55 11/24/23 19:55 11/24/23 20:00 Temperature Pulse Rate 71 Respiratory Rate 25 H Blood Pressure 106/56 L 109/56 L Pulse Oximetry 94 Oxygen Delivery Method Oxygen Flow Rate 11/24/23 20:00 11/24/23 20:05 11/24/23 20:05 Temperature Pulse Rate 74 64 Respiratory Rate 25 H 25 H Blood Pressure 95/50 L Pulse Oximetry 92 92 Oxygen Delivery Method Oxygen Flow Rate 11/24/23 20:10 11/24/23 20:10 11/24/23 20:15 Temperature Pulse Rate 64 Respiratory Rate 26 H Blood Pressure 95/56 L 90/59 L Pulse Oximetry 92 Oxygen Delivery Method Oxygen Flow Rate 11/24/23 20:15 11/24/23 20:20 11/24/23 20:20 Temperature Pulse Rate 67 72 Respiratory Rate 27 H 27 H Blood Pressure 96/51 L Pulse Oximetry 92 91 Oxygen Delivery Method Oxygen Flow Rate 11/24/23 20:25 11/24/23 20:28 11/24/23 20:28 Temperature Pulse Rate 65 61 Respiratory Rate 24 26 H Blood Pressure 93/53 L Pulse Oximetry 91 92 Oxygen Delivery Method Oxygen Flow Rate 11/24/23 20:30 11/24/23 20:30 11/24/23 20:35 Temperature Pulse Rate 64 Respiratory Rate 25 H Blood Pressure 88/49 L 104/56 L Pulse Oximetry 93 Oxygen Delivery Method Oxygen Flow Rate 11/24/23 20:35 11/24/23 20:40 11/24/23 20:40 Temperature Pulse Rate 90 58 L Respiratory Rate 22 24 Blood Pressure 85/47 L Pulse Oximetry 92 91 Oxygen Delivery Method Oximask Oximask Oxygen Flow Rate 5 5 11/24/23 20:44 11/24/23 20:44 11/24/23 20:45 Temperature Pulse Rate 62 Respiratory Rate 24 Blood Pressure 83/44 L 92/51 L Pulse Oximetry 93 Oxygen Delivery Method Oxygen Flow Rate 11/24/23 20:45 11/24/23 20:50 11/24/23 20:50 Temperature Pulse Rate 62 62 Respiratory Rate 24 23 Blood Pressure 89/48 L Pulse Oximetry 92 95 Oxygen Delivery Method Oxygen Flow Rate 11/24/23 20:55 11/24/23 20:55 11/24/23 21:00 Temperature Pulse Rate 65 Respiratory Rate 23 Blood Pressure 90/50 L 84/43 L Pulse Oximetry 88 L Oxygen Delivery Method Oxygen Flow Rate 11/24/23 21:00 11/24/23 21:05 11/24/23 21:05 Temperature Pulse Rate 76 68 Respiratory Rate 25 H 25 H Blood Pressure 94/55 L Pulse Oximetry 86 L 95 Oxygen Delivery Method Oxygen Flow Rate 11/24/23 21:10 11/24/23 21:10 11/24/23 21:11 Temperature Pulse Rate 62 Respiratory Rate 23 Blood Pressure 87/46 L Pulse Oximetry 98 97 Oxygen Delivery Method Oximask Oxygen Flow Rate 5 11/24/23 21:15 11/24/23 21:15 11/24/23 21:17 Temperature Pulse Rate 63 Respiratory Rate 23 Blood Pressure 86/47 L Pulse Oximetry 96 Oxygen Delivery Method Oximask Oxygen Flow Rate 11/24/23 21:20 11/24/23 21:20 11/24/23 21:25 Temperature Pulse Rate 62 Respiratory Rate 23 Blood Pressure 100/50 L 102/51 L Pulse Oximetry 98 Oxygen Delivery Method Oxygen Flow Rate 11/24/23 21:25 11/24/23 21:30 11/24/23 21:30 Temperature 97.2 F L Pulse Rate 60 62 Respiratory Rate 21 21 Blood Pressure 117/55 L Pulse Oximetry 99 98 Oxygen Delivery Method Oxygen Flow Rate 11/24/23 21:35 11/24/23 21:35 11/24/23 21:40 Temperature Pulse Rate 61 Respiratory Rate 21 Blood Pressure 97/48 L 112/56 L Pulse Oximetry 99 Oxygen Delivery Method Oxygen Flow Rate 11/24/23 21:40 11/24/23 21:45 11/24/23 21:45 Temperature Pulse Rate 66 70 Respiratory Rate 21 20 Blood Pressure 116/57 L Pulse Oximetry 99 99 Oxygen Delivery Method Oxygen Flow Rate 11/24/23 21:59 11/24/23 22:00 11/24/23 22:05 Temperature Pulse Rate 70 73 81 Respiratory Rate 22 24 25 H Blood Pressure Pulse Oximetry 97 Oxygen Delivery Method Oxygen Flow Rate 11/24/23 22:10 11/24/23 22:30 11/24/23 22:35 Temperature Pulse Rate 78 71 75 Respiratory Rate 24 24 24 Blood Pressure 95/54 L Pulse Oximetry 97 97 96 Oxygen Delivery Method Oxygen Flow Rate 5 11/24/23 22:40 11/24/23 22:45 11/24/23 22:50 Temperature Pulse Rate 77 76 78 Respiratory Rate 23 25 H 23 Blood Pressure Pulse Oximetry 96 97 97 Oxygen Delivery Method Oxygen Flow Rate 11/24/23 22:55 11/24/23 23:00 11/24/23 23:05 Temperature Pulse Rate 65 62 67 Respiratory Rate 23 22 21 Blood Pressure Pulse Oximetry 97 99 99 Oxygen Delivery Method Oxygen Flow Rate 11/24/23 23:10 11/24/23 23:15 11/24/23 23:16 Temperature Pulse Rate 78 68 Respiratory Rate 22 22 Blood Pressure 105/54 L Pulse Oximetry 99 99 Oxygen Delivery Method Oxygen Flow Rate 11/24/23 23:16 11/24/23 23:17 11/24/23 23:17 Temperature Pulse Rate 71 70 Respiratory Rate 23 23 Blood Pressure 108/52 L Pulse Oximetry 98 97 Oxygen Delivery Method Oxygen Flow Rate 11/24/23 23:20 11/24/23 23:25 11/24/23 23:30 Temperature Pulse Rate 95 H 74 Respiratory Rate 24 22 Blood Pressure 114/57 L Pulse Oximetry 97 96 Oxygen Delivery Method Oxygen Flow Rate 11/24/23 23:30 11/24/23 23:35 11/24/23 23:40 Temperature Pulse Rate 64 65 75 Respiratory Rate 21 21 24 Blood Pressure Pulse Oximetry 98 98 98 Oxygen Delivery Method Oxygen Flow Rate 11/24/23 23:45 11/24/23 23:50 11/24/23 23:55 Temperature Pulse Rate 70 69 73 Respiratory Rate 22 22 23 Blood Pressure Pulse Oximetry 98 98 98 Oxygen Delivery Method Oxygen Flow Rate 11/25/23 00:00 11/25/23 00:00 11/25/23 00:05 Temperature Pulse Rate 71 71 Respiratory Rate 21 20 Blood Pressure 110/54 L Pulse Oximetry 97 97 Oxygen Delivery Method Oxygen Flow Rate 11/25/23 00:10 11/25/23 00:15 11/25/23 00:20 Temperature Pulse Rate 78 83 75 Respiratory Rate 22 20 21 Blood Pressure Pulse Oximetry 96 95 95 Oxygen Delivery Method Oxygen Flow Rate 11/25/23 00:25 11/25/23 00:30 11/25/23 00:30 Temperature Pulse Rate 95 H 67 Respiratory Rate 22 22 Blood Pressure 107/54 L Pulse Oximetry 95 95 Oxygen Delivery Method Oxygen Flow Rate 11/25/23 00:35 11/25/23 00:40 11/25/23 00:45 Temperature Pulse Rate 76 87 64 Respiratory Rate 22 23 21 Blood Pressure Pulse Oximetry 95 94 95 Oxygen Delivery Method Oxygen Flow Rate 11/25/23 00:50 11/25/23 00:55 11/25/23 01:00 Temperature Pulse Rate 74 79 97 H Respiratory Rate 22 22 24 Blood Pressure Pulse Oximetry 95 95 95 Oxygen Delivery Method Oxygen Flow Rate 11/25/23 01:05 11/25/23 01:10 11/25/23 01:12 Temperature Pulse Rate 97 H 97 H 97 H Respiratory Rate 24 24 23 Blood Pressure Pulse Oximetry 96 89 L 90 L Oxygen Delivery Method Oxygen Flow Rate 11/25/23 01:12 11/25/23 01:15 11/25/23 01:30 Temperature Pulse Rate 97 H Respiratory Rate 24 Blood Pressure 147/78 H 123/60 Pulse Oximetry 97 Oxygen Delivery Method Oxygen Flow Rate 11/25/23 01:30 11/25/23 01:35 11/25/23 01:40 Temperature Pulse Rate 79 80 80 Respiratory Rate 25 H 24 23 Blood Pressure Pulse Oximetry 97 98 98 Oxygen Delivery Method Oxygen Flow Rate 11/25/23 01:45 11/25/23 01:50 11/25/23 01:55 Temperature Pulse Rate 78 81 97 H Respiratory Rate 24 26 H 24 Blood Pressure Pulse Oximetry 98 98 98 Oxygen Delivery Method Oxygen Flow Rate 11/25/23 02:00 11/25/23 02:00 11/25/23 02:05 Temperature Pulse Rate 80 77 Respiratory Rate 24 23 Blood Pressure 123/58 L Pulse Oximetry 98 98 Oxygen Delivery Method Oxygen Flow Rate 11/25/23 02:10 11/25/23 02:15 11/25/23 02:20 Temperature Pulse Rate 92 H 96 H 74 Respiratory Rate 24 24 23 Blood Pressure Pulse Oximetry 97 98 98 Oxygen Delivery Method Oxygen Flow Rate 11/25/23 02:25 11/25/23 02:30 11/25/23 02:30 Temperature Pulse Rate 74 76 Respiratory Rate 23 22 Blood Pressure 113/52 L Pulse Oximetry 97 98 Oxygen Delivery Method Oxygen Flow Rate 11/25/23 02:35 Temperature Pulse Rate 77 Respiratory Rate 22 Blood Pressure Pulse Oximetry 98 Oxygen Delivery Method Oxygen Flow Rate Oxygen Delivery Method Oximask Oxygen Flow Rate 5 Narrative Exam Narrative: Air entry decreased at base with wheezing and crackles on left mid lung region Objective Labs 11/24/23 17:20 11/24/23 17:20 Labs: Laboratory Results - last 24 hr 11/24/23 11/24/23 11/24/23 17:00 17:02 17:20 WBC 15.1 H RBC 4.13 Hgb 11.4 L Hct 35.3 L MCV 85.6 MCH 27.6 MCHC 32.2 RDW 18.1 H Plt Count 204 Neut % (Auto) 77.1 H Lymph % (Auto) 16.6 L [place] % (Auto) 5.6 Eos % (Auto) 0.2 L Baso % (Auto) 0.5 Neut # (Auto) 44662 H Lymph # (Auto) 2500 [place] # (Auto) 800 Eos # (Auto) 0 Baso # (Auto) 100 ABG Sample Site ABG pH ABG pCO2 ABG pO2 ABG HCO3 ABG Total CO2 ABG O2 Saturation ABG Base Excess FiO2 Sodium 127 L Potassium 3.6 Chloride 92 L Carbon Dioxide 35 H BUN 23 H Creatinine 0.60 Estimated GFR > 60 BUN/Creatinine Ratio 38.3 H Glucose 117 H Lactate 2.2 H Calcium 9.4 Total Bilirubin 0.5 AST 36 ALT 21 Alkaline Phosphatase 103 Troponin I 0.308 H* NT-Pro-B Natriuret Pep 8120 H Total Protein 5.9 L Albumin 2.9 L Globulin 3.0 Albumin/Globulin Ratio 1.0 Urine Color Yellow Urine Appearance Clear Urine pH 5.5 Ur Specific [place] 1.015 Urine Protein Trace H Urine Glucose (UA) 1+ H Urine Ketones Negative Urine Occult Blood Trace-intact Urine Nitrate Negative Urine Bilirubin Negative Urine Urobilinogen 0.2 Ur Leukocyte Esterase 2+ H Urine RBC 0-1/hpf Urine WBC 10-30/hpf H Ur Squamous Epith Cells 0-1 /hpf D Urine Bacteria Many (>30) H Ur Culture Indicated? Specimen cultured Vol Urine Centrifuged Low vol <10ml (spun) A Chlamy pneumoniae PCR Adenovirus (PCR) B.parapertussis DNA PCR Coronavirus OC43 (PCR) Coronavirus HKU1 (PCR) Coronavirus 229E (PCR) SARS-CoV-2 (PCR) Coronavirus NL63 (PCR) Human Metapneumovir PCR Influenza Type A (PCR) Influenza Type B (PCR) M. pneumoniae (PCR) Parainfluenza 1 (PCR) Parainfluenza 2 (PCR) Parainfluenza 3 (PCR) Parainfluenza 4 (PCR) RSV (PCR) Entero/Rhino (PCR) 11/24/23 11/24/23 11/24/23 17:44 19:44 21:35 WBC RBC Hgb Hct MCV MCH MCHC RDW Plt Count Neut % (Auto) Lymph % (Auto) [place] % (Auto) Eos % (Auto) Baso % (Auto) Neut # (Auto) Lymph # (Auto) [place] # (Auto) Eos # (Auto) Baso # (Auto) ABG Sample Site Left radial ABG pH 7.35 ABG pCO2 60.6 H ABG pO2 27 L* ABG HCO3 34 H ABG Total CO2 35 H ABG O2 Saturation 45 L* ABG Base Excess 8.0 H FiO2 45 Sodium Potassium Chloride Carbon Dioxide BUN Creatinine Estimated GFR BUN/Creatinine Ratio Glucose Lactate 2.9 H Calcium Total Bilirubin AST ALT Alkaline Phosphatase Troponin I NT-Pro-B Natriuret Pep Total Protein Albumin Globulin Albumin/Globulin Ratio Urine Color Urine Appearance Urine pH Ur Specific [place] Urine Protein Urine Glucose (UA) Urine Ketones Urine Occult Blood Urine Nitrate Urine Bilirubin Urine Urobilinogen Ur Leukocyte Esterase Urine RBC Urine WBC Ur Squamous Epith Cells Urine Bacteria Ur Culture Indicated? Vol Urine Centrifuged Chlamy pneumoniae PCR Not detected Adenovirus (PCR) Not detected B.parapertussis DNA PCR Not detected Coronavirus OC43 (PCR) Not detected Coronavirus HKU1 (PCR) Not detected Coronavirus 229E (PCR) Not detected SARS-CoV-2 (PCR) Detected H Coronavirus NL63 (PCR) Not detected Human Metapneumovir PCR Not detected Influenza Type A (PCR) Not detected Influenza Type B (PCR) Not detected M. pneumoniae (PCR) Not detected Parainfluenza 1 (PCR) Not detected Parainfluenza 2 (PCR) Not detected Parainfluenza 3 (PCR) Not detected Parainfluenza 4 (PCR) Not detected RSV (PCR) Not detected Entero/Rhino (PCR) Not detected Assessment & Plan Assessment & Plan narrative: 83 years old female with a past medical history of congestive heart failure, recurrent pleural effusion on the Pleurx catheter drain, COPD, pulm embolism, atrial fibrillation on Eliquis, asthma and multiple other medical issues was brought to the emergency room for progressive shortness of breath with hypoxemia. Patient was recently diagnosed with COVID-pneumonia and was being treated. Denies any chest pain palpitations dizziness. Noted to be hypoxemic on arrival with chest x-ray concerning for pneumonia. CT chest is confirming pneumonia primarily in the left lung and no embolism. Labs revealed a white count of 15.1 with a hemoglobin of 0.4. ABG showed a pH of 7.35 with a pCO2 of 60.6. BMP showed a sodium of 120 with a creatinine of 0.6 and a troponin of 0.308/BNP of 8100. Urine analysis showed 10-30 WBCs. COVID was detected. Patient was also noted to be initially hypotensive needing a brief course of Levophed in the emergency room and was given IV Solu-Medrol/Zosyn and vancomycin with nebulizers and oxygen supplementation. Patient was admitted for further evaluation 1. Acute hypoxemic respiratory failure appears multifactorial due to combination of pneumonia viral with superimposed bacterial and further complicated by congestive heart failure. Treat the reversible factors including infection continue the diuresis 2 COVID infection/pneumonia. Though it has been 2 days, will give a dose of remdesivir with IV Decadron given the acute hypoxemia and trend closely 3 superimposed bacterial pneumonia with concerns for healthcare acquired pneumonia. Continue the IV Zosyn/vancomycin initiated in emergency room pending cultures 4 recurrent pleural effusion secondary to underlying congestive heart failure on a Pleurx catheter to be drained as per schedule. Per family, the output from the Pleurx catheter has decreased off late. Treat the underlying infection and trend closely 5 atrial fibrillation. Verify the home medications digoxin/Eliquis after it has been verified 6 history of hypertension but now hypotensive needing a brief course of Levophed but off the pressors. Hold the home blood pressure medications and monitor 7 DVT prophylaxis will be with SCDs/Eliquis 8 urinary tract infection. IV antibiotics for the pneumonia should also cover the UTI follow the cultures Patient is a full code for now Patient will be admitted under inpatient status. Given the concern for acute hypoxemic respiratory failure in the setting of COVID infection/superimposed bacterial pneumonia needing IV antibiotics, patient meets criteria for inpatient with expected length of stay greater than 2 midnights
[2023-11-25] MEDS: REMDESIVIR 200 MG in SODIUM CHLORIDE 0.9% 250 ML 250 MG IV (05:12)
[2023-11-25] MEDS: DEXAMETHASONE 10 MG/ML VIAL 6 MG IV ×2 (05:12→08:06)
[2023-11-25 06:07] LABS: Alanine Aminotransferase 25 IU/L (<35); Albumin 2.8 g/dL (3.5-5.0); Alkaline Phosphatase 98 U/L (38-126); Aspartate Aminotransferase 36 IU/L (14-36); BUN Creatinine Ratio 32.3 (6-22); Bilirubin Total 0.4 mg/dL (0.2-1.3); Blood Urea Nitrogen 21 mg/dL (7-17); Calcium 9.2 mg/dL (8.4-10.2); Carbon Dioxide 27 mmol/L (22-32); Chloride 97 mmol/L (98-107); Estimated Glomerular Filt Rate > 60 mL/min (>60); Globulin 2.8 g/dL (1.7-4.1); Glucose 169 mg/dL (80-110); HEMOLYSIS < 15 (0-50); Magnesium 1.6 mg/dL (1.6-2.3); Phosphorous 4.4 mg/dL (2.8-4.1); Potassium 3.7 mmol/L (3.4-5.1); Sodium 130 mmol/L (137-145); Total Protein 5.6 g/dL (6.3-8.2)
[2023-11-25 06:15] LABS: Add Manual Diff / Slide Review NO; Basophils Absolute Auto 0 /uL (0-100); Basophils Percent Auto 0.1 % (0-2); Eosinophils Absolute Auto 0 /uL (0-450); Hematocrit 34.6 % (36-46); Lymphocytes Absolute Auto 300 /uL (1100-4500); Lymphocytes Percent Auto 1.7 % (25-40); Mean Corpuscular HGB Conc 31.9 % (30-36); Mean Corpuscular Volume 84.8 fL (80-100); Monocytes Absolute Auto 300 /uL (0-900); Monocytes Percent Auto 1.4 % (3-14); Neutrophils Absolute Auto 18800 /uL (1500-7000); Neutrophils Percent Auto 96.8 % (50-75); Platelet Count 217 X10^3/uL (150-400); Red Blood Cell Count 4.08 X10^6/uL (4.0-5.2); Red Cell Distribution Width 17.9 % (11.6-14.8); White Blood Cell Count 19.4 X10^3/uL (4.5-11.0)
[2023-11-25 06:16] LABS: INR 1.5 (0.9-1.3); Prothrombin Time 17.7 SECONDS (9.4-12.5)
[2023-11-25] MEDS: PIPERACILLIN/TAZO 3.375 GM in SODIUM CHLORIDE 0.9% 100 ML IV ×3 (06:28→20:02)
--- NOTE | 2023-11-25 06:50 | PC.NURSE ---
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
[2023-11-25] MEDS: VANCOMYCIN 1,000 MG/200 ML PIGGYBACK 150 MG IV ×2 (08:06→20:03)
--- NOTE | 2023-11-25 08:57 | P.PN_ITS ---
Subjective Subjective Interval history: Had a long discussion (30 min) with patient and daughter about goals of care. Patient states she would not want CPR or intubation. She wants to go home. She is ok if she goes back on hospice and prefers not to transfer back to the hospital. POLST filled out and updated. Exam Vital Signs (past 8 hours): - 11/25/23 01:00 11/25/23 01:05 11/25/23 01:10 Temperature Pulse Rate 97 H 97 H 97 H Respiratory Rate 24 24 24 Blood Pressure Pulse Oximetry 95 96 89 L Oxygen Delivery Method Oxygen Flow Rate 11/25/23 01:12 11/25/23 01:12 11/25/23 01:15 Temperature Pulse Rate 97 H 97 H Respiratory Rate 23 24 Blood Pressure 147/78 H Pulse Oximetry 90 L 97 Oxygen Delivery Method Oxygen Flow Rate 11/25/23 01:30 11/25/23 01:30 11/25/23 01:35 Temperature Pulse Rate 79 80 Respiratory Rate 25 H 24 Blood Pressure 123/60 Pulse Oximetry 97 98 Oxygen Delivery Method Oxygen Flow Rate 11/25/23 01:40 11/25/23 01:45 11/25/23 01:50 Temperature Pulse Rate 80 78 81 Respiratory Rate 23 24 26 H Blood Pressure Pulse Oximetry 98 98 98 Oxygen Delivery Method Oxygen Flow Rate 11/25/23 01:55 11/25/23 02:00 11/25/23 02:00 Temperature Pulse Rate 97 H 80 Respiratory Rate 24 24 Blood Pressure 123/58 L Pulse Oximetry 98 98 Oxygen Delivery Method Oxygen Flow Rate 11/25/23 02:05 11/25/23 02:10 11/25/23 02:15 Temperature Pulse Rate 77 92 H 96 H Respiratory Rate 23 24 24 Blood Pressure Pulse Oximetry 98 97 98 Oxygen Delivery Method Oxygen Flow Rate 11/25/23 02:20 11/25/23 02:25 11/25/23 02:30 Temperature Pulse Rate 74 74 Respiratory Rate 23 23 Blood Pressure 113/52 L Pulse Oximetry 98 97 Oxygen Delivery Method Oxygen Flow Rate 11/25/23 02:30 11/25/23 02:35 11/25/23 02:40 Temperature Pulse Rate 76 77 77 Respiratory Rate 22 22 22 Blood Pressure Pulse Oximetry 98 98 98 Oxygen Delivery Method Oxygen Flow Rate 11/25/23 02:45 11/25/23 02:50 11/25/23 02:55 Temperature Pulse Rate 90 97 H 98 H Respiratory Rate 24 23 24 Blood Pressure Pulse Oximetry 99 94 92 Oxygen Delivery Method Oxygen Flow Rate 11/25/23 03:00 11/25/23 03:00 11/25/23 03:05 Temperature Pulse Rate 97 H 96 H Respiratory Rate 23 23 Blood Pressure 122/60 Pulse Oximetry 93 93 Oxygen Delivery Method Oxygen Flow Rate 11/25/23 03:10 11/25/23 03:15 11/25/23 03:20 Temperature Pulse Rate 97 H 78 79 Respiratory Rate 23 24 24 Blood Pressure Pulse Oximetry 98 98 98 Oxygen Delivery Method Oxygen Flow Rate 11/25/23 03:25 11/25/23 03:30 11/25/23 03:30 Temperature Pulse Rate 78 80 Respiratory Rate 23 23 Blood Pressure 129/74 Pulse Oximetry 99 99 Oxygen Delivery Method Oxygen Flow Rate 11/25/23 03:35 11/25/23 03:40 11/25/23 03:45 Temperature Pulse Rate 80 77 97 H Respiratory Rate 23 23 26 H Blood Pressure Pulse Oximetry 98 97 98 Oxygen Delivery Method Oxygen Flow Rate 11/25/23 03:50 11/25/23 03:55 11/25/23 04:00 Temperature Pulse Rate 96 H 75 Respiratory Rate 23 22 Blood Pressure 124/58 L Pulse Oximetry 98 98 Oxygen Delivery Method Oxygen Flow Rate 11/25/23 04:00 11/25/23 04:05 11/25/23 04:07 Temperature Pulse Rate 76 78 77 Respiratory Rate 23 23 26 H Blood Pressure Pulse Oximetry 99 99 99 Oxygen Delivery Method Oximask Oxygen Flow Rate 11/25/23 04:10 11/25/23 04:15 11/25/23 04:20 Temperature Pulse Rate 81 97 H 96 H Respiratory Rate 24 25 H 22 Blood Pressure Pulse Oximetry 99 99 100 Oxygen Delivery Method Oxygen Flow Rate 11/25/23 04:25 11/25/23 04:30 11/25/23 04:30 Temperature Pulse Rate 75 77 Respiratory Rate 24 24 Blood Pressure 118/56 L Pulse Oximetry 100 99 Oxygen Delivery Method Oxygen Flow Rate 11/25/23 04:35 11/25/23 04:40 11/25/23 04:45 Temperature Pulse Rate 75 97 H 97 H Respiratory Rate 24 22 23 Blood Pressure Pulse Oximetry 99 92 97 Oxygen Delivery Method Oxygen Flow Rate 11/25/23 04:50 11/25/23 04:55 11/25/23 05:00 Temperature Pulse Rate 77 78 Respiratory Rate 21 24 Blood Pressure 127/61 Pulse Oximetry 94 93 Oxygen Delivery Method Oxygen Flow Rate 11/25/23 05:00 11/25/23 05:05 11/25/23 05:10 Temperature Pulse Rate 76 77 88 Respiratory Rate 24 24 23 Blood Pressure Pulse Oximetry 98 97 98 Oxygen Delivery Method Oxygen Flow Rate 11/25/23 05:15 11/25/23 05:20 11/25/23 05:25 Temperature Pulse Rate 97 H 78 84 Respiratory Rate 24 23 22 Blood Pressure Pulse Oximetry 99 99 100 Oxygen Delivery Method Oxygen Flow Rate 11/25/23 05:30 11/25/23 05:30 11/25/23 05:35 Temperature Pulse Rate 94 H 92 H Respiratory Rate 24 24 Blood Pressure 129/51 L Pulse Oximetry 99 98 Oxygen Delivery Method Oxygen Flow Rate 11/25/23 05:40 11/25/23 05:45 11/25/23 05:50 Temperature 97.6 F Pulse Rate 63 67 Respiratory Rate 23 23 Blood Pressure Pulse Oximetry 100 99 Oxygen Delivery Method Oxygen Flow Rate 11/25/23 06:00 11/25/23 06:01 11/25/23 06:01 Temperature Pulse Rate 67 69 Respiratory Rate 24 22 Blood Pressure 87/50 L Pulse Oximetry 97 98 Oxygen Delivery Method Oxygen Flow Rate 11/25/23 06:30 11/25/23 06:30 11/25/23 06:35 Temperature Pulse Rate 60 63 Respiratory Rate 26 H 23 Blood Pressure 91/48 L Pulse Oximetry 98 98 Oxygen Delivery Method Oxygen Flow Rate 11/25/23 06:40 11/25/23 06:45 11/25/23 06:50 Temperature Pulse Rate 63 62 59 L Respiratory Rate 23 22 21 Blood Pressure Pulse Oximetry 97 98 98 Oxygen Delivery Method Oxygen Flow Rate 11/25/23 06:55 11/25/23 07:00 11/25/23 07:00 Temperature Pulse Rate 61 65 Respiratory Rate 22 26 H Blood Pressure 97/51 L Pulse Oximetry 98 98 Oxygen Delivery Method Oxygen Flow Rate 11/25/23 07:05 11/25/23 07:10 11/25/23 07:15 Temperature Pulse Rate 60 62 70 Respiratory Rate 22 24 22 Blood Pressure Pulse Oximetry 100 99 100 Oxygen Delivery Method Oxygen Flow Rate 11/25/23 07:30 11/25/23 07:30 11/25/23 08:00 Temperature Pulse Rate 61 Respiratory Rate 21 Blood Pressure 84/49 L 86/49 L Pulse Oximetry 98 Oxygen Delivery Method Oxygen Flow Rate 11/25/23 08:00 11/25/23 08:21 Temperature 97.9 F Pulse Rate 65 Respiratory Rate 20 Blood Pressure Pulse Oximetry 99 Oxygen Delivery Method Oxygen Flow Rate Oxygen Delivery Method Oximask Oxygen Flow Rate 5 Narrative Exam Narrative: GEN: ill-appearing, on oxymask HEENT: dry mucous membranes, PERRL NECK: trachea midline, no JVD CV: regular rate and rhythm, no murmurs PULM:Air entry decreased at base with wheezing and crackles on left mid lung region ABD: soft, nontender, nondistended, no organomegaly EXT: warm and well perfused with no edema NEURO: awake, alert, oriented, no focal deficits Objective Labs 11/25/23 05:10 11/25/23 05:10 Labs: Laboratory Results - last 24 hr 11/24/23 11/24/23 11/24/23 17:00 17:02 17:20 WBC 15.1 H RBC 4.13 Hgb 11.4 L Hct 35.3 L MCV 85.6 MCH 27.6 MCHC 32.2 RDW 18.1 H Plt Count 204 Neut % (Auto) 77.1 H Lymph % (Auto) 16.6 L [place] % (Auto) 5.6 Eos % (Auto) 0.2 L Baso % (Auto) 0.5 Neut # (Auto) 74726 H Lymph # (Auto) 2500 [place] # (Auto) 800 Eos # (Auto) 0 Baso # (Auto) 100 PT INR ABG Sample Site ABG pH ABG pCO2 ABG pO2 ABG HCO3 ABG Total CO2 ABG O2 Saturation ABG Base Excess FiO2 Sodium 127 L Potassium 3.6 Chloride 92 L Carbon Dioxide 35 H BUN 23 H Creatinine 0.60 Estimated GFR > 60 BUN/Creatinine Ratio 38.3 H Glucose 117 H Lactate 2.2 H Calcium 9.4 Phosphorus Magnesium Total Bilirubin 0.5 AST 36 ALT 21 Alkaline Phosphatase 103 Troponin I 0.308 H* C-Reactive Protein NT-Pro-B Natriuret Pep 8120 H Total Protein 5.9 L Albumin 2.9 L Globulin 3.0 Albumin/Globulin Ratio 1.0 Urine Color Yellow Urine Appearance Clear Urine pH 5.5 Ur Specific [place] 1.015 Urine Protein Trace H Urine Glucose (UA) 1+ H Urine Ketones Negative Urine Occult Blood Trace-intact Urine Nitrate Negative Urine Bilirubin Negative Urine Urobilinogen 0.2 Ur Leukocyte Esterase 2+ H Urine RBC 0-1/hpf Urine WBC 10-30/hpf H Ur Squamous Epith Cells 0-1 /hpf D Urine Bacteria Many (>30) H Ur Culture Indicated? Specimen cultured Vol Urine Centrifuged Low vol <10ml (spun) A Chlamy pneumoniae PCR Adenovirus (PCR) B.parapertussis DNA PCR Coronavirus OC43 (PCR) Coronavirus HKU1 (PCR) Coronavirus 229E (PCR) SARS-CoV-2 (PCR) Coronavirus NL63 (PCR) Human Metapneumovir PCR Influenza Type A (PCR) Influenza Type B (PCR) M. pneumoniae (PCR) Parainfluenza 1 (PCR) Parainfluenza 2 (PCR) Parainfluenza 3 (PCR) Parainfluenza 4 (PCR) RSV (PCR) Entero/Rhino (PCR) 11/24/23 11/24/23 11/24/23 17:44 19:44 21:35 WBC RBC Hgb Hct MCV MCH MCHC RDW Plt Count Neut % (Auto) Lymph % (Auto) [place] % (Auto) Eos % (Auto) Baso % (Auto) Neut # (Auto) Lymph # (Auto) [place] # (Auto) Eos # (Auto) Baso # (Auto) PT INR ABG Sample Site Left radial ABG pH 7.35 ABG pCO2 60.6 H ABG pO2 27 L* ABG HCO3 34 H ABG Total CO2 35 H ABG O2 Saturation 45 L* ABG Base Excess 8.0 H FiO2 45 Sodium Potassium Chloride Carbon Dioxide BUN Creatinine Estimated GFR BUN/Creatinine Ratio Glucose Lactate 2.9 H Calcium Phosphorus Magnesium Total Bilirubin AST ALT Alkaline Phosphatase Troponin I C-Reactive Protein NT-Pro-B Natriuret Pep Total Protein Albumin Globulin Albumin/Globulin Ratio Urine Color Urine Appearance Urine pH Ur Specific [place] Urine Protein Urine Glucose (UA) Urine Ketones Urine Occult Blood Urine Nitrate Urine Bilirubin Urine Urobilinogen Ur Leukocyte Esterase Urine RBC Urine WBC Ur Squamous Epith Cells Urine Bacteria Ur Culture Indicated? Vol Urine Centrifuged Chlamy pneumoniae PCR Not detected Adenovirus (PCR) Not detected B.parapertussis DNA PCR Not detected Coronavirus OC43 (PCR) Not detected Coronavirus HKU1 (PCR) Not detected Coronavirus 229E (PCR) Not detected SARS-CoV-2 (PCR) Detected H Coronavirus NL63 (PCR) Not detected Human Metapneumovir PCR Not detected Influenza Type A (PCR) Not detected Influenza Type B (PCR) Not detected M. pneumoniae (PCR) Not detected Parainfluenza 1 (PCR) Not detected Parainfluenza 2 (PCR) Not detected Parainfluenza 3 (PCR) Not detected Parainfluenza 4 (PCR) Not detected RSV (PCR) Not detected Entero/Rhino (PCR) Not detected 11/25/23 05:10 WBC 19.4 H RBC 4.08 Hgb 11.0 L Hct 34.6 L MCV 84.8 MCH 27.0 MCHC 31.9 RDW 17.9 H Plt Count 217 Neut % (Auto) 96.8 H Lymph % (Auto) 1.7 L [place] % (Auto) 1.4 L Eos % (Auto) 0.0 L Baso % (Auto) 0.1 Neut # (Auto) 48831 H Lymph # (Auto) 300 L [place] # (Auto) 300 Eos # (Auto) 0 Baso # (Auto) 0 PT 17.7 H INR 1.5 H ABG Sample Site ABG pH ABG pCO2 ABG pO2 ABG HCO3 ABG Total CO2 ABG O2 Saturation ABG Base Excess FiO2 Sodium 130 L Potassium 3.7 Chloride 97 L Carbon Dioxide 27 BUN 21 H Creatinine 0.65 Estimated GFR > 60 BUN/Creatinine Ratio 32.3 H Glucose 169 H Lactate Calcium 9.2 Phosphorus 4.4 H Magnesium 1.6 Total Bilirubin 0.4 AST 36 ALT 25 Alkaline Phosphatase 98 Troponin I C-Reactive Protein 19.0 H NT-Pro-B Natriuret Pep Total Protein 5.6 L Albumin 2.8 L Globulin 2.8 Albumin/Globulin Ratio 1.0 Urine Color Urine Appearance Urine pH Ur Specific [place] Urine Protein Urine Glucose (UA) Urine Ketones Urine Occult Blood Urine Nitrate Urine Bilirubin Urine Urobilinogen Ur Leukocyte Esterase Urine RBC Urine WBC Ur Squamous Epith Cells Urine Bacteria Ur Culture Indicated? Vol Urine Centrifuged Chlamy pneumoniae PCR Adenovirus (PCR) B.parapertussis DNA PCR Coronavirus OC43 (PCR) Coronavirus HKU1 (PCR) Coronavirus 229E (PCR) SARS-CoV-2 (PCR) Coronavirus NL63 (PCR) Human Metapneumovir PCR Influenza Type A (PCR) Influenza Type B (PCR) M. 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 Chronic fatigue syndrome (~1992) COPD (chronic obstructive pulmonary disease) Depression Mumps (1949) Fibromyalgia (1992) Osteoporosis (1989) Migraines (1984) RLS (restless legs syndrome) Osteoarthritis Atrial fibrillation (2013) Surgical History Anesthesia History of bladder suspension procedure (1994) Other joint replacement by other means (1998) Previous back surgery (~12/17/22) S/P total abdominal hysterectomy and bilateral salpingo-oophorectomy (1964) Status post breast biopsy Family History Brother MVA (motor vehicle accident) Father CAD (coronary artery disease) Mother Pancreatic cancer Social History household members: children Smoking Status: Former smoker alcohol intake: former Assessment & Plan Assessment & Plan narrative: Patient is semi-comfort and will continue abx with symptom directed relief until hospice can open on 11/25. 1. Acute hypoxemic respiratory failure appears multifactorial due to combination of pneumonia viral with superimposed bacterial and further complicated by congestive heart failure. Treat the reversible factors including infection continue the diuresis 2 COVID infection/pneumonia. Though it has been 2 days, will give a dose of remdesivir with IV Decadron given the acute hypoxemia and trend closely 3 superimposed bacterial pneumonia with concerns for healthcare acquired pneumonia. Continue the IV Zosyn/vancomycin initiated in emergency room pending cultures 4 recurrent pleural effusion secondary to underlying congestive heart failure on a Pleurx catheter to be drained as per schedule. Per family, the output from the Pleurx catheter has decreased off late. Treat the underlying infection and trend closely 5. atrial fibrillation. Not in RVR. 6. history of hypertension but now hypotensive needing a brief course of Levophed but off the pressors. Hold the home blood pressure medications and monitor 7. DVT prophylaxis will be with SCDs/Eliquis 8. urinary tract infection. IV antibiotics for the pneumonia should also cover the UTI follow the cultures 8. NSTEMI. Troponin up to 0.6. Due to comfort goals of care will hold on heparin drip. Patient having no CP. Patient is now DNR/DNI. Polst updated Dispo: Home with hospice in 1-2 days.
[2023-11-25] MEDS: SODIUM CHLORIDE 0.9% 1,000 ML 1000 ML IV (09:15)
[2023-11-25 10:00] LABS: Lactate (Lactic Acid) 1.9 mmol/L (0.7-2.1)
[2023-11-25] MEDS: REMDESIVIR 100 MG in SODIUM CHLORIDE 0.9% 230 ML 250 MG IV (10:00)
[2023-11-25 10:14] LABS: Troponin I 0.607 ng/mL (0.01-0.034)
[2023-11-25] MEDS: MAGNESIUM SULFATE 2 GM/50 ML PIGGYBACK IV (11:12)
--- NOTE | 2023-11-25 15:11 | CM.DANOTE ---
Brief DCP Assessment Note Pt is a 83yo F here following hypoxia and COVID pos diagnosis. PCP Maday Gross Payer [facility] and Medicaid BOX SORTER reviewed EMR. Per chart review, pt was on [facility] services and revoked. Pt lives with dtr Cony in [place]. BOX SORTER unable to meet with pt or Dtr today due to triaging needs. Per hospitalist, confirmed pt will dc from here on hospice with dtr support. Updated POLST. CC Amelia kindly agreed to fax ref information to [facility]. BOX S[employer]TER spke with Sasha/Ishmael at [facility]. Able to have SOC Wed at 2pm in the home. Unsure which equip she has from previous hospice admission. Plan: anticipate dc tomorrow Tues with [facility] to follow Wed. Confirm DCP with pt/dtr tomorrow and confirm equip needs at home. CM team will follow KAHLIL Ayala Discharge Planning/Care Management CM Discharge Assessment Start: 11/25/23 15:09 Freq: Status: Active Protocol: Document 11/25/23 15:09 (Rec: 11/25/23 15:11 [id number]) Discharge Planning Assessment Assigned Telephone Installer KAHLIL Hercules DPOA/Assigned Designee Name randee Donnelly Contact Information [phone] Advance Directives? Yes Advance Directives on File Yes History Provided By Patient,Family Member Prior Living Arrangements House Household Members children Facility Name Admitted From: [facility] Independent with ADL's No Is patient alert and oriented? No Needs Assistance With Bathing,Eating,Grooming,Meal Prep,Toileting,Managing Medications,Home Chores / Shopping Comment previous [facility] involvement Comment unclear what [facility] equip they currently have Discharge Plan Hospice Additional Comment [facility] has referal Whiteboard Updated in Patient Room with No name and ext. # of Telephone Installer Review Status In Process Next Review Type Continued Stay Review
[2023-11-25 16:15] LABS: MRSA (Nasal) PCR DETECTED (Not Detect)
[2023-11-25] MEDS: ALBUTEROL/IPRATROPIUM 3 ML AMPUL INH (20:19)
[2023-11-25] MEDS: MORPHINE 2 MG/ML INJ IV (23:13)
[2023-11-26] MEDS: PIPERACILLIN/TAZO 3.375 GM in SODIUM CHLORIDE 0.9% 100 ML IV (04:31)
[2023-11-26 06:00] VITALS: BP 115/59; PULSE 75; RESP 17; TEMP 36; O2SAT 96
[2023-11-26] MEDS: DEXAMETHASONE 10 MG/ML VIAL 6 MG IV (08:24)
[2023-11-26] MEDS: VANCOMYCIN TROUGH 1 REQUEST MISC (08:34)
--- NOTE | 2023-11-26 09:02 | CM.DPC ---
DCP Cont. Reviewed EMR and team rounds for status updates. Pt had expressed wanting to d/c home today with dtr, [facility] services tomorrow 11/26 between 2-3:00pm. Called dtr, Cony. She expressed not feeling ready to take pt home today yet, has not arranged for in-home cg, and is waiting on DME delivery from Hospice. Spoke to the Hospitalist who is in agreement for pt to remain inpt until tomorrow morning. Plan is for dtr to transport home, although BLS may be necessary depending on pt's ability to transfer to chair. Will continue to monitor and plan for d/c tomorrow am.
[2023-11-26] MEDS: VANCOMYCIN 1,000 MG/200 ML PIGGYBACK 150 MG IV ×2 (09:18→19:41)
[2023-11-26] MEDS: ONDANSETRON 4 MG/2 ML INJ IV ×2 (09:18→17:56)
[2023-11-26 10:39] LABS: Vancomycin Trough 18.4 ug/mL (10-20)
[2023-11-26] MEDS: cefTRIAXone 2,000 MG in SODIUM CHLORIDE 0.9% 100 ML 200 MG IV (11:34)
[2023-11-26 12:30] LABS: Vancomycin Peak 29.2 ug/mL (20-40)
[2023-11-26] MEDS: VANCOMYCIN PEAK 1 REQUEST MISC (12:43)
[2023-11-26] MEDS: MORPHINE 2 MG/ML INJ IV (12:44)
[2023-11-26 14:00] VITALS: BP 104/56; PULSE 68; RESP 16; TEMP 36.4; O2SAT 98
--- NOTE | 2023-11-26 17:01 | PM.PN.1 ---
Subjective Subjective Interval history: Patient sleeping comfortably. Hospice to open tomorrow. Exam Vital Signs (past 8 hours): - 11/26/23 14:00 Temperature 97.6 F Pulse Rate 68 Respiratory Rate 16 Blood Pressure 104/56 L Pulse Oximetry 98 Oxygen Flow Rate 3 Oxygen Delivery Method Nasal Cannula Oxygen Flow Rate 3 Narrative Exam Narrative: GEN: ill-appearing, sleeping and comfortable HEENT: dry mucous membranes, PERRL NECK: trachea midline, no JVD CV: regular rate and rhythm, no murmurs PULM:Air entry decreased at base with wheezing and crackles on left mid lung region ABD: soft, nontender, nondistended, no organomegaly EXT: warm and well perfused with no edema Objective Labs 11/25/23 05:10 11/25/23 05:10 Labs: Laboratory Results - last 24 hr 11/26/23 11/26/23 07:34 11:55 Vancomycin Peak 29.2 Vancomycin Trough 18.4 PFSH Medical History Osteopenia Elevated brain natriuretic peptide (BNP) level Peripheral edema Elevated d-dimer Shortness of breath Chronic pain 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 Chronic fatigue syndrome (~1992) COPD (chronic obstructive pulmonary disease) Depression Mumps (1949) Fibromyalgia (1992) Osteoporosis (1989) Migraines (1984) RLS (restless legs syndrome) Osteoarthritis Atrial fibrillation (2013) Surgical History Anesthesia History of bladder suspension procedure (1994) Other joint replacement by other means (1998) Previous back surgery (~12/17/22) S/P total abdominal hysterectomy and bilateral salpingo-oophorectomy (1964) Status post breast biopsy Family History Brother MVA (motor vehicle accident) Father CAD (coronary artery disease) Mother Pancreatic cancer Social History household members: children Smoking Status: Former smoker alcohol intake: former Assessment & Plan Assessment & Plan narrative: Patient is semi-comfort and will continue abx with symptom directed relief until hospice can open on 11/26. 1. Acute hypoxemic respiratory failure appears multifactorial due to combination of pneumonia viral with superimposed bacterial and further complicated by congestive heart failure. Treat the reversible factors including infection continue the diuresis 2 COVID infection/pneumonia. Though it has been 2 days, will give a dose of remdesivir with IV Decadron given the acute hypoxemia and trend closely 3 superimposed bacterial pneumonia with concerns for healthcare acquired pneumonia. Continue the IV Zosyn/vancomycin initiated in emergency room pending cultures 4 recurrent pleural effusion secondary to underlying congestive heart failure on a Pleurx catheter to be drained as per schedule. Per family, the output from the Pleurx catheter has decreased off late. Treat the underlying infection and trend closely 5. atrial fibrillation. Not in RVR. 6. history of hypertension but now hypotensive needing a brief course of Levophed but off the pressors. Hold the home blood pressure medications and monitor 7. DVT prophylaxis will be with SCDs/Eliquis 8. urinary tract infection. IV antibiotics for the pneumonia should also cover the UTI follow the cultures 8. NSTEMI. Troponin up to 0.6. Due to comfort goals of care will hold on heparin drip. Patient having no CP. Patient is now DNR/DNI. Polst updated Dispo: Home with hospice on 11/26.
[2023-11-26 20:00] VITALS: BP 109/66; PULSE 93; RESP 19; TEMP 36.2; O2SAT 99
[2023-11-27 04:00] VITALS: BP 105/59; PULSE 76; RESP 17; TEMP 36.7; O2SAT 97
--- NOTE | 2023-11-27 08:13 | PM.DS.1 ---
History of Present Illness History of Present Illness Chief complaint: Hypoxia Narrative: 83 years old female with a past medical history of congestive heart failure, recurrent pleural effusion on the Pleurx catheter drain, COPD, pulm embolism, atrial fibrillation on Eliquis, asthma and multiple other medical issues was brought to the emergency room for progressive shortness of breath with hypoxemia. Patient was recently diagnosed with COVID-pneumonia and was being treated. Denies any chest pain palpitations dizziness. Noted to be hypoxemic on arrival with chest x-ray concerning for pneumonia. CT chest is confirming pneumonia primarily in the left lung and no embolism. Labs revealed a white count of 15.1 with a hemoglobin of 0.4. ABG showed a pH of 7.35 with a pCO2 of 60.6. BMP showed a sodium of 120 with a creatinine of 0.6 and a troponin of 0.308/BNP of 8100. Urine analysis showed 10-30 WBCs. COVID was detected. Patient was also noted to be initially hypotensive needing a brief course of Levophed in the emergency room and was given IV Solu-Medrol/Zosyn and vancomycin with nebulizers and oxygen supplementation. Patient was admitted for further evaluation Discharge Providers Provider Date of admission: 11/24/23 21:15 Discharge Date: 11/26/23 Primary care physician: Maday Gross DO Discharge provider: Jewel Sen DO Summary Hospital Course Discharge Diagnosis: 1. Acute hypoxemic respiratory failure appears multifactorial due to combination of pneumonia viral with superimposed bacterial and further complicated by congestive heart failure. Treat the reversible factors including infection continue the diuresis 2 COVID infection/pneumonia. Though it has been 2 days, will give a dose of remdesivir with IV Decadron given the acute hypoxemia and trend closely 3 superimposed bacterial pneumonia with concerns for healthcare acquired pneumonia. Continue the IV Zosyn/vancomycin initiated in emergency room pending cultures 4 recurrent pleural effusion secondary to underlying congestive heart failure on a Pleurx catheter to be drained as per schedule. Per family, the output from the Pleurx catheter has decreased off late. Treat the underlying infection and trend closely 5. atrial fibrillation. Not in RVR. 6. history of hypertension but now hypotensive needing a brief course of Levophed but off the pressors. Hold the home blood pressure medications and monitor 7. DVT prophylaxis will be with SCDs/Eliquis 8. urinary tract infection. IV antibiotics for the pneumonia should also cover the UTI follow the cultures 8. NSTEMI. Troponin up to 0.6. Due to comfort goals of care will hold on heparin drip. Patient having no CP. Hospital Course: Admitted for hypoxic resp failure, septic shock, NSTEMI and COVID. Had GOC discussion about poor prognosis given all of her medical problems. Patient did quite well at home with hospice, and is too ill to be rehabbed at SNF. POLST was filled out indicating DNR and comfort measures. Patient was discharged back home with hospice. Exam Vital Signs (past 8 hours): - 11/26/23 06:00 Temperature 96.8 F L Pulse Rate 75 Respiratory Rate 17 Blood Pressure 115/59 L Pulse Oximetry 96 Oxygen Flow Rate 0 Oxygen Delivery Method Nasal Cannula Oxygen Flow Rate 0 Narrative Exam Narrative: GEN: ill-appearing HEENT: dry mucous membranes, PERRL NECK: trachea midline, no JVD CV: regular rate and rhythm, no murmurs PULM:Air entry decreased at base with wheezing and crackles on left mid lung region ABD: soft, nontender, nondistended, no organomegaly EXT: warm and well perfused with no edema NEURO: awake, alert, oriented, no focal deficits Objective Labs 11/25/23 05:10 11/25/23 05:10 Labs: Laboratory Results - last 24 hr 11/25/23 11/25/23 11/25/23 06:41 09:41 09:45 Lactate 1.9 Troponin I 0.607 H* Nasal Screen MRSA (PCR) Detected H [facility] Medical History Osteopenia Elevated brain natriuretic peptide (BNP) level Peripheral edema Elevated d-dimer Shortness of breath Chronic pain 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 Chronic fatigue syndrome (~1992) COPD (chronic obstructive pulmonary disease) Depression Mumps (1949) Fibromyalgia (1992) Osteoporosis (1989) Migraines (1984) RLS (restless legs syndrome) Osteoarthritis Atrial fibrillation (2013) Surgical History Anesthesia History of bladder suspension procedure (1994) Other joint replacement by other means (1998) Previous back surgery (~12/17/22) S/P total abdominal hysterectomy and bilateral salpingo-oophorectomy (1964) Status post breast biopsy Family History Brother MVA (motor vehicle accident) Father CAD (coronary artery disease) Mother Pancreatic cancer Social History household members: children Smoking Status: Former smoker alcohol intake: former Discharge Plan Discharge Plan Patient Disposition: Hospice - Home Provider Discharge Comment: You were found to have a urinary infection and COVID. Please finish the prescribed steroids and antibiotics at home when hospice resumes. Discharge orders & Medications Prescriptions: New dexamethasone 6 mg tablet 6 mg PO DAILY 6 Days Qty: 6 0RF Rx Instructions: start on 11/26 ciprofloxacin HCl [Cipro] 500 mg tablet 500 mg PO BID 5 Days Qty: 10 0RF Continued Disabled Parking Permit See Rx Instructions .ROUTE .COMPLEX Qty: 1 0RF Rx Instructions: I find this patient to be medically disabled and qualify for disabled parking as indicated and signed on the accompanying disabled parking application for individuals. metoprolol tartrate 25 mg tablet 25 mg PO DAILY Rx Instructions: hold SBP<100 or pulse <60 trazodone 50 mg tablet 50 mg PO BEDTIME potassium chloride 20 mEq tablet extended release 10 meq PO DAILY Lactobacillus acidophilus capsule 1 cap PO BID Rx Instructions: may d/c after atb completes Lactobacillus acidophilus capsule 1 cap PO BID Rx Instructions: may d/c after atb completes empagliflozin 10 mg capsule 1 cap PO 1XD melatonin 3 mg Tablet 3 mg PO BEDTIME miconazole nitrate [Antifungal (miconazole)] 2 % Cream 1 applic TOPICAL DAILY Rx Instructions: apply to skin folds topically every day shift for redness or evidence of fungal rash multivitamin Tablet 1 tab PO DAILY mirtazapine [Remeron] 15 mg Tablet 15 mg PO BEDTIME sertraline 50 mg Tablet 50 mg PO DAILY omeprazole 20 mg capsule,delayed release(DR/EC) 20 mg PO DAILY tramadol 50 mg tablet 50 mg PO Q4HR PRN (Reason: severe pain (4-10)) albuterol sulfate 90 mcg/actuation HFA aerosol inhaler 2 puff inhalation Q4-6H PRN (Reason: wheezing) Acid Signal Wirer (omeprazole) capsule 20 mg PO AC sumatriptan succinate [Imitrex] 100 mg tablet 100 mg PO PRN PRN (Reason: migraines) Rx Instructions: May repeat in 2 hours if needed, max 2tab/24 hours. gabapentin 300 mg capsule 600 mg PO TID furosemide 20 mg tablet 60 mg PO BID Rx Instructions: hold SBP<100 or pulse<60 spironolactone 25 mg tablet 25 mg PO DAILY digoxin 125 mcg (0.125 mg) tablet 125 mcg PO DAILY Eliquis 5 mg tablet 2.5 mg PO BID fluticasone propion-salmeterol 500-50 mcg/dose blister with device 1 inh inhalation BID Qty: 60 11RF Rx Instructions: rinse mouth with water, gargle and spit after each use Follow up/Referrals: Maday Gross DO [Primary Care Provider] - 2 Weeks Visit Report/Discharge Packet Stand Alone Forms: Patient Portal/API, Stroke Signs & Symptoms Discharge Data Primary Care Provider: Maday Gross
--- NOTE | 2023-11-27 08:49 | CM.DPC ---
DCP Cont. Reviewed EMR and team rounds for status updates. Plan is for pt to d/c this morning at 10:30, her dtr will arrive about 10:15 to go over d/c paperwork with the RN. No further DCP needs identified at this time.
[2023-11-27] MEDS: DEXAMETHASONE 10 MG/ML VIAL 6 MG IV (09:00)
== END 2023-11-27 10:50 | disposition hospice, home (50) | DRG 871 ==
LOC: ED 21:14 → AC 21:16 → ICU 21:55
PROVIDERS: Emergency Medicine; Student in an Organized Health Care Education/Training Program; Admitting Provider Internal Medicine; Emergency Provider Emergency Medicine; PCP Family Medicine; Referring Provider Emergency Medicine; Visit Provider Internal Medicine
DX: A41.9 Sepsis, unspecified organism (principal); I21.4 Non-ST elevation (NSTEMI) myocardial infarction; R65.21 Severe sepsis with septic shock; J96.01 Acute respiratory failure with hypoxia; U07.1 COVID-19; J12.82 Pneumonia due to coronavirus disease 2019; N39.0 Urinary tract infection, site not specified; I48.91 Unspecified atrial fibrillation; I50.9 Heart failure, unspecified; I11.0 Hypertensive heart disease with heart failure; F32.A Depression, unspecified; Z51.5 Encounter for palliative care; Z79.01 Long term (current) use of anticoagulants; Z66 Do not resuscitate; Z87.891 Personal history of nicotine dependence
CPT/HCPCS: 36415; 36600; 71045; 71275; 80053; 80202; 81001; 82805; 83605; 83735; 83880; 84100; 84484; 85025; 85610; 86140; 87040; 87077; 87086; 87186; 87633; 87797; 93005; 93010; 94660; 94762; 96365; 96366; 96367; 96375; 99284; 99291; J0696; J1100; J2270; J2405; J2543; J2919; J3475; Q9967